=== PATIENT | female | born 1945 | race Caucasian/White ===

== ENCOUNTER 2016-12-01 09:35 | Inpatient (IN) | payer OTHER ==
[2016-11-14 11:31] VITALS: BMI 38.0
--- NOTE | 2016-11-14 12:04 | PAT Medication Instructions ---
Service Date Nov 14, 2016. Current Home Medication List Cholecalciferol (Vitamin D3), 2,000 UNITS PO NOON Cyanocobalamin (Vitamin B-12 Inj), 1,000 MCG IM MONTHLY Dapsone (Dapsone), 1 TAB PO BID Duloxetine HCl (Duloxetine HCl), 1 CAP PO QPM Levothyroxine Sodium (Levothyroxine Sodium), 1 TAB PO QAM Losartan Potassium (Cozaar), 100 MG PO QAM Medication Instructions For Your Scheduled Surgery Cyanocobalamin (Vitamin B-12 Inj), 1,000 MCG IM MONTHLY (continue as usual) - Hold the following medications the morning of surgery: Losartan Potassium (Cozaar), 100 MG PO QAM Cholecalciferol (Vitamin D3), 2,000 UNITS PO NOON Dapsone (Dapsone), 1 TAB PO BID (can take after surgery) - Take the following medications the morning of surgery with a sip of water: Levothyroxine Sodium (Levothyroxine Sodium), 1 TAB PO QAM - Take the following medications as scheduled the night before surgery: Duloxetine HCl (Duloxetine HCl), 1 CAP PO QPM Dapsone (Dapsone), 1 TAB PO BID If you have any questions please call us at [phone] or [phone] ( Radha) or [phone]
[2016-11-14 12:32] LABS: URINE APPEARANCE CLEAR (CLEAR); URINE BILIRUBIN NEG (NEG); URINE COLOR YELLOW; URINE EPITHELIAL CELL AUTO 20-30 /lpf (0-5); URINE NITRITE POS (NEG); URINE SPECIFIC GRAVITY 1.013 (1.000-1.030); UROBILINOGEN NEG (NEG)
[2016-11-14 12:34] LABS: MANUAL MICROSCOPIC REQUIRED? NO; REVIEW REQ? NO
[2016-11-14 12:40] LABS: PROTHROMBIN TIME (PATIENT) 10.6 SECONDS (9.0-12.0)
[2016-11-14 12:52] LABS: ESTIMATED AVERAGE GLUCOSE 74 mg/dl; HA1C FLAG Normal (Normal)
--- NOTE | 2016-11-14 12:53 | DIAGNOSTIC IMAGING REPORT ---
CHEST 2 VIEWS ROUTINE CLINICAL HISTORY: PAT preoperative evaluation COMPARISON STUDY: 07/30/2015 FINDINGS: The bones soft tissues and hemidiaphragms are normal. The cardiomediastinal silhouette is normal. The lungs are clear. The pulmonary vasculature is normal. IMPRESSION: Negative chest. Electronically signed by: Francesco Noonan M.D. 11/14/2016 12:52 PM Dictated Date/Time: 11/14/2016 12:52 PM
[2016-11-14 12:54] LABS: BUN/CREATININE RATIO 22.9 (10-20); CALCIUM 9.2 mg/dl (8.5-10.1); CREATININE 0.86 mg/dl (0.60-1.20); POTASSIUM 4.9 mmol/L (3.5-5.1)
--- NOTE | 2016-11-30 13:15 | HISTORY & PHYSICAL EXAMINATION ---
DATE OF ADMISSION: 12/01/2016 CHIEF COMPLAINT: Right hip pain. HISTORY OF PRESENT ILLNESS: The patient is a 71-year-old female seen and evaluated in our office for complaints of right hip pain and disability. She has pain with prolonged weightbearing and standing activities. She has difficulty in kneeling, bending, and squatting activities. She now desires to proceed with right total hip arthroplasty. PAST MEDICAL HISTORY: Pernicious anemia, hypothyroidism, hypertension, depression, prolonged QT interval. PAST SURGICAL HISTORY: Tonsillectomy, ovarian cyst, cholecystectomy. MEDICATIONS: Levoxyl 125 mcg daily, Cymbalta 60 mg daily, dapsone 25 mg 2 tablets in the a.m. and 2 tablets in the evening, losartan potassium 100 mg half tablet daily, multivitamin daily. ALLERGIES: No known drug allergies. SOCIAL HISTORY AND REVIEW OF SYSTEMS: Noncontributory. PHYSICAL EXAMINATION: GENERAL: Well-nourished, well-developed female who appears her stated age. HEENT: Normocephalic, atraumatic, extraocular movements intact, oropharynx pink and moist. NECK: Supple without adenopathy. LUNGS: Clear to auscultation bilaterally. HEART: Regular rate and rhythm. ABDOMEN: Soft, nontender, nondistended, obese. EXTREMITIES: The upper extremities are within normal limits. The right hip demonstrates limited range of motion. There is limitation of active and passive internal/external rotation with pain at end range. X-RAYS: X-rays were reviewed. She has moderate degenerative change about the right hip with narrowing of the joint space. There is osteophyte formation about the femoral head and acetabulum. ASSESSMENT: Right hip degenerative joint disease. PLAN: Risks versus benefits were discussed. Consent was obtained. The patient's primary care physician is Dr. Nathaniel Muro. Will proceed with right total hip arthroplasty upon preoperative workup and medical clearance.
[2016-12-01] VITALS (7 sets, daily range): BP systolic 106–141; BP diastolic 69–82; PULSE 77–96; TEMP 36.4–36.8; O2SAT 92–99; Ht 162.6 cm; Wt 102.0 kg
[~2016-12-01] VITALS: Ht 162.6 cm; Wt 102.0 kg
[2016-12-01] MEDS: TRANEXAMIC ACID INJ 1,000 MG in SODIUM CHLORIDE 0.9% 100ML 100 ML IV SCH ×2 (06:30→10:22)
[~2016-12-01 09:35] MED LIST: ACETAMINOPHEN 500 MG TAB PO SCH; BUPIVACAINE 0.5 % 5 MG/1 ML PF 10ML VIAL ONE; CEFAZOLIN 2000 MG/60 ML D5W 60 ML IV SCH; CHOL1CAP57 PO; CYAN10002 IM; CYM60 PO; CeleBREX 200 MG CAP PO SCH; DEXAMETHASONE 4 MG TAB PO SCH; DPS25 PO; FAMOTIDINE 20 MG TAB PO SCH; GABAPENTIN 300 MG CAP PO SCH; LACTATED RINGER'S 1000ML 1,000 ML IV SCH; LACTATED RINGER'S 1000ML 500 ML IV ONE; LACTATED RINGER'S 1000ML IV SCH; LEVO125T4 PO; LOSA100T65 PO; METOCLOPRAMIDE HCL 10 MG TAB PO SCH; MIDAZOLAM HCL 1 MG/ML 2ML VIAL ONE; ROPIVACAINE 5MG/ML 30 ML 150 MG, BUPIVACAINE/EPINEPHR 0.5% MPF 30 ML, KETOROLAC TROMETH... INFIL SCH
--- NOTE | 2016-12-01 10:07 | History & Physical Bridge Note ---
H&P Re-Evaluation Bridge Note: I have examined the patient, reviewed the History & Physical and in the interval since the performance of the History & Physical I have noted the following changes of clinical significance: No changes noted
[2016-12-01] MEDS ORDERED: ATROPINE SULFATE 0.1 MG/ML 5ML SYR IV PRN (11:15)
[2016-12-01] MEDS ORDERED: FENTANYL CITRATE INJ 50 MCG/1 ML 2 ML VIAL IV PRN (11:15)
[2016-12-01] MEDS ORDERED: ONDANSETRON INJ 2 MG/ML 2 ML VIAL IV PRN ×2 (11:15→14:00)
[2016-12-01] MEDS ORDERED: EpHEDrine SULFATE INJ 50 MG/ML AMP IV PRN (11:15)
[2016-12-01] MEDS ORDERED: POVIDONE-IODINE OP SOLN 30 ML BTL ONE (11:33)
[2016-12-01] MEDS ORDERED: BACITRACIN 50000 UNIT VIAL ONE (11:33)
[2016-12-01] MEDS ORDERED: ORTHO JOINT ANESTHETIC ONE (11:33)
[2016-12-01] MEDS ORDERED: PROPOFOL IV EMULSION 10 MG/ML 20 ML VIAL IV ONE (12:32)
[2016-12-01] MEDS ORDERED: LIDOCAINE HCL 2% 2 ML VIAL (20MG/ML) ONE ×2 (12:32→12:42)
[2016-12-01] MEDS ORDERED: PHENYLEPHRINE 100MCG/ML 5ML SYR ONE (12:47)
[2016-12-01] MEDS ORDERED: EpHEDrine SULFATE 50MG/5ML SYR ONE (12:47)
--- NOTE | 2016-12-01 13:14 | [facility] Post Operative Brief Note ---
Immediate Operative Summary Operative Date Dec 01, 2016. Pre-Operative Diagnosis Right hip degenerative joint disease Post-Operative Diagnosis same as preoperative diagnosis Procedure(s) Performed Right Total Hip Arthroplasty uncemented Surgeon Dr. Munoz [employer] Surgeon(s) Phill Allred PA-C Estimated Blood Loss 150ml Findings OA with obesity Specimens A. Right femoral head Complication(s) None Disposition Surgical ICU
--- NOTE | 2016-12-01 13:41 | OPERATIVE REPORT ---
DATE OF OPERATION: 12/01/2016 PREOPERATIVE DIAGNOSIS: Osteoarthritis right hip. POSTOPERATIVE DIAGNOSIS: Osteoarthritis right hip. PROCEDURE: Right connective total hip arthroplasty. SURGEON: Dr. Munoz. RESTROOMS OR LOUNGES MAID: Nasrin. ANESTHESIA: spinal . COMPLICATIONS: None. OPERATION AND FINDINGS: PROCEDURE: Following induction of adequate anesthesia, the patient was placed in left lateral decubitus position and right Joni-Langenbeck incision was made. Subcutaneous tissue was sharply dissected. Electrocautery used for hemostasis. The fascia was incised throughout the length of the wound and a lockhart scissor placed beneath the short external rotators. The pyriformis was tagged with #1 Vicryl. The short external rotators were divided from the posterior aspect of the femur using electrocautery. These were swept posteriorly. A T-capsulotomy incision was made and the hip was dislocated using a combination of flexion, adduction, and internal rotation. Exposure of the femoral neck with old-style Hohmann and a blunt Hohmann was carried out and a femoral rasp was utilized as a guide for making the appropriate level femoral neck cut. This bone fragment was removed and reserved on the back table. Next, attention was turned to the acetabulum where bone hook was used to retract the femur while the offset retractors were placed anterior and posteriorly. A double-angled Hohmann was placed in superior and anterior position exposing the acetabulum nicely. Acetabular labrum as well as posterior capsule elements were removed using a long knife and a long pickup. Fovea centralis was cleared of all soft tissue. Sequential reamings were carried up to a size 50 and decision was made to proceed with impaction of a size 50 trabecular metal cup. This was impacted and held using a single 35 mm bone screw. The acetabular liner was placed with 15 of elevated posterior wall in the superior and posterior position. Next, attention was turned to the femoral portion of the case where a Bovie and pickup was used to further clear short external rotators from their insertion on the femur. Box osteotome was used to gain access to the femoral canal and the T-handled rasp and a rattail rasp were used to further open and lateral the canal. Sequentially raspings were carried up to a size 4 which gave good fit and fill of the proximal femur. A trial reduction was carried out and size 4 offset femoral neck component was chosen as the size to be used. A -5 x 36 mm ceramic femoral head was impacted into position, +0 head was utilized. The trial reduction was stable in all degrees of rotation with no [id number] impingement. The hip was dislocated. The trial components were removed and the final femoral stem, neck, and femoral head combination were assembled on the back table and impacted into position. Hip was relocated. Range of motion checked once again successful and the wound was irrigated. The pyriformis repaired to the greater trochanter using #1 Vicryl [id number] suture. A Prevena drain was placed and the fascia was closed using #1 Vicryl, subcutaneous tissue was closed using 0 Dexon, and skin was closed with sheyla. Sterile dressing of Adaptic, 4 x 4's, ABDs, and foam tape was applied. The patient tolerated the procedure well. Recovery room stable. Due to the complex nature of the procedure, the entire surgery was performed with the operational assistance of ____MANSOOR. The res habilitation assistant, under direct supervision, was involved in the actual performance of all aspects of the surgical procedure including hemostasis, tissue retraction and incision, instrument management, patient positioning, and wound closure. I attest to the content of the Intraoperative Record and any orders documented therein. Any exceptions are noted below. [place]
[2016-12-01] MEDS ORDERED: DiphenhydrAMINE HCL 50 MG/ML VIAL IV PRN (14:00)
[2016-12-01] MEDS ORDERED: ZOLPIDEM TARTRATE 5 MG TAB PO PRN (14:00)
[2016-12-01] MEDS ORDERED: ALUMINUM/MAGNESIUM/SIMETH (MAALOX MAX) 30 ML UDC PO PRN (14:00)
[2016-12-01] MEDS ORDERED: MAGNESIUM HYDROXIDE SUSP 30 ML UDC PO PRN (14:00)
[2016-12-01] MEDS ORDERED: MoRPHine SULFATE 2 MG/ML CARP IV PRN (14:00)
[2016-12-01] MEDS ORDERED: BISACODYL 10 MG SUPP PR PRN (14:00)
--- NOTE | 2016-12-01 14:22 | Anesthesiology Progress Note ---
Anesthesia Post Op Note Date & Time Dec 01, 2016 at 14:23 Vital Signs Pain Intensity: 0 Vital Signs Past 12 Hours Date Time Temp Pulse Resp B/P Pulse Ox O2 Delivery O2 Flow Rate FiO2 12/01/16 14:20 87 20 12/01/16 14:20 87 20 99 12/01/16 14:19 133/80 12/01/16 14:15 84 22 12/01/16 14:15 84 22 98 12/01/16 14:14 134/76 12/01/16 14:10 87 15 12/01/16 14:10 87 15 100 12/01/16 14:09 85 15 12/01/16 14:09 85 15 100 12/01/16 14:05 114/95 12/01/16 14:04 87 20 12/01/16 14:04 87 20 100 12/01/16 13:59 89 17 12/01/16 13:59 87 17 116/73 99 12/01/16 13:54 83 17 12/01/16 13:54 84 17 113/64 99 12/01/16 13:49 36.2 83 15 115/67 100 Mask 10 12/01/16 13:49 83 17 110/55 12/01/16 13:49 17 12/01/16 09:54 36.8 93 18 141/72 92 Room Air Notes Mental Status: alert / awake / arousable, participated in evaluation Pt Amnestic to Procedure: Yes Nausea / Vomiting: adequately controlled Pain: adequately controlled Airway Patency, RR, SpO2: stable & adequate BP & HR: stable & adequate Hydration State: stable & adequate Neuraxial Anesthesia: was administered, sensory block is resolving Anesthetic Complications: no major complications apparent
--- NOTE | 2016-12-01 14:23 | DIAGNOSTIC IMAGING REPORT ---
AP PELVIS, CROSSTABLE LATERAL RIGHT HIP History: Right total hip arthroplasty. Degenerative arthritis. Postop. FINDINGS: The patient is status post a right total hip arthroplasty. The hardware is intact. No fracture or dislocation. Skin sheyla and surgical drains are in place. IMPRESSION: Right total hip arthroplasty. No evidence for hardware complication Electronically signed by: Rex Small M.D. 12/01/2016 2:22 PM Dictated Date/Time: 12/01/2016 2:21 PM
[2016-12-01] MEDS ORDERED: MoRPHine SULFATE 10 MG/ML CARP/VIAL IV PRN (15:15)
[2016-12-01] MEDS ORDERED: MoRPHine SULFATE 4 MG/ML 1 ML CARP\\VIAL IV PRN (15:15)
[2016-12-01] MEDS: D5W AND 1/2NSS + 20MEQ KCL 1,000 ML IV SCH (16:54)
[2016-12-01] MEDS: OXYCODONE HCL IR 5 MG TAB (IMMEDIATE RELEASE) PO PRN ×2 (16:54→20:25)
[2016-12-01] MEDS: FERROUS GLUCONATE 324 MG TAB PO SCH (20:15)
[2016-12-01] MEDS: KETOROLAC TROMETHAMINE 15 MG/ML VIAL IV. SCH ×2 (20:16→23:48)
[2016-12-01] MEDS: CEFAZOLIN IV 2,000 MG in DEXTROSE 5% 50ML 50 ML IV SCH (20:24)
[2016-12-01] MEDS: DULOXETINE HCL 60 MG CAP PO SCH (20:31)
[2016-12-01] MEDS: DOCUSATE SODIUM 100 MG CAP PO SCH (20:32)
[2016-12-01] MEDS: SENNA 8.6 MG TAB PO SCH (20:34)
[2016-12-01] MEDS: DAPSONE 25 MG TAB PO SCH (20:34)
[2016-12-01] MEDS: ASPIRIN 81 MG ECTAB PO SCH (20:34)
[2016-12-01] MEDS: ACETAMINOPHEN 500 MG TAB PO SCH (22:32)
[2016-12-02] VITALS (8 sets, daily range): BP systolic 105–143; BP diastolic 60–79; PULSE 78–94; TEMP 36.6–36.9; O2SAT 94–97
[2016-12-02] MEDS: D5W AND 1/2NSS + 20MEQ KCL 1,000 ML IV SCH (03:45)
[2016-12-02] MEDS: CEFAZOLIN IV 2,000 MG in DEXTROSE 5% 50ML 50 ML IV SCH (03:48)
[2016-12-02] MEDS: OXYCODONE HCL IR 5 MG TAB (IMMEDIATE RELEASE) PO PRN ×3 (03:49→21:43)
[2016-12-02] MEDS: LEVOTHYROXINE 125 MCG TAB PO SCH (05:53)
[2016-12-02] MEDS: ACETAMINOPHEN 500 MG TAB PO SCH ×3 (05:53→21:41)
[2016-12-02] MEDS: KETOROLAC TROMETHAMINE 15 MG/ML VIAL IV. SCH ×2 (05:53→11:56)
[2016-12-02 05:56] LABS: BASO % 0.1 %; BASO ABS # 0.02 K/uL (0-0.2); COMPLETE YES; HEMATOCRIT 27.8 % (37-47); IG% 0.3 %; LYMPH % 6.9 %; LYMPH ABS # 1.26 K/uL (1.2-3.4); MEAN CELL VOLUME 91.1 fL (80-100); MEAN CORPUSCULAR HEMOGLOBIN 29.5 pg (25-34); MEAN CORPUSCULAR HGB CONC 32.4 g/dl (32-36); MEAN PLATELET VOLUME 10.3 fL (7.4-10.4); NEUT % 83.7 %; PLATELET COUNT 240 K/uL (130-400); RED BLOOD COUNT 3.05 M/uL (4.2-5.4)
[2016-12-02 06:28] LABS: BUN/CREATININE RATIO 22.8 (10-20); CALCIUM 8.4 mg/dl (8.5-10.1); CREATININE 1.1 mg/dl (0.60-1.20); POTASSIUM 4.8 mmol/L (3.5-5.1)
--- NOTE | 2016-12-02 07:44 | Orthopedic Progress Note ---
Orthopedic Progress Note Date of Service Dec 02, 2016. Subjective Post OP Day: 1 Reports: feeling well Objective N/V intact, dressing C/D/I (Hemovac in place), toes mobile Date Time Temp Pulse Resp B/P Pulse Ox O2 Delivery O2 Flow Rate FiO2 12/02/16 07:00 Room Air 12/02/16 03:39 36.8 91 18 143/79 95 Room Air 12/01/16 23:45 Room Air 12/01/16 23:23 36.5 77 18 112/71 94 Room Air 12/01/16 19:05 36.4 94 16 106/69 92 Nasal Cannula 2.0 12/01/16 17:31 36.6 96 114/73 94 Nasal Cannula 2.0 12/01/16 16:23 36.4 96 16 140/82 99 Nasal Cannula 2.0 12/01/16 16:00 36.6 94 16 136/81 97 Nasal Cannula 2.0 12/01/16 15:30 96 Nasal Cannula 2.0 12/01/16 15:30 96 Nasal Cannula 2.0 12/01/16 15:14 120/83 12/01/16 15:10 97 17 97 12/01/16 15:10 98 17 12/01/16 15:09 119/79 12/01/16 15:05 98 18 98 12/01/16 15:05 97 18 12/01/16 15:04 132/80 12/01/16 15:02 96 16 98 12/01/16 15:02 96 16 12/01/16 14:59 124/77 12/01/16 14:57 96 17 98 12/01/16 14:57 97 17 12/01/16 14:54 136/90 12/01/16 14:52 95 17 98 12/01/16 14:52 95 17 12/01/16 14:49 135/101 12/01/16 14:47 92 16 97 12/01/16 14:47 92 16 12/01/16 14:44 127/90 12/01/16 14:42 91 15 12/01/16 14:42 91 15 98 12/01/16 14:39 137/80 12/01/16 14:37 91 16 12/01/16 14:37 91 16 98 12/01/16 14:34 122/69 12/01/16 14:32 89 16 12/01/16 14:32 88 16 97 12/01/16 14:31 88 15 99 12/01/16 14:31 88 15 12/01/16 14:29 136/66 12/01/16 14:26 88 17 99 12/01/16 14:26 87 17 12/01/16 14:24 134/79 12/01/16 14:21 88 15 98 12/01/16 14:21 88 15 12/01/16 14:20 36.6 12/01/16 14:20 87 20 12/01/16 14:20 87 20 99 12/01/16 14:19 133/80 12/01/16 14:15 84 22 12/01/16 14:15 84 22 98 12/01/16 14:14 134/76 12/01/16 14:10 87 15 12/01/16 14:10 87 15 100 12/01/16 14:09 85 15 12/01/16 14:09 85 15 100 12/01/16 14:05 114/95 12/01/16 14:04 87 20 12/01/16 14:04 87 20 100 12/01/16 13:59 89 17 12/01/16 13:59 87 17 116/73 99 12/01/16 13:54 83 17 12/01/16 13:54 84 17 113/64 99 12/01/16 13:49 36.2 83 15 115/67 100 Mask 10 12/01/16 13:49 83 17 110/55 12/01/16 13:49 17 12/01/16 09:54 36.8 93 18 141/72 92 Room Air Laboratory Results 24 Hours: Test 12/02/16 05:40 White Blood Count 18.20 K/uL Red Blood Count 3.05 M/uL Hemoglobin 9.0 g/dL Hematocrit 27.8 % Mean Corpuscular Volume 91.1 fL Mean Corpuscular Hemoglobin 29.5 pg Mean Corpuscular Hemoglobin Concent 32.4 g/dl Platelet Count 240 K/uL Mean Platelet Volume 10.3 fL Neutrophils (%) (Auto) 83.7 % Lymphocytes (%) (Auto) 6.9 % Monocytes (%) (Auto) 9.0 % Eosinophils (%) (Auto) 0.0 % Basophils (%) (Auto) 0.1 % Neutrophils # (Auto) 15.23 K/uL Lymphocytes # (Auto) 1.26 K/uL Monocytes # (Auto) 1.64 K/uL Eosinophils # (Auto) 0.00 K/uL Basophils # (Auto) 0.02 K/uL Assessment & Plan Assessment: 71 yo female stable POD #1 s/p right CEDRIC, acute blood loss anemia(h/o pernicious anemia) Plan: 1. Med management 2. DVT prophylaxis- ASA, TEDs, SCDs 3. PT/OT 4. D/C planning- home w/ HH
--- NOTE | 2016-12-02 07:47 | Discharge Instructions ---
Discharge Instructions Admission Reason for Admission: Right Hip Osteoarthritis Discharge Discharge Diagnosis / Problem: right hip arthritis Discharge Goals Goal(s): Decrease discomfort, Improve function Activity Recommendations Activity Limitations: as noted below Weightbearing Status: Right weightbearing (as tolerated) . Instructions / Follow-Up Instructions / Follow-Up ACTIVITY RECOMMENDATIONS: SELF CARE INSTRUCTIONS AFTER TOTAL HIP REPLACEMENT Until the incision and soft tissues around your hip have healed, there is a possibility that the hip prosthesis could dislocate. A. Observe the following precautions to prevent dislocation: 1. Don't bend your hip greater than 90 degrees. 2. Avoid crossing your legs or ankles while standing or lying. 3. Sit with your feet placed 6 inches apart. 4. When sitting, keep your knees below your hips. Sit on a firm surface, avoid deep, soft chairs and couches. Use an elevated toilet seat in the bathroom. 5. Don't bend over at the waist. Use a long handled shoehorn and a sock aid to help you put on your shoes and socks. A fleet maintenance manager can help you potato picker objects that are too high or too low to reach. 6. Keep car riding to a minimum for at least one month after surgery. B. Your balance may be shaky for a while. Use crutches or a walker until directed by your doctor. C. Use hand rails when walking on stairs. D. Wear low heeled shoes with non-slip soles. E. Be sure that your floors are free of things that could trip you - throw rugs , electrical cords, small objects. Avoid wet and waxed floors, especially with crutches and canes. F. Try to walk several times a day with rest periods between. G. Continue with all the exercises taught to you in the hospital. Again, make walking a part of your daily routine. SPECIAL CARE INSTRUCTIONS: VERY IMPORTANT TO READ AND REVIEW A. You may still be at risk for phlebitis and blood clots. 1. Wear surgical stockings (FARZANA hose) for 2 weeks after surgery to improve circulation and reduce swelling. 2. Take Aspirin 81mg twice daily for 4 weeks or as directed by your doctor. This is your blood thinner. 3. High risk patients may be prescribed a stronger blood thinner if necessary. 4. If you are on Coumadin normally, your family doctor/field representatives director should monitor your blood work. Expect a phone call the day of or the day after bloodwork is drawn to adjust your dosage. B. You must take antibiotics before having dental work, bladder, bowel and other surgery. Your doctor will provide you with a permanent card to carry describing precautions. C. Call [facility] if you have a fever, redness or swelling around the incision, cloudy drainage from incision, or sudden increase in pain in your hip, not relieved by your regular pain medication. D. Please call the office at if you have any concerns or questions about your operation or recovery. * YOU MAY SHOWER, NO TUB BATHS UNTIL CLEARED BY YOUR DOCTOR. * WEAR FARZANA HOSE 20 HOURS PER DAY FOR 2 WEEKS. * YOU SHOULD USE A WALKER OR CRUTCHES FOR 2-4 WEEKS. THIS WILL HELP PREVENT STRAIN ON YOUR HIP MUSCLE AND ALLOW IT TO HEAL PROPERLY. YOU MAY WEAN TO A CANE TOLERATED. * MOST PATIENTS WILL HAVE HOME NURSING FOR THERAPY. IF YOU DECIDE TO DO OUTPATIENT PHYSICAL THERAPY, PLEASE SCHEDULE THIS 3 TIMES PER WEEK. Silverlon- This is a large adhesive bandage that contains silver ions. This helps your incision heal by fighting off bacteria and protecting it from the outside environment. You are permitted to shower with this dressing. This will remain on your incision for 7 days and then should be removed. Some visible blood or drainage through the dressing window is normal. If there is significant drainage or leaking noted before the 7 days notify your doctor's office immediately. Once removed, keep incision clean and dry. If there is any drainage or redness noted, please call your surgeon. FOLLOW UP VISIT: If appointment is not already scheduled: Please call [facility] to make a follow-up appointment for 2 weeks after your surgery at . Current Hospital Diet Patient's current hospital diet: Gluten Free Diet Discharge Diet Recommended Diet: Regular Diet Procedures Procedures Performed: Right Total Hip Arthroplasty uncemented Pending Studies Studies pending at discharge: no Laboratory Results Hemoglobin A1c Test 11/14/16 12:09 Range/Units Estimated Average Glucose 74 mg/dl Hemoglobin A1c 4.2 L 4.5-5.6 % Medical Emergencies . Who to Call and When: Medical Emergencies: If at any time you feel your situation is an emergency, please call 911 immediately. . Non-Emergent Contact Non-Emergency issues call your: Surgeon Call Non-Emergent contact if: temperature is above 101.5, your pain is not controlled, wound has increased drainage, wound has increased redness . "Provider Documentation" section prepared by Andrade Alexandra PA-C. VTE Core Measure Inpt VTE Proph given/why not?: Other Anticoagulation (ASA 81mg bid), T.E.D. Stockings, SCD's [place] Drug Monitoring Program Search Results: patient reviewed within database
--- NOTE | 2016-12-02 08:16 | Anesthesiology Progress Note ---
Anesthesia Post Op Note Date & Time Dec 02, 2016 at 08:14 Vital Signs Vital Signs Past 12 Hours Date Time Temp Pulse Resp B/P Pulse Ox O2 Delivery O2 Flow Rate FiO2 12/02/16 08:10 36.6 80 14 120/60 97 Room Air 12/02/16 07:00 Room Air 12/02/16 03:39 36.8 91 18 143/79 95 Room Air 12/01/16 23:45 Room Air 12/01/16 23:23 36.5 77 18 112/71 94 Room Air Notes Mental Status: alert / awake / arousable, participated in evaluation Pt Amnestic to Procedure: Yes Nausea / Vomiting: adequately controlled Pain: adequately controlled Airway Patency, RR, SpO2: stable & adequate BP & HR: stable & adequate Hydration State: stable & adequate Neuraxial Anesthesia: was administered, sensory block resolved Anesthetic Complications: no major complications apparent
[2016-12-02] MEDS: FERROUS GLUCONATE 324 MG TAB PO SCH ×3 (08:42→18:14)
[2016-12-02] MEDS: ASPIRIN 81 MG ECTAB PO SCH ×2 (08:43→21:39)
[2016-12-02] MEDS: DOCUSATE SODIUM 100 MG CAP PO SCH ×2 (08:43→21:39)
[2016-12-02] MEDS: DAPSONE 25 MG TAB PO SCH ×2 (08:43→21:39)
[2016-12-02] MEDS: PANTOprazole SOD 40 MG TAB PO SCH (08:44)
[2016-12-02] MEDS: MULTIVITAMIN TAB PO SCH (08:45)
[2016-12-02] MEDS: LOSARTAN POTASSIUM 50 MG TAB PO SCH (08:45)
[2016-12-02] MEDS ORDERED: CHOLECALCIFEROL 1000 INTER.UNIT TAB PO SCH (12:30)
[2016-12-02] MEDS ORDERED: ACET-1138 PO (16:33)
[2016-12-02] MEDS ORDERED: CLC100 PO (16:33)
[2016-12-02] MEDS ORDERED: ONDA8TAB6 PO (16:33)
[2016-12-02] MEDS ORDERED: ASPEC81 PO (16:33)
[2016-12-02] MEDS ORDERED: RXC5 PO (16:33)
[2016-12-02] MEDS: DULOXETINE HCL 60 MG CAP PO SCH (21:39)
[2016-12-02] MEDS: SENNA 8.6 MG TAB PO SCH (21:40)
[2016-12-03] MEDS: LEVOTHYROXINE 125 MCG TAB PO SCH (05:50)
[2016-12-03] MEDS: ACETAMINOPHEN 500 MG TAB PO SCH (05:51)
--- NOTE | 2016-12-03 06:59 | Orthopedic Progress Note ---
Orthopedic Progress Note Date of Service Dec 03, 2016. Subjective Post OP Day: 2 Reports: feeling well, pain controlled w PO medications, Denies: SOB, calf pain , chest pain, complaints, light headedness, nausea / vomiting Objective calves soft nontender, N/V intact, capillary refill less than 2 sec., dressing C /D/I, A&O x3, toes mobile Date Time Temp Pulse Resp B/P Pulse Ox O2 Delivery O2 Flow Rate FiO2 12/03/16 00:26 Room Air 12/02/16 23:54 36.9 90 17 105/69 94 Room Air 12/02/16 15:49 36.7 79 18 121/73 95 Room Air 12/02/16 15:45 95 Room Air 12/02/16 11:42 36.7 78 13 140/70 95 Room Air 12/02/16 10:32 94 94 12/02/16 08:50 97 Room Air 12/02/16 08:10 36.6 80 14 120/60 97 Room Air 12/02/16 07:00 Room Air Assessment & Plan Assessment: 71 yo female stable POD #2 s/p right CEDRIC, acute blood loss anemia(h/o pernicious anemia) Plan: 1. Med management 2. DVT prophylaxis- ASA, TEDs, SCDs 3. PT/OT 4. D/C planning- home w/ HH Discharge Planning Discharge Planning: home with home health DVT Prophylaxis: TEDs, SCDs, ASA Therapy: Physical Therapy
[2016-12-03 08:16] VITALS: BP 118/72; PULSE 94; TEMP 36.6; O2SAT 93
[2016-12-03] MEDS: LOSARTAN POTASSIUM 50 MG TAB PO SCH (08:35)
[2016-12-03] MEDS: FERROUS GLUCONATE 324 MG TAB PO SCH (08:35)
[2016-12-03] MEDS: MULTIVITAMIN TAB PO SCH (08:35)
[2016-12-03] MEDS: PANTOprazole SOD 40 MG TAB PO SCH (08:35)
[2016-12-03] MEDS: OXYCODONE HCL IR 5 MG TAB (IMMEDIATE RELEASE) PO PRN (08:41)
[2016-12-03] MEDS: DOCUSATE SODIUM 100 MG CAP PO SCH (08:56)
[2016-12-03] MEDS: DAPSONE 25 MG TAB PO SCH (08:56)
[2016-12-03] MEDS: ASPIRIN 81 MG ECTAB PO SCH (08:56)
[2016-12-03 09:47] VITALS: O2SAT 93
[2016-12-03 10:26] VITALS: BP 118/72; PULSE 94; TEMP 36.6; O2SAT 93
--- NOTE | 2016-12-05 11:27 | DISCHARGE SUMMARY ---
DISCHARGE DIAGNOSIS: Degenerative joint disease, right hip. SECONDARY DIAGNOSES: Pernicious anemia, hypothyroidism, hypertension, depression and prolong QT interval. CONSULTS: None. COMPLICATIONS: None. PROCEDURE: Right total hip arthroplasty performed by Dr. Munoz on 12/01/2016. BRIEF HISTORY: As dictated in the history and physical. HOSPITAL SUMMARY: The patient was admitted on the above date and had the above-noted surgery performed which she tolerated well. On the first postoperative day, she was feeling well, neurovascularly intact. Dressings clean, dry and intact. Toes were mobile. Vital signs were stable. She is afebrile and hemoglobin was 9.0. She was started on physical therapy protocol and continued on DVT prophylaxis and pain management. By her second postoperative day, she was feeling well and pain was controlled. Vital signs were stable. She was afebrile. Calves were soft and nontender. Neurovascularly intact. Dressings clean, dry and intact. Toes were mobile. She was progressing with her physical therapy and was remaining stable and it was felt she be discharged to home with home health services. For further review, please see chart. LAB AND X-RAY DATA: As per chart. DISCHARGE INSTRUCTIONS: The patient will be discharged to home in satisfactory condition on 12/03/2016. DIET: Gluten free. ACTIVITY: Weightbearing as tolerated right lower extremity. Follow CEDRIC instruction sheets and special care instructions as noted and follow up with Dr. Munoz in 2 weeks. The patient to call for appointment if one has not been made for you. DISCHARGE MEDICATIONS: Acetaminophen 1000 mg p.o. q. 8 hours, aspirin 81 mg p.o. b.i.d., Colace 100 mg p.o. b.i.d., Zofran 8 mg p.o. q. 8 hours p.r.n., oxycodone 5-10 mg p.o. q. 4 hours p.r.n., resume taking vitamin D3 2000 units p.o. at noon, vitamin B12 injection 1000 mcg monthly, dapsone 25 mg p.o. b.i.d., duloxetine 60 mg 1 cap p.o. q.p.m., levothyroxine 125 mcg p.o. q.a.m. and losartan potassium 100 mg p.o. q.a.m.
[2017-03-24] MEDS ORDERED: DULO60CA44 PO (15:18)
[2017-03-24] MEDS ORDERED: CHOL1000 PO (15:18)
[2017-03-24] MEDS ORDERED: LOSA1TAB38 PO (15:18)
[2017-03-24] MEDS ORDERED: LEVO125T4 PO (15:18)
== END 2016-12-03 11:44 | disposition home health service (06) | DRG 470 ==
LOC: ENRESERVDT → ENRESERVTM → C.ACU 09:35 → C.3E 10:15
PROC: 0SR90JA Replacement of Right Hip Joint with Synthetic Substitute, Uncemented, Open Approach (ICD-10-PCS; principal; 2016-12-01 12:15)
DX: M16.11 Unilateral primary osteoarthritis, right hip (principal); D62 Acute posthemorrhagic anemia; E03.9 Hypothyroidism, unspecified; I10 Essential (primary) hypertension; F32.9 Major depressive disorder, single episode, unspecified; Z90.49 Acquired absence of other specified parts of digestive tract; Z79.899 Other long term (current) drug therapy

== ENCOUNTER → 2017-02-13 | Outpatient (CLI) | payer OTHER ==
[~2017-02-13] MED LIST changes: +ACET-1138 PO; -ACETAMINOPHEN 500 MG TAB PO SCH; +ASPEC81 PO; -BUPIVACAINE 0.5 % 5 MG/1 ML PF 10ML VIAL ONE; -CEFAZOLIN 2000 MG/60 ML D5W 60 ML IV SCH; +CHOL1000 PO; +CLC100 PO; -CeleBREX 200 MG CAP PO SCH; -DEXAMETHASONE 4 MG TAB PO SCH; +DULO60CA44 PO; -FAMOTIDINE 20 MG TAB PO SCH; -GABAPENTIN 300 MG CAP PO SCH; -LACTATED RINGER'S 1000ML 1,000 ML IV SCH; -LACTATED RINGER'S 1000ML 500 ML IV ONE; -LACTATED RINGER'S 1000ML IV SCH; -LEVO125T4 PO; +LEVO125T5 PO; +LOSA1TAB38 PO; -METOCLOPRAMIDE HCL 10 MG TAB PO SCH; -MIDAZOLAM HCL 1 MG/ML 2ML VIAL ONE; +ONDA8TAB6 PO; -ROPIVACAINE 5MG/ML 30 ML 150 MG, BUPIVACAINE/EPINEPHR 0.5% MPF 30 ML, KETOROLAC TROMETH... INFIL SCH; +RXC5 PO
--- NOTE | 2017-02-13 14:25 | MAMMOGRAPHY REPORT ---
BILATERAL DIGITAL SCREENING MAMMOGRAM WITH CAD: 02/13/2017 CLINICAL HISTORY: Routine screening. Patient has no complaints. TECHNIQUE: Bilateral CC and MLO views were obtained. Current study was also evaluated with a Compute r Aided Detection (CAD) system. COMPARISON: Comparison is made to exams dated: 08/04/2014 mammogram, 03/27/2013 mammogram - [facility], 09/19/2008, and 08/03/2004 mammogram - [facility]. BREAST COMPOSITION: The tissue of both breasts is almost entirely fatty. FINDINGS: An asymmetry with associated coarse calcification in the 3:00 anterior left breast appears similar in size dating back to 09/19/2008 and the calcification has coarsened, suggesting benignity . There are other scattered bilateral benign coarse calcifications in the breasts. No new suspicio us mass, architectural distortion or cluster of suspicious microcalcifications is seen. IMPRESSION: ACR BI-RADS CATEGORY 1: NEGATIVE There is no mammographic evidence of malignancy. A 1 year screening mammogram is recommended. The p atient will receive written notification of the results. Approximately 10% of breast cancers are not detected with mammography. A negative mammographic repor t should not delay biopsy if a clinically suggestive mass is present. Anum Oliver M.D. ay/:02/13/2017 08:15:19 Technology Adoption Manager: Stefany Bassett, M, [facility] letter sent: Normal 1/2 BI-RADS Code: ACR BI-RADS Category 1: Negative
== END | disposition home or self-care (01) ==
LOC: C.MAMM 07:20
PROVIDERS: ATTEND Family Medicine
DX: Z12.31 Encounter for screening mammogram for malignant neoplasm of breast (principal)

== ENCOUNTER → 2017-04-03 | Day surgery (SDC) | payer OTHER ==
[2017-03-24 15:18] VITALS: Ht 161.9 cm; Wt 101.8 kg
[~2017-04-03] VITALS: Ht 161.9 cm; Wt 101.8 kg
[~2017-04-03] MED LIST changes: -ACET-1138 PO; -ASPEC81 PO; +ATROPINE SULFATE 0.1 MG/ML 5ML SYR IV PRN; -CHOL1CAP57 PO; -CLC100 PO; -CYAN10002 IM; -CYM60 PO; +EpHEDrine SULFATE INJ 50 MG/ML AMP IV PRN; +LIDOCAINE HCL 2% 2 ML VIAL (20MG/ML) ONE; -LOSA100T65 PO; -ONDA8TAB6 PO; +PROPOFOL IV EMULSION 10 MG/ML 20 ML VIAL IV ONE; -RXC5 PO; +SODIUM CHLORIDE 0.9% 500ML 500 ML IV ONE
--- NOTE | 2017-04-03 13:39 | Endo History and Physical ---
History & Physical Date of Service: Apr 03, 2017. Chief Complaint: abdominal pain, Referring Physician: Dr. Nathaniel Muro History of Present Illness 71 yo CF who presents for EGD secondary to abdominal pain. Past Medical History High Cholesterol, Hypertension, Thyroid Disease, Depression Past Surgical History Hx Cardiac Surgery: No Hx Internal Defibrillator: No Hx Pacemaker: No Hx Abdominal Surgery: Yes (LAP PRAMOD, GASTRIC BYPASS , RT OVARIAN CYST REMOVAL ) Hx of Implantable Prosthesis: No Hx Post-Op Nausea and Vomiting: No Hx Cancer Surgery: No Hx Thoracic Surgery: No Hx Orthopedic: Yes (RT CEDRIC) Hx Urinary Tract Surgery: No Family History None Social History Smoking Status: Former Smoker Hx Substance Use: No Hx Alcohol Use: No Allergies Coded Allergies: Gluten (Verified Allergy, Intermediate, skin rash, 03/24/17) NO KNOWN DRUG ALLERGIES (Verified Allergy, Unknown, ., 03/24/17) Current Medications Reported Home Medications Medications Dose Route/Sig Max Daily Dose Days Date Category Vitamin D3 (Cholecalciferol) 1,000 Unit Tab 1 Tab PO QAM 90 03/24/17 Reported Cozaar (Losartan Potassium) 100 Mg Tab 50 Mg PO QAM 03/24/17 Reported Levothyroxine Sodium 125 Mcg Tab 1 Tab PO QAM 90 03/24/17 Reported Cymbalta (Duloxetine Hcl) 60 Mg Cap 60 Mg PO HS 03/24/17 Reported Dapsone 25 Mg Tab 2 Tab PO BID 07/16/15 Reported Vital Signs Weight (Kilograms): 101.82 Height (Feet): 5 Height (Inches): 3.75 Date Time Temp Pulse Resp B/P (MAP) Pulse Ox O2 Delivery O2 Flow Rate FiO2 04/03/17 13:34 36.7 102 18 167/75 (105) 98 Room Air Physical Exam General Appearance: WD/WN, no apparent distress Respiratory/Chest: Auscultation: breath sounds normal Cardiovascular: Heart Auscultation: RRR Abdomen: Bowel Sounds: normal Inspection & Palpation: soft, non-distended, no tenderness, guarding & rebound Assessment and Plan Assessment: 71 yo CF who presents for EGD secondary to abdominal pain. Plan: Proceed with EGD.
--- NOTE | 2017-04-03 14:10 | Discharge Instructions ---
Endoscopy Patient Instructions Date / Procedure(s) Performed Apr 03, 2017. EGD Allergy Information Coded Allergies: Gluten (Verified Allergy, Intermediate, skin rash, 03/24/17) NO KNOWN DRUG ALLERGIES (Verified Allergy, Unknown, ., 03/24/17) Discharge Date / Findings Apr 03, 2017. Ulcer at Gastric bypass anastomosis Medication Instructions 1) Start Carafate 1g by mouth four times daily before meals and at bedtime for 10 days. 2) OK to resume all medications today as prescribed Reported Home Medications Medications Dose Route/Sig Max Daily Dose Days Date Category Vitamin D3 (Cholecalciferol) 1,000 Unit Tab 1 Tab PO QAM 90 03/24/17 Reported Cozaar (Losartan Potassium) 100 Mg Tab 50 Mg PO QAM 03/24/17 Reported Levothyroxine Sodium 125 Mcg Tab 1 Tab PO QAM 90 03/24/17 Reported Cymbalta (Duloxetine Hcl) 60 Mg Cap 60 Mg PO HS 03/24/17 Reported Dapsone 25 Mg Tab 2 Tab PO BID 07/16/15 Reported Provider Instructions Activity Restrictions - No exercising or heavy lifting for 24 hours. - Do not drink alcohol the day of the procedure. - Do not drive a car or operate machinery until the day after the procedure. - Do not make any important decisions or sign important papers in 24 hours after the procedure. Following Day: - Return to full activity which may include returning to work/school. Diet Start your diet with liquids and light foods (jello, soup, juice, toast). Then eat your usual diet if not nauseated. Treatment For Common After Affects For mild abdominal pain, bloating, or excessive gas: - Rest - Eat lightly - Lie on right side Follow-Up Information Follow-up with Dr. Nathaniel Muro as scheduled Anesthesia Information What You Should Know You have had a procedure that required some medicine to reduce anxiety and discomfort. This treatment is called moderate sedation. After receiving the treatment, you may be sleepy, but you will be able to breathe on your own. The effects of the treatment may last for several hours. Follow these instructions along with Activity/Diet recommendations noted above: * Do NOT do anything where dizziness or clumsiness would be dangerous. * Rest quietly at home today, then you can be up and about tomorrow. * Have a responsible person stay with you the rest of today. * You may have had an I.V. today. If so, you may take the dressing off later today. Recommendations Call your doctor if: * Trouble breathing * Continuous vomiting for more than 24 hours * Temperature above 101 degrees * Severe abdominal pain or bloating * Pain not relieved by pain medicine ordered * There is increased drainage or redness from any incision * A large amount of rectal bleeding greater than 2-3 tablespoons. (If you had a polyp/s removed or have hemorrhoids, a small amount of blood - from the rectum is to be expected.) * You have any unanswered questions or concerns. IN THE EVENT OF A SERIOUS EMERGENCY, GO TO THE NEAREST EMERGENCY ROOM Your discharge instructions were prepared by provider Magno Barr. Patient Instructions Signature Page Juliana Zuniga Patient (or Guardian) Signature/Date: I have read and understand the instructions given to me by my caregivers. Caregiver/RN/Doctor Signature/Date: The above-named patient and/or guardian has received patient instructions on this date. + Original Patient Signature Page (only) stays with chart. Please make copy for patient.
--- NOTE | 2017-04-03 14:19 | GI REPORT ---
Procedure Date: 04/03/2017 1:50 PM Procedure: Upper GI endoscopy Indications: History of anastomotic ulcer Medicines: Monitored Anesthesia Care Complications: No immediate complications. Estimated Blood Loss: Estimated blood loss: none. Procedure: Pre-Anesthesia Assessment: - Prior to the procedure, a History and Physical was performed, and patient medications and allergies were reviewed. The patient's tolerance of previous anesthesia was also reviewed. The risks and benefits of the procedure and the sedation options and risks were discussed with the patient. All questions were answered, and informed consent was obtained. Prior Anticoagulants: The patient has taken no previous anticoagulant or antiplatelet agents. ASA Grade Assessment: III - A patient with severe systemic disease. After reviewing the risks and benefits, the patient was deemed in satisfactory condition to undergo the procedure. After obtaining informed consent, the endoscope was passed under direct vision. Throughout the procedure, the patient's blood pressure, pulse, and oxygen saturations were monitored continuously. The scope was introduced through the mouth, and advanced to the second part of duodenum. The upper GI endoscopy was accomplished without difficulty. The patient tolerated the procedure well. Findings: The esophagus was normal. Evidence of a Bigg-en-Y gastrojejunostomy was found. The gastrojejunal anastomosis was characterized by ulceration. This was traversed. Biopsies were taken with a cold forceps for histology. The examined jejunum was normal. Impression: - Normal esophagus. - Bigg-en-Y gastrojejunostomy with gastrojejunal anastomosis characterized by ulceration. Biopsied. - Normal examined jejunum. Recommendation: - Resume previous diet. - Use sucralfate tablets 1 gram PO QID for 10 days. - Await pathology results. - Return to primary care physician as previously scheduled. Magno Barr DO 04/03/2017 2:19:05 PM This report has been signed electronically. Note Initiated On: 04/03/2017 1:50 PM I attest to the content of the Intraoperative Record and orders documented therein, exceptions below
--- NOTE | 2017-04-03 14:27 | Anesthesiology Progress Note ---
Anesthesia Post Op Note Date & Time Apr 03, 2017 at 14:27 Vital Signs Pain Intensity: 0 Vital Signs Past 12 Hours Date Time Temp Pulse Resp B/P (MAP) Pulse Ox O2 Delivery O2 Flow Rate FiO2 04/03/17 13:34 36.7 102 18 167/75 (105) 98 Room Air Notes Mental Status: alert / awake / arousable, participated in evaluation Pt Amnestic to Procedure: Yes Nausea / Vomiting: adequately controlled Pain: adequately controlled Airway Patency, RR, SpO2: stable & adequate BP & HR: stable & adequate Hydration State: stable & adequate Anesthetic Complications: no major complications apparent
[2017-04-03 14:44] VITALS: BP 141/94; PULSE 93; O2SAT 93
== END | disposition home or self-care (01) ==
LOC: C.GI 12:23
PROVIDERS: ATTEND Internal Medicine
DX: K91.89 Other postprocedural complications and disorders of digestive system (principal); R10.9 Unspecified abdominal pain; Z87.11 Personal history of peptic ulcer disease; I10 Essential (primary) hypertension; F32.9 Major depressive disorder, single episode, unspecified; E03.9 Hypothyroidism, unspecified; Z98.84 Bariatric surgery status; Z90.49 Acquired absence of other specified parts of digestive tract; Z96.641 Presence of right artificial hip joint; Z87.891 Personal history of nicotine dependence; E66.9 Obesity, unspecified; Z68.38 Body mass index [BMI] 38.0-38.9, adult

== ENCOUNTER → 2018-02-19 | Outpatient (CLI) | payer OTHER ==
[~2018-02-19] MED LIST changes: -ATROPINE SULFATE 0.1 MG/ML 5ML SYR IV PRN; -EpHEDrine SULFATE INJ 50 MG/ML AMP IV PRN; -LIDOCAINE HCL 2% 2 ML VIAL (20MG/ML) ONE; -PROPOFOL IV EMULSION 10 MG/ML 20 ML VIAL IV ONE; -SODIUM CHLORIDE 0.9% 500ML 500 ML IV ONE
--- NOTE | 2018-02-19 15:25 | MAMMOGRAPHY REPORT ---
BILATERAL DIGITAL SCREENING MAMMOGRAM TOMOSYNTHESIS WITH CAD: 02/19/2018 CLINICAL HISTORY: Routine screening. Patient has no complaints. TECHNIQUE: Breast tomosynthesis in addition to standard 2D mammography was performed. Current study was also evaluated with a Computer Aided Detection (CAD) system. COMPARISON: Comparison is made to exams dated: 02/13/2017 mammogram, 08/04/2014 mammogram, 03/27/2013 m ammogram - [facility], 09/19/2008, and 08/03/2004 mammogram - [facility]. BREAST COMPOSITION: The tissue of both breasts is almost entirely fatty. FINDINGS: There are stable scattered and grouped benign-appearing calcifications in both breasts. Gr ouped coarse calcifications and associated nodular asymmetry in the 3:00 left breast appears smaller in size comparing back to 09/19/2008, suggesting benignity. No new suspicious mass, architectural di stortion or cluster of microcalcifications is seen. IMPRESSION: ACR BI-RADS CATEGORY 1: NEGATIVE There is no mammographic evidence of malignancy. A 1 year screening mammogram is recommended. The pa tient will receive written notification of the results. Approximately 10% of breast cancers are not detected with mammography. A negative mammographic report should not delay biopsy if a clinically suggestive mass is present. Anum Oliver M.D. ay/:02/19/2018 12:24:28 Maintenance Mechanic 2Nd Shift: Gayle MILLAN)(Milagros), [facility] letter sent: Normal 1/2 BI-RADS Code: ACR BI-RADS Category 1: Negative
== END | disposition home or self-care (01) ==
LOC: C.MAMM 07:54
PROVIDERS: ATTEND Family Medicine
DX: Z12.31 Encounter for screening mammogram for malignant neoplasm of breast (principal)

== ENCOUNTER 2019-03-11 08:37 | Inpatient (IN) ==
[2019-03-11] MEDS ORDERED: SODIUM CHLORIDE 0.9% 1000ML 1,000 ML IV ONE (09:04)
[2019-03-11] MEDS ORDERED: ONDANSETRON INJ 2 MG/ML 2 ML VIAL IV STA (09:04)
[2019-03-11] MEDS ORDERED: MoRPHine SULFATE 4 MG/ML 1 ML CARP\\VIAL IV STA (09:04)
[2019-03-11 09:14] LABS: Basophils # (auto) 0.05 K/uL (0-0.2); Basophils % (auto) 0.4 %; Eosinophils % (auto) 2.3 %; Hematocrit (blood only) 34.8 % (37-47); Hemoglobin 10.9 g/dL (12.0-16.0); Immature Granulocytes # (auto) 0.03 K/uL (0.00-0.02); Immature Granulocytes % (auto) 0.2 %; Lymphocytes # (auto) 1.83 K/uL (1.2-3.4); Mean Corpuscular Hgb Conc 31.3 g/dL (32-36); Mean Corpuscular Volume 91.3 fL (80-100); Mean Platelet Volume 10.2 fL (7.4-10.4); Monocytes # (auto) 1.07 K/uL (0.11-0.59); Monocytes % (auto) 8.2 %; Neutrophils # (auto) 9.81 K/uL (1.4-6.5); Neutrophils % (auto) 74.9 %; Platelet Count 297 K/uL (130-400); RDW Coefficient of Variation 16.4 % (11.5-14.5); RDW Standard Deviation 54.5 fL (36.4-46.3); Red Blood Count 3.81 M/uL (4.2-5.4); White Blood Count 13.09 K/uL (4.8-10.8)
[2019-03-11 09:33] LABS: Alanine Aminotransferase 35 U/L (12-78); Albumin Level 3.4 gm/dl (3.4-5.0); Aspartate Aminotransferase 24 U/L (15-37); BUN Creatinine Ratio 20.6 (10-20); Blood Urea Nitrogen 22 mg/dl (7-18); Calcium 8.8 mg/dl (8.5-10.1); Carbon Dioxide 29 mmol/L (21-32); Chloride 108 mmol/L (98-107); Est GFR (African American) 60.5; Est GFR (Non-African American) 52.2; Glucose 113 mg/dl (70-99); Potassium 3.5 mmol/L (3.5-5.1); Sodium 143 mmol/L (136-145)
[2019-03-11 09:35] LABS: Albumin Globulin Ratio 0.9 (0.9-2); Alkaline Phosphatase 72 U/L (45-117); Bilirubin,Total 1.2 mg/dl (0.2-1); Globulin 3.6 gm/dl (2.5-4.0)
[2019-03-11] MEDS ORDERED: HYDROmorphone INJ 0.5 MG/0.5 ML SYR IV STA (09:50)
[2019-03-11 10:12] LABS: Appearance Urine Turbid (Clear); Bacteria Urine Automated 4+ (Negative); Blood Urine 1+ (Negative); Color Urine Dark Yellow; Epithelial Cell Urine Auto >30 /lpf (0-5); Glucose Urine UA Negative (Negative); Ketones Urine Negative (Negative); Leukocyte Esterase Urine 3+ (Negative); Nitrite Urine Positive (Negative); Protein Urine Trace (Negative); Specific Gravity Urine 1.022 (1.000-1.030); Urobilinogen Urine Negative (Negative); WBC Urine Automated >30 /hpf (0-5); pH Urine 5.5 (4.5-7.5)
[2019-03-11 10:15] LABS: Bilirubin Urine Negative (Negative); Ictotest Urine Negative (Negative)
--- NOTE | 2019-03-11 11:31 | Urology Consultation ---
Date of Consultation March 11, 2019 Assessment & Plan (1) Nephrolithiasis: CT scan confirms obstructing 12mm obstructing mid left ureteral calculus with resulting hydronephrosis, likely calyceal rupture. UA highly suspicious for infection. Remains on empiric Ceftriaxone. Will add to OR schedule today for cystoscopy, left ureteral stent placement. Procedure details, surgical risk, anticipated recovery reviewed. Patient voices understanding and is agreeable to proceed. Thanks for the consult, will continue to follow. History of Present Illness History of Present Illness 73 YO female with flank pain and large distal left ureteral stone. Patient reports that pain woke her up early this morning. She had existing US appointment with [facility] PCP this morning, when her known 12mm renal stone was found to have migrated into her ureter. She was advised to report to ER for evaluation. Her UA is suggestive for infection. She is evaluated in the ER. She reports that her symptoms are decently controlled with supportive medication. Continued pain in left flank. Voiding spontaneously without bother. No gross hematuria. Some chills and nausea. Allergies Allergy/AdvReac Type Severity Reaction Status Date / Time gluten Allergy Intermediate skin rash Verified 03/11/19 09:48 No Known Drug Allergies Allergy Unknown . Verified 03/11/19 09:48 Home Medications Home Medications Medication Instructions Recorded Confirmed Type cholecalciferol (vitamin D3) 1,000 unit PO QAM 08/07/18 03/11/19 History dapsone 50 mg PO BID 08/07/18 03/11/19 History duloxetine [Cymbalta] 40 mg PO QAM 08/07/18 03/11/19 History levothyroxine [Synthroid] 125 mcg PO QAM 08/07/18 03/11/19 History losartan [Cozaar] 50 mg PO QAM 08/07/18 03/11/19 History cyanocobalamin (vitamin B-12) 1,000 mcg IM UD 03/11/19 03/11/19 History ferrous sulfate 325 mg PO BID 03/11/19 03/11/19 History fluocinonide 1 applic TOPICAL BID PRN 03/11/19 03/11/19 History omeprazole 20 mg PO QAM 03/11/19 03/11/19 History Patient History Medical History Prolonged QT interval (Chronic) Obesity (Chronic) Dermatitis herpetiformis (Chronic) Depression (Chronic) Asthma (Chronic) CKD (chronic kidney disease), stage III (Chronic) HTN (hypertension) (Chronic) Anemia (Chronic) Cellulitis, neck (Resolved) Degenerative joint disease of right hip (Chronic) Epigastric abdominal pain (Resolved) Hypothyroidism (Chronic) Ovarian cyst (Acute) Surgical History Hx of tonsillectomy (Chronic) History of cholecystectomy (Chronic) History of hip replacement (Chronic) H/O gastric bypass (Chronic) Family History Brother Pancreatic cancer Mother Pancreatic cancer Father Coronary heart disease Social History Preferred Language: Jordanian Communication Ability: Effective Vice President For Instruction Required: No Beliefs That Will Affect Care: None Current Living Situation: Family Other Information That Helps Us Care for You: No Feels Safe at Home: Yes Safety Concerns: Feels Safe At This Time Smoking Status: Never smoker Smoking End Date: 1996 Hx Alcohol Use: No Hx Substance Use: No Review of Systems Constitutional: + chills and + fatigue; no fever Eyes: + corrective lenses Ear, Nose, Mouth, Throat: no hearing loss Respiratory: no dyspnea Cardiovascular: no chest pain Gastrointestinal: + nausea; no vomiting Genitourinary: + dysuria and + flank pain; no difficulty urinating and no hematuria Musculoskeletal: + back pain Neurologic: no confusion Psychiatric: no problem reported Endocrine: + fatigue Physical Exam Constitutional: + obese; no acute distress Neck: normal visual inspection Respiratory: normal respiratory effort; no labored breathing Cardiovascular: Vessels: no JVD Neurologic: not confused Psychiatric: A+Ox3, euthymic affect Genitourinary: Speculum/Bimanual Exam: bladder normal to palpation Results & Data Vital Signs (Past 12 Hours) Vital Signs Temp Pulse Pulse Resp BP BP Pulse Ox 03/11/19 10:22 81 L 03/11/19 09:39 97 H 16 160/80 H 92 03/11/19 08:43 36.4 C L 84 20 154/78 H 98
[2019-03-11] MEDS ORDERED: cefTRIAXone SODIUM 1,000 MG in DEXTROSE 5% 50 ML IV SCH (11:45)
--- NOTE | 2019-03-11 11:51 | History & Physical Report ---
Date of Service March 11, 2019 Assessment & Plan (1) Ureter, calculus: (2) Hydronephrosis: Pt presented to ER with c/o L flank pain started this morning. Had out patient U/S abd today showing 1.7cm L distal ureter calculus with moderate hydroureteronephrosis. In ER patient afebrile,P: 84-97, RR: 20, BP 160/80, initially 98% on room air dropped to 81% on room air after administration of pain medications, up to 96% on 2L NC. WBC: 13, H/H: 10.9/34.8, BUN: 22, Cr: 1.07 (baseline 0.9-1.4), UA suggestive of UTI -In ER patient given morphine 4 mg, Dilaudid 0.5 mg IV, Zofran IV, 1L NSS Obstructing L ureteral calculi with hydronephrosis and UTI -Lactate WNL at 1.6 -Pending urine culture, blood cultures -IVF -Rocephin -Urology consult-evaluated patient in ER and recommends CT abdomen/pelvis and if confirmatory plan on possible procedure today -Pending CT abdomen/pelvis -N.p.o. in case of procedure -Monitor CBC, BMP (3) HTN (hypertension): Elevated in ER. Probable secondary to underlying pain -Monitor BP -Continue losartan (4) Hypothyroidism: TSH pending -Continue levothyroxine (5) CKD (chronic kidney disease), stage III: Cr: 1.07 (baseline 0.9-1.4) -Monitor renal functions -Avoid nephrotoxic agents when possible (6) Anemia: History of pernicious anemia s/p gastric bypass H/H: 10.9/34.8. Baseline Hgb: 10-11 -Monitor H&H (7) Depression: -Continue duloxetine (8) Prolonged QT interval: -avoid QT prolonging agents (9) Dermatitis herpetiformis: Follows with dermatology -On dapsone -Patient will need gluten-free diet DVT Prophylaxis -SCDs Full Code as per discussion with pt Follows with Dr Muro for routine care Pt was seen with Dr Valenzuela. See addendum History of Present Illness Chief Complaint: L flank pain Primary Care Provider: Nathaniel Muro MD Pt is 73 y/o F with PMH HTN, hypothyroidism, asthma, obesity S/P gastric bypass, pernicious anemia, depression presented to ER with complaint of left flank pain. Patient states this morning around 5 AM woke up with left flank pain which radiates to left groin. Denies any nausea, vomiting, fever, chills, hematuria, dysuria, urinary retention, urinary frequency. She had routine scheduled outpatient ultrasound liver today and 1.7 cm distal left ureter calculus with moderate hydroureteronephrosis was noted and patient was referred to ER. Denies hx kidney stones. Last ate last night. Denies diaphoresis, diarrhea, constipation, JONES, dizziness, syncope, vision changes, neck pain, CP, SOB, orthopnea, palpitations, cough, sore throat, choking, otalgia, rhinorrhea, other abdominal pain, paresthesias, weakness, extremity weakness, extremity edema, new rashes. Allergies Allergy/AdvReac Type Severity Reaction Status Date / Time gluten Allergy Intermediate skin rash Verified 03/11/19 09:48 No Known Drug Allergies Allergy Unknown . Verified 03/11/19 09:48 Home Medications Home Medications Medication Instructions Recorded Confirmed Type cholecalciferol (vitamin D3) 1,000 unit PO QAM 08/07/18 03/11/19 History dapsone 50 mg PO BID 08/07/18 03/11/19 History duloxetine [Cymbalta] 40 mg PO QAM 08/07/18 03/11/19 History levothyroxine [Synthroid] 125 mcg PO QAM 08/07/18 03/11/19 History losartan [Cozaar] 50 mg PO QAM 08/07/18 03/11/19 History cyanocobalamin (vitamin B-12) 1,000 mcg IM UD 03/11/19 03/11/19 History ferrous sulfate 325 mg PO BID 03/11/19 03/11/19 History fluocinonide 1 applic TOPICAL BID PRN 03/11/19 03/11/19 History omeprazole 20 mg PO QAM 03/11/19 03/11/19 History Past Med/Surg History Medical History Prolonged QT interval (Chronic) Obesity (Chronic) Dermatitis herpetiformis (Chronic) Depression (Chronic) Asthma (Chronic) CKD (chronic kidney disease), stage III (Chronic) HTN (hypertension) (Chronic) Anemia (Chronic) Cellulitis, neck (Resolved) Degenerative joint disease of right hip (Chronic) Epigastric abdominal pain (Resolved) Hypothyroidism (Chronic) Ovarian cyst (Acute) Surgical History Hx of tonsillectomy (Chronic) History of cholecystectomy (Chronic) History of hip replacement (Chronic) H/O gastric bypass (Chronic) Family History Brother Pancreatic cancer Mother Pancreatic cancer Father Coronary heart disease Social History Preferred Language: Sinhala Communication Ability: Effective Mixer Diamond Powder Required: No Beliefs That Will Affect Care: None Current Living Situation: Family Other Information That Helps Us Care for You: No Feels Safe at Home: Yes Safety Concerns: Feels Safe At This Time Smoking Status: Never smoker Smoking End Date: 1996 Hx Alcohol Use: No Hx Substance Use: No Review of Systems Review of Systems: All systems reviewed & are unremarkable except as noted in HPI & below Physical Exam Physical Exam: General: no acute distress, obese Head: normocephalic, atraumatic Eyes: PERRL, EOM's intact, conjunctiva non-injected, anicteric ENT: normal inspection external ears, nose, mucous membranes mildly dry Neck: supple, trachea midline Lungs: clear, no respiratory distress, no wheezing/rhonchi/rales CV: RRR, +systolic murmur, no JVD, no pretibial edema Abd: normal BS, soft,+tenderness to L flank, no other abdominal tenderness to palpation Ext: no cyanosis, no calf tenderness Neuro: A&O x 3, no focal deficits noted, normal affect Skin: warm, dry Results & Data Vital Signs (Past 12 Hours) Vital Signs Temp Pulse Pulse Resp BP BP Pulse Ox 03/11/19 10:22 81 L 03/11/19 09:39 97 H 16 160/80 H 92 03/11/19 08:43 36.4 C L 84 20 154/78 H 98 Laboratory Results Short CBC 03/11/19 Range/Units 09:03 WBC 13.09 H (4.8-10.8) K/uL Hgb 10.9 L (12.0-16.0) g/dL Hct 34.8 L (37-47) % Plt Count 297 (130-400) K/uL BMP 03/11/19 09:03 Sodium 143 Potassium 3.5 Chloride 108 H Carbon Dioxide 29 BUN 22 H Creatinine 1.07 Glucose 113 H Calcium 8.8 Liver Function 03/11/19 Range/Units 09:03 Total Bilirubin 1.2 H (0.2-1) mg/dl AST 24 (15-37) U/L ALT 35 (12-78) U/L Alkaline Phosphatase 72 (45-117) U/L Albumin 3.4 (3.4-5.0) gm/dl Urine 03/11/19 Range/Units 10:02 Urine Color Dark Yellow Urine Appearance Turbid A (Clear) Urine pH 5.5 (4.5-7.5) Ur Specific [place] 1.022 (1.000-1.030) Urine Protein Trace H (Negative) Urine Glucose (UA) Negative (Negative) Diagnostic Findings Outpatient abdominal ultrasound 03/11/2019 Impression: 1. A 1.7 cm distal left ureteral calculus causing moderate hydroureteronephrosis. 2. Diffusely increased echogenicity of the liver and nodular contour. Nonspecific findings. Consider fatty infiltration and/or cirrhosis. 3. Cholecystectomy. Mildly dilated common bile duct is probably normal given patient's age and cholecystectomy status. 4. Limited evaluation of pancreas. ECG Rate (beats per minute): 114 Rhythm: sinus tachycardia Findings: + Q waves (Septal) Additional Comments: out patient ekg 02/27/19: Q waves septal leads Supervising Physician Co-Signing Physician Notes I have seen and examined the patient with physician certified surgical assistant and evaluated patient when on medical vazquez Patient about to go down for urology procedure because of left renal stone which is causing hydronephrosis. Patient reports discomfort of the left lower back. She has on EKQ q waves on septal leads but she denies of having any chets pain. she is on nasal cannula oxygen at bedside. she denies acute shortness of breath but she reports she may not have been taking deep enough breaths because of left flank pain which is presumably from renal colic appreciate urology interventions in her care. Agree with management of other health issues as described by physician certified surgical assistant Other CT abdomen findings 1. Obstructing 12 mm distal left ureteral calculus a few centimeters proximal to the left ureterovesical junction with resultant moderate left hydroureteronephrosis. Suspected calyceal rupture given the degree of left perinephric fluid. No additional renal or ureteral calculus. 2. Hepatic steatosis with suspected underlying hepatic fibrosis/cirrhosis. 3. Postsurgical changes of Bigg-en-Y gastric bypass without evidence of complication
[2019-03-11] MEDS ORDERED: MoRPHine SULFATE 4 MG/ML 1 ML CARP\\VIAL IV PRN (12:54)
[2019-03-11] MEDS ORDERED: PROMETHAZINE HCL 12.5 MG in SODIUM CHLORIDE 0.9% 50 ML IV PRN (12:54)
[2019-03-11] MEDS ORDERED: ACETAMINOPHEN 1,000 MG/100 ML VIAL IV PRN (12:54)
--- NOTE | 2019-03-11 12:55 | CT Scan Report ---
CT abd pelvis wo con CLINICAL HISTORY: 73 years-old Female presenting with L flank pain, history of kidney stones. TECHNIQUE: Multidetector CT of the abdomen and pelvis was performed without the use of intravenous co ntrast. IV contrast: None. One or more dose lowering techniques were used consistent with the princip les of ALARA (as low as reasonably achievable), including automatic exposure control, mA or kV adjust ment to individual patient size, and/or use of iterative reconstruction. COMPARISON: 08/07/2018. CT DOSE (mGy.cm): The estimated cumulative dose is 1371.96 mGy.cm. FINDINGS: [facility] topogram: Orthopedic hardware. Lung bases: Normal heart size. Aortic valve calcification. No pericardial or pleural effusion. Minima l dependent changes likely atelectasis. Liver: Mildly nodular contour suggesting underlying fibrosis/cirrhosis. Density consistent with hepat ic steatosis. Biliary: Mild biliary ductal prominence likely a reservoir effect in the post cholecystectomy state. Gallbladder surgically absent. Pancreas: Moderate parenchymal atrophy. Spleen: Normal noncontrast appearance. Adrenal glands: Normal noncontrast appearance. Kidneys and ureters: Interval development of moderate left perinephric fat infiltration and fluid. Mo derate left pelvocaliectasis with dilatation of the left ureter to the level of the obstructing 12 mm distal left ureteral calculus a few centimeters proximal to the left ureterovesical junction. No add itional ureteral calculus. Mild left. Ureteral fat infiltration. No additional left renal calculus. N o right renal calculi. Normal noncontrast appearance of the right kidney. Bladder: Incompletely evaluated secondary to underdistention. No bladder calculi. Pelvic organs: Normal noncontrast appearance. Bowel: Mild wall thickening of the mid sigmoid colon likely due to underdistention. The appendix is n ot visualized. Postsurgical changes of antecolic Bigg-en-Y gastric bypass. No pathologic distention o f the pancreaticobiliary limb or excluded stomach. The distal enteroenteric anastomosis is widely pat ent without evidence of intussusception. No inflammatory changes at either anastomosis. No bowel obst ruction. Peritoneal cavity: No free fluid or intraperitoneal gas. Retroperitoneal fluid in the left perirenal space. Lymph nodes: No gross lymphadenopathy allowing for noncontrast technique. Vasculature: Atherosclerosis of the normal caliber abdominal aorta. Abdominal wall: Normal. Musculoskeletal: Total right hip arthroplasty. Degenerative changes of the spine. IMPRESSION: 1. Obstructing 12 mm distal left ureteral calculus a few centimeters proximal to the left ureteroves ical junction with resultant moderate left hydroureteronephrosis. Suspected calyceal rupture given th e degree of left perinephric fluid. No additional renal or ureteral calculus. 2. Hepatic steatosis with suspected underlying hepatic fibrosis/cirrhosis. 3. Postsurgical changes of Bigg-en-Y gastric bypass without evidence of complication. Electronically signed by: Al Molina M.D. 03/11/2019 12:54 PM
[2019-03-11] MEDS: SODIUM CHLORIDE 0.9% 1000ML 1,000 ML IV SCH (13:08)
--- NOTE | 2019-03-11 13:41 | XRay Report ---
XR chest 2V routine CLINICAL HISTORY: Preoperative evaluation. COMPARISON STUDY: Chest CT November 23, 2015. FINDINGS: Lung volumes are normal. There is no pneumothorax or pleural effusion. There is no consolid ation or evidence for pulmonary edema. Cardiomediastinal silhouette is stable. Surgical clips project over the left upper quadrant. IMPRESSION: No acute cardiopulmonary findings. Electronically signed by: Mike Shaffer M.D. 03/11/2019 1:39 PM
--- NOTE | 2019-03-11 14:31 | Anesthesiology Consultation ---
Date of Service March 11, 2019 Assessment & Plan Chart Review Chart Review: Acceptable Risk for Surgery and Patient NOT seen in Pre Admission Testing Consults Requested none ASA [id number] Proposed Anesthesia Anesthesia Type: MAC Risk / Benefits Reviewed With: PT / POA / Parent / Guardian, Accepts Plan and Informed Consent Obtained History Surgery Operation Date: 03/11/19 10:35 Proposed Procedures p Cystoscopy, Left Ureteral Stent Placement - [place] Obregon II, DO Height/Weight Weight: 100 kg Allergies Allergy/AdvReac Type Severity Reaction Status Date / Time gluten Allergy Intermediate skin rash Verified 03/11/19 09:48 No Known Drug Allergies Allergy Unknown . Verified 03/11/19 09:48 Medications Home Medications Medication Instructions Recorded Confirmed Last Taken cholecalciferol (vitamin D3) 1,000 unit PO QAM 08/07/18 03/11/19 03/10/19 dapsone 50 mg PO BID 08/07/18 03/11/19 03/10/19 21:00 duloxetine [Cymbalta] 40 mg PO QAM 08/07/18 03/11/19 03/10/19 levothyroxine [Synthroid] 125 mcg PO QAM 08/07/18 03/11/19 03/10/19 losartan [Cozaar] 50 mg PO QAM 08/07/18 03/11/19 03/10/19 cyanocobalamin (vitamin B-12) 1,000 mcg IM UD 03/11/19 03/11/19 Unknown ferrous sulfate 325 mg PO BID 03/11/19 03/11/19 03/10/19 21:00 fluocinonide 1 applic TOPICAL BID PRN 03/11/19 03/11/19 Unknown omeprazole 20 mg PO QAM 03/11/19 03/11/19 03/10/19 Active Medications Generic Name Dose Route Start Last Admin Trade Name Freq PRN Reason Stop Dose Admin Sodium Chloride 1,000 mls @ 80 mls/hr 03/11/19 12:54 03/11/19 13:08 Nss 1000ml IV 03/12/19 13:53 80 mls/hr .[id number] LEONIDAS Administration NPO Date Last Intake of Fluids: 03/10/19 Time Last Intake of Fluids: 22:30 Date Last Intake of Solids: 03/10/19 Time Last Intake of Solids: 17:00 Past Medical History Medical History Prolonged QT interval (Chronic) Obesity (Chronic) Dermatitis herpetiformis (Chronic) Depression (Chronic) Asthma (Chronic) CKD (chronic kidney disease), stage III (Chronic) HTN (hypertension) (Chronic) Anemia (Chronic) Cellulitis, neck (Resolved) Degenerative joint disease of right hip (Chronic) Epigastric abdominal pain (Resolved) Hypothyroidism (Chronic) Ovarian cyst (Acute) Exercise / Class Metabolic Activity III < 4 Walking/Shop/Light housework Negative for chest pain or shortness of breath. Past Family History Family History Brother Pancreatic cancer Mother Pancreatic cancer Father Coronary heart disease Past Surgical History Surgical History Hx of tonsillectomy (Chronic) History of cholecystectomy (Chronic) History of hip replacement (Chronic) H/O gastric bypass (Chronic) Past Anesthesia History No Hx of Anesthesia Complications History of PONV No Hx of PONV and Hx of Motion Sickness Social History Smoking Status: Never smoker Smoking End Date: 1996 Hx Alcohol Use: No Hx Substance Use: No Review of Systems Patient denies active symptoms of GERD. no active vomiting today. Physical Exam Vital Signs Last Vital Signs Temp 37 C 03/11/19 14:34 Pulse 104 H 03/11/19 14:34 Resp 18 03/11/19 14:34 BP 101/69 03/11/19 14:34 Pulse Ox 93 03/11/19 14:34 Constitutional + obese ENMT Mouth: + edentulous (Upper); no TMJ abnormality and oral opening not small Thyromental Distance: < 3.5 Finger Breadths Mallampati Class: II Neck normal visual inspection, + short neck and + thick neck; neck extension not limited Respiratory normal respiratory effort Auscultation: lungs clear to auscultation bilaterally Cardiovascular Rate/Rhythm: regular rate and regular rhythm Heart Sounds: + murmur (Systolic murmur) Neurologic moves all extremities Motor/Sensory: no sensory deficit Psychiatric Orientation: alert and oriented x 3 Testing Laboratory Results 03/11/19 09:03 03/11/19 09:03 03/11/19 10:02 Urine Color Dark Yellow Urine Appearance Turbid A Urine pH 5.5 Ur Specific [place] 1.022 Urine Protein Trace H Urine Glucose (UA) Negative Urine Ketones Negative Urine Nitrite Positive A Ur Leukocyte Esterase 3+ H Urine WBC (Auto) >30 H Urine RBC (Auto) 10-30 H U Hyaline Cast (Auto) 1-5 U Epithel Cells (Auto) >30 H Urine Bacteria (Auto) 4+ H Electrocardiogram Date: 03/11/19 Findings: + ST @ (114) Septal infarct (q waves in V1 and V2), age undetermined. Per Hospitalist note, similar EKG on 02/27/19. Septal infarct in new compared to EKG 08/07/18. Chest X-Ray Date: 03/11/19 FINDINGS: Lung volumes are normal. There is no pneumothorax or pleural effusion. There is no consolidation or evidence for pulmonary edema. Cardiomediastinal silhouette is stable. Surgical clips project over the left upper quadrant. IMPRESSION: No acute cardiopulmonary findings.
[2019-03-11] MEDS ORDERED: IOTHALAMATE MEGLUMINE II 17.2% 250 ML VIAL ONE (14:35)
[2019-03-11] MEDS ORDERED: LIDOCAINE HCL 2% 2 ML VIAL/AMP(20MG/ML) INFIL ONE (14:42)
[2019-03-11] MEDS ORDERED: PROPOFOL IV EMULSION 10 MG/ML 20 ML VIAL IV ONE (14:42)
[2019-03-11] MEDS ORDERED: MIDAZOLAM HCL 1 MG/ML 2ML VIAL ONE (14:42)
[2019-03-11] MEDS ORDERED: fentaNYL citrate 100 MCG/2 ML VIAL ONE (14:42)
[2019-03-11] MEDS ORDERED: CIPROFLOXACIN 400MG / 200ML D5W IV ONE (14:53)
[2019-03-11] MEDS ORDERED: ePHEDrine sulfate 50 MG/ML AMP IV PRN (15:14)
[2019-03-11] MEDS ORDERED: ATROPINE SULFATE 0.1 MG/ML 10ML SYR IV PRN (15:14)
[2019-03-11] MEDS ORDERED: fentaNYL citrate 100 MCG/2 ML VIAL IV PRN (15:14)
--- NOTE | 2019-03-11 15:24 | Operative Report ---
Post Operative Report Pre & Post Diagnosis Obstructing Impacted Left Distal Ureteral Stone Operation Date: 03/11/19 10:35 <No data on this case meets the specified criteria> Procedure Operation Date: 03/11/19 10:35 Actual Procedures p Cystoscopy, Left retrograde pyleogram, left Ureteral Stent Placement(Left) - London Obregon II, DO Surgeon [place] Obregon, II, DO Mechanical Fitter None Estimated Blood Loss 2 Findings Consistent with Post-Op Diagnosis Specimens Urine left ureter Drains 6 Fr Multilength Anesthesia Type MAC Complications none Disposition Disposition: Recovery Room Indications Obstructing stone with UTI in distal left ureter. Risks and benefits discussed. Description of Procedure Patient was consented and brought back to the operating room. Patient was placed under anesthesia in the supine position and moved to the dorsal lithotomy position. Patient was prepped and draped in the regular sterile fashion. A time out was completed. A 30degree Cystoscope was placed into the bladder and the entire bladder was examined. The UO's were identified. The left was cannulized with a catheter and urine was aspirated. The catheter was advanced and with a wire, the stone was able to be bypassed. At this point, cloudy urine was aspirated. This was sent for microscopic analysis. The catheter was advanced and a retrograde pyelogram was completed. A wire was then placed. With the wire in place, a 6 Fr Double J stent was placed. It was confirmed with fluoroscopy. With the stent in place, the bladder was emptied. The scope was removed. The patient was cleaned, aroused from anesthesia, and transferred to the pacu in stable condition having tolerated the procedure well with no complications. I was present and participated in all aspects of the procedure. The patient will be monitored in the PACU until transferred. I attest to the content of the Intraoperative Record and any orders documented therein. Any exceptions are noted below.
--- NOTE | 2019-03-11 16:10 | Anesthesiology Progress Note ---
Date of Service March 11, 2019 Anesthesia Post Procedure Vital Signs Vital Signs: Temp Pulse Pulse Pulse Resp BP BP 03/11/19 16:00 106 H 18 118/58 L 03/11/19 15:50 36.7 C 104 H 17 124/60 03/11/19 15:40 105 H 25 H 112/58 L 03/11/19 15:31 36.6 C 103 H 16 114/63 03/11/19 14:34 37 C 104 H 18 101/69 03/11/19 12:45 36.9 C 104 H 16 94/64 L 03/11/19 11:53 113 H 20 109/64 03/11/19 10:22 03/11/19 09:39 97 H 16 160/80 H 03/11/19 08:43 36.4 C L 84 20 154/78 H Pulse Ox 03/11/19 16:00 99 03/11/19 15:50 97 03/11/19 15:40 99 03/11/19 15:31 100 03/11/19 14:34 93 03/11/19 12:45 94 03/11/19 11:53 96 03/11/19 10:22 81 L 03/11/19 09:39 92 03/11/19 08:43 98 Pain Intensity Left Flank: Pain Intensity: 6 Transfer of Care Handoff Completed per policy Notes Mental Status: alert / awake / arousable and participated in evaluation Nausea / Vomiting: adequately controlled Pain: adequately controlled Airway Patency, RR, SpO2: stable & adequate BP & HR: stable & adequate Hydration State: stable & adequate Anesthetic Complications: no major complications apparent and Pt Satisfied with anesthetic care
--- NOTE | 2019-03-11 16:28 | Fluoroscopy Report ---
FL retrograde includes kub CLINICAL HISTORY: Cystoscopy. Stent placement. COMPARISON STUDY: CT of the abdomen and pelvis March 11, 2019. FLUOROSCOPY TIME: 67.9 seconds. FLUOROSCOPIC IMAGES: 3. FINDINGS: These images demonstrate left retrograde exam with cannulation of the left ureter. A left u reteral stent is in place. Stent appears appropriately positioned. Filling defects within the distal left ureter may reflect calculi. IMPRESSION: Fluoroscopic images demonstrating placement of a left ureteral stent. Electronically signed by: Mike Shaffer M.D. 03/11/2019 4:27 PM
--- NOTE | 2019-03-11 18:23 | Emergency Department Note ---
History of Present Illness General Chief complaint: Kidney Stone Stated complaint: PAIN - KIDNEY STONE Time Seen by Provider: 03/11/19 08:49 History of Present Illness Maximum Pain Intensity: 10 73-year-old female who presents to emergency department with complaint of severe left flank pain. The patient reports that the pain awakened her this morning around 5 AM. The patient reports that she had poor urine output this morning. She denies any recent urinary symptoms. She has been dealing with generalized epigastric left upper quadrant pain that has been worked up by her PCP. The patient was scheduled for a right upper quadrant ultrasound, and had that performed this morning. They then elected to do a retroperitoneal ultrasound as well that revealed a 1.7 cm ureteral stone. The patient was then sent to the emergency department for further evaluation. The patient has not had any recent fever or chills. She rates her discomfort a 10 out of 10. The patient denies any prior history of kidney stones. She is status post cholecystectomy. She has a known history of stage III chronic kidney disease, and reports that she did have prior imaging that showed a stone in the left kidney, but has not passed it until now. Home Medications Home Medications Medication Instructions Recorded Confirmed Type cholecalciferol (vitamin D3) 1,000 unit PO QAM 08/07/18 03/11/19 History dapsone 50 mg PO BID 08/07/18 03/11/19 History duloxetine [Cymbalta] 40 mg PO QAM 08/07/18 03/11/19 History levothyroxine [Synthroid] 125 mcg PO QAM 08/07/18 03/11/19 History losartan [Cozaar] 50 mg PO QAM 08/07/18 03/11/19 History cyanocobalamin (vitamin B-12) 1,000 mcg IM UD 03/11/19 03/11/19 History ferrous sulfate 325 mg PO BID 03/11/19 03/11/19 History fluocinonide 1 applic TOPICAL BID PRN 03/11/19 03/11/19 History omeprazole 20 mg PO QAM 03/11/19 03/11/19 History Allergies Allergy/AdvReac Type Severity Reaction Status Date / Time gluten Allergy Intermediate skin rash Verified 03/11/19 09:48 No Known Drug Allergies Allergy Unknown . Verified 03/11/19 09:48 Past Med/Surg History Medical History Prolonged QT interval (Chronic) Obesity (Chronic) Dermatitis herpetiformis (Chronic) Depression (Chronic) Asthma (Chronic) CKD (chronic kidney disease), stage III (Chronic) HTN (hypertension) (Chronic) Anemia (Chronic) Cellulitis, neck (Resolved) Degenerative joint disease of right hip (Chronic) Epigastric abdominal pain (Resolved) Hypothyroidism (Chronic) Ovarian cyst (Acute) Surgical History Hx of tonsillectomy (Chronic) History of cholecystectomy (Chronic) History of hip replacement (Chronic) H/O gastric bypass (Chronic) Family History Brother Pancreatic cancer Mother Pancreatic cancer Father Coronary heart disease Social History Preferred Language: Danish Communication Ability: Effective Alining Inspector Required: No Beliefs That Will Affect Care: None Current Living Situation: Family Other Information That Helps Us Care for You: No Feels Safe at Home: Yes Safety Concerns: Feels Safe At This Time Smoking Status: Never smoker Smoking End Date: 1996 Hx Alcohol Use: No Hx Substance Use: No Review of Systems 10 system review was performed and was negative except for pertinent positives and negatives as indicated in history of present illness Physical Exam Vital Signs Vital Signs - 24 hr 03/11/19 08:43 03/11/19 09:39 03/11/19 10:22 Temperature 36.4 C L Temperature Source Oral Sepsis Recent Fever Within 48 Hours No Sepsis Action Taken by Nursing No Action Required Pulse Rate 84 Pulse Rate [Finger] 97 H Respiratory Rate 20 16 Respiratory Effort / Characteristics Non-Labored Respiratory Depth Normal Blood Pressure 154/78 H Blood Pressure [Right Arm] 160/80 H Blood Pressure Mean 103 Blood Pressure Mean [Right Arm] 106 Pulse Oximetry 98 92 81 L Oxygen Delivery Method Room Air Room Air Room Air Oxygen Flow Rate 0 CONSTITUTIONAL: Healthy and well nourished. Alert and oriented X 3. Patient appears in severe discomfort. HEENT: Normocephalic, atraumatic. Pupils equal, round and reactive. No scleral icterus or conjunctival injection/pallor. NECK: Full active range of motion without discomfort. LYMPHATICS: No cervical chain adenopathy. RESPIRATORY: Clear to auscultation bilaterally with no wheezing, crackles, rhonchi or stridor. CARDIOVASCULAR: Regular rate and rhythm with no murmurs, rubs or gallops. GASTROINTESTINAL: Bowel sounds present in all quadrants. Any significant abdominal tenderness to palpation. Negative CVA tenderness. No focal left lower quadrant tenderness to palpation. No abdominal rigidity, guarding or rebound. MUSCULOSKELETAL: Full range of motion of all joints without discomfort. No tenderness to palpation through the lower lumbar spine or ribs. INTEGUMENTARY: No rash or other significant dermatologic conditions noted. HEMATOLOGIC: No ecchymosis or petechiae. PSYCHIATRIC: Positive affect. NEUROLOGIC: No focal neurologic deficits noted. Course Patient history and physical exam were performed. Nurse's notes were reviewed. Vital signs were reviewed. The patient is initially hypertensive at 154/78. She is currently afebrile. IV access was established, and labs were drawn. Review of labs shows a mild leukocytosis with left shift and bandemia. CMP shows a normal creatinine with mildly elevated BUN. Total bilirubin is mildly elevated. LFTs and alkaline phosphatase are normal. Urinalysis shows evidence for infection with 1+ hematuria, positive nitrites and 3+ leukocyte esterase with bacteria noted. This was a contaminated sample. The patient was initially hydrated with a liter normal saline, and administered IV morphine and Zofran for pain. This provided poor pain relief, therefore the patient was administered IV Dilaudid. The case was then discussed with Dr. Erickson, ED attending physician, who recommended urology consultation. The case was then discussed with [facility], who indicated that they would add the patient to their surgical schedule this afternoon. They have requested that the hospitalist service. The case was discussed with the [facility] hospitalist service. An order was placed for IV Rocephin. Please see their dictations for further treatment and final disposition. It is noted that the patient did have poor pain control while in the emergency department. Administered Medications Sodium Chloride (Nss 1000ml) 1,000 mls @ 80 mls/hr IV .[id number] LEONIDAS Stop: 03/12/19 13:53 Last Infusion: 03/11/19 16:21 Dose: 80 mls/hr Documented by: [id number] Infusion: 03/11/19 14:20 Dose: 0 mls/hr Documented by: [id number] Admin: 03/11/19 13:08 Dose: 80 mls/hr Documented by: [id number] Discontinued Medications Ciprofloxacin (Cipro) Confirm Administered Dose 400 mg IV .STK-MED ONE Stop: 03/11/19 14:54 Last Admin: 03/11/19 14:58 Dose: 400 mg Documented by: [id number] Hydromorphone HCl (Dilaudid) 0.5 mg IV NOW STA Stop: 03/11/19 09:51 Last Admin: 03/11/19 09:53 Dose: 0.5 mg Documented by: [id number] Sodium Chloride (Nss 1000ml) 1,000 mls @ 999 mls/hr IV .Q1H1M ONE Stop: 03/11/19 10:04 Last Infusion: 03/11/19 10:14 Dose: 0 mls/hr Documented by: [id number] Admin: 03/11/19 09:13 Dose: 999 mls/hr Documented by: [id number] Ceftriaxone Sodium 1,000 mg/ (Dextrose) 50 mls @ 100 mls/hr IV Q24H [facility]; Protocol Stop: 03/21/19 11:44 Last Infusion: 03/11/19 12:55 Dose: 0 mls/hr Documented by: [id number] Admin: 03/11/19 12:08 Dose: 100 mls/hr Documented by: [id number] Iothalamate Meglumine (Cysto-Conray Ii) Confirm Administered Dose 250 ml .ROUTE .STK-MED ONE Stop: 03/11/19 14:36 Last Admin: 03/11/19 15:15 Dose: 27 ml Documented by: [id number] Morphine Sulfate (Morphine Sulfate) 4 mg IV NOW STA Stop: 03/11/19 09:05 Last Admin: 03/11/19 09:13 Dose: 4 mg Documented by: [id number] Ondansetron HCl (Zofran) 4 mg IV NOW STA Stop: 03/11/19 09:05 Last Admin: 03/11/19 09:13 Dose: 4 mg Documented by: [id number] Medical Decision Making Medical Records Attestation: I reviewed the patient's medical records. Home Medications Current Medication List: was personally reviewed by me Laboratory Data Attestation: I reviewed the patient's lab results. Result diagrams: 03/11/19 09:03 03/11/19 09:03 Lab Results 03/11/19 03/11/19 03/11/19 Range/Units 09:03 09:03 09:03 WBC 13.09 H (4.8-10.8) K/uL RBC 3.81 L (4.2-5.4) M/uL Hgb 10.9 L (12.0-16.0) g/dL Hct 34.8 L (37-47) % MCV 91.3 (80-100) fL MCH 28.6 (25-34) pg MCHC 31.3 L (32-36) g/dL RDW Std Deviation 54.5 H (36.4-46.3) fL RDW Coeff of Patrick 16.4 H (11.5-14.5) % Plt Count 297 (130-400) K/uL MPV 10.2 (7.4-10.4) fL Immature Gran % (Auto) 0.2 % Neut % (Auto) 74.9 % Lymph % (Auto) 14.0 % [place] % (Auto) 8.2 % Eos % (Auto) 2.3 % Baso % (Auto) 0.4 % Immature Gran # (Auto) 0.03 H (0.00-0.02) K/uL Neut # (Auto) 9.81 H (1.4-6.5) K/uL Lymph # (Auto) 1.83 (1.2-3.4) K/uL [place] # (Auto) 1.07 H (0.11-0.59) K/uL Eos # (Auto) 0.30 (0-0.5) K/uL Baso # (Auto) 0.05 (0-0.2) K/uL Sodium 143 (136-145) mmol/L Potassium 3.5 (3.5-5.1) mmol/L Chloride 108 H (98-107) mmol/L Carbon Dioxide 29 (21-32) mmol/L Anion Gap 6.0 (3-11) BUN 22 H (7-18) mg/dl Creatinine 1.07 (0.6-1.2) mg/dl Est Cr Clr Drug Dosing Not Reportable Est GFR ( Amer) 60.5 Est GFR (Non-Af Amer) 52.2 BUN/Creatinine Ratio 20.6 H (10-20) Glucose 113 H (70-99) mg/dl Calcium 8.8 (8.5-10.1) mg/dl Total Bilirubin 1.2 H (0.2-1) mg/dl AST 24 (15-37) U/L ALT 35 (12-78) U/L Alkaline Phosphatase 72 (45-117) U/L Total Protein 7.0 (6.4-8.2) gm/dl Albumin 3.4 (3.4-5.0) gm/dl Globulin 3.6 (2.5-4.0) gm/dl Albumin/Globulin Ratio 0.9 (0.9-2) Lipase 111 (73-393) U/L TSH 0.251 L (0.300-4.500) uIu/ml Urine Color Urine Appearance (Clear) Urine pH (4.5-7.5) Ur Specific [place] (1.000-1.030) Urine Protein (Negative) Urine Glucose (UA) (Negative) Urine Ketones (Negative) Urine Blood (Negative) Urine Nitrite (Negative) Urine Bilirubin (Negative) Urine Urobilinogen (Negative) Ur Leukocyte Esterase (Negative) Urine WBC (Auto) (0-5) /hpf Urine RBC (Auto) (0-4) /hpf U Hyaline Cast (Auto) (0-5) /lpf U Epithel Cells (Auto) (0-5) /lpf Urine Bacteria (Auto) (Negative) Urine Yeast 03/11/19 Range/Units 10:02 WBC (4.8-10.8) K/uL RBC (4.2-5.4) M/uL Hgb (12.0-16.0) g/dL Hct (37-47) % MCV (80-100) fL MCH (25-34) pg MCHC (32-36) g/dL RDW Std Deviation (36.4-46.3) fL RDW Coeff of Patrick (11.5-14.5) % Plt Count (130-400) K/uL MPV (7.4-10.4) fL Immature Gran % (Auto) % Neut % (Auto) % Lymph % (Auto) % [place] % (Auto) % Eos % (Auto) % Baso % (Auto) % Immature Gran # (Auto) (0.00-0.02) K/uL Neut # (Auto) (1.4-6.5) K/uL Lymph # (Auto) (1.2-3.4) K/uL [place] # (Auto) (0.11-0.59) K/uL Eos # (Auto) (0-0.5) K/uL Baso # (Auto) (0-0.2) K/uL Sodium (136-145) mmol/L Potassium (3.5-5.1) mmol/L Chloride (98-107) mmol/L Carbon Dioxide (21-32) mmol/L Anion Gap (3-11) BUN (7-18) mg/dl Creatinine (0.6-1.2) mg/dl Est Cr Clr Drug Dosing Est GFR ( Amer) Est GFR (Non-Af Amer) BUN/Creatinine Ratio (10-20) Glucose (70-99) mg/dl Calcium (8.5-10.1) mg/dl Total Bilirubin (0.2-1) mg/dl AST (15-37) U/L ALT (12-78) U/L Alkaline Phosphatase (45-117) U/L Total Protein (6.4-8.2) gm/dl Albumin (3.4-5.0) gm/dl Globulin (2.5-4.0) gm/dl Albumin/Globulin Ratio (0.9-2) Lipase (73-393) U/L TSH (0.300-4.500) uIu/ml Urine Color Dark Yellow Urine Appearance Turbid A (Clear) Urine pH 5.5 (4.5-7.5) Ur Specific [place] 1.022 (1.000-1.030) Urine Protein Trace H (Negative) Urine Glucose (UA) Negative (Negative) Urine Ketones Negative (Negative) Urine Blood 1+ H (Negative) Urine Nitrite Positive A (Negative) Urine Bilirubin Negative (Negative) Urine Urobilinogen Negative (Negative) Ur Leukocyte Esterase 3+ H (Negative) Urine WBC (Auto) >30 H (0-5) /hpf Urine RBC (Auto) 10-30 H (0-4) /hpf U Hyaline Cast (Auto) 1-5 (0-5) /lpf U Epithel Cells (Auto) >30 H (0-5) /lpf Urine Bacteria (Auto) 4+ H (Negative) Urine Yeast Not Reportable Imaging Data My Impression: Images could not be viewed on the [employer]Pack system. Radiologist report showed a 1.7 cm distal left ureteral calculus causing moderate hydroureteronephrosis. Blood Pressure Blood Pressure Findings: Normal blood pressure MDM Narrative Patient presents the emergency department with an ultrasound finding of 1.7 cm obstructing distal left ureteral calculus. Urinalysis is also consistent with infection. This will warrant further urology surgical intervention. The patient currently does not have laboratory studies to suggest acute renal injury. The patient does have a history of stage III chronic kidney disease. Work-up at this point is not suggestive of other etiologies such as diverticulitis, bowel obstruction or appendicitis. The patient is status post cholecystectomy. Impression & Plan Calculus of distal left ureter, Urinary tract infection Discharge Plan Visit Data *Final* Discharge Date/Time: 03/11/19 12:11 Chief Complaint: Kidney Stone Stated Complaint: PAIN - KIDNEY STONE ED Provider: Gómez Erickson ED Midlevel Provider: Kirby Guzman Discharge Problem: Calculus of distal left ureter, Urinary tract infection Patient Disposition: Admitted As Inpatient Discharge Instructions Interventions: ED Discharge Assessment Last Done: 03/11/19 12:11
[2019-03-12] MEDS: SODIUM CHLORIDE 0.9% 1000ML 1,000 ML IV SCH (02:19)
[2019-03-12] MEDS: LEVOTHYROXINE SODIUM 125 MCG TABLET PO SCH (04:10)
[2019-03-12 07:03] LABS: Basophils # (auto) 0.03 K/uL (0-0.2); Basophils % (auto) 0.4 %; Eosinophils # (auto) 0.27 K/uL (0-0.5); Eosinophils % (auto) 3.2 %; Hematocrit (blood only) 32.3 % (37-47); Immature Granulocytes # (auto) 0.03 K/uL (0.00-0.02); Immature Granulocytes % (auto) 0.4 %; Lymphocytes # (auto) 1.32 K/uL (1.2-3.4); Lymphocytes % (auto) 15.5 %; Mean Corpuscular Volume 92.3 fL (80-100); Mean Platelet Volume 10.3 fL (7.4-10.4); Monocytes # (auto) 0.91 K/uL (0.11-0.59); Monocytes % (auto) 10.7 %; Neutrophils # (auto) 5.96 K/uL (1.4-6.5); Neutrophils % (auto) 69.8 %; Platelet Count 234 K/uL (130-400); RDW Coefficient of Variation 16.3 % (11.5-14.5); RDW Standard Deviation 55.2 fL (36.4-46.3); White Blood Count 8.52 K/uL (4.8-10.8)
[2019-03-12 07:36] LABS: BUN Creatinine Ratio 19.1 (10-20); Blood Urea Nitrogen 19 mg/dl (7-18); Calcium 8.7 mg/dl (8.5-10.1); Carbon Dioxide 29 mmol/L (21-32); Chloride 108 mmol/L (98-107); Est GFR (African American) 66.4; Est GFR (Non-African American) 57.3; Glucose 87 mg/dl (70-99); Potassium 4.1 mmol/L (3.5-5.1); Sodium 143 mmol/L (136-145)
[2019-03-12 07:40] LABS: T4 Free Thyroxine 1.27 ng/dl (0.8-1.6)
[2019-03-12] MEDS: DAPSONE 25 MG TAB PO SCH ×2 (08:51→20:44)
[2019-03-12] MEDS: LOSARTAN POTASSIUM 50 MG TAB PO SCH (08:51)
[2019-03-12] MEDS: FERROUS SULFATE 325 MG TAB PO SCH ×2 (08:51→20:44)
[2019-03-12] MEDS: PANTOprazole 40 MG TAB PO SCH (08:51)
[2019-03-12] MEDS: TRIAMCINOLONE ACET 0.1% CR 80 GM TUBE EXT SCH ×2 (08:51→20:44)
[2019-03-12] MEDS: DULOXETINE HCL 20 MG CAP PO SCH (08:51)
--- NOTE | 2019-03-12 09:37 | Urology Progress Note ---
Date of Service March 12, 2019 Assessment & Plan (1) Calculus of distal left ureter: POD #1 s/p cysto, left ureteral stent placement. Patient feeling well today, stent not too bothersome. Urine sensitivities pending, recommend transition to PO antibiotic for 10-14 days total therapy. Outpatient urology follow up has been arranged. Thanks for allowing us to participate in the inpatient care of Ms. Zuniga. Please contact our service with additional questions/concerns. (2) Urinary tract infection: (3) Hydronephrosis: Subjective 73 YO female, 12mm distal left ureteral stone with resulting hydronephrosis, POD #1 s/p left ureteral stent placement. Patient reports feeling much better today. Stent is not bothersome. Some minor dysuria, voiding spontaneously. UC&S prelim positive, sensitivities pending. Review of Systems Review of Systems: All systems reviewed & are unremarkable except as noted in HPI & below Physical Exam Physical Exam: WN/WD NAD. Resp effort normal. No JVD. Abd soft, nontender. Bladder normal to palpation. A&Ox3, appropriate affect. Results & Data Vital Signs (Past 12 Hours) Vital Signs Temp Pulse Resp BP Pulse Ox 03/12/19 07:24 37.2 C 98 H 18 145/81 H 93 03/12/19 03:59 36.9 C 98 H 16 127/76 94 03/11/19 23:09 36.8 C 99 H 16 114/69 95
--- NOTE | 2019-03-12 10:33 | Anesthesiology Progress Note ---
Date of Service March 12, 2019 Anesthesia Post Procedure Vital Signs Vital Signs: Temp Pulse Pulse Resp BP Pulse Ox 03/12/19 07:24 37.2 C 98 H 18 145/81 H 93 03/12/19 03:59 36.9 C 98 H 16 127/76 94 03/11/19 23:09 36.8 C 99 H 16 114/69 95 03/11/19 19:13 37.1 C 102 H 18 107/65 94 03/11/19 18:07 36.7 C 104 H 18 127/61 95 03/11/19 17:10 36.6 C 106 H 20 94/60 L 94 03/11/19 16:40 36.5 C 97 H 18 116/73 99 03/11/19 16:10 37.0 C 101 H 16 119/70 95 03/11/19 16:00 106 H 18 118/58 L 99 03/11/19 15:50 36.7 C 104 H 17 124/60 97 03/11/19 15:40 105 H 25 H 112/58 L 99 03/11/19 15:31 36.6 C 103 H 16 114/63 100 03/11/19 14:34 37 C 104 H 18 101/69 93 03/11/19 12:45 36.9 C 104 H 16 94/64 L 94 03/11/19 11:53 113 H 20 109/64 96 Notes Mental Status: alert / awake / arousable and participated in evaluation Nausea / Vomiting: adequately controlled Pain: adequately controlled Airway Patency, RR, SpO2: stable & adequate BP & HR: stable & adequate Hydration State: stable & adequate
[2019-03-12] MEDS: cefTRIAXone SODIUM 2,000 MG in DEXTROSE 5% 50 ML IV SCH (11:40)
--- NOTE | 2019-03-12 13:39 | Hospitalist Progress Note ---
Date of Service March 12, 2019 Assessment & Plan (1) Ureter, calculus: (2) Hydronephrosis: Pt presented to ER with c/o L flank pain started this morning on 03/11/19 and found to have Obstructing Left ureteral calculi with hydronephrosis and urinary tract infection Obstructing Left ureteral calculi with hydronephrosis, Urinary Tract infection -admission CT abdomen findings 1. Obstructing 12 mm distal left ureteral calculus a few centimeters proximal to the left ureterovesical junction with resultant moderate left hydroureteronephrosis. Suspected calyceal rupture given the degree of left perinephric fluid. No additional renal or ureteral calculus. 2. Hepatic steatosis with suspected underlying hepatic fibrosis/cirrhosis. 3. Postsurgical changes of Bigg-en-Y gastric bypass without evidence of complication -03/12/19/Patient seen and examined at bedside. She is comfortable and no flank pain. She had 12mm distal left ureteral stone with resulting hydronephrosis s/p left ureteral stent placement on 03/11/19. Discussed with patient that she is currently on IV ceftriaxone and urine culture with gram negative bacilli and awaiting speciation and sensitivities and that the prudent course of action would be to continue IV ceftriaxone for now until cultures return before considering transitioning to oral antibiotics. Patient agrees to the plan (3) HTN (hypertension): -Continue losartan (4) Hypothyroidism: TSH low as 0.257 but free T4 is normal -Continue levothyroxine (5) CKD (chronic kidney disease), stage III: renal function is stable (6) Anemia: History of pernicious anemia and history of gastric bypass -hemoglobin is stable (7) Depression: -Continue duloxetine (8) Prolonged QT interval: -avoid agents that can prolong QTc -EKG with Q waves on septal leads but she denies of having any chest pain; patient went to urology stenting procedure on 03/11/19 without cardiac events -known heart murmur as per patient (9) Dermatitis herpetiformis: Follows with dermatology -On dapsone -Patient will need gluten-free diet DVT Prophylaxis -SCDs Full Code as per discussion with pt Subjective Patient seen and examined at bedside. She is comfortable and no flank pain. She had 12mm distal left ureteral stone with resulting hydronephrosis s/p left ureteral stent placement on 03/11/19. Discussed with patient that she is currently on IV ceftriaxone and urine culture with gram negative bacilli and awaiting speciation and sensitivities and that the prudent course of action would be to continue IV ceftriaxone for now until cultures return before considering transitioning to oral antibiotics. Patient agrees to the plan no chest pain. no shortness of breath. no back pain. no abdomen pain. no vomiting. no headache. no dizzinesss Physical Exam Constitutional: WD/WN, vitals as above Eyes: PERRL, conjunctivae normal, anicteric sclerae EOM intact bilaterally ENMT: external ear and nose normal, oropharynx normal Neck: trachea midline, no thyromegaly normal visual inspection Respiratory: normal respiratory effort, lungs clear to auscultation Cardiovascular: Rate/Rhythm: regular rate and regular rhythm Heart Sounds: + murmur Gastrointestinal (Abdomen): normal bowel sounds, soft, nontender, no hepatosplenomegaly Musculoskeletal: Head/Neck/Chest: normocephalic and head atraumatic Neurologic: PERRL, EOMI, accommodation nl, no face palsy, no dysarthria CN's II-XI intact bilaterally Psychiatric: A+Ox3, euthymic affect Results & Data Vital Signs (Past 12 Hours) Vital Signs Temp Pulse Resp BP Pulse Ox 03/12/19 11:42 37 C 98 H 16 158/81 H 95 03/12/19 07:24 37.2 C 98 H 18 145/81 H 93 03/12/19 03:59 36.9 C 98 H 16 127/76 94
[2019-03-13] MEDS: LEVOTHYROXINE SODIUM 125 MCG TABLET PO SCH (04:54)
[2019-03-13 07:03] LABS: Basophils # (auto) 0.03 K/uL (0-0.2); Basophils % (auto) 0.3 %; Eosinophils # (auto) 0.28 K/uL (0-0.5); Eosinophils % (auto) 2.9 %; Hematocrit (blood only) 34.7 % (37-47); Hemoglobin 10.9 g/dL (12.0-16.0); Immature Granulocytes # (auto) 0.07 K/uL (0.00-0.02); Immature Granulocytes % (auto) 0.7 %; Lymphocytes # (auto) 1.32 K/uL (1.2-3.4); Lymphocytes % (auto) 13.9 %; Mean Corpuscular Hgb Conc 31.4 g/dL (32-36); Mean Corpuscular Volume 90.6 fL (80-100); Mean Platelet Volume 10.7 fL (7.4-10.4); Monocytes # (auto) 1.02 K/uL (0.11-0.59); Monocytes % (auto) 10.7 %; Neutrophils # (auto) 6.81 K/uL (1.4-6.5); Neutrophils % (auto) 71.5 %; Platelet Count 235 K/uL (130-400); Red Blood Count 3.83 M/uL (4.2-5.4); White Blood Count 9.53 K/uL (4.8-10.8)
[2019-03-13 07:39] LABS: Alanine Aminotransferase 276 U/L (12-78); Albumin Level 2.9 gm/dl (3.4-5.0); Aspartate Aminotransferase 176 U/L (15-37); BUN Creatinine Ratio 16.2 (10-20); Blood Urea Nitrogen 13 mg/dl (7-18); Carbon Dioxide 28 mmol/L (21-32); Chloride 105 mmol/L (98-107); Est GFR (African American) 84.7; Est GFR (Non-African American) 73.1; Glucose 91 mg/dl (70-99); Sodium 138 mmol/L (136-145)
[2019-03-13 07:42] LABS: Albumin Globulin Ratio 0.7 (0.9-2); Alkaline Phosphatase 139 U/L (45-117); Bilirubin,Total 1.4 mg/dl (0.2-1); Total Protein 6.9 gm/dl (6.4-8.2)
[2019-03-13] MEDS: TRIAMCINOLONE ACET 0.1% CR 80 GM TUBE EXT SCH (08:27)
[2019-03-13] MEDS: DAPSONE 25 MG TAB PO SCH (08:28)
[2019-03-13] MEDS: DULOXETINE HCL 20 MG CAP PO SCH (08:28)
[2019-03-13] MEDS: PANTOprazole 40 MG TAB PO SCH (08:28)
[2019-03-13] MEDS: LOSARTAN POTASSIUM 50 MG TAB PO SCH (08:28)
[2019-03-13] MEDS: FERROUS SULFATE 325 MG TAB PO SCH (08:29)
[2019-03-13] MEDS: cefTRIAXone SODIUM 2,000 MG in DEXTROSE 5% 50 ML IV SCH (11:55)
--- NOTE | 2019-03-13 13:39 | Hospitalist Progress Note ---
Date of Service March 13, 2019 Assessment & Plan (1) Ureter, calculus: (2) Hydronephrosis: Pt presented to ER with c/o L flank pain started this morning on 03/11/19 and found to have Obstructing Left ureteral calculi with hydronephrosis and urinary tract infection Obstructing Left ureteral calculi with hydronephrosis, Urinary Tract infection -admission CT abdomen findings 1. Obstructing 12 mm distal left ureteral calculus a few centimeters proximal to the left ureterovesical junction with resultant moderate left hydroureteronephrosis. Suspected calyceal rupture given the degree of left perinephric fluid. No additional renal or ureteral calculus. 2. Hepatic steatosis with suspected underlying hepatic fibrosis/cirrhosis. 3. Postsurgical changes of Bigg-en-Y gastric bypass without evidence of complication -- urine culture: (+) E coli -- given Ceftri IV will give Cefdinir 300mg po BID x 10 days -- discussed with QI Brantley patient cleared from discharge, [place] [facility] [place]10 [place] for stent removal patient counseled on signs/symptoms to watch out for (3) Elevated LFTs: history of Cirrhosis noted to have elevated AST/ALT/Alk phos compared to 2 days ago follows up with [facility] discussed with QI Espinoza recommend Liver US repeat LFTs on Mon03/15/19 - QI Adams will call the patient Right Leg Edema Doppler US ordered (4) HTN (hypertension): -Continue losartan (5) Hypothyroidism: TSH low as 0.257 but free T4 is normal -Continue levothyroxine (6) CKD (chronic kidney disease), stage III: renal function is stable (7) Anemia: History of pernicious anemia and history of gastric bypass -hemoglobin is stable (8) Depression: -Continue duloxetine (9) Prolonged QT interval: -avoid agents that can prolong QTc -EKG with Q waves on septal leads but she denies of having any chest pain; patient went to urology stenting procedure on 03/11/19 without cardiac events -known heart murmur as per patient (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 -On dapsone -Patient will need gluten-free diet DVT Prophylaxis -SCDs Full Code as per discussion with pt Subjective ff up for UVJ stone seen resting in bed, comfortable in good spirits states she feels fine overall denies flank or abdominal pain, no dysuria or hematuria no other symptoms states she is ready and would like to be discharged today Review of Systems Review of Systems: All systems reviewed & are unremarkable except as noted in HPI & below Physical Exam Physical Exam: General- oriented x 3, not in distress, speaks in sentences with no effort or accessory muscle use Eyes- anicteric Neck- no JVD Lungs- clear breath sounds bilaterally, no rales/wheezes Heart- normal rate, regular rhythm; no murmurs Abdomen- normal bowel sounds, nondistended, soft, nontender Extremities- no pretibial edema, no calf tenderness mild right lower leg edema: no warmth/tenderness/erythema Neuro- alert, oriented x 3; no gross focal neurologic deficits Skin- warm & dry Results & Data Vital Signs (Past 12 Hours) Vital Signs Temp Pulse Resp BP Pulse Ox 03/13/19 07:55 36.8 C 96 H 18 150/78 H 94
--- NOTE | 2019-03-13 18:29 | Ultrasound Report ---
ULTRASOUND RIGHT LOWER EXTREMITY VENOUS CLINICAL HISTORY: Right leg swelling. COMPARISON STUDY: No priors. TECHNIQUE: Real-time, grayscale, and color Doppler sonography of the deep veins of the right lower ex tremity was performed from the inguinal crease to the calf. Compression and augmentation were utilize d. FINDINGS: There is no sonographic evidence of deep venous thrombosis identified in the right lower ex tremity. The common femoral, superficial femoral, and popliteal veins are patent and normally boyd sible. The greater saphenous vein and the profunda femoris vein at the junction with the common femor al vein are clear. The visualized calf veins are patent. IMPRESSION: There is no sonographic evidence of deep venous thrombosis identified in the right lower extremity. Electronically signed by: Jaden Torres M.D. 03/13/2019 6:27 PM
--- NOTE | 2019-03-13 18:53 | Ultrasound Report ---
ULTRASOUND RIGHT UPPER QUADRANT ABDOMEN CLINICAL HISTORY: Elevated hepatic transaminases. COMPARISON STUDY: Abdominal CT dated 03/11/2019. TECHNIQUE: Real-time, grayscale, and color flow sonography of the right upper quadrant of the abdomen was performed. Images are reviewed in the transverse and longitudinal planes. FINDINGS: Liver: The liver is cirrhotic in morphology and heterogeneous in echotexture. There is nodularity of the hepatic surface contour. There is no intrahepatic biliary ductal dilatation. The main portal vein is patent. Gallbladder: The gallbladder is surgically absent. The common bile duct measures up to 0.5 cm in diam eter. Pancreas: Not well-visualized due to overlying bowel gas. Right kidney: Survey images of the right kidney demonstrate mild cortical atrophy. There is no hydron ephrosis. Ascites: None. IMPRESSION: 1. The liver is cirrhotic in morphology and heterogeneous in echotexture. 2. There is no significant intra or extrahepatic biliary ductal dilatation. 3. Status post cholecystectomy. Electronically signed by: Jaden Torres M.D. 03/13/2019 6:51 PM
--- NOTE | 2019-03-13 19:00 | Discharge Summary ---
Date of Service March 13, 2019 Admission HPI Per Admitting Provider Pt is 73 y/o F with PMH HTN, hypothyroidism, asthma, obesity S/P gastric bypass, pernicious anemia, depression presented to ER with complaint of left flank pain. Patient states this morning around 5 AM woke up with left flank pain which radiates to left groin. Denies any nausea, vomiting, fever, chills, hematuria, dysuria, urinary retention, urinary frequency. She had routine scheduled outpatient ultrasound liver today and 1.7 cm distal left ureter calculus with moderate hydroureteronephrosis was noted and patient was referred to ER. Denies hx kidney stones. Last ate last night. Denies diaphoresis, diarrhea, co nstipation, JONES, dizziness, syncope, vision changes, neck pain, CP, SOB, orthopnea, palpitations, cough, sore throat, choking, otalgia, rhinorrhea, other abdominal pain, paresthesias, weakness, extremity weakness, extremity edema, new rashes. Admission Exam Per Admitting Provider General: no acute distress, obese Head: normocephalic, atraumatic Eyes: PERRL, EOM's intact, conjunctiva non-injected, anicteric ENT: normal inspection external ears, nose, mucous membranes mildly dry Neck: supple, trachea midline Lungs: clear, no respiratory distress, no wheezing/rhonchi/rales CV: RRR, +systolic murmur, no JVD, no pretibial edema Abd: normal BS, soft,+tenderness to L flank, no other abdominal tenderness to palpation Ext: no cyanosis, no calf tenderness Neuro: A&O x 3, no focal deficits noted, normal affect Skin: warm, dry Principal Diagnosis LEFT URETERAL STONE, S/P STENT PLACEMENT, URINARY TRACT INFECTION-E. COLI Discharge Exam General- oriented x 3, not in distress, speaks in sentences with no effort or accessory muscle use Eyes- anicteric Neck- no JVD Lungs- clear breath sounds bilaterally, no rales/wheezes Heart- normal rate, regular rhythm; no murmurs Abdomen- normal bowel sounds, nondistended, soft, nontender Extremities- no pretibial edema, no calf tenderness mild right lower leg edema: no warmth/tenderness/erythema Neuro- alert, oriented x 3; no gross focal neurologic deficits Skin- warm & dry Discharge Data Allergies Allergy/AdvReac Type Severity Reaction Status Date / Time gluten Allergy Intermediate skin rash Verified 03/11/19 09:48 No Known Drug Allergies Allergy Unknown . Verified 03/11/19 09:48 Consultations 03/11/19 10:40 ED Decision to Admit Stat 03/11/19 12:54 Consult Urology Routine Procedures Performed Operation Date: 03/11/19 10:35 Actual Procedures p Cystoscopy, Left retrograde pyleogram, left Ureteral Stent Placement(Left) - London Obregon II, DO Ordered Studies 03/11/19 11:19 CT abd pelvis wo con Urgent CT abd pelvis wo con CLINICAL HISTORY: 73 years-old Female presenting with L flank pain, history of kidney stones. TECHNIQUE: Multidetector CT of the abdomen and pelvis was performed without the use of intravenous contrast. IV contrast: None. One or more dose lowering techniques were used consistent with the principles of ALARA (as low as reasonably achievable), including automatic exposure control, mA or kV adjustment to individual patient size, and/or use of iterative reconstruction. COMPARISON: 08/07/2018. CT DOSE (mGy.cm): The estimated cumulative dose is 1371.96 mGy.cm. FINDINGS: Registered Safety Engineer topogram: Orthopedic hardware. Lung bases: Normal heart size. Aortic valve calcification. No pericardial or pleural effusion. Minimal dependent changes likely atelectasis. Liver: Mildly nodular contour suggesting underlying fibrosis/cirrhosis. Density consistent with hepatic steatosis. Biliary: Mild biliary ductal prominence likely a reservoir effect in the post cholecystectomy state. Gallbladder surgically absent. Pancreas: Moderate parenchymal atrophy. Spleen: Normal noncontrast appearance. Adrenal glands: Normal noncontrast appearance. Kidneys and ureters: Interval development of moderate left perinephric fat infiltration and fluid. Moderate left pelvocaliectasis with dilatation of the left ureter to the level of the obstructing 12 mm distal left ureteral calculus a few centimeters proximal to the left ureterovesical junction. No additional ureteral calculus. Mild left. Ureteral fat infiltration. No additional left renal calculus. No right renal calculi. Normal noncontrast appearance of the right kidney. Bladder: Incompletely evaluated secondary to underdistention. No bladder calculi. Pelvic organs: Normal noncontrast appearance. Bowel: Mild wall thickening of the mid sigmoid colon likely due to underdistention. The appendix is not visualized. Postsurgical changes of antecolic Bigg-en-Y gastric bypass. No pathologic distention of the pancreaticobiliary limb or excluded stomach. The distal enteroenteric anastomosis is widely patent without evidence of intussusception. No inflammatory changes at either anastomosis. No bowel obstruction. Peritoneal cavity: No free fluid or intraperitoneal gas. Retroperitoneal fluid in the left perirenal space. Lymph nodes: No gross lymphadenopathy allowing for noncontrast technique. Vasculature: Atherosclerosis of the normal caliber abdominal aorta. Abdominal wall: Normal. Musculoskeletal: Total right hip arthroplasty. Degenerative changes of the spine. IMPRESSION: 1. Obstructing 12 mm distal left ureteral calculus a few centimeters proximal to the left ureterovesical junction with resultant moderate left hydroureteronephrosis. Suspected calyceal rupture given the degree of left perinephric fluid. No additional renal or ureteral calculus. 2. Hepatic steatosis with suspected underlying hepatic fibrosis/cirrhosis. 3. Postsurgical changes of Bigg-en-Y gastric bypass without evidence of complication. 03/11/19 14:00 FL retrograde includes kub Routine 03/13/19 13:19 US liver Stat ULTRASOUND RIGHT UPPER QUADRANT ABDOMEN CLINICAL HISTORY: Elevated hepatic transaminases. COMPARISON STUDY: Abdominal CT dated 03/11/2019. TECHNIQUE: Real-time, grayscale, and color flow sonography of the right upper quadrant of the abdomen was performed. Images are reviewed in the transverse and longitudinal planes. FINDINGS: Liver: The liver is cirrhotic in morphology and heterogeneous in echotexture. There is nodularity of the hepatic surface contour. There is no intrahepatic biliary ductal dilatation. The main portal vein is patent. Gallbladder: The gallbladder is surgically absent. The common bile duct measures up to 0.5 cm in diameter. Pancreas: Not well-visualized due to overlying bowel gas. Right kidney: Survey images of the right kidney demonstrate mild cortical atrophy. There is no hydronephrosis. Ascites: None. IMPRESSION: 1. The liver is cirrhotic in morphology and heterogeneous in echotexture. 2. There is no significant intra or extrahepatic biliary ductal dilatation. 3. Status post cholecystectomy. 03/13/19 13:33 US venous doppler LE RT Stat FINDINGS: There is no sonographic evidence of deep venous thrombosis identified in the right lower extremity. The common femoral, superficial femoral, and popliteal veins are patent and normally compressible. The greater saphenous vein and the profunda femoris vein at the junction with the common femoral vein are clear. The visualized calf veins are patent. IMPRESSION: There is no sonographic evidence of deep venous thrombosis identified in the right lower extremity. Hospital Course (1) Ureter, calculus: (2) Hydronephrosis: Pt presented to ER with c/o L flank pain started this morning on 03/11/19 and found to have Obstructing Left ureteral calculi with hydronephrosis and urinary tract infection Obstructing Left ureteral calculi with hydronephrosis, Urinary Tract infection -admission CT abdomen findings 1. Obstructing 12 mm distal left ureteral calculus a few centimeters proximal to the left ureterovesical junction with resultant moderate left hydroureteronephrosis. Suspected calyceal rupture given the degree of left perinephric fluid. No additional renal or ureteral calculus. 2. Hepatic steatosis with suspected underlying hepatic fibrosis/cirrhosis. 3. Postsurgical changes of Bigg-en-Y gastric bypass without evidence of complication -- 03/11/19: S/P Cystoscopy, Left retrograde pyleogram, left Ureteral Stent Placement(Left) - London Obregon II, DO -- urine culture: (+) E coli -- given Ceftri IV will give Cefdinir 300mg po BID x 10 days -- discussed with Urology SVC: QI Brantley patient cleared from discharge, ff up with [facility] clinic in 7-10 days for stent removal patient counseled on signs/symptoms to watch out for (3) Elevated LFTs: history of Cirrhosis noted to have elevated AST/ALT/Alk phos compared to 2 days ago T ricardo 1.4 AST 176 ALT 276 Alk Phos 139 follows up with [facility] GI discussed with QI Espinoza recommend Liver US: IMPRESSION: 1. The liver is cirrhotic in morphology and heterogeneous in echotexture. 2. There is no significant intra or extrahepatic biliary ductal dilatation. 3. Status post cholecystectomy. repeat LFTs on Mon03/15/19 - QI Adams will call the patient monitor LFTs closely ff up with GI Right Leg Edema Doppler US ordered: no DVT monitor as outpatient (4) HTN (hypertension): -Continue losartan (5) Hypothyroidism: TSH low as 0.257 but free T4 is normal -Continue levothyroxine (6) CKD (chronic kidney disease), stage III: renal function is stable (7) Anemia: History of pernicious anemia and history of gastric bypass -hemoglobin is stable (8) Depression: -Continue duloxetine (9) Prolonged QT interval: -avoid agents that can prolong QTc -EKG with Q waves on septal leads but she denies of having any chest pain; patient went to urology stenting procedure on 03/11/19 without cardiac events -known heart murmur as per patient (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 -On dapsone -Patient will need gluten-free diet DVT Prophylaxis -SCDs Full Code as per discussion with pt Disposition Discharge to home Follow-up with PCP as outlined in discharge instructions Follow-up with [facility] in 7 to 10 days Total Time Total Time Spent Total Time Spent (In Minutes): 50 minutes Discharge Plan Discharge Items Patient Disposition: Home - Self-Care Reason For Visit: URETERAL STONE Discharge Diagnosis: Ureteral Stone, Ureteral Stent Placement, Urinary Tract Infection Discharge Goals: Diagnostic testing and Therapeutic intervention Activity: As commented below Activity Comment: Resume activity gradually as tolerated Lifting: Wait until after follow-up appointment Exercise/Sports: Wait until after follow-up appointment Driving/Machine Use Comment: No Driving until cleared by Primary Care Physician Non-emergency contact: Primary Care Provider and Urologist Call non-emergency contact if: you have any medication questions, your symptoms worsen, your pain is not controlled, your pain is worsening, your pain is concerning for you and you have a fever Follow-up/Referrals: London Obregon II, DO [Physician] - (Follow up in 7 days; The clinic will be calling you for the appointment. Please call their office for an appointment if you have not been scheduled in 1-2 days. ) Nathaniel Muro MD [Primary Care Provider] - 03/18/19 12:55 pm Diet: Heart Healthy Addtl Provider Instructions: TAKE PROBIOTICS AND INCLUDE YOGURT IN YOUR DAILY DIET, AT LEAST UNTIL 1 WEEK AFTER YOU FINISH YOUR ANTIBIOTIC COURSE. STAY WELL HYDRATED. CALL YOUR PRIMARY CARE PHYSICIAN IMMEDIATELY IF YOU HAVE DIARRHEA. CALL THE UROLOGY CLINIC IMMEDIATELY IF YOU HAVE INCREASING PAIN, BLOOD IN THE URINE, FEVER/CHILLS, NAUSEA/VOMITING. Prescriptions: New cefdinir 300 mg capsule 300 mg PO BID 10 Days Qty: 20 RF: 0 Continued levothyroxine [Synthroid] 125 mcg tablet 125 mcg PO QAM RF: 0 dapsone 25 mg tablet 50 mg PO BID RF: 0 losartan [Cozaar] 100 mg tablet 50 mg PO QAM RF: 0 duloxetine [Cymbalta] 20 mg capsule,delayed release(DR/EC) 40 mg PO QAM RF: 0 cholecalciferol (vitamin D3) 1,000 unit Tablet 1,000 unit PO QAM RF: 0 ferrous sulfate 325 mg (65 mg iron) tablet 325 mg PO BID RF: 0 omeprazole 20 mg capsule,delayed release(DR/EC) 20 mg PO QAM RF: 0 cyanocobalamin (vitamin B-12) 1,000 mcg/mL Solution 1,000 mcg IM UD RF: 0 fluocinonide 0.05 % Solution 1 applic TOPICAL BID PRN (Reason: Itching) RF: 0 Stand-Alone Forms: [facility] Discharge Orders: Discharge Order (Routine); Ordered 03/13/19 Ordered By: Manas Jackson Admission Data Admit Date/Time: 03/11/19 11:41 Attending Provider: Manas Jackson Admit Provider: Liu Valenzuela Primary Care Provider: Nathaniel Muro Other Providers: Liu Valenzuela ; London Obregon II Service: Medical
== END 2019-03-13 20:02 | disposition home or self-care (01) | DRG 661 ==
LOC: ED 08:37 → 3N 11:41 → SUATTDRO 11:41 → 3N 12:11

== ENCOUNTER 2021-01-11 22:58 | Inpatient (IN) ==
[2021-01-11 23:40] LABS: Basophils # (auto) 0.05 K/uL (0-0.2); Basophils % (auto) 0.5 %; Eosinophils # (auto) 0.51 K/uL (0-0.5); Eosinophils % (auto) 5.3 %; Hematocrit (blood only) 33.9 % (37-47); Hemoglobin 10.9 g/dL (12.0-16.0); Immature Granulocytes # (auto) 0.03 K/uL (0.00-0.02); Immature Granulocytes % (auto) 0.3 %; Lymphocytes # (auto) 2.98 K/uL (1.2-3.4); Lymphocytes % (auto) 30.7 %; Mean Corpuscular Hemoglobin 32.2 pg (25-34); Mean Corpuscular Hgb Conc 32.2 g/dL (32-36); Mean Corpuscular Volume 100.3 fL (80-100); Mean Platelet Volume 10.9 fL (7.4-10.4); Monocytes # (auto) 0.95 K/uL (0.11-0.59); Monocytes % (auto) 9.8 %; Neutrophils # (auto) 5.18 K/uL (1.4-6.5); Neutrophils % (auto) 53.4 %; Platelet Count 290 K/uL (130-400); RDW Coefficient of Variation 13.1 % (11.5-14.5); RDW Standard Deviation 47.9 fL (36.4-46.3); Red Blood Count 3.38 M/uL (4.2-5.4)
[2021-01-11] MEDS ORDERED: LACTATED RINGER'S 1,000 ML IV SCH (23:45)
[2021-01-11 23:52] LABS: Alanine Aminotransferase 31 U/L (12-78); Albumin Level 3.4 gm/dl (3.4-5.0); Aspartate Aminotransferase 20 U/L (15-37); BUN Creatinine Ratio 34.6 (10-20); Blood Urea Nitrogen 39 mg/dl (7-18); Calcium 8.6 mg/dl (8.5-10.1); Carbon Dioxide 26 mmol/L (21-32); Chloride 108 mmol/L (98-107); Creatinine Clr Calc Pharmacy 52.1 ml/min; Est GFR (African American) 56.4; Est GFR (Non-African American) 48.7; Glucose 117 mg/dl (70-99); Lipase 166 U/L (73-393); Magnesium 1.8 mg/dl (1.8-2.4); Potassium 4.3 mmol/L (3.5-5.1); Sodium 140 mmol/L (136-145)
[2021-01-11 23:53] LABS: Prothrombin Time 10.5 Seconds (9.0-12.0)
[2021-01-11] MEDS ORDERED: PANTOPRAZOLE BOLUS/DRIP 1 EA IV STA (23:55)
[2021-01-11] MEDS ORDERED: PANTOprazole 80 MG in DEXTROSE 5% 100 ML IV ONE (23:55)
--- NOTE | 2021-01-11 23:55 | Emergency Department Note ---
History of Present Illness General Chief complaint: Abdominal Pain Stated complaint: ABDOMINAL PAIN, BLOOD IN STOOL, WEAKNESS Time Seen by Provider: 01/11/21 23:17 Source: patient Mode of arrival: ambulatory Limitations: no limitations History of Present Illness Provider complaint: abd pain, black stools Onset (ago): day(s) 3 Location: abdomen Radiation: non-radiation Severity: moderate Pain Consistency: + colicky Maximum Pain Intensity: 9 Quality: + constant Exacerbated By: + none Associated symptoms: + loss of appetite, + shortness of breath and + weakness; no fever/chills and no nausea/vomiting Treatments prior to arrival: none This is 75-year-old female presents emergency department complaining of 2 to 3 days of abdominal pain and dark stools. Patient concerned she has a history of peptic ulcer disease and has had a bleeding ulcer in the past requiring hospitalization and blood transfusion. Patient states she had been on pantoprazole after the initial diagnosis of PUD, however has been off it for about a year. Patient denies any use of aspirin or NSAIDs, no anticoagulation. Patient denies any other dietary changes. No other recent medication changes. Patient states pain has been colicky but persistent, nonradiating. Patient states pain is worse with standing. She states she initially began to notice his stools appeared darker several days ago, and by today she states they were "black". States stools are still formed, not loose, no diarrhea. Denies any accompanying nausea or vomiting, fevers or chills. Patient states with standing the pain is worse, she feels weak, lightheaded, and slightly short of breath. Patient denies any other overt chest pain. Pt seen during a time of high acuity and national emergency pandemic while wearing PPE. Home Medications Medication Instructions Recorded Confirmed Type cholecalciferol (vitamin D3) 1,000 unit PO QAM 08/07/18 01/11/21 History dapsone 50 mg PO BID 08/07/18 01/11/21 History duloxetine [Cymbalta] 20 mg PO QAM 08/07/18 01/12/21 History levothyroxine [Synthroid] 125 mcg PO QAM 08/07/18 01/11/21 History losartan [Cozaar] 50 mg PO QAM 08/07/18 01/11/21 History cyanocobalamin (vitamin B-12) 1,000 mcg IM MONTHLY 03/11/19 01/11/21 History ferrous sulfate 325 mg PO BID 03/11/19 01/11/21 History fluocinonide 1 applic TOPICAL BID PRN 03/11/19 01/11/21 History Allergies Allergy/AdvReac Type Severity Reaction Status Date / Time gluten Allergy Intermediate SKIN Verified 01/12/21 09:01 RASH--DERMATITIS Past Med/Surg History Medical History (Updated 01/12/21 @ 19:24 by Urbano Schafer DO) Anemia STABLE HGB IN THE 10 RANGE Asthma NO INHALER USE X YEARS Depression Dermatitis herpetiformis Fatty liver History of GI bleed + GASTRIC ULCER; NO FURTHER DETAILS HTN (hypertension) Hypothyroidism Kidney stones Obesity Osteoarthritis Ovarian cyst Surgical History H/O gastric bypass History of cataract surgery LEFT History of cholecystectomy History of colonoscopy History of esophagogastroduodenoscopy (EGD) History of hip replacement right hip Hx of tonsillectomy S/P cystoscopy with ureteral stent placement 03/11/2019 [facility] Family History Brother Pancreatic cancer Mother Pancreatic cancer Father Coronary heart disease Social History Smoking Status: Former smoker Smoking End Date: 25 years ago; Second Hand Exposure: No; Hx Alcohol Use: No Hx Substance Use: No Preferred Language: Maori Communication Ability: Effective Retail Gift Card Merchandising Required: No Beliefs That Will Affect Care: None marital status: / Current Living Situation: Family Current Living Situation Comment: Lives with son Other Information That Helps Us Care for You: No Feels Safe at Home: Yes Safety Concerns: Feels Safe At This Time Assistive Devices: None Review of Systems See HPI for pertinent positives & negatives. and A total of 10 systems reviewed and were otherwise negative Physical Exam Vital Signs Vital Signs - 24 hr 01/11/21 23:02 01/11/21 23:15 01/11/21 23:24 Temperature 36.8 C Temperature Source Temporal Artery Scan Pulse Rate 104 H 96 H Pulse Rate [Apical] Pulse Rate from SpO2 Sensor 96 H Respiratory Rate 18 15 Respiratory Effort / Characteristics Non-Labored Spontaneous Respiratory Depth Normal Normal Respiratory Pattern Regular Blood Pressure 140/65 127/77 Blood Pressure Mean 90 93 Pulse Oximetry 98 95 Oxygen Delivery Method Room Air Room Air Sepsis Recent Fever Within 48 Hours No Sepsis New/Unexplained Change in Mental Status N/A Sepsis Action Taken by Nursing No Action Required 01/11/21 23:52 01/12/21 00:00 01/12/21 00:30 Temperature Temperature Source Pulse Rate 97 H 95 H 94 H Pulse Rate [Apical] Pulse Rate from SpO2 Sensor 97 H 95 H 95 H Respiratory Rate 23 15 15 Respiratory Effort / Characteristics Respiratory Depth Respiratory Pattern Blood Pressure 131/55 L 102/69 121/66 Blood Pressure Mean 80 80 84 Pulse Oximetry 93 94 94 Oxygen Delivery Method Room Air Room Air Room Air Sepsis Recent Fever Within 48 Hours Sepsis New/Unexplained Change in Mental Status Sepsis Action Taken by Nursing 01/12/21 01:17 01/12/21 01:18 01/12/21 01:30 Temperature Temperature Source Pulse Rate 95 H 92 H Pulse Rate [Apical] 95 H Pulse Rate from SpO2 Sensor 92 H 90 Respiratory Rate 33 H 16 19 Respiratory Effort / Characteristics Respiratory Depth Normal Respiratory Pattern Blood Pressure 114/59 L 127/81 Blood Pressure Mean 77 96 Pulse Oximetry 93 96 95 Oxygen Delivery Method Room Air Room Air Sepsis Recent Fever Within 48 Hours Sepsis New/Unexplained Change in Mental Status Sepsis Action Taken by Nursing 01/12/21 02:01 01/12/21 02:30 Temperature Temperature Source Pulse Rate 93 H 91 H Pulse Rate [Apical] Pulse Rate from SpO2 Sensor Respiratory Rate 20 16 Respiratory Effort / Characteristics Respiratory Depth Respiratory Pattern Blood Pressure 161/91 H 136/81 Blood Pressure Mean 114 99 Pulse Oximetry 93 94 Oxygen Delivery Method Sepsis Recent Fever Within 48 Hours Sepsis New/Unexplained Change in Mental Status Sepsis Action Taken by Nursing GENERAL: alert, well appearing, well nourished, no distress, non-toxic EYE EXAM: normal conjunctiva, PERRL and EOM's grossly intact OROPHARYNX: no exudate, no erythema, lips, buccal mucosa, and tongue normal and mucous membranes are moist NECK: supple, no nuchal rigidity, no adenopathy, non-tender LUNGS: Clear to auscultation. Normal chest wall mechanics, no w/r/r HEART: no murmurs, S1 normal and S2 normal ABDOMEN: abdomen soft, generalized discomfort with palpation, normo-active bowel sounds, no masses, no rebound or guarding. RECTAL: No obvious external hemorrhoids, anal fissure, or source of bleeding, JASON with minimal stool in the vault, noted to be black and maroon on my gloved finger, was heme positive on guaiac testing at bedside. BACK: Back is symmetrical on inspection and there is no deformity, no midline tenderness, no CVA tenderness. SKIN: no rashes and no bruising UPPER EXTREMITIES: upper extremities are grossly normal. FROM, nml pulses b/l. LOWER EXTREMITIES: No pitting edema. FROM, nml pulses b/l. NEURO EXAM: Normal sensorium, cranial nerves II-XII grossly intact, normal speech, no gross weakness of arms, no gross weakness of legs. Gross sensation intact. Course Course 021: Pt updated on results. States she is feeling better. 226: Discussed with Dr. Hua. Administered Medications Dapsone (Dapsone 25 Mg Tab) 50 mg PO BID LEONIDAS Stop: 02/11/21 08:59 Last Admin: 01/12/21 21:21 Dose: 50 mg Documented by: [id number] Admin: 01/12/21 08:08 Dose: 50 mg Documented by: [id number] Duloxetine HCl (Duloxetine Hcl 20 Mg Cap) 20 mg PO QAM LEONIDAS Stop: 02/11/21 08:59 Last Admin: 01/12/21 08:08 Dose: 20 mg Documented by: [id number] Ferrous Sulfate (Ferrous Sulfate 325 Mg Tab) 325 mg PO BID17 LEONIDAS Stop: 02/11/21 08:59 Last Admin: 01/12/21 18:09 Dose: 325 mg Documented by: [id number] Admin: 01/12/21 08:08 Dose: 325 mg Documented by: [id number] Sodium Chloride (Nss 1000ml) 1,000 mls @ 125 mls/hr IV .Q8H LEONIDAS Stop: 02/11/21 05:11 Last Admin: 01/13/21 01:44 Dose: 125 mls/hr Documented by: [id number] Infusion: 01/13/21 01:44 Dose: 125 mls/hr Documented by: [id number] Admin: 01/12/21 18:10 Dose: 125 mls/hr Documented by: [id number] Infusion: 01/12/21 16:09 Dose: 0 mls/hr Documented by: [id number] Infusion: 01/12/21 11:30 Dose: 125 mls/hr Documented by: [id number] Infusion: 01/12/21 08:38 Dose: 0 mls/hr Documented by: [id number] Admin: 01/12/21 05:16 Dose: 125 mls/hr Documented by: [id number] Pantoprazole Sodium 40 mg/ (Syringe) 10 mls @ 5 mls/min IV BID LEONIDAS Stop: 02/11/21 20:59 Last Admin: 01/12/21 21:20 Dose: 5 mls/min Documented by: [id number] Levothyroxine Sodium (Levothyroxine Sodium 125 Mcg Tablet) 125 mcg PO DAILYBB [facility] Stop: 02/11/21 06:29 Last Admin: 01/13/21 05:31 Dose: 125 mcg Documented by: [id number] Admin: 01/12/21 06:00 Dose: 125 mcg Documented by: [id number] Losartan Potassium (Losartan Potassium 50 Mg Tab) 50 mg PO QAM [facility] Stop: 02/11/21 08:59 Last Admin: 01/12/21 08:07 Dose: 50 mg Documented by: [id number] Miscellaneous (Fluocinonide~Order Awaiting Action) 1 ea N/A QS [facility] Stop: 02/11/21 07:59 Last Admin: 01/13/21 00:33 Dose: Not Given Documented by: [id number] Admin: 01/12/21 16:44 Dose: Not Given Documented by: [id number] Admin: 01/12/21 09:55 Dose: Not Given Documented by: [id number] Sucralfate (Sucralfate 1 Gm/10 Ml Udc) 1 gm PO ACHS [facility] Stop: 02/11/21 11:29 Last Admin: 01/12/21 21:21 Dose: 1 gm Documented by: [id number] Admin: 01/12/21 18:09 Dose: 1 gm Documented by: [id number] Admin: 01/12/21 14:44 Dose: 1 gm Documented by: [id number] Discontinued Medications Pantoprazole Sodium (Protonix Bolus/Drip) 0 mls @ 1 mls/hr IV ONE STA Stop: 01/11/21 23:56 Last Admin: 01/12/21 05:14 Dose: Not Given Documented by: [id number] Pantoprazole Sodium 40 mg/ (Dextrose) 100 mls @ 20 mls/hr IV Q5H LEONIDAS Stop: 02/11/21 00:09 Last Infusion: 01/12/21 08:40 Dose: 0 mg/hr, 0 mls/hr Documented by: [id number] Infusion: 04/06/21 08:38 Dose: 0 mg/hr, 0 mls/hr Documented by: [id number] Admin: 01/12/21 05:40 Dose: 8 mg/hr, 20 mls/hr Documented by: [id number] Infusion: 01/12/21 05:29 Dose: 8 mg/hr, 20 mls/hr Documented by: [id number] Admin: 01/12/21 00:29 Dose: 8 mg/hr, 20 mls/hr Documented by: [id number] Pantoprazole Sodium 80 mg/ (Dextrose) 120 mls @ 400 mls/hr IV NOW ONE Stop: 01/12/21 00:12 Last Infusion: 01/12/21 00:30 Dose: 0 mls/hr Documented by: [id number] Admin: 01/12/21 00:05 Dose: 400 mls/hr Documented by: [id number] Lactated Ringer's (Lr) 1,000 mls @ 125 mls/hr IV .Q8H LEONIDAS Stop: 02/10/21 23:44 Last Infusion: 01/12/21 05:13 Dose: 0 mls/hr Documented by: [id number] Admin: 01/11/21 23:45 Dose: 125 mls/hr Documented by: [id number] Acetaminophen (Ofirmev) 1,000 mg in 100 mls @ 400 mls/hr IV NOW STA Stop: 01/12/21 00:50 Last Infusion: 01/12/21 01:50 Dose: 0 mls/hr Documented by: [id number] Admin: 01/12/21 01:26 Dose: 400 mls/hr Documented by: [id number] Ioversol (Ioversol 100ml) 100 ml IV ONCE ONE Stop: 01/12/21 01:48 Last Admin: 01/12/21 01:47 Dose: 93 ml Documented by: [id number] Lidocaine HCl (Lidocaine Hcl 2% 2 Ml Vial/Amp(20mg/Ml)) Confirm Administered Dose 4 ml INFIL .STK-MED ONE Stop: 01/12/21 09:10 Last Admin: 01/12/21 14:31 Dose: Not Given Documented by: [id number] Midazolam HCl (Midazolam Hcl 1 Mg/Ml 2ml Vial) Confirm Administered Dose 2 mg .ROUTE .STK-MED ONE Stop: 01/12/21 09:06 Last Admin: 01/12/21 14:30 Dose: Not Given Documented by: [id number] Ondansetron HCl (Ondansetron Inj 2 Mg/Ml 2 Ml Vial) Confirm Administered Dose 4 mg .ROUTE .STK-MED ONE Stop: 01/12/21 09:10 Last Admin: 01/12/21 14:31 Dose: Not Given Documented by: [id number] Propofol (Propofol Iv Emulsion 10 Mg/Ml 20 Ml Vial) Confirm Administered Dose 200 mg IV .STK-MED ONE Stop: 01/12/21 09:10 Last Admin: 01/12/21 14:30 Dose: Not Given Documented by: [id number] Critical Care Time Critical Care Time: Yes Total Critical Care Time: 42 Critical care of 42 min performed to assess and manage high likelihood of life- threatening GI bleed and abnormal EKG, involving labs and imaging performed with assessment to evaluate GI bleed and abnormal EKG diagnosis with frequent reassessment. This time includes bedside time, treatment discussions with patient/family/consultants, documentation time and excludes procedure time. Medical Decision Making Differential Diagnosis Differential diagnoses includes but is not limited to gastritis, peptic ulcer disease, GERD, gallbladder disease, pancreatitis, small bowel obstruction, acute coronary syndrome, pericarditis, ischemic bowel, irritable bowel disease, i rritable bowel syndrome, appendicitis, diverticulitis, malignancy, hernia, urinary tract infection, torsion, [/ectopic (if female)], perforation, trauma, infectious. Medical Records Attestation: I reviewed the patient's medical records. Home Medications Current Medication List: was personally reviewed by me Laboratory Data Attestation: I reviewed the patient's lab results. Result diagrams: 01/12/21 16:58 01/12/21 05:54 Lab Results 01/11/21 01/11/21 01/11/21 Range/Units 23:14 23:14 23:14 WBC 9.70 (4.8-10.8) K/uL RBC 3.38 L (4.2-5.4) M/uL Hgb 10.9 L (12.0-16.0) g/dL Hct 33.9 L (37-47) % MCV 100.3 H (80-100) fL MCH 32.2 (25-34) pg MCHC 32.2 (32-36) g/dL RDW Std Deviation 47.9 H (36.4-46.3) fL RDW Coeff of Patrick 13.1 (11.5-14.5) % Plt Count 290 (130-400) K/uL MPV 10.9 H (7.4-10.4) fL Immature Gran % (Auto) 0.3 % Neut % (Auto) 53.4 % Lymph % (Auto) 30.7 % Dundy % (Auto) 9.8 % Eos % (Auto) 5.3 % Baso % (Auto) 0.5 % Neut # (Auto) 5.18 (1.4-6.5) K/uL Lymph # (Auto) 2.98 (1.2-3.4) K/uL Dundy # (Auto) 0.95 H (0.11-0.59) K/uL Eos # (Auto) 0.51 H (0-0.5) K/uL Baso # (Auto) 0.05 (0-0.2) K/uL Immature Gran # (Auto) 0.03 H (0.00-0.02) K/uL PT 10.5 (9.0-12.0) Seconds INR 1.0 (0.9-1.1) Sodium 140 (136-145) mmol/L Potassium 4.3 (3.5-5.1) mmol/L Chloride 108 H (98-107) mmol/L Carbon Dioxide 26 (21-32) mmol/L Anion Gap 6.0 (3-11) BUN 39 H (7-18) mg/dl Creatinine 1.12 (0.6-1.2) mg/dl Est Cr Clr Drug Dosing 52.1 ml/min Est GFR ( Amer) 56.4 Est GFR (Non-Af Amer) 48.7 BUN/Creatinine Ratio 34.6 H (10-20) Glucose 117 H (70-99) mg/dl Lactate (0.4-2.0) mmol/L Calcium 8.6 (8.5-10.1) mg/dl Magnesium 1.8 (1.8-2.4) mg/dl Total Bilirubin 2.0 H (0.2-1) mg/dl AST 20 (15-37) U/L ALT 31 (12-78) U/L Alkaline Phosphatase 63 (45-117) U/L Troponin I < 0.015 (0-0.045) ng/ml Total Protein 6.6 (6.4-8.2) gm/dl Albumin 3.4 (3.4-5.0) gm/dl Globulin 3.2 (2.5-4.0) gm/dl Albumin/Globulin Ratio 1.1 (0.9-2) Lipase 166 (73-393) U/L COVID-19 Eval Order SARS-CoV-2 (PCR) (Negative) Influenza Type A (PCR) (Neg) Influenza Type B (PCR) (Neg) RSV (RT-PCR) (Neg) 01/11/21 01/12/21 01/12/21 Range/Units 23:40 02:48 02:48 WBC (4.8-10.8) K/uL RBC (4.2-5.4) M/uL Hgb (12.0-16.0) g/dL Hct (37-47) % MCV (80-100) fL MCH (25-34) pg MCHC (32-36) g/dL RDW Std Deviation (36.4-46.3) fL RDW Coeff of Patrick (11.5-14.5) % Plt Count (130-400) K/uL MPV (7.4-10.4) fL Immature Gran % (Auto) % Neut % (Auto) % Lymph % (Auto) % Dundy % (Auto) % Eos % (Auto) % Baso % (Auto) % Neut # (Auto) (1.4-6.5) K/uL Lymph # (Auto) (1.2-3.4) K/uL Dundy # (Auto) (0.11-0.59) K/uL Eos # (Auto) (0-0.5) K/uL Baso # (Auto) (0-0.2) K/uL Immature Gran # (Auto) (0.00-0.02) K/uL PT (9.0-12.0) Seconds INR (0.9-1.1) Sodium (136-145) mmol/L Potassium (3.5-5.1) mmol/L Chloride (98-107) mmol/L Carbon Dioxide (21-32) mmol/L Anion Gap (3-11) BUN (7-18) mg/dl Creatinine (0.6-1.2) mg/dl Est Cr Clr Drug Dosing ml/min Est GFR ( Amer) Est GFR (Non-Af Amer) BUN/Creatinine Ratio (10-20) Glucose (70-99) mg/dl Lactate 1.1 (0.4-2.0) mmol/L Calcium (8.5-10.1) mg/dl Magnesium (1.8-2.4) mg/dl Total Bilirubin (0.2-1) mg/dl AST (15-37) U/L ALT (12-78) U/L Alkaline Phosphatase (45-117) U/L Troponin I (0-0.045) ng/ml Total Protein (6.4-8.2) gm/dl Albumin (3.4-5.0) gm/dl Globulin (2.5-4.0) gm/dl Albumin/Globulin Ratio (0.9-2) Lipase (73-393) U/L COVID-19 Eval Order CovFluRsv at [facility] SARS-CoV-2 (PCR) NEGATIVE (Negative) Influenza Type A (PCR) Negative (Neg) Influenza Type B (PCR) Negative (Neg) RSV (RT-PCR) Negative (Neg) Imaging Data Radiologist's Impression: Abdomen/Pelvis CT 01/12/21 00:33 CT SCAN OF THE ABDOMEN AND PELVIS WITH IV CONTRAST CLINICAL HISTORY: Generalized abdominal pain. GI bleeding. COMPARISON STUDY: Abdominal CT dated 03/11/2019. TECHNIQUE: Following the IV administration of 93 cc of Optiray 320, CT scan of the abdomen and pelvis is performed from the lung bases to the proximal femora. Images are reviewed in the axial, sagittal, and coronal planes. IV contrast was administered without complication. A dose lowering technique was utilized adhering to the principles of ALARA. CT DOSE: 1353.95 mGy.cm FINDINGS: Lung bases: The heart is. Normal in size and without pericardial effusion. The lung bases are clear. Liver: The contrast-enhanced liver is cirrhotic in morphology and heterogeneous in attenuation. There is hypertrophy of the left lobe and caudate as well as no dularity of the hepatic surface contour. There is no intrahepatic biliary ductal dilatation. The hepatic veins and portal veins are patent. Gallbladder: Surgically absent noting clips in the gallbladder fossa. Spleen: Normal in size and attenuation. There are perisplenic varices. Pancreas: Moderately atrophic and grossly unremarkable. Adrenal glands: Unremarkable. Kidneys: The contrast enhanced kidneys demonstrate mild cortical atrophy and are without hydronephrosis. The kidneys enhance symmetrically. Abdominal vasculature: The abdominal aorta is normal in course and caliber noting moderate to advanced atherosclerotic calcification. Stomach and bowel: Postoperative changes consistent with a history of Bigg-en-Y gastric bypass surgery. There is no bowel obstruction. A 2.2 cm gastric lipoma is seen on image #117. [id number] fecal retention is seen throughout the colon. The appendix is not identified. Peritoneum: There is no intraperitoneal free air or abdominal ascites. Lymphadenopathy: None. Pelvic viscera: Evaluation of the pelvis is degraded by streak artifact from a right hip arthroplasty. The bladder, uterus, and adnexa are normal as visualized. Skeletal structures: The skeletal structures are osteopenic. There is moderate lumbosacral spondylosis. No lytic or blastic lesions are seen. A right hip arthroplasty is in place. IMPRESSION: 1. There are no acute infectious or inflammatory findings in the abdomen or pelvis. 2. Cirrhotic liver morphology. 3. There is postoperative change consistent with Bigg-en-Y gastric bypass surgery. No bowel obstruction is seen. 4. Additional findings as above. ACT 112: Negative or not required by law. Electronically signed by: Jaden Torres M.D. 01/12/2021 7:[address] abdomen and pelvis with contrast: No bowel obstruction or inflammatory changes along the GI tract. Postsurgical changes from a Bigg-en-Y gastric bypass. Mildly increased stool burden. Lobular contour of the liver. Gallbladder surgically absent. Pancreas and spleen are unremarkable. No renal or ureteral stones. Unremarkable reproductive organs. No free fluid, fluid collection, or free air. Radiologist: Chi Painter MD ECG Data Attestation: I personally reviewed and interpreted this ECG as follows: Indication: + abdominal pain Rate (beats per minute): 95 Rhythm: + normal sinus ECG Intervals/blocks: + Normal QRS and + Normal QT ECG [place]: + Normal ECG ST segments: + T-wave inversions (V3-V6) Comparison ECG Date: from (03/11/2019) Change: the following changes noted (T wave inversions new) MDM Narrative This is a 75-year-old female who presents with concerns for abdominal pain and melena. Patient with a prior history of peptic ulcer disease and has been off her PPI. Patient with dyspnea on exertion. Labs are drawn and sent, patient sent for CT imaging, monitored on telemetry. Patient hemodynamically stable and well-appearing at rest. Patient was given medication for abdominal pain and felt improved. Patient did have a positive rectal exam concerning for ongoing GI bleed which would fit with her description of recent symptoms and prior history. Patient started on Protonix bolus and drip. No need for emergent transfusion at this time. Patient also noted to have an abnormal EKG compared to prior and given her likely symptomatic anemia and risk factors for CAD, I feel this should be closely monitored also. Given likely ongoing bleed, abnormal EKG, and concerning symptoms, case discussed with hospitalist for additional evaluation and management. No evidence of ACS at this time, no evidence of occult infectious etiology. I do not suspect mesenteric ischemia or ischemic colitis contributing to symptoms. No use of antiplatelet or anticoagulation therapy to warrant additional reversal or blood products. An order was placed for continuous cardiac monitoring. The monitor shows a rate of _97_ with _normal sinus rhythm. Impression & Plan Abdominal pain, Anemia, Acute GI bleeding Discharge Plan Visit Data Chief Complaint: Abdominal Pain Stated Complaint: ABDOMINAL PAIN, BLOOD IN STOOL, WEAKNESS ED Provider: Cayla Marie Discharge Problem: Abdominal pain, Anemia, Acute GI bleeding Patient Disposition: Admitted As Inpatient Discharge Instructions Interventions: ED Discharge Assessment Last Done: 01/12/21 04:33 Discharge Problem: Abdominal pain Qualifiers: Abdominal location: generalized Qualified Code(s): R10.84 - Generalized abdominal pain Anemia Qualifiers: Anemia type: unspecified type Qualified Code(s): D64.9 - Anemia, unspecified
[2021-01-11 23:57] LABS: Albumin Globulin Ratio 1.1 (0.9-2); Alkaline Phosphatase 63 U/L (45-117); Globulin 3.2 gm/dl (2.5-4.0); Total Protein 6.6 gm/dl (6.4-8.2); Troponin I < 0.015 ng/ml (0-0.045)
[2021-01-12] MEDS: PANTOprazole 40 MG in DEXTROSE 5% 100 ML IV SCH ×2 (00:29→05:40)
[2021-01-12] MEDS ORDERED: ACETAMINOPHEN 1,000 MG/100 ML VIAL IV STA (00:36)
[2021-01-12] MEDS ORDERED: OPTIRAY 320 100ml IV ONE (01:47)
[2021-01-12 03:36] LABS: Influenza A virus by PCR Negative (Neg); Influenza B virus by PCR Negative (Neg); RSV by PCR Negative (Neg); SARS CoV2 RNA(COVID-19) InHosp NEGATIVE (Negative)
[2021-01-12] MEDS ORDERED: NITROGLYCERIN SL 0.4 MG/TAB TAB SL PRN (05:12)
[2021-01-12] MEDS ORDERED: MoRPHine SULFATE 2 MG/ML CARP IV PRN (05:12)
[2021-01-12] MEDS ORDERED: ONDANSETRON INJ 2 MG/ML 2 ML VIAL IV PRN (05:12)
[2021-01-12] MEDS ORDERED: ACETAMINOPHEN 325 MG TAB PO PRN (05:12)
[2021-01-12] MEDS: SODIUM CHLORIDE 0.9% 1000ML 1,000 ML IV SCH ×2 (05:16→18:10)
--- NOTE | 2021-01-12 05:23 | History and Physical Report ---
DATE OF ADMISSION: 01/12/2021 CHIEF COMPLAINT: Abdominal pain and black stools. HISTORY OF PRESENT ILLNESS: A 75-year-old female with past medical history significant for hypothyroidism, hypertension, prolonged QT interval, unspecified cirrhosis of liver, severe obesity, chronic kidney disease stage III, history of pernicious anemia and dermatitis herpetiformis, major depression, who lives with her son, who presents with couple of days of black stools and abdominal pain. The patient was started on Protonix drip and received Tylenol in the ER and currently abdominal pain is resolved. Denies taking aspirin or [id number] Advil. Denies any chest pain, no shortness of breath, no cough, no fever, no chills, no headache, no blurred visions, no earache, no runny nose, no sore throat. Appetite is okay. No difficulty swallowing. Currently resting comfortably and hemodynamically stable and stool was Hemoccult positive in the ER. ALLERGIES: GLUTEN, OMEPRAZOLE, PROTONIX. PAST MEDICAL HISTORY: As mentioned above. PAST SURGICAL HISTORY: Colonoscopy, EGDs, gastric bypass for obesity, laparoscopic cholecystectomy, removal of ovarian cyst, tonsillectomy, right total hip replacement. MEDICATIONS: The patient is on vitamin D 1000 units p.o. a.m., vitamin B12 1000 mcg IM monthly, dapsone 50 mg p.o. b.i.d., Cymbalta 20 mg p.o. a.m., ferrous sulfate 325 mg p.o. b.i.d., fluocinonide one topical b.i.d. p.r.n., levothyroxine 125 mcg p.o. daily, losartan 50 mg p.o. a.m. FAMILY HISTORY: Significant for brother had pancreatic cancer, leukemia; mother had pancreatic cancer; father has heart disorder; mother has thyroid disorder; son has anxiety. SOCIAL HISTORY: , currently lives with her son. Former smoker, quit in 1996. No alcohol use, no drug use. REVIEW OF SYSTEMS: As per HPI. Rest of the review of systems negative. PHYSICAL EXAMINATION: GENERAL: The patient is obese, not in acute distress. VITAL SIGNS: Temperature 36.8, pulse 91, respiratory rate 16, blood pressure 136/81, oxygen 94% on room air. HEENT: Pupils equal, round, and reactive to light. Oral mucosa dry. NECK: No JVD, no neck masses. CARDIOVASCULAR: S1, S2 heard. Regular rate and rhythm. No murmur, no gallop. RESPIRATORY SYSTEM: Normal AP diameter. No accessory muscle use. No wheezing, no crackles. ABDOMEN: Soft, bowel sounds present, nontender. No distention. CENTRAL NERVOUS SYSTEM: Cranial nerves II-XII grossly intact, nonfocal. EXTREMITIES: No edema, no erythema. LABORATORY DATA: WBC 9.7, hemoglobin 10.9, hematocrit 33.9, platelets 290. PT 10.5, INR 1. Sodium 140, potassium 4.3, chloride 108, bicarbonate 26, BUN 39, creatinine 1.1, serum glucose 117, lactate 1.1, calcium 8.6, magnesium 1.8, total bilirubin 2, AST 20, ALT 31, alkaline phosphatase 63, troponin I less than 0.015. Lipase 166. SARS-CoV-2 PCR negative. Influenza A and B PCR negative. RSV PCR negative. EKG: Normal sinus rhythm at a rate of 95. T-wave inversions seen in anterolateral leads. IMAGING DATA: CT of abdomen and pelvis, no acute findings. Mild increased stool burden on preliminary report. ASSESSMENT AND PLAN: This is a 75-year-old female who presents with abdominal pain and black stool. 1. Gastrointestinal bleed, melena, abdominal discomfort, abdominal pain improved currently. Hemoccult positive. Hemoglobin stable at 10.9. History of GI bleed in the past from gastric bypass anastomotic site that got resolved, that was healed on the repeat EGD as per GI notes in [facility]. Having black stools for the last 2 days. Hemodynamically stable. ER started on Protonix drip, which will be continued. Blood consent obtained. We will follow H and H q. 6 hours. We will keep her n.p.o., IV fluids, and consult GI in the a.m. for further recommendation. 2. EKG changes? no chest troponin negative. Consult cardiology in for further evaluation. 3. History of depression: Continue Cymbalta. 4. History of iron deficiency anemia: Continue iron tablets. 5. History of hypothyroidism: Continue Synthroid. 6. History of hypertension: Continue Cozaar. 7. History of obesity, status post gastric bypass: Continue her vitamin B12 shots. 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 9. Deep venous thrombosis prophylaxis: Sequential compression devices. DISPOSITION: Closely monitor in the med tele. Expect to discharge home and follow with family doctor. Level 1 full code. MTDD
[2021-01-12] MEDS: LEVOTHYROXINE SODIUM 125 MCG TABLET PO SCH (06:00)
[2021-01-12 06:09] LABS: Basophils # (auto) 0.04 K/uL (0-0.2); Basophils % (auto) 0.6 %; Eosinophils # (auto) 0.44 K/uL (0-0.5); Eosinophils % (auto) 6.4 %; Hematocrit (blood only) 29.8 % (37-47); Hemoglobin 9.8 g/dL (12.0-16.0); Immature Granulocytes # (auto) 0.01 K/uL (0.00-0.02); Immature Granulocytes % (auto) 0.1 %; Lymphocytes # (auto) 2.06 K/uL (1.2-3.4); Lymphocytes % (auto) 30.1 %; Mean Corpuscular Hemoglobin 32.8 pg (25-34); Mean Corpuscular Hgb Conc 32.9 g/dL (32-36); Mean Corpuscular Volume 99.7 fL (80-100); Mean Platelet Volume 10.5 fL (7.4-10.4); Monocytes # (auto) 0.71 K/uL (0.11-0.59); Monocytes % (auto) 10.4 %; Neutrophils # (auto) 3.59 K/uL (1.4-6.5); Neutrophils % (auto) 52.4 %; Platelet Count 252 K/uL (130-400); RDW Coefficient of Variation 13.2 % (11.5-14.5); RDW Standard Deviation 48.2 fL (36.4-46.3); Red Blood Count 2.99 M/uL (4.2-5.4); White Blood Count 6.85 K/uL (4.8-10.8)
[2021-01-12 06:39] LABS: BUN Creatinine Ratio 33.7 (10-20); Blood Urea Nitrogen 34 mg/dl (7-18); Calcium 8.2 mg/dl (8.5-10.1); Carbon Dioxide 27 mmol/L (21-32); Chloride 110 mmol/L (98-107); Creatinine Clr Calc Pharmacy 57.9 ml/min; Est GFR (Non-African American) 55.2; Glucose 107 mg/dl (70-99); Sodium 141 mmol/L (136-145)
[2021-01-12 06:44] LABS: Troponin I < 0.015 ng/ml (0-0.045)
--- NOTE | 2021-01-12 07:37 | CT Scan Report ---
CT SCAN OF THE ABDOMEN AND PELVIS WITH IV CONTRAST CLINICAL HISTORY: Generalized abdominal pain. GI bleeding. COMPARISON STUDY: Abdominal CT dated 03/11/2019. TECHNIQUE: Following the IV administration of 93 cc of Optiray 320, CT scan of the abdomen and pelvi s is performed from the lung bases to the proximal femora. Images are reviewed in the axial, sagittal , and coronal planes. IV contrast was administered without complication. A dose lowering technique wa s utilized adhering to the principles of ALARA. CT DOSE: 1353.95 mGy.cm FINDINGS: Lung bases: The heart is. Normal in size and without pericardial effusion. The lung bases are clear. Liver: The contrast-enhanced liver is cirrhotic in morphology and heterogeneous in attenuation. There is hypertrophy of the left lobe and caudate as well as nodularity of the hepatic surface contour. Th ere is no intrahepatic biliary ductal dilatation. The hepatic veins and portal veins are patent. Gallbladder: Surgically absent noting clips in the gallbladder fossa. Spleen: Normal in size and attenuation. There are perisplenic varices. Pancreas: Moderately atrophic and grossly unremarkable. Adrenal glands: Unremarkable. Kidneys: The contrast enhanced kidneys demonstrate mild cortical atrophy and are without hydronephros is. The kidneys enhance symmetrically. Abdominal vasculature: The abdominal aorta is normal in course and caliber noting moderate to advance d atherosclerotic calcification. Stomach and bowel: Postoperative changes consistent with a history of Bigg-en-Y gastric bypass surger y. There is no bowel obstruction. A 2.2 cm gastric lipoma is seen on image #117. Tkbx-[id number] fec al retention is seen throughout the colon. The appendix is not identified. Peritoneum: There is no intraperitoneal free air or abdominal ascites. Lymphadenopathy: None. Pelvic viscera: Evaluation of the pelvis is degraded by streak artifact from a right hip arthroplasty . The bladder, uterus, and adnexa are normal as visualized. Skeletal structures: The skeletal structures are osteopenic. There is moderate lumbosacral spondylosi s. No lytic or blastic lesions are seen. A right hip arthroplasty is in place. IMPRESSION: 1. There are no acute infectious or inflammatory findings in the abdomen or pelvis. 2. Cirrhotic liver morphology. 3. There is postoperative change consistent with Bigg-en-Y gastric bypass surgery. No bowel obstructi on is seen. 4. Additional findings as above. ACT 112: Negative or not required by law. Electronically signed by: Jaden Torres M.D. 01/12/2021 7:35 AM
[2021-01-12] MEDS: LOSARTAN POTASSIUM 50 MG TAB PO SCH (08:07)
[2021-01-12] MEDS: DAPSONE 25 MG TAB PO SCH ×2 (08:08→21:21)
[2021-01-12] MEDS: FERROUS SULFATE 325 MG TAB PO SCH ×2 (08:08→18:09)
[2021-01-12] MEDS: DULoxetine HCL 20 MG CAP PO SCH (08:08)
--- NOTE | 2021-01-12 08:45 | Gastrointestinal Consultation ---
Date of Consultation January 12, 2021 Assessment & Plan (1) Abdominal pain: (2) Acute GI bleeding: (3) H/O gastric bypass: (4) Cirrhosis: Pt is a 75 y/o female w siginificant hx of anemia, cirrhosis (? celiac dz related, MELD 9), gastric bypass w hx of anastomotic ulcer (healed in 2019) who presented w black stools & abd pain symptoms. H/H stable from baseline but BUN up from baseline. CT abd/pelvis w/o acute findings. - Keep PPI gtt - NPO for EGD eval this AM by Dr. Márquez - Monitor blood ct and transfuse prn - Avoid NSAIDs Supervising Physician Co-Signing Physician Notes I have discussed the management with CHRISTOPHER Malloy. Admitted with reports of dark stools. One gram drop in hgb, slight bun rise, history of rygb with prior jejunal ulcer in 12/26 that was healed on fup endoscopy in summer, was to be on a ppi daily. EGD for evaluation of reported melena. History of Present Illness Reason for Consultation: Melena Requesting Physician: Dr. Liu Gonzales Attending Physician: Dr. Nicol Márquez History of Present Illness Pt is a 75 y/o femlae w hx of HTN, hypothyroidism, CKD, anemia, depression, compensated cirrhosis (unclear etiology ? celiac disease related), Bigg en Y gastrojejunostomy w hx of anastomotic ulcer in 12/2019, who presented to ED yesterday w c/o black stools since Monday associated mid abd pain. Denies fever, chills, n/v. She had been on iron supplements for years, denies taking Peptobismol recently. She is not on any blood thinners. On eval, noted blood ct showed stable anemia w H/H , INR 1. BUN up from baseline to 30s. CT abd/pelvis w/o acute findings. She tested hemoccult positive. Pt denies sick contact, travels, new meds including any antibx. She denies NSAIDs, tobacco, ETOH products. COVID 19 negative. Last EGD 02/2020 - healed anastomotic ulcer Last colonoscopy 2016 - colon polyp, redundant colon Allergies Allergy/AdvReac Type Severity Reaction Status Date / Time gluten Allergy Intermediate SKIN Verified 01/11/21 23:32 RASH--DERMATITIS Home Medications Medication Instructions Recorded Confirmed Type cholecalciferol (vitamin D3) 1,000 unit PO QAM 08/07/18 01/11/21 History dapsone 50 mg PO BID 08/07/18 01/11/21 History duloxetine [Cymbalta] 20 mg PO QAM 08/07/18 01/12/21 History levothyroxine [Synthroid] 125 mcg PO QAM 08/07/18 01/11/21 History losartan [Cozaar] 50 mg PO QAM 08/07/18 01/11/21 History cyanocobalamin (vitamin B-12) 1,000 mcg IM MONTHLY 03/11/19 01/11/21 History ferrous sulfate 325 mg PO BID 03/11/19 01/11/21 History fluocinonide 1 applic TOPICAL BID PRN 03/11/19 01/11/21 History Patient History Medical History (Updated 01/12/21 @ 08:43 by CHRISTOPHER Gallardo) Anemia STABLE HGB IN THE 10 RANGE Asthma NO INHALER USE X YEARS Depression Dermatitis herpetiformis Fatty liver History of GI bleed + GASTRIC ULCER; NO FURTHER DETAILS HTN (hypertension) Hypothyroidism Kidney stones Obesity Osteoarthritis Ovarian cyst Surgical History H/O gastric bypass History of cataract surgery LEFT History of cholecystectomy History of colonoscopy History of esophagogastroduodenoscopy (EGD) History of hip replacement right hip Hx of tonsillectomy S/P cystoscopy with ureteral stent placement 03/11/2019 [facility] Family History Brother Pancreatic cancer Mother Pancreatic cancer Father Coronary heart disease Social History Smoking Status: Former smoker Smoking End Date: 25 years ago; Second Hand Exposure: No; Hx Alcohol Use: No Hx Substance Use: No Preferred Language: Salvadorean Communication Ability: Effective [employer] Software 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 Required: No Beliefs That Will Affect Care: None Current Living Situation: Family Current Living Situation Comment: Lives with son Other Information That Helps Us Care for You: No Feels Safe at Home: Yes Safety Concerns: Feels Safe At This Time Assistive Devices: Denture - Upper Review of Systems Review of Systems: All systems reviewed & are unremarkable except as noted in HPI & below Physical Exam Constitutional: WD/WN, vitals as above well groomed, cooperative and comfortable Eyes: PERRL, conjunctivae normal, anicteric sclerae ENMT: external ear and nose normal, oropharynx normal Respiratory: normal respiratory effort, lungs clear to auscultation Cardiovascular: RRR, no murmur, no edema Gastrointestinal (Abdomen): normal bowel sounds, soft, nontender, no hepatosplenomegaly Skin: no rashes, warm and dry no jaundice Neurologic: Motor/Sensory: no asterixis Psychiatric: A+Ox3, euthymic affect Lymphatic: no lymphedema Results & Data ([facility]) Vital Signs (Past 12 Hours) Vital Signs Temp Pulse Pulse Resp BP BP Pulse Ox 01/12/21 07:23 90 01/12/21 06:33 36.6 C 90 18 122/74 94 01/12/21 06:32 90 01/12/21 06:28 36.5 C 91 H 18 144/79 H 93 01/12/21 05:49 36.5 C 91 H 18 144/79 H 93 01/12/21 04:00 94 H 22 148/70 H 95 01/12/21 03:30 90 16 124/72 94 01/12/21 03:00 91 H 22 94/58 L 93 01/12/21 02:30 91 H 16 136/81 94 01/12/21 02:01 93 H 20 161/91 H 93 01/12/21 01:30 92 H 19 127/81 95 01/12/21 01:18 95 H 16 96 01/12/21 01:17 95 H 33 H 114/59 L 93 01/12/21 00:30 94 H 15 121/66 94 01/12/21 00:00 95 H 15 102/69 94 01/11/21 23:52 97 H 23 131/55 L 93 01/11/21 23:24 96 H 15 127/77 95 01/11/21 23:02 36.8 C 104 H 18 140/65 98 (1) Abdominal pain Abdominal location: generalized Qualified Code(s): R10.84 - Generalized abdominal pain
[2021-01-12] MEDS ORDERED: MIDAZOLAM HCL 1 MG/ML 2ML VIAL ONE (09:05)
[2021-01-12] MEDS ORDERED: LIDOCAINE HCL 2% 2 ML VIAL/AMP(20MG/ML) INFIL ONE (09:09)
[2021-01-12] MEDS ORDERED: PROPOFOL IV EMULSION 10 MG/ML 20 ML VIAL IV ONE (09:09)
[2021-01-12] MEDS ORDERED: ONDANSETRON INJ 2 MG/ML 2 ML VIAL ONE (09:09)
[2021-01-12] MEDS ORDERED: ePHEDrine sulfate 50 MG/ML AMP IV PRN (09:10)
[2021-01-12] MEDS ORDERED: ATROPINE SULFATE 0.1 MG/ML 10ML SYR IV PRN (09:10)
--- NOTE | 2021-01-12 09:10 | Anesthesiology Consultation ---
Date of Service January 12, 2021 Assessment & Plan ASA ASA3 Proposed Anesthesia Anesthesia Type: MAC Risk / Benefits Reviewed With: PT / POA / Parent / Guardian, Accepts Plan and Informed Consent Obtained History Surgery Operation Date: 01/12/21 16:30 Proposed Procedures p Esophagogastroduodenoscopy Dr. Yulisa Márquez MD Height/Weight Height: 5 ft 4 in Weight: 102.7 kg Allergies Allergy/AdvReac Type Severity Reaction Status Date / Time gluten Allergy Intermediate SKIN Verified 01/12/21 09:01 RASH--DERMATITIS Medications Home Medications Medication Instructions Recorded Confirmed Last Taken cholecalciferol (vitamin D3) 1,000 unit PO QAM 08/07/18 01/11/21 01/11/21 dapsone 50 mg PO BID 08/07/18 01/11/21 01/11/21 duloxetine [Cymbalta] 20 mg PO QAM 08/07/18 01/12/21 04/21/19 levothyroxine [Synthroid] 125 mcg PO QAM 08/07/18 01/11/21 01/11/21 losartan [Cozaar] 50 mg PO QAM 08/07/18 01/11/21 01/11/21 cyanocobalamin (vitamin B-12) 1,000 mcg IM MONTHLY 03/11/19 01/11/21 04/21/19 ferrous sulfate 325 mg PO BID 03/11/19 01/11/21 01/11/21 fluocinonide 1 applic TOPICAL BID PRN 03/11/19 01/11/21 04/15/19 Active Medications Generic Name Dose Route Start Last Admin Trade Name Stacia PRN Reason Stop Dose Admin Dapsone 50 mg 01/12/21 09:00 01/12/21 08:08 Dapsone 25 Mg Tab PO 02/11/21 08:59 50 mg BID LEONIDAS Administration Duloxetine HCl 20 mg 01/12/21 09:00 01/12/21 08:08 Duloxetine Hcl 20 Mg Cap PO 02/11/21 08:59 20 mg QAM LEONIDAS Administration Ferrous Sulfate 325 mg 01/12/21 09:00 01/12/21 08:08 Ferrous Sulfate 325 Mg Tab PO 02/11/21 08:59 325 mg [id number] LEONIDAS Administration Pantoprazole Sodium 40 mg/ 100 mls @ 20 mls/hr 01/12/21 00:10 04/06/21 08:38 Dextrose IV 02/11/21 00:09 0 mg/hr Q5H LEONIDAS 0 mls/hr Infusion 8 MG/HR Sodium Chloride 1,000 mls @ 125 mls/hr 01/12/21 05:12 01/12/21 08:38 Nss 1000ml IV 02/11/21 05:11 0 mls/hr .Q8H LEONIDAS Infusion Levothyroxine Sodium 125 mcg 01/12/21 06:30 01/12/21 06:00 Levothyroxine Sodium 125 Mcg Tablet PO 02/11/21 06:29 125 mcg DAILYBB LEONIDAS Administration Losartan Potassium 50 mg 01/12/21 09:00 01/12/21 08:07 Losartan Potassium 50 Mg Tab PO 02/11/21 08:59 50 mg QAM LEONIDAS Administration NPO Date Last Intake of Fluids: 01/11/21 Time Last Intake of Fluids: 18:00 Last Intake of Fluids Comment: sip with meds this morning Date Last Intake of Solids: 01/11/21 Time Last Intake of Solids: 16:00 Past Medical History Medical History Anemia STABLE HGB IN THE 10 RANGE Asthma NO INHALER USE X YEARS Depression Dermatitis herpetiformis Fatty liver History of GI bleed + GASTRIC ULCER; NO FURTHER DETAILS HTN (hypertension) Hypothyroidism Kidney stones Obesity Osteoarthritis Ovarian cyst Exercise / Class Metabolic Activity II 4-5 Yardwork/Stairs/Walk up hill Past Family History Family History Brother Pancreatic cancer Mother Pancreatic cancer Father Coronary heart disease Past Surgical History Surgical History H/O gastric bypass History of cataract surgery LEFT History of cholecystectomy History of colonoscopy History of esophagogastroduodenoscopy (EGD) History of hip replacement right hip Hx of tonsillectomy S/P cystoscopy with ureteral stent placement 03/11/2019 [facility] Past Anesthesia History No Hx of Anesthesia Complications and No Family Hx of Anesthesia Complications History of PONV No Hx of PONV and No Hx of Motion Sickness Social History Smoking Status: Former smoker tobacco type: cigarettes Smoking End Date: 25 years ago Hx Alcohol Use: No Hx Substance Use: No substance use type: does not use Review of Systems denies fever/cough/ colds/ chest pain/ SOB/ LUDY denies LUDY Physical Exam Vital Signs Last Vital Signs Temp 36.8 C 01/12/21 09:01 Pulse 95 H 01/12/21 09:01 Resp 18 01/12/21 09:01 BP 144/74 H 01/12/21 09:01 Pulse Ox 94 01/12/21 09:01 ENMT Mouth: + dentures and + edentulous; no TMJ abnormality and no dentition abnormality Thyromental Distance: > or= 3.5 Finger Breadths Mallampati Class: II Neck neck extension not limited Respiratory normal respiratory effort; no respiratory distress Auscultation: lungs clear to auscultation bilaterally Cardiovascular Rate/Rhythm: regular rate and regular rhythm Neurologic moves all extremities Psychiatric Orientation: alert and oriented x 3 Testing Laboratory Results 01/12/21 05:54 01/12/21 05:54 PT 10.5 Seconds (9.0-12.0) 01/11/21 23:14 INR 1.0 (0.9-1.1) 01/11/21 23:14
--- NOTE | 2021-01-12 09:33 | GI REPORT ---
Patient Name: Juliana Zuniga Procedure Date: 01/12/2021 9:01 AM Date of : 1945 Admit Type: Inpatient Age: 75 Gender: Female Attending MD: Nicol Márquez M.d. Procedure: Upper GI endoscopy Providers: Nicol Márquez M.d. Referring MD: Liu Gonzales Do Indications: Melena Medicines: Midazolam 2 mg IV, Ondansetron 4 mg IV Complications: No immediate complications. Estimated Blood Loss: Estimated blood loss: none. Procedure: Pre-Anesthesia Assessment: - Patient identification and proposed procedure were verified prior to the procedure by the physician, the nurse and the anesthesiologist. The procedure was verified in the pre-procedure area. - Prior to the procedure, a History and Physical was performed, and patient medications, allergies and sensitivities were reviewed. The patient's tolerance of previous anesthesia was reviewed. - The risks and benefits of the procedure and the sedation options and risks were discussed with the patient. All questions were answered and informed consent was obtained. After obtaining informed consent, the endoscope was passed under direct vision. Throughout the procedure, the patient's blood pressure, pulse, and oxygen saturations were monitored continuously. The Endoscope was introduced through the mouth, and advanced to the mid-jejunum. The upper GI endoscopy was accomplished without difficulty. The patient tolerated the procedure well. Findings: The examined esophagus appeared normal. No evidence of varices were noted. Evidence of a gastric bypass was found. A gastric pouch with mild residual debris was noted that lavaged off - two clean based ulcers were noted at the g-j junction without pigmented spots. The examined small intestine appeared normal without evidence of avm's or ulceration. The examined jejunum appeared normal. Impression: - Normal esophagus. - Gastric bypass. Gastrojejunal anastomosis characterized by two clean based ulcers. - Normal examined small intestine. Recommendation: - Carafate 1 gram qid for 28 days. - PPI bid. - Clear liquid diet. - Return to the floor. - Recall EGD in 8-12 weeks. Arias Verde M.d. 01/12/2021 9:32:55 AM This report has been signed electronically. Note Initiated On: 01/12/2021 9:01 AM Number of Addenda: 0 I attest to the content of the Intraoperative Record and orders documented therein, exceptions below {[id number]}
--- NOTE | 2021-01-12 09:34 | Communication Note ---
Date of Service: January 12, 2021 EGD completed Findings of two clean based g-j ulcers. Recent prednisone use - ? contribution Clear liquid diet Carafate 1 gram qid PPI bid - she tolerates protonix Follow-up egd in 8-12 weeks.
--- NOTE | 2021-01-12 09:49 | Anesthesiology Progress Note ---
Date of Service January 12, 2021 Anesthesia Post Procedure Vital Signs Vital Signs: Temp Pulse Pulse Resp BP BP Pulse Ox 01/12/21 09:32 36.8 C 100 H 18 113/62 94 01/12/21 09:01 36.8 C 95 H 18 144/74 H 94 01/12/21 07:23 90 01/12/21 06:33 36.6 C 90 18 122/74 94 01/12/21 06:32 90 01/12/21 06:28 36.5 C 91 H 18 144/79 H 93 01/12/21 05:49 36.5 C 91 H 18 144/79 H 93 01/12/21 04:00 94 H 22 148/70 H 95 01/12/21 03:30 90 16 124/72 94 01/12/21 03:00 91 H 22 94/58 L 93 01/12/21 02:30 91 H 16 136/81 94 01/12/21 02:01 93 H 20 161/91 H 93 01/12/21 01:30 92 H 19 127/81 95 01/12/21 01:18 95 H 16 96 01/12/21 01:17 95 H 33 H 114/59 L 93 01/12/21 00:30 94 H 15 121/66 94 01/12/21 00:00 95 H 15 102/69 94 01/11/21 23:52 97 H 23 131/55 L 93 01/11/21 23:24 96 H 15 127/77 95 01/11/21 23:02 36.8 C 104 H 18 140/65 98 Pain Intensity Abdomen: Pain Intensity: 6 Transfer of Care Handoff Completed per policy Notes Mental Status: alert / awake / arousable and participated in evaluation Patient Amnestic to Procedure: Yes Nausea / Vomiting: adequately controlled Pain: adequately controlled Airway Patency, RR, SpO2: stable & adequate BP & HR: stable & adequate Hydration State: stable & adequate Anesthetic Complications: no major complications apparent and Pt Satisfied with anesthetic care
[2021-01-12] MEDS: [UNRECOGNIZED DRUG - OTHER] SCH ×2 (09:55→16:44)
--- NOTE | 2021-01-12 11:14 | Hospitalist Progress Note ---
Date of Service January 12, 2021 Assessment & Plan (1) Abdominal pain: (2) Acute GI bleeding: ASSESSMENT AND PLAN: This is a 75-year-old female who presents with abdominal pain and black stool. 1. Gastrointestinal bleed, melena, abdominal discomfort, abdominal pain improved currently. Hemoccult positive. Hemoglobin stable at 10.9. History of GI bleed in the past from gastric bypass anastomotic site that got resolved, that was healed on the repeat EGD as per GI notes in Epic. Having black stools for the last 2 days. Hemodynamically stable. ER started on Protonix drip, which will be continued. Blood consent obtained. We will follow H and H q. 6 hours. We will keep her n.p.o., IV fluids, and GI on case. 2. EKG changes? no chest troponin negative. Consult cardiology in for further evaluation. 3. History of depression: Continue Cymbalta. 4. History of iron deficiency anemia: Continue iron tablets. 5. History of hypothyroidism: Continue Synthroid. 6. History of hypertension: Continue Cozaar. 7. History of obesity, status post gastric bypass: Continue her vitamin B12 shots. 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 9. Deep venous thrombosis prophylaxis: Sequential compression devices. DISPOSITION: Closely monitor in the med tele. Expect to discharge home and follow with family doctor. Level 1 full code. Admitted by my partner Today. We will follow. ROS-No Headache, No Visual Changes, No Nausea, No Vomiting, No Fever, No Chills, No Neck Pain or Stiffness, No Chest Pain, No Palpitations, No SOB, No BROWNING, No Cough, No Sputum, No Wheezing, + Abdominal Pain, No Diarrhea, No Hematemesis, No Hemoptysis, No Unexpected Weight Loss, No Flank pain, No Melena, No Hematochezia, No Frequency, No Urgency, No Burning, No Hematuria, No Rashes, No Diaphoresis. Appetite is Normal Physical Exam Gen-AAO x 3, NAD, Afebrile Head-NCAT, EOMI, PERRLA, Anicteric Sclera, No Posterior Pharyngeal Erythema Neck-Supple, No JVD, No Thyromegaly, No Masses, No LAD, No Bruits Lungs-Clear to Auscultation Bilaterally, No Rales, No Rhonchi, No Wheezing, No Crepitus Chest-No S4, +S1, +S2, No S3, No Murmurs, No Rubs, No Gallops, No Ectopy Abdomen-Soft, Bowel Sounds Present, Tender, Obese, Non Distended, No Hepatomegaly, No Splenomegaly, No Palpable Masses, No Rebound, No Rigidity, No Guarding Musculoskeletal-Full Range of Motion Bilaterally, No CVAT Extremities-No Cyanosis, No Clubbing, No Edema Nuero-Cranial Nerves II-XII grossly intact, Motor WNL, DTRs WNL, Strength WNL, Non Focal Psych-Normal Mood Admission and Anticipated Discharge Date Admission Date: January 12, 2021 Results & Data Results & Data ([facility]) Vital Signs (Past 12 Hours) Vital Signs Temp Pulse Pulse Resp BP BP Pulse Ox 01/12/21 10:02 89 20 104/62 97 01/12/21 09:47 91 H 20 110/77 97 01/12/21 09:32 36.8 C 100 H 18 113/62 94 01/12/21 09:01 36.8 C 95 H 18 144/74 H 94 01/12/21 07:23 90 01/12/21 06:33 36.6 C 90 18 122/74 94 01/12/21 06:32 90 01/12/21 06:28 36.5 C 91 H 18 144/79 H 93 01/12/21 05:49 36.5 C 91 H 18 144/79 H 93 01/12/21 04:00 94 H 22 148/70 H 95 01/12/21 03:30 90 16 124/72 94 01/12/21 03:00 91 H 22 94/58 L 93 01/12/21 02:30 91 H 16 136/81 94 01/12/21 02:01 93 H 20 161/91 H 93 01/12/21 01:30 92 H 19 127/81 95 01/12/21 01:18 95 H 16 96 01/12/21 01:17 95 H 33 H 114/59 L 93 01/12/21 00:30 94 H 15 121/66 94 01/12/21 00:00 95 H 15 102/69 94 01/11/21 23:52 97 H 23 131/55 L 93 01/11/21 23:24 96 H 15 127/77 95 (1) Abdominal pain Abdominal location: generalized Qualified Code(s): R10.84 - Generalized abdominal pain
[2021-01-12 11:42] LABS: Hematocrit (blood only) 31.1 % (37-47); Hemoglobin 9.9 g/dL (12.0-16.0)
--- NOTE | 2021-01-12 14:14 | Electrocardiogram Report ---
Test Reason : Blood Pressure : / mmHG Vent. Rate : 095 BPM Atrial Rate : 095 BPM P-R Int : 116 ms QRS Dur : 084 ms QT Int : 344 ms P-R-T Axes : 054 002 124 degrees QTc Int : 432 ms Normal sinus rhythm Septal infarct (cited on or before 11-MAR-2019) Abnormal ECG When compared with ECG of 11-MAR-2019 11:42, Questionable change in initial forces of Septal leads Nonspecific T wave abnormality now evident in Inferior leads Nonspecific T wave abnormality now evident in Anterior leads Confirmed by Matthew Simpson ([id number]) on 01/12/2021 2:13:48 PM Referred By: REFERRED SELF Confirmed By:Matthew Simpson
[2021-01-12] MEDS: SUCRALFATE 1 GM/10 ML UDC PO SCH ×3 (14:44→21:21)
--- NOTE | 2021-01-12 15:16 | Discharge Summary ---
Date of Service January 12, 2021 Discharge Data Allergies Allergy/AdvReac Type Severity Reaction Status Date / Time gluten Allergy Intermediate SKIN Verified 01/12/21 09:01 RASH--DERMATITIS Consultations 01/12/21 02:27 ED Decision to Admit Stat 01/12/21 08:00 Consult Cardiology Routine Consult Gastroenterology Routine Procedures Performed Operation Date: 01/12/21 16:30 Actual Procedures p Esophagogastroduodenoscopy - Nicol Márquez MD Ordered Studies 01/12/21 00:33 CT abd pelvis IV con only Urgent Hospital Course (1) Abdominal pain: (2) Acute GI bleeding: ASSESSMENT AND PLAN: This is a 75-year-old female who presents with abdominal pain and black stool. 1. Gastrointestinal bleed, melena, abdominal discomfort, abdominal pain improved currently. Hemoccult positive. Hemoglobin stable at 10.9. History of GI bleed in the past from gastric bypass anastomotic site that got resolved, that was healed on the repeat EGD as per GI notes in Epic. Having black stools for the last 2 days. Hemodynamically stable. ER started on Protonix drip, which will be continued. Blood consent obtained. We will follow H and H q. 6 hours. We will keep her n.p.o., IV fluids, and GI on case. 2. EKG changes? no chest troponin negative. Consult cardiology in for further evaluation. 3. History of depression: Continue Cymbalta. 4. History of iron deficiency anemia: Continue iron tablets. 5. History of hypothyroidism: Continue Synthroid. 6. History of hypertension: Continue Cozaar. 7. History of obesity, status post gastric bypass: Continue her vitamin B12 shots. 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 9. Deep venous thrombosis prophylaxis: Sequential compression devices. DISPOSITION: Closely monitor in the med tele. Expect to discharge home and follow with family doctor. Level 1 full code. Admitted by my partner Today. We will follow. ROS-No Headache, No Visual Changes, No Nausea, No Vomiting, No Fever, No Chills, No Neck Pain or Stiffness, No Chest Pain, No Palpitations, No SOB, No BROWNING, No Cough, No Sputum, No Wheezing, + Abdominal Pain, No Diarrhea, No Hematemesis, No Hemoptysis, No Unexpected Weight Loss, No Flank pain, No Melena, No Hematochezia, No Frequency, No Urgency, No Burning, No Hematuria, No Rashes, No Diaphoresis. Appetite is Normal Physical Exam Gen-AAO x 3, NAD, Afebrile Head-NCAT, EOMI, PERRLA, Anicteric Sclera, No Posterior Pharyngeal Erythema Neck-Supple, No JVD, No Thyromegaly, No Masses, No LAD, No Bruits Lungs-Clear to Auscultation Bilaterally, No Rales, No Rhonchi, No Wheezing, No Crepitus Chest-No S4, +S1, +S2, No S3, No Murmurs, No Rubs, No Gallops, No Ectopy Abdomen-Soft, Bowel Sounds Present, Tender, Obese, Non Distended, No Hepatomegaly, No Splenomegaly, No Palpable Masses, No Rebound, No Rigidity, No Guarding Musculoskeletal-Full Range of Motion Bilaterally, No CVAT Extremities-No Cyanosis, No Clubbing, No Edema Nuero-Cranial Nerves II-XII grossly intact, Motor WNL, DTRs WNL, Strength WNL, Non Focal Psych-Normal Mood Discharge Plan Discharge Items Reason For Visit: ABDOMINAL PAIN, BLACK STOOLS Medications and DC Order Prescriptions: No Action levothyroxine [Synthroid] 125 mcg tablet 125 mcg PO QAM RF: 0 dapsone 25 mg tablet 50 mg PO BID RF: 0 losartan [Cozaar] 100 mg tablet 50 mg PO QAM RF: 0 duloxetine [Cymbalta] 20 mg capsule,delayed release(DR/EC) 20 mg PO QAM RF: 0 cholecalciferol (vitamin D3) 1,000 unit Tablet 1,000 unit PO QAM RF: 0 ferrous sulfate 325 mg (65 mg iron) tablet 325 mg PO BID RF: 0 cyanocobalamin (vitamin B-12) 1,000 mcg/mL Solution 1,000 mcg IM MONTHLY RF: 0 fluocinonide 0.05 % Solution 1 applic TOPICAL BID PRN (Reason: Itching) RF: 0 Admission Data Admit Date/Time: 01/12/21 03:09 Attending Provider: Liu Gonzales Admit Provider: Navin Hua Primary Care Provider: Aaron Rausch Other Providers: Navin Hua ; Martin Pope ; Urbano Schafer ; Massimo Gomez ; Weston Zavala ; Dhruv Olea ; Francesco Quinn ; Radha Delgado ; Jaky Mccallum ; Chucho Horan ; Alma Ontiveros ; Elvia Frost ; Elmira Chen ; So Menezes ; Neri Munoz ; Daren Lechuga ; Alphonso Ferrell ; Srinivas Campos ; Miguel Scruggs ; Angie Espinoza ; Rosa Isela Doran ; Sandhya Varela ; Nicol Márquez ; Keely Dorsey Other Interventions: Discharge Summary Assessment (RN) Last Done: 01/12/21 10:00
[2021-01-12 17:23] LABS: Hematocrit (blood only) 29.6 % (37-47); Hemoglobin 9.6 g/dL (12.0-16.0)
--- NOTE | 2021-01-12 19:27 | Cardiology Consultation ---
Date of Consultation January 12, 2021 Assessment & Plan (1) Abnormal EKG: Transient EKG abnormality noted with patient having presented with epigastric discomfort and black tarry stool. EGD results noted to clean-based ulcers at the gastrojejunal anastomosis. Hemoglobin has remained stable. Overnight, and through most the day today, sinus tachycardia had been noted with rates in the range of 100 to 120 bpm. Patient has received IV fluids, notes interval improvement in her abdominal pain. Her heart rate is much improved. Repeat EKG reveals resolution of the previously noted septal infarct pattern, placement to begin with. Decrease noted repolarization changes have improved, and now mild nonspecific diffuse T wave flattening noted. She does have a strong family history of ischemic heart disease in her brother and father. She notes no recent symptoms suggestive of angina. At this time, I think we can proceed with further observation the medication plan as proposed by gastroenterology. Patient counseled to follow-up with her PCP, if she experiences symptoms such as exertional chest pain in the future, would recommend further evaluation but I do not think further cardiac testing Is indicated at present. History of Present Illness Attending Physician: Liu Gonzales DO History of Present Illness Juliana Zuniga is a 75 year old female seen in cardiology consultation due to concerns of an abnormal EKG. patient presented via the emergency room with 2 days of epigastric discomfort and black stools. She has a history of gastric bypass and prior jejunal ulcer noted in December,. EKG performed on 01/11/2021 at 2350 revealed sinus rhythm at 95 bpm with concerns of undetermined septal infarction, nonspecific T wave abnormality in the inferior and lateral leads. The patient underwent EGD this morning with findings of clean-based ulcers at the gastrojejunal anastomosis. Carafate and proton pump inhibitor therapy recommended as well is repeat EGD in 8 to 12 weeks. Repeat EKG performed this afternoon revealed sinus rhythm at 90 bpm, the previously noted septal infarction pattern had resolved. Mild nonspecific repolarization changes noted diffuse T wave flattening, all improved compared to the previous tracing. Allergies Allergy/AdvReac Type Severity Reaction Status Date / Time gluten Allergy Intermediate SKIN Verified 01/12/21 09:01 RASH--DERMATITIS Home Medications Medication Instructions Recorded Confirmed Type cholecalciferol (vitamin D3) 1,000 unit PO QAM 08/07/18 01/11/21 History dapsone 50 mg PO BID 08/07/18 01/11/21 History duloxetine [Cymbalta] 20 mg PO QAM 08/07/18 01/12/21 History levothyroxine [Synthroid] 125 mcg PO QAM 08/07/18 01/11/21 History losartan [Cozaar] 50 mg PO QAM 08/07/18 01/11/21 History cyanocobalamin (vitamin B-12) 1,000 mcg IM MONTHLY 03/11/19 01/11/21 History ferrous sulfate 325 mg PO BID 03/11/19 01/11/21 History fluocinonide 1 applic TOPICAL BID PRN 03/11/19 01/11/21 History Patient History Medical History (Updated 01/12/21 @ 19:24 by Urbano Schafer DO) Anemia STABLE HGB IN THE 10 RANGE Asthma NO INHALER USE X YEARS Depression Dermatitis herpetiformis Fatty liver History of GI bleed + GASTRIC ULCER; NO FURTHER DETAILS HTN (hypertension) Hypothyroidism Kidney stones Obesity Osteoarthritis Ovarian cyst Surgical History H/O gastric bypass History of cataract surgery LEFT History of cholecystectomy History of colonoscopy History of esophagogastroduodenoscopy (EGD) History of hip replacement right hip Hx of tonsillectomy S/P cystoscopy with ureteral stent placement 03/11/2019 [facility] Family History Brother Pancreatic cancer Mother Pancreatic cancer Father Coronary heart disease Social History Smoking Status: Former smoker Smoking End Date: 25 years ago; Second Hand Exposure: No; Hx Alcohol Use: No Hx Substance Use: No Preferred Language: Kazakh Communication Ability: Effective Environmental Health Manager Required: No Beliefs That Will Affect Care: None marital status: / Current Living Situation: Family Current Living Situation Comment: Lives with son Other Information That Helps Us Care for You: No Feels Safe at Home: Yes Safety Concerns: Feels Safe At This Time Assistive Devices: Denture - Upper Review of Systems Review of Systems: All systems reviewed & are unremarkable except as noted in HPI & below Physical Exam Physical Exam: Temp Pulse Resp BP Pulse Ox 36.7 C 91 H 18 97/56 L 93 01/12/21 15:34 01/12/21 15:34 01/12/21 15:34 01/12/21 15:34 01/12/21 15:34 Constitutional: WD/WN, vitals as above Respiratory: normal respiratory effort, lungs clear to auscultation Cardiovascular: RRR, no murmur, no edema Gastrointestinal (Abdomen): normal bowel sounds, soft, nontender, no hepatosplenomegaly Neurologic: PERRL, EOMI, accommodation nl, no face palsy, no dysarthria Results & Data ([facility]) Vital Signs (Past 12 Hours) Vital Signs Temp Pulse Pulse Resp BP Pulse Ox 01/12/21 15:34 36.7 C 91 H 18 97/56 L 93 01/12/21 15:12 92 H 01/12/21 11:54 36.6 C 87 20 115/74 93 01/12/21 10:02 89 20 104/62 97 01/12/21 09:47 91 H 20 110/77 97 01/12/21 09:32 36.8 C 100 H 18 113/62 94 01/12/21 09:01 36.8 C 95 H 18 144/74 H 94 01/12/21 07:23 90 Laboratory Results Cardiac Enzymes 01/11/21 01/12/21 01/12/21 Range/Units 23:14 05:54 10:58 AST 20 (15-37) U/L Troponin I < 0.015 < 0.015 < 0.015 (0-0.045) ng/ml Coagulation 01/11/21 Range/Units 23:14 PT 10.5 (9.0-12.0) Seconds CBC 01/11/21 01/12/21 01/12/21 Range/Units 23:14 05:54 10:58 WBC 9.70 6.85 (4.8-10.8) K/uL RBC 3.38 L 2.99 L (4.2-5.4) M/uL Hgb 10.9 L 9.8 L 9.9 L (12.0-16.0) g/dL Hct 33.9 L 29.8 L 31.1 L (37-47) % Plt Count 290 252 (130-400) K/uL Neut # (Auto) 5.18 3.59 (1.4-6.5) K/uL Lymph # (Auto) 2.98 2.06 (1.2-3.4) K/uL [place] # (Auto) 0.95 H 0.71 H (0.11-0.59) K/uL Eos # (Auto) 0.51 H 0.44 (0-0.5) K/uL Baso # (Auto) 0.05 0.04 (0-0.2) K/uL 01/12/21 Range/Units 16:58 WBC (4.8-10.8) K/uL RBC (4.2-5.4) M/uL Hgb 9.6 L (12.0-16.0) g/dL Hct 29.6 L (37-47) % Plt Count (130-400) K/uL Neut # (Auto) (1.4-6.5) K/uL Lymph # (Auto) (1.2-3.4) K/uL [place] # (Auto) (0.11-0.59) K/uL Eos # (Auto) (0-0.5) K/uL Baso # (Auto) (0-0.2) K/uL Comprehensive Metabolic Panel 01/11/21 01/12/21 Range/Units 23:14 05:54 Sodium 140 141 (136-145) mmol/L Potassium 4.3 4.0 (3.5-5.1) mmol/L Chloride 108 H 110 H (98-107) mmol/L Carbon Dioxide 26 27 (21-32) mmol/L BUN 39 H 34 H (7-18) mg/dl Creatinine 1.12 1.01 (0.6-1.2) mg/dl Glucose 117 H 107 H (70-99) mg/dl Calcium 8.6 8.2 L (8.5-10.1) mg/dl AST 20 (15-37) U/L ALT 31 (12-78) U/L Alkaline Phosphatase 63 (45-117) U/L Total Protein 6.6 (6.4-8.2) gm/dl Albumin 3.4 (3.4-5.0) gm/dl Intake and Output 01/12/21 01/12/21 01/12/21 06:59 14:59 22:59 Intake Total 1153.333 / 1153.333 480.166 / 1059.333 579.167 / 1059.333 Balance 1153.333 / 1153.333 480.166 / 1059.333 579.167 / 1059.333 Intake: IV 1003.333 / 1003.333 480.166 / 1059.333 579.167 / 1059.333 OFIRMEV 1,000 mg In 100 ml @ 100 / 100 400 mls/hr IV NOW STA Rx#: [id number] Lr 1,000 ml @ 125 mls/hr IV . 683.333 / 683.333 Q8H LEONIDAS Rx#:[id number] Protonix 40 mg In D5 100 ml @ 8 100 / 100 59.333 / 59.333 MG/HR 20 mls/hr IV Q5H LEONIDAS Rx# :[id number] Protonix 80 mg In D5 100 ml @ 120 / 120 400 mls/hr IV NOW ONE Rx#: [id number] Nss 1000ML 1,000 ml @ 125 mls/ 420.833 / 1000.000 579.167 / 1000.000 hr IV .Q8H LEONIDAS Rx#:[id number] Oral 150 / 150 Other: Other Intake Source [employer] Weight 102.7 kg 102.7 kg Weight Measurement Method Standing Scale Patient Weight 01/13/21 06:59 Weight 102.7 kg
[2021-01-12] MEDS: PANTOprazole 40 MG in SYRINGE 0 ML IV SCH (21:20)
[2021-01-13] MEDS: [UNRECOGNIZED DRUG - OTHER] SCH ×2 (00:33→08:25)
[2021-01-13] MEDS: SODIUM CHLORIDE 0.9% 1000ML 1,000 ML IV SCH (01:44)
[2021-01-13] MEDS ORDERED: Nursing to Pharmacy Communication SCH (03:00)
[2021-01-13] MEDS: LEVOTHYROXINE SODIUM 125 MCG TABLET PO SCH (05:31)
[2021-01-13] MEDS: DULoxetine HCL 20 MG CAP PO SCH (08:22)
[2021-01-13] MEDS: SUCRALFATE 1 GM/10 ML UDC PO SCH (08:22)
[2021-01-13] MEDS: DAPSONE 25 MG TAB PO SCH (08:22)
[2021-01-13] MEDS: PANTOprazole 40 MG in SYRINGE 0 ML IV SCH (08:23)
[2021-01-13] MEDS: FERROUS SULFATE 325 MG TAB PO SCH (08:23)
[2021-01-13] MEDS: LOSARTAN POTASSIUM 50 MG TAB PO SCH (08:23)
[2021-01-13] MEDS ORDERED: diphenhydrAMINE Capsule 25 MG CAP PO ONE (09:01)
--- NOTE | 2021-01-13 09:08 | Gastroenterology Progress Note ---
Date of Service January 13, 2021 Assessment & Plan (1) Abdominal pain: (2) Acute GI bleeding: (3) H/O gastric bypass: (4) Cirrhosis: Pt is a 75 y/o female w siginificant hx of anemia, cirrhosis (? celiac dz related, MELD 9), gastric bypass w hx of anastomotic ulcer (healed in 2019) who presented w black stools & abd pain symptoms. H/H stable from baseline but BUN up from baseline. CT abd/pelvis w/o acute findings. EGD 01/12 showed 2 clean based anastomotic ulcers. No further s/s of GI bleeding overnight. AM labs unavailable yet - She developed itchy rash on arms started yesterday, noted allergic to Pantoprazole and Omeprazole. DC Pantoprazole and will give Benadryl 25mg PO x 1 dose now. Start Famotidine 20mg BID, and Continue Carafate 1g QID x 4 weeks. Continue Famotidine indefinitely while she is on steroids for dermatitis herpetiform - Advance diet as tolerated to soft texture - Repeat EGD to check for ulcer healing in 8-12 weeks - Monitor blood ct and transfuse prn - Avoid NSAIDs - GI to sign off; pls recall prn Admission and Anticipated Discharge Date Admission Date: January 12, 2021 Supervising Physician Co-Signing Physician Notes I have seen and discussed the management with CHRISTOPHER Malloy. Rash from ppi presumably- much better after benadryl. Tolerated lunch. No further complaints of melena. Slight fluctuation in hemoglobin. ? recent ulceration from recent use of prednisone- will likely heal with [id number] BID - recall egd in 8-12 weeks as an outpatient. Agree with further plan of care as delineated in Sandhya's plan. Subjective Pt reports BM this AM w dark stools but not black like before and no rectal bleeding. Denies abd pain, n/v. Tolerated CL diet. Labs this AM unavailable yet She did report itchy rash started after endoscopy yesterday at back of arms near elbows Review of Systems Review of Systems: All systems reviewed & are unremarkable except as noted in HPI & below Physical Exam Constitutional: WD/WN, vitals as above well groomed, cooperative and comfortable Eyes: PERRL, conjunctivae normal, anicteric sclerae ENMT: external ear and nose normal, oropharynx normal Respiratory: normal respiratory effort, lungs clear to auscultation Cardiovascular: RRR, no murmur, no edema Gastrointestinal (Abdomen): normal bowel sounds, soft, nontender, no hepatosplenomegaly Skin: no rashes, warm and dry no jaundice rash towards elbow on bilateral upper arms Psychiatric: A+Ox3, euthymic affect Lymphatic: no lymphedema Results & Data ([facility]) Vital Signs (Past 12 Hours) Vital Signs Temp Pulse Pulse Resp BP BP Pulse Ox 01/13/21 07:32 36.7 C 109 H 18 124/78 109 H 01/13/21 07:15 107 H 01/13/21 03:07 37.2 C 107 H 19 125/81 90 01/12/21 23:10 36.6 C 91 H 18 107/72 98 01/12/21 23:00 101 H (1) Abdominal pain Abdominal location: generalized Qualified Code(s): R10.84 - Generalized abdominal pain
[2021-01-13 09:23] LABS: Basophils # (auto) 0.07 K/uL (0-0.2); Basophils % (auto) 1.3 %; Eosinophils # (auto) 0.51 K/uL (0-0.5); Eosinophils % (auto) 9.1 %; Hematocrit (blood only) 27.3 % (37-47); Hemoglobin 8.8 g/dL (12.0-16.0); Immature Granulocytes # (auto) 0.02 K/uL (0.00-0.02); Immature Granulocytes % (auto) 0.4 %; Lymphocytes # (auto) 1.43 K/uL (1.2-3.4); Lymphocytes % (auto) 25.6 %; Mean Corpuscular Hemoglobin 33.1 pg (25-34); Mean Corpuscular Hgb Conc 32.2 g/dL (32-36); Mean Corpuscular Volume 102.6 fL (80-100); Mean Platelet Volume 10.3 fL (7.4-10.4); Monocytes # (auto) 0.59 K/uL (0.11-0.59); Monocytes % (auto) 10.6 %; Neutrophils # (auto) 2.96 K/uL (1.4-6.5); Platelet Count 227 K/uL (130-400); RDW Coefficient of Variation 13.3 % (11.5-14.5); RDW Standard Deviation 50.2 fL (36.4-46.3); Red Blood Count 2.66 M/uL (4.2-5.4); White Blood Count 5.58 K/uL (4.8-10.8)
[2021-01-13 09:54] LABS: Albumin Level 2.8 gm/dl (3.4-5.0); BUN Creatinine Ratio 17.9 (10-20); Creatinine Clr Calc Pharmacy 51.7 ml/min; Est GFR (African American) 55.8; Est GFR (Non-African American) 48.2; Potassium 3.6 mmol/L (3.5-5.1)
[2021-01-13 09:56] LABS: Albumin Globulin Ratio 1.1 (0.9-2); Bilirubin,Total 1.8 mg/dl (0.2-1); Globulin 2.5 gm/dl (2.5-4.0); Total Protein 5.3 gm/dl (6.4-8.2)
--- NOTE | 2021-01-13 12:48 | Electrocardiogram Report ---
Test Reason : Blood Pressure : / mmHG Vent. Rate : 098 BPM Atrial Rate : 098 BPM P-R Int : 144 ms QRS Dur : 086 ms QT Int : 412 ms P-R-T Axes : 066 007 050 degrees QTc Int : 525 ms Normal sinus rhythm Nonspecific T wave abnormality Abnormal ECG When compared with ECG of 11-JAN-2021 23:50, Criteria for Septal infarct are no longer Present QT has lengthened Confirmed by Matthew Simpson ([id number]) on 01/13/2021 12:48:25 PM Referred By: REFERRED SELF Confirmed By:Matthew Simpson
--- NOTE | 2021-01-13 14:14 | Discharge Summary ---
Date of Service January 13, 2021 Admission HPI Per Admitting Provider A 75-year-old female with past medical history significant for hypothyroidism, hypertension, prolonged QT interval, unspecified cirrhosis of liver, severe obesity, chronic kidney disease stage III, history of pernicious anemia and dermatitis herpetiformis, major depression, who lives with her son, who presents with couple of days of black stools and abdominal pain. The patient was started on Protonix drip and received Tylenol in the ER and currently abdominal pain is resolved. Denies taking aspirin or [id number] Advil. Denies any chest pain, no shortness of breath, no cough, no fever, no chills, no headache, no blurred visions, no earache, no runny nose, no sore throat. Appetite is okay. No difficulty swallowing. Currently resting comfortably and hemodynamically stable and stool was Hemoccult positive in the ER. Admission Exam Per Admitting Provider GENERAL: The patient is obese, not in acute distress. VITAL SIGNS: Temperature 36.8, pulse 91, respiratory rate 16, blood pressure 136/81, oxygen 94% on room air. HEENT: Pupils equal, round, and reactive to light. Oral mucosa dry. NECK: No JVD, no neck masses. CARDIOVASCULAR: S1, S2 heard. Regular rate and rhythm. No murmur, no gallop. RESPIRATORY SYSTEM: Normal AP diameter. No accessory muscle use. No wheezing, no crackles. ABDOMEN: Soft, bowel sounds present, nontender. No distention. CENTRAL NERVOUS SYSTEM: Cranial nerves II-XII grossly intact, nonfocal. EXTREMITIES: No edema, no erythema. Principal Diagnosis Acute GI bleeding Discharge Exam General: A&Ox3 HENT: NCAT, MMM, EOMI Eyes: PERRLA Neck: Supple, normal range of motion CVS: normal rate and rhythm Resp: b/l good breath sounds Abdomen: Soft, ND/NT, +BS Extremities: No c/c/e Neuro: face symmetric, strength grossly equal, no focal deficit Skin: warm and dry MSK: normal ROM, no joint swelling/erythema Discharge Data Allergies Allergy/AdvReac Type Severity Reaction Status Date / Time gluten Allergy Intermediate SKIN Verified 01/12/21 09:01 RASH--DERMATITIS pantoprazole [From Protonix] Allergy rash Verified 01/13/21 09:06 Consultations 01/12/21 02:27 ED Decision to Admit Stat 01/12/21 08:00 Consult Cardiology Routine Consult Gastroenterology Routine Procedures Performed Operation Date: 01/12/21 16:30 Actual Procedures p Esophagogastroduodenoscopy - Nicol Márquez MD Ordered Studies 01/12/21 00:33 CT abd pelvis IV con only Urgent Hospital Course (1) Abdominal pain: (2) Acute GI bleeding: ASSESSMENT AND PLAN: This is a 75-year-old female who presents with abdominal pain and black stool. 1. Gastrointestinal bleed, melena, abdominal discomfort, abdominal pain improved currently. Hemoccult positive. Hemoglobin stable at 10.9. History of GI bleed in the past from gastric bypass anastomotic site that got resolved, that was healed on the repeat EGD as per GI notes in [facility]. Gastroenterology was consulted. Patient underwent EGD and was found to clean-based anastomotic ulcers. Patient had a reaction to pantoprazole when Benadryl. Patient was discharged on famotidine and Carafate. Day of discharge patient was doing okay. Hemodynamically she was doing fine. Patient tolerated diet. She was discharged in stable condition. She will follow up with PCP and gastroenterchidi ugalde as an outpatient. Need CBC to assess hemoglobin. 2. EKG changes? no chest troponin negative. Audiology was consulted. No new recommendations. 3. History of depression: Continue Cymbalta. 4. History of iron deficiency anemia: Continue iron tablets. 5. History of hypothyroidism: Continue Synthroid. 6. History of hypertension: Continue Cozaar. 7. History of obesity, status post gastric bypass: Continue her vitamin B12 shots. 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 9. Deep venous thrombosis prophylaxis: Sequential compression devices. Total Time Total Time Spent Total Time Spent (In Minutes): 35 Discharge Plan Discharge Items Patient Disposition: Home - Self-Care Reason For Visit: ABDOMINAL PAIN, BLACK STOOLS Discharge Diagnosis: Acute GI bleeding Activity: Resume your previous activity Non-emergency contact: Primary Care Provider Call non-emergency contact if: your symptoms worsen Follow-up/Referrals: Sandhya Varela CRNP [Nurse Practitioner] - ([facility] Gastroenterology Dept will call you to schedule a follow up appointment. ) Aaron Rausch MD [Primary Care Provider] - (Date & Time 01/19/2021 3:20 PM Provider Aaron Rausch MD Department Family [facility] ) Diet: Regular Addtl Attending Provider Instructions: You will need repeat CBC prior to your appointment with your primary care physician. Pending Studies at Discharge: No Stand-Alone Forms: My [facility] [employer], Smoking Cessation Medications and DC Order Prescriptions: New famotidine 20 mg Tablet 20 mg PO BID Qty: 60 RF: 0 sucralfate 100 mg/mL Suspension 1 g PO ACHS Qty: 200 RF: 0 Continued levothyroxine [Synthroid] 125 mcg tablet 125 mcg PO QAM RF: 0 dapsone 25 mg tablet 50 mg PO BID RF: 0 losartan [Cozaar] 100 mg tablet 50 mg PO QAM RF: 0 duloxetine [Cymbalta] 20 mg capsule,delayed release(DR/EC) 20 mg PO QAM RF: 0 cholecalciferol (vitamin D3) 1,000 unit Tablet 1,000 unit PO QAM RF: 0 ferrous sulfate 325 mg (65 mg iron) tablet 325 mg PO BID RF: 0 cyanocobalamin (vitamin B-12) 1,000 mcg/mL Solution 1,000 mcg IM MONTHLY RF: 0 fluocinonide 0.05 % Solution 1 applic TOPICAL BID PRN (Reason: Itching) RF: 0 Discharge Orders: Discharge Order (Routine); Ordered 01/13/21 Ordered By: Ladi Gaines Admission Data Admit Date/Time: 01/12/21 03:09 Attending Provider: Ladi Gaines Admit Provider: Navin Hua Primary Care Provider: Aaron Rausch Other Providers: Navin Hua ; Martin Pope ; Urbano Schafer ; Massimo Gomez ; Weston Zavala ; Dhruv Olea ; Francesco Quinn ; Radha Delgado ; Jaky Mccallum ; Chucho Horan ; Alma Ontiveros ; Elvia Frost ; Elmira Chen ; So Menezes ; Neri Munoz ; Daren Lechuga ; Alphonso Ferrell ; Srinivas Campos ; Miguel Scruggs ; Angie Espinoza ; Rosa Isela Doran ; Sandhya Varela ; Nicol Márquez ; Keely Dorsey Other Interventions: Discharge Summary Assessment (RN) Last Done: 01/13/21 13:53
[2021-01-13] MEDS ORDERED: FAMOTIDINE 20 MG TAB PO SCH (21:00)
== END 2021-01-13 14:31 | disposition home or self-care (01) | DRG 379 ==
LOC: ED 22:58 → SUATTDRO 01-12 03:09 → 2W 01-12 03:09

== ENCOUNTER 2021-06-03 08:00 | Inpatient (IN) ==
--- NOTE | 2021-04-22 16:27 | PAT Medication Instructions ---
Medication Instructions Date of Service April 22, 2021 Home Medications Medication Instructions Recorded sucralfate 100 mg/mL oral 1 g PO ACHS #200 ml 01/13/21 suspension cholecalciferol (vitamin D3) 25 mcg (1,000 unit) tablet 1,000 unit PO QAM dapsone 25 mg tablet 50 mg PO BID duloxetine 20 mg capsule,delayed release (Cymbalta) 20 mg PO QAM levothyroxine 125 mcg tablet (Synthroid) 125 mcg PO QAM losartan 100 mg tablet (Cozaar) 50 mg PO QAM cyanocobalamin (vitamin B-12) 1,000 mcg/mL injection solution 1,000 mcg IM MONTHLY ferrous sulfate 325 mg (65 mg iron) tablet 325 mg PO BID fluocinonide 0.05 % topical solution 1 applic TOPICAL BID PRN sucralfate 100 mg/mL oral suspension 1 g PO ACHS famotidine 20 mg tablet 20 mg PO BID PRN ASK your prescriber and surgeon dapsone 25 mg tablet 50 mg PO BID DO NOT take the morning of surgery cholecalciferol (vitamin D3) 25 mcg (1,000 unit) tablet 1,000 unit PO QAM losartan 100 mg tablet (Cozaar) 50 mg PO QAM cyanocobalamin (vitamin B-12) 1,000 mcg/mL injection solution 1,000 mcg IM MONTHLY ferrous sulfate 325 mg (65 mg iron) tablet 325 mg PO BID sucralfate 100 mg/mL oral suspension 1 g PO ACHS famotidine 20 mg tablet 20 mg PO BID PRN Take morning of surgery With a small sip of water, OTHERWISE NOTHING TO EAT OR DRINK AFTER MIDNIGHT: duloxetine 20 mg capsule,delayed release (Cymbalta) 20 mg PO QAM levothyroxine 125 mcg tablet (Synthroid) 125 mcg PO QAM Take evening before surgery ferrous sulfate 325 mg (65 mg iron) tablet 325 mg PO BID sucralfate 100 mg/mL oral suspension 1 g PO ACHS famotidine 20 mg tablet 20 mg PO BID PRN (if needed) Other Notes If you have any questions please call us at [phone] or [phone] or [phone] or [phone]
--- NOTE | 2021-04-26 13:10 | Anesthesiology Consultation ---
Date of Service April 26, 2021 Assessment & Plan (1) Encounter for pre-operative examination: Chart Review Chart Review: Acceptable Risk for Surgery (pending preop Covid testing results and surgeon ordered PCP clearance ) and Patient seen in Pre Admission Testing Pending surgeon ordered PCP clearance 04/30/21 Per PAT appointment 04/26/2021, patient denies any recent travel. Patient vaccinated for Covid. No known Covid positive contacts or Covid related symptoms. Denies known Covid infection in the past 90 days. Preop Covid testing scheduled 05/06/21 = will await results. Educated on importance of self quarantining, social distancing and wearing mask in public both for the patient after Covid testing done Cystoscopy, left ureteroscopy, laser lithotripsy, insertion of left ureteral stent/exchange left retrograde pyelogram 03/26/2019 = done under [facility] with LMA #4. Teaching & Discussion Pre-Anesthesia Teaching/Discussion Notes: Instructed NPO after midnight before surgery,except medications with 15 cc of water. Medication instructions provided according to the [facility] guidelines. History Surgery Operation Date: 05/10/21 12:45 Proposed Procedures p L2-L4 Decompression Fusion, Spinal Cord Monitoring - Cayetano Ortiz, Height/Weight Height: 5 ft 4 in Weight: 102.7 kg Allergies Allergy/AdvReac Type Severity Reaction Status Date / Time gluten Allergy Intermediate SKIN Verified 04/22/21 09:59 RASH--DERMATITIS pantoprazole [From Protonix] Allergy rash Verified 04/22/21 09:59 Medications Home Medications Medication Instructions Recorded Confirmed Last Taken cholecalciferol (vitamin D3) 25 1,000 unit PO QAM 08/07/18 04/22/21 01/11/21 mcg (1,000 unit) tablet dapsone 25 mg tablet 50 mg PO BID 08/07/18 04/22/21 01/11/21 duloxetine 20 mg capsule,delayed 20 mg PO QAM 08/07/18 04/22/21 04/21/19 release (Cymbalta) levothyroxine 125 mcg tablet 125 mcg PO QAM 08/07/18 04/22/21 01/11/21 (Synthroid) losartan 100 mg tablet (Cozaar) 50 mg PO QAM 08/07/18 04/22/21 01/11/21 cyanocobalamin (vitamin B-12) 1,000 mcg IM MONTHLY 03/11/19 04/22/21 04/21/19 1,000 mcg/mL injection solution ferrous sulfate 325 mg (65 mg 325 mg PO BID 03/11/19 04/22/21 01/11/21 iron) tablet fluocinonide 0.05 % topical 1 applic TOPICAL BID PRN 03/11/19 04/22/21 04/15/19 solution sucralfate 100 mg/mL oral 1 g PO ACHS #200 ml 01/13/21 04/22/21 Unknown suspension famotidine 20 mg tablet 20 mg PO BID PRN 04/22/21 04/22/21 Unknown Past Medical History Medical History (Updated 04/26/21 @ 14:05 by Radha Patel PA-C) Anemia STABLE PER PATIENT - TAKES IRON SUPPLEMENT PO DAILY HX OF BLOOD TRANSFUSION YEARS AGO SECONDARY FROM ANEMIA FROM GI ULCER Asthma NO INHALER USE X YEARS Depression Dermatitis herpetiformis OCCURS WITH GLUTEN Fatty liver History of GI bleed + GASTRIC ULCER x 1; MOST RECENT OCCURRED SEVERAL MONTHS AGO - REPEAT EGD 06/2021 (No blood transfusion needed for GI ulcer in January 2021) HTN (hypertension) Hypothyroidism Kidney stones hx Obesity Osteoarthritis Exercise / Class Metabolic Activity II 4-5 Yardwork/Stairs/Walk up hill (ONE FLIGHT OF STAIRS - NO CHEST PAIN OR SOB ) Past Family History Family History Brother Pancreatic cancer Mother Pancreatic cancer Father Coronary heart disease Past Surgical History Surgical History H/O gastric bypass 1998 History of cataract surgery LEFT and RIGHT History of cholecystectomy History of colonoscopy History of esophagogastroduodenoscopy (EGD) History of hip replacement right hip Hx of tonsillectomy S/P cystoscopy with ureteral stent placement 03/11/2019 [facility] Past Anesthesia History No Hx of Anesthesia Complications and No Family Hx of Anesthesia Complications History of PONV No Hx of PONV and Hx of Motion Sickness Social History Smoking Status: Former smoker tobacco type: cigarettes Do You Dip or Chew Tobacco: No Smoking End Date: QUIT 30 YEARS AGO Hx Alcohol Use: No Hx Substance Use: No substance use type: does not use Review of Systems Hx of blood transfusion- years ago secondary to GI bleed Patient denies chest pain, shortness of breath, dyspnea on exertion, reflux, cough, wheezing, palpitations. No hx of seizures, stroke, [place], apnea/snoring. No hx of blood clots. Physical Exam Vital Signs VITALS BP 131/79 P 93 TEMP 98.4 SP02 93% RESP 16 Constitutional no acute distress ENMT Mouth: no TMJ clicking Thyromental Distance: > or= 3.5 Finger Breadths (3.5) Mallampati Class: I (smaller airway ) Full upper denture Missing bottom molars Neck neck extension not limited Respiratory normal respiratory effort; no respiratory distress Auscultation: lungs clear to auscultation bilaterally; no wheezes Cardiovascular Rate/Rhythm: regular rate and regular rhythm Heart Sounds: + murmur (II-III/ murmur ) Vessels: no carotid bruit Musculoskeletal Spine: no pain with cervical ROM Extremities: extremities normal to inspection Psychiatric Orientation: alert Lab Results Anesthesia Preop Results Results Anesthesia Widget: PT 10.1 Seconds (9.0-12.0) 04/26/21 PTT 25.9 Seconds (21.0-31.0) 04/26/21 INR 1.0 (0.9-1.1) 04/26/21 Urine Color Dark Yellow 04/26/21 Urine Appearance Clear (Clear) 04/26/21 Urine pH 7.0 (4.5-7.5) 04/26/21 Urine Specific [place] 1.023 (1.000-1.030) 04/26/21 Urine Protein Negative (Negative) 04/26/21 Urine Glucose (UA) Negative (Negative) 04/26/21 Urine Ketones Negative (Negative) 04/26/21 Urine Blood Negative (Negative) 04/26/21 Urine Nitrite Negative (Negative) 04/26/21 Urine Bilirubin 1+ (Negative) H 04/26/21 Urine Urobilinogen Positive (Negative) H 04/26/21 Urine Leukocyte Esterase Trace (Negative) H 04/26/21 Urine WBC (Auto) 1-5 /hpf (0-5) 04/26/21 Urine RBC (Auto) 0-4 /hpf (0-4) 04/26/21 Urine Hyaline Casts (Auto) 1-5 /lpf (0-5) 04/26/21 Urine Epithelial Cells (Auto) >30 /lpf (0-5) H 04/26/21 Urine Bacteria (Auto) Negative (Negative) 04/26/21 Blood Type B Positive 04/26/21 Antibody Screen NEGATIVE 04/26/21 Testing Laboratory Results 04/21/21= WBC: 8.23 H/H: 12.7/40.0 PLATELETS: 212 SODIUM: 140 POTASSIUM: 4.9 CHLORIDE: 106 CO2: 23 BUN: 27 CREATININE: 1.0 GLUCOSE: 117 Electrocardiogram Date: 01/12/21 Findings: + NSR @ (98bpm) Nonspecific T wave abnormality. When compared to EKG from January 11, 2021- criteria for septal infarct no longer present, QT has lengthened Chest X-Ray Date: 04/26/21 Findings: + NAD Indistinctness of the left lower cardiac border is felt to be secondary to a fat pad. This remains unchanged the prior study Echocardiogram Date: 04/24/19 EF: 55-60% LV Function: normal RWMA: + none Other Findings: + LVH (mild/concentric ) and + diastolic dysfunction (Grade I ) Valvular Disease: + no significant valvular disease Left atrium mildly enlarged. Stress Test Date: 04/03/19 Type: nuclear Normal combined low intensity exercise/pharmacologic nuclear stress test without evidence of inducible ischemia or infarction. Gated SPECT imaging reveals normal myocardial thickening and wall motion. Stress EKG negative for ischemia. LVEF 66%.
--- NOTE | 2021-06-02 12:20 | History & Physical Report ---
Date of Service June 02, 2021 Assessment & Plan (1) Neurogenic claudication due to lumbar spinal stenosis: Plan: At this time the patient has progressive strength deficits affecting the right quadricep. This markedly limiting her quality of life and recommending urgent surgery. It would require an L2-L4 decompression fusion. Surgery would hopefully improve her radicular pain and prevent permanent neurologic deficit. History of Present Illness Chief Complaint: Back and right leg pain Primary Care Provider: Aaron Rausch MD This is a 75-year-old female who presents with worsening back and right leg pain with progressive weakness. She is undergone extensive course of nonoperative care including physical therapy injections without any significant improvement. She is now struggling with all actives of daily living and is unable to walk any distance secondary to right leg weakness. Allergies Allergy/AdvReac Type Severity Reaction Status Date / Time gluten Allergy Intermediate SKIN Verified 04/22/21 09:59 RASH--DERMATITIS pantoprazole [From Protonix] Allergy rash Verified 04/22/21 09:59 Home Medications Medication Instructions Recorded Confirmed Type cholecalciferol (vitamin D3) 25 1,000 unit PO QAM 08/07/18 04/22/21 History mcg (1,000 unit) tablet dapsone 25 mg tablet 50 mg PO BID 08/07/18 04/22/21 History duloxetine 20 mg capsule,delayed 20 mg PO QAM 08/07/18 04/22/21 History release (Cymbalta) levothyroxine 125 mcg tablet 125 mcg PO QAM 08/07/18 04/22/21 History (Synthroid) losartan 100 mg tablet (Cozaar) 50 mg PO QAM 08/07/18 04/22/21 History cyanocobalamin (vitamin B-12) 1,000 mcg IM MONTHLY 03/11/19 04/22/21 History 1,000 mcg/mL injection solution ferrous sulfate 325 mg (65 mg 325 mg PO BID 03/11/19 04/22/21 History iron) tablet fluocinonide 0.05 % topical 1 applic TOPICAL BID PRN 03/11/19 04/22/21 History solution sucralfate 100 mg/mL oral 1 g PO ACHS #200 ml 01/13/21 04/22/21 Rx suspension famotidine 20 mg tablet 20 mg PO BID PRN 04/22/21 04/22/21 History Past Med/Surg History Medical History (Updated 06/02/21 @ 12:19 by Cayetano Ortiz DO) Anemia STABLE PER PATIENT - TAKES IRON SUPPLEMENT PO DAILY HX OF BLOOD TRANSFUSION YEARS AGO SECONDARY FROM ANEMIA FROM GI ULCER Asthma NO INHALER USE X YEARS Cirrhosis Cryptogenic per PCP records Depression Dermatitis herpetiformis OCCURS WITH GLUTEN Fatty liver History of GI bleed + GASTRIC ULCER x 1; MOST RECENT OCCURRED SEVERAL MONTHS AGO - REPEAT EGD (No blood transfusion needed for GI ulcer in January 2021) HTN (hypertension) Hypothyroidism Kidney stones hx Obesity Osteoarthritis Prolonged QT interval Per PCP records Surgical History H/O gastric bypass 1998 History of cataract surgery LEFT and RIGHT History of cholecystectomy History of colonoscopy History of esophagogastroduodenoscopy (EGD) History of hip replacement right hip Hx of tonsillectomy S/P cystoscopy with ureteral stent placement 03/11/2019 [facility] Family History Brother Pancreatic cancer Mother Pancreatic cancer Father Coronary heart disease Social History Smoking Status: Former smoker Second Hand Exposure: No; Hx Alcohol Use: No Hx Substance Use: No Preferred Language: Upper Sorbian Communication Ability: Effective Formal Waiter/Waitress Required: No Beliefs That Will Affect Care: None marital status: / Current Living Situation: Family Current Living Situation Comment: Lives with son Feels Safe at Home: Yes Assistive Devices: Glasses Physical Exam Physical Exam: Patient is alert and oriented Heart regular rhythm Lungs clear to auscultation On physical exam she demonstrates a 4-/5 right quadriceps to testing. Plantar flexion dorsiflexion appear to be intact. Left lower extremity has good strength. There is marked sensory deficits to the right leg compared to the left. She is unable to stand with out having to sit down almost immediately secondary to severe radicular right leg pain.
[~2021-06-03 08:00] MED LIST changes: +ACETAMINOPHEN 500 MG TAB PO SCH; -CHOL1000 PO; +CeleBREX 200 MG CAP PO SCH; -DPS25 PO; -DULO60CA44 PO; +GABAPENTIN 300 MG CAP PO SCH; -LEVO125T5 PO; -LOSA1TAB38 PO; +LR 15ML/HR IV SCH; +ceFAZolin 1000MG 1,000 MG/7.5 ML SYR IV SCH; +ceFAZolin 2000MG 2,000 MG/15 ML SYR IV SCH
[2021-06-03] MEDS ORDERED: fentaNYL citrate 100 MCG/2 ML VIAL ONE (08:39)
[2021-06-03] MEDS ORDERED: MIDAZOLAM HCL 1 MG/ML 2ML VIAL ONE (08:39)
--- NOTE | 2021-06-03 09:29 | History & Physical Bridge Note ---
Date of Service June 03, 2021 History & Physical Bridge Note I have examined the patient, reviewed the History & Physical and in the interval since the performance of the History & Physical I have noted the following changes of clinical significance: no changes noted
[2021-06-03] MEDS ORDERED: BUPIVACAINE 0.5 % 5 MG/1 ML MPF 30ML VIAL ONE ×2 (09:37→10:12)
[2021-06-03] MEDS ORDERED: EPINEPHrine INJ 1 MG/ML AMP ONE (09:37)
[2021-06-03] MEDS ORDERED: PROPOFOL IV EMULSION 10 MG/ML 20 ML VIAL IV ONE (10:35)
[2021-06-03] MEDS ORDERED: ONDANSETRON INJ 2 MG/ML 2 ML VIAL ONE (10:35)
[2021-06-03] MEDS ORDERED: DEXAMETHASONE SOD INJ 4 MG/ML VIAL ONE (10:35)
[2021-06-03] MEDS ORDERED: LIDOCAINE 2% 2 ML VIAL/AMP(20MG/ML) INFIL ONE (10:35)
[2021-06-03] MEDS ORDERED: ROCURONIUM BROMIDE 10 MG/ML 5 ML VIAL IV ONE (10:35)
[2021-06-03] MEDS ORDERED: ALBUTEROL HFA INHALER 8.5 GM ONE (10:41)
[2021-06-03] MEDS ORDERED: PHENYLEPHRINE 100MCG/ML 5ML SYR ONE ×2 (10:44→10:48)
[2021-06-03] MEDS ORDERED: ePHEDrine sulfate 50 MG/ML SYR ONE (10:44)
[2021-06-03] MEDS ORDERED: PHENYLEPHRINE HCL 10 MG/ML VIAL ONE (10:48)
[2021-06-03] MEDS ORDERED: GLYCOPYRROLATE 0.2 MG/ML VIAL ONE (12:04)
[2021-06-03] MEDS ORDERED: NEOSTIGMINE METHYLSULFATE 1 MG/ML 10ML VIAL ONE (12:04)
--- NOTE | 2021-06-03 12:14 | Operative Report ---
Post Operative Report Pre & Post Diagnosis Operation Date: 06/03/21 10:05 Pre-Op Diagnosis: Spinal Stenosis, Lumbar Region with Neurogenic Claudication Post-Op Diagnosis: Spinal Stenosis, Lumbar Region with Neurogenic Claudication I identified the patient and participated in the time-out.: Yes Procedure Operation Date: 06/03/21 10:05 Actual Procedures #1 Lumbar decompression with bilateral medial facetectomies and foraminotomies L1-2, L2-3 and L3-L4. #2 posterior spinal fusion L2-3 L3-4. #3 placement posterior instrumentation L2-3 L3-4. #4 placement locally harvested morselized autograft in the posterior gutters. #5 placement infuse collagen sponge, master graft in the posterior gutters L2 and L4. Surgeon Cayetano Ortiz, DO Scheduler Conveyor Cris Block Estimated Blood Loss 150 Findings See Below The patient is 5 feet 4 inches tall weighing over 102 kg with a BMI in excess of 38. The patient's body mass did contribute to significant technical difficulty requiring her deepest retractors longus instruments in order to perform her procedure. This added at least 50% increase to the operative time. Specimens None Indications This is a 75-year-old female who presents with above-mentioned diagnosis after failing course of nonoperative care is here for the above-mentioned procedure. Description of Procedure Patient was met identified informed consent obtained. Patient was then taken to the operative suite underwent ablation placed in a prone position the [place] table top Devin frame. All bony prominences well-padded eyes inspected to ensure no external pressure placed upon them. This point lumbar spine was prepped and draped in a sterile fashion. Sharp dissection with the assistance of Bovie cautery was performed down to and exposing the lamina and transverse processes of L2-L3-L4 bilaterally from caudal to cephalad fashion complete laminectomy of L3 L2 partial laminectomy L1 was performed including bilateral medial facetectomies and foraminotomies addressing severe spinal stenosis. An incidental durotomy was identified. I did repair this with 4-0 Nurolon sutures in an interrupted fashion as well as a DuraGen patch to supplement the repair. Pedicle screws were then placed in L2-L3-L4 bilaterally with assistance of fl uoroscopy the proper sized raffy locked in position. The transverse processes of L2-L3-L4 then burred to subcortical bleeding bone. Infuse collagen sponge master graft local autograft was placed in the posterior gutters. 10 round CYNTHIA drain inserted. The incision was then closed with 1 Vicryl in the fascia 2-0 Vicryl subcutaneously and 4 Monocryl for final skin closure. Steri-Strip sterile dressings placed. Patient was then taken back in stable condition. Please note spinal cord monitoring was utilized at the procedure no changes noted. Lastly Cris Block was present at the entire procedure and all the patient positioning complex portions of the surgery and final skin closure. I attest to the content of the Intraoperative Record and any orders documented therein. Any exceptions are noted below.
[2021-06-03] MEDS ORDERED: FLOSEAL HEMOSTATIC MATRIX 10ML TOP ONE (12:22)
[2021-06-03] MEDS ORDERED: ALBUTEROL 0.083% NEBU SOLN 3 ML VIAL ONE (12:44)
[2021-06-03] MEDS ORDERED: ALBUTEROL 0.083% NEBU SOLN 3 ML VIAL INH PRN (12:44)
[2021-06-03] MEDS ORDERED: ONDANSETRON INJ 2 MG/ML 2 ML VIAL IV PRN (12:57)
[2021-06-03] MEDS ORDERED: ATROPINE SULFATE 0.1 MG/ML 10ML SYR IV PRN (12:57)
[2021-06-03] MEDS ORDERED: HYDROmorphone INJ 1 MG/ML SYRINGE IV PRN ×2 (12:57→15:01)
[2021-06-03] MEDS ORDERED: HYDROmorphone INJ 0.5 MG/0.5 ML SYR ONE (12:59)
--- NOTE | 2021-06-03 13:06 | Fluoroscopy Report ---
INTRAOPERATIVE RADIOGRAPHS CLINICAL HISTORY: L2-L4 spinal fusion. Fluoroscopy time: 27 seconds. FINDINGS: 2 spot fluoroscopic views of the lumbar spine are presented. There is postoperative change from laminectomy and posterior fusion, reportedly at L2-L4. Interpedicular screws are present at all levels. The orthopedic hardware appears intact. IMPRESSION: Intraoperative lumbar spine radiographs as above. Electronically signed by: Jaden Torres M.D. 06/03/2021 1:04 PM
--- NOTE | 2021-06-03 13:22 | Anesthesiology Progress Note ---
Date of Service June 03, 2021 Anesthesia Post Procedure Vital Signs Vital Signs: Temp Pulse Pulse Resp BP Pulse Ox 06/03/21 13:15 92 H 16 126/59 L 91 06/03/21 13:05 92 H 18 127/59 L 91 06/03/21 12:55 90 15 122/69 94 06/03/21 12:47 88 22 93 06/03/21 12:45 93 H 15 115/57 L 95 06/03/21 12:38 36.8 C 91 H 16 112/56 L 94 06/03/21 08:42 36.9 C 106 H 20 140/78 93 Pain Intensity Back: Pain Intensity: 8 Transfer of Care Handoff Completed per policy Notes Mental Status: alert / awake / arousable Patient Amnestic to Procedure: Yes Nausea / Vomiting: adequately controlled Pain: adequately controlled Airway Patency, RR, SpO2: stable & adequate BP & HR: stable & adequate Hydration State: stable & adequate Anesthetic Complications: no major complications apparent
[2021-06-03] MEDS ORDERED: ONDANSETRON 4 MG OD TAB PO PRN (15:01)
[2021-06-03] MEDS ORDERED: MAGNESIUM HYDROXIDE SUSP 30 ML UDC PO PRN (15:01)
[2021-06-03] MEDS ORDERED: ALUMINUM/MAGNESIUM SUSP 30 ML UDC PO PRN (15:01)
[2021-06-03] MEDS ORDERED: NALOXONE HCL 0.4 MG/1 ML VIAL/CARP IV PRN (15:01)
[2021-06-03] MEDS ORDERED: PROMETHAZINE HCL 12.5 MG in SODIUM CHLORIDE 0.9% 50 ML IV PRN (15:01)
[2021-06-03] MEDS ORDERED: DO NOT ADMINISTER FLU VACCINE PRN (15:01)
[2021-06-03] MEDS ORDERED: DO NOT ADMINISTER PNEUMOCOCCAL VACCINE PRN (15:01)
[2021-06-03] MEDS ORDERED: LORazepam 0.5 MG TAB PO PRN (15:01)
[2021-06-03] MEDS ORDERED: LORazepam 0.5 MG/1 ML VIAL IV PRN (15:01)
[2021-06-03] MEDS ORDERED: FAMOTIDINE 20 MG TAB PO PRN (15:01)
[2021-06-03] MEDS ORDERED: bisacodyL 10 MG SUPP PR PRN (15:01)
[2021-06-03] MEDS ORDERED: METOCLOPRAMIDE HCL INJ 5 MG/ML 2 ML VIAL IV PRN (15:01)
[2021-06-03] MEDS ORDERED: diphenhydrAMINE Capsule 25 MG CAP PO PRN (15:01)
[2021-06-03] MEDS ORDERED: SOD PHOSPHATE/SOD BIPHOSPHATE ENEMA 132 ML BTL PR PRN (15:01)
[2021-06-03] MEDS ORDERED: hydrOXYzine HCl 25 MG TAB PO PRN (15:01)
[2021-06-03] MEDS: LACTATED RINGER'S 1,000 ML IV SCH ×2 (15:14→20:40)
--- NOTE | 2021-06-03 15:43 | Consultation ---
Date of Consultation June 03, 2021 Assessment & Plan (1) Neurogenic claudication due to lumbar spinal stenosis: (2) HTN (hypertension): (3) H/O gastric bypass: (4) Cirrhosis: (5) CKD (chronic kidney disease) stage 3, GFR 30-59 ml/min: Status post L2-L4 lumbar decompression fusion by Dr. Ortiz, POD #0 EBL 150 m; [place] drain 70 mL Tolerated procedure well Pain/wound management per orthopedic Activity and therapy per orthopedics Continue oxygen, wean as able, encourage incentive spirometry Monitor hemoglobin with blood loss, preop hemoglobin 12.7 HTN Blood pressure on lower side will hold losartan until reevaluated in a.m. CKD stage III Baseline creatinine 1.0 Monitor BUN/creatinine Gluten intolerance/dermatitis herpetiformis Gluten-free diet Continue dapsone Diagnosis of cirrhosis Elevated LFTs Likely in setting of fatty liver, no alcohol use Well compensated Hypothyroidism Continue Synthroid Hx of prolonged qtc pre op ecg QTC 455ms Hx of Gastric bypass DVT ppx: SCD/TEDS Dispo: per primary PCP: Shalom FULL CODE Pt was seen and examined in collaboration with Dr. Turner, please see addendum Thank you for this consultation. We will follow the patient with you during their hospital stay. You can reach a member of the [facility] Hospitalist Team 01/05 via hospitalist role on tiger text. Supervising Physician Co-Signing Physician Notes Patient is a 75-year-old female with history of hypertension, CKD, cirrhosis and other medical problems was consulted for postop medical management after having lumbar surgery for spinal stenosis with neurogenic claudication by Dr. Ortiz. Patient was found to be hypotensive, tachycardic and very drowsy postoperatively. She denies any significant pain at surgical site. Also denies any chest pain, shortness of breath, dizziness, nausea, abdominal pain. Blood pressure slightly improved with IV fluids. Please review HPI for complete details. On exam patient is obese, no apparent distress, normocephalic atraumatic, normal breath sounds, clear to auscultation, EOMI, abdomen soft, nontender, normal bowel sounds, S1-S2,+ murmur, no pedal edema, alert, awake, oriented, grossly no focal deficits, back--surgical site in dressing. Patient is consulted for postop medical management. Wound care, activity, DVT prophylaxis per primary team. Agree with bolus of IV fluids and continue IV fluids for postoperative hypotension. Agree with holding losartan for now. Monitor for postop anemia. Aspiration precautions. Incentive spirometry. Bowel regimen to prevent constipation. I personally reviewed the record. Patient is interviewed and examined at bedside. Patient's care is coordinated with Ana Maria Cloud PA-C. Please refer to the documentation above for details of patient's presentation and for discussion of other issues. History of Present Illness Requesting Physician: Dr. Ortiz Reason for Consultation: Post op med management Attending Physician: Cayetano Ortiz, DO History of Present Illness This is a 75 year old F who has a significant PMH of HTN, cirrhosis, CKD 3, obesity, hypothyroidism, gluten insensitivity, Depression, prolonged qtc, hx of gastric bypass who presents for elective lumbar surgery by Dr. Ortiz. She tolerated the procedure well and does complain of incisional tenderness. She denies any lumbar radiculopathy including pain, numbness or tingling. She overall complains of being drowsy, but states this is normal for her postoperatively. She does have prior history of sleep apnea prior to her gastric bypass, but since losing 100 pounds she no longer requires sleep device. Currently she offers no other complaints. She denies fever, chills, sweats, lightheadedness, dizziness, chest pain, shortness of breath, nausea, vomiting, abdominal pain. She reiterates her gluten intolerance requesting a gluten-free diet. 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 Allergies Allergy/AdvReac Type Severity Reaction Status Date / Time gluten Allergy Intermediate SKIN Verified 06/03/21 08:33 RASH--DERMATITIS pantoprazole [From Protonix] Allergy rash Verified 06/03/21 08:33 Home Medications Medication Instructions Recorded Confirmed Type cholecalciferol (vitamin D3) 25 1,000 unit PO QAM 08/07/18 06/03/21 History mcg (1,000 unit) tablet dapsone 25 mg tablet 50 mg PO BID 08/07/18 06/03/21 History duloxetine 20 mg capsule,delayed 20 mg PO QAM 08/07/18 06/03/21 History release (Cymbalta) levothyroxine 125 mcg tablet 125 mcg PO QAM 08/07/18 06/03/21 History (Synthroid) losartan 100 mg tablet (Cozaar) 50 mg PO QAM 08/07/18 06/03/21 History cyanocobalamin (vitamin B-12) 1,000 mcg IM MONTHLY 03/11/19 06/03/21 History 1,000 mcg/mL injection solution ferrous sulfate 325 mg (65 mg 325 mg PO BID 03/11/19 06/03/21 History iron) tablet fluocinonide 0.05 % topical 1 applic TOPICAL BID PRN 03/11/19 06/03/21 History solution sucralfate 100 mg/mL oral 1 g PO ACHS #200 ml 01/13/21 06/03/21 Rx suspension Patient History Medical History (Updated 06/03/21 @ 16:08 by Ana Maria Cloud PA-C) Anemia STABLE PER PATIENT - TAKES IRON SUPPLEMENT PO DAILY HX OF BLOOD TRANSFUSION YEARS AGO SECONDARY FROM ANEMIA FROM GI ULCER Asthma NO INHALER USE X YEARS Cirrhosis Cryptogenic per PCP records CKD (chronic kidney disease) stage 3, GFR 30-59 ml/min Depression Dermatitis herpetiformis OCCURS WITH GLUTEN Fatty liver History of GI bleed + GASTRIC ULCER x 1; MOST RECENT OCCURRED SEVERAL MONTHS AGO - REPEAT EGD 06/2021 (No blood transfusion needed for GI ulcer in January 2021) HTN (hypertension) Hypothyroidism Kidney stones hx Obesity Osteoarthritis Prolonged QT interval Per PCP records Surgical History H/O gastric bypass 1998 History of cataract surgery LEFT and RIGHT History of cholecystectomy History of colonoscopy History of esophagogastroduodenoscopy (EGD) History of hip replacement right hip Hx of tonsillectomy S/P cystoscopy with ureteral stent placement 03/11/2019 [facility] Family History Brother Pancreatic cancer Mother Pancreatic cancer Father Coronary heart disease Social History Smoking Status: Former smoker Smoking End Date: QUIT 30 YEARS AGO; Second Hand Exposure: No; Do You Dip or Chew Tobacco: No; Tobacco Cessation Education Requested by Patient: No Hx Alcohol Use: No Hx Substance Use: No Preferred Language: Qatari Communication Ability: Effective 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: No Beliefs That Will Affect Care: None marital status: / Current Living Situation: Family Current Living Situation Comment: Lives with son Other Information That Helps Us Care for You: No Feels Safe at Home: Yes Safety Concerns: Feels Safe At This Time Assistive Devices: None Review of Systems Review of Systems: All systems reviewed & are unremarkable except as noted in HPI & below Physical Exam Physical Exam: Constitutional: WD/WN, vitals as above, NAD, drowsy, sitting up in bed, pleasant, conversing easily Head: Normocephalic, Atraumatic Eyes: PERRL, conjunctivae normal, anicteric sclerae ENMT: external ear and nose normal, oropharynx normal Neck: trachea midline, no thyromegaly normal visual inspection Respiratory: normal respiratory effort, lungs clear to auscultation, no wheeze, rales, rhonchi. Normal insp/exp effort, no accessory muscle use Cardiovascular: tachycardic rate, regular rhythm, 1/6 sheron noted rusb, no edema Vessels: no JVD or carotid bruit chest: normal inspection of chest Abdomen: normal bowel sounds, soft, nontender, no hepatosplenomegaly Musculoskeletal: no cyanosis or clubbing, extremities motor strength 5/5 , scd/teds in place,lumbar dressing cdi, [place] drain with serosanguineous drainage Skin: no rashes, warm and dry normal turgor Neurologic: PERRL, EOMI, accommodation nl, no face palsy, no dysarthria CN's II-XI intact bilaterally and moves all extremities Psychiatric: A+Ox3, euthymic affect Lymphatic: no cervical or axillary lymphadenopathy : norwood cath Results & Data ([facility]) Vital Signs (Past 12 Hours) Vital Signs Temp Pulse Pulse Resp BP Pulse Ox 06/03/21 15:02 36.5 C 102 H 16 105/68 92 06/03/21 14:45 36.6 C 100 H 16 103/67 93 06/03/21 14:30 105 H 16 92/68 L 92 06/03/21 14:15 106 H 16 96/64 L 92 06/03/21 14:00 103 H 16 103/62 92 06/03/21 13:45 36.3 C L 100 H 16 100/52 L 92 06/03/21 13:30 99 H 16 104/58 L 92 06/03/21 13:15 92 H 16 126/59 L 91 06/03/21 13:05 92 H 18 127/59 L 91 06/03/21 12:55 90 15 122/69 94 06/03/21 12:47 88 22 93 06/03/21 12:45 93 H 15 115/57 L 95 06/03/21 12:38 36.8 C 91 H 16 112/56 L 94 06/03/21 08:42 36.9 C 106 H 20 140/78 93 Laboratory Results pre op labs 04/21/2021 Sodium 140, K4.9, BUN 27, creatinine 1.0, hemoglobin 12.7, hematocrit 40.0, AST 38 total bilirubin 2.3 Diagnostic Findings Lumbar Spine X-Ray 06/03/21 12:25 INTRAOPERATIVE RADIOGRAPHS CLINICAL HISTORY: L2-L4 spinal fusion. Fluoroscopy time: 27 seconds. FINDINGS: 2 spot fluoroscopic views of the lumbar spine are presented. There is postoperative change from laminectomy and posterior fusion, reportedly at L2-L4. Interpedicular screws are present at all levels. The orthopedic hardware appears intact. IMPRESSION: Intraoperative lumbar spine radiographs as above. Electronically signed by: Jaden Torres M.D. 06/03/2021 1:04 PM Preoperatively had nuclear stress test on 05/17/2021 which was negative for inducible ischemia, EF 70% Medications Administered Medication List Acetaminophen (Acetaminophen 500 Mg Tab) 1,000 mg PO PREOP LEONIDAS Stop: 06/03/21 18:00 Last Admin: 06/03/21 09:04 Dose: 1,000 mg Documented by: [id number] Albuterol (Albuterol 0.083% Nebu Soln 3 Ml Vial) 2.5 mg INH ONCE PRN PRN Reason: PACU Use Only-SOB/Wheezing Stop: 06/03/21 20:44 Last Admin: 06/03/21 12:56 Dose: 2.5 mg Documented by: [id number] Celecoxib (Celebrex 200 Mg Cap) 200 mg PO PREOP LEONIDAS Stop: 06/03/21 18:00 Last Admin: 06/03/21 09:05 Dose: 200 mg Documented by: [id number] Gabapentin (Gabapentin 300 Mg Cap) 300 mg PO PREOP LEONIDAS Stop: 06/03/21 18:00 Last Admin: 06/03/21 09:04 Dose: 300 mg Documented by: [id number] Hydromorphone HCl (Hydromorphone Inj 1 Mg/Ml Syringe) 0.25 mg IV Q5M PRN PRN Reason: PACU Use Only-Pain Stop: 06/03/21 20:58 Last Admin: 06/03/21 13:00 Dose: 0.25 mg Documented by: [id number] Lactated Ringer's (Lr) 1,000 mls @ 15 mls/hr IV .Q24H LEONIDAS Stop: 06/04/21 05:59 Last Infusion: 06/03/21 10:04 Dose: 0 mls/hr Documented by: [id number] Admin: 06/03/21 09:04 Dose: 15 mls/hr Documented by: [id number] Cefazolin Sodium (Ancef 2000mg) 2,000 mg in 15 mls @ 3.75 mls/min IV PREOP LEONIDAS; Protocol Stop: 06/03/21 18:00 Last Admin: 06/03/21 10:04 Dose: 3.75 mls/min Documented by: [id number] Lactated Ringer's (Lr) 1,000 mls @ 150 mls/hr IV .Q6H40M [facility] Stop: 07/03/21 15:00 Last Admin: 06/03/21 15:14 Dose: 150 mls/hr Documented by: [id number] Discontinued Medications Albuterol (Albuterol 0.083% Nebu Soln 3 Ml Vial) Confirm Administered Dose 2.5 mg .ROUTE .STK-MED ONE Stop: 06/03/21 12:45 Last Admin: 06/03/21 15:14 Dose: Not Given Documented by: [id number] Bupivacaine HCl (Bupivacaine 0.5 % 5 Mg/1 Ml Mpf 30ml Vial) Confirm Administered Dose 30 ml .ROUTE .STK-MED ONE Stop: 06/03/21 09:38 Last Admin: 06/03/21 12:08 Dose: 20 ml Documented by: [id number] Bupivacaine HCl (Bupivacaine 0.5 % 5 Mg/1 Ml Mpf 30ml Vial) Confirm Administered Dose 30 ml .ROUTE .STK-MED ONE Stop: 06/03/21 10:13 Last Admin: 06/03/21 12:22 Dose: Not Given Documented by: [id number] Cefazolin Sodium (Cefazolin 250 Mg/Ml 1 Gm Vial) Confirm Administered Dose 1,000 mg .ROUTE .STK-MED ONE Stop: 06/03/21 09:38 Last Admin: 06/03/21 12:10 Dose: 1,000 mg Documented by: [id number] Epinephrine HCl (Epinephrine Inj 1 Mg/Ml Amp) Confirm Administered Dose 1 mg .ROUTE .STK-MED ONE Stop: 06/03/21 09:38 Last Admin: 06/03/21 12:10 Dose: 0.15 mg Documented by: [id number] Hydromorphone HCl (Hydromorphone Inj 0.5 Mg/0.5 Ml Syr) Confirm Administered Dose 0.5 mg .ROUTE .STK-MED ONE Stop: 06/03/21 13:00 Last Admin: 06/03/21 15:14 Dose: Not Given Documented by: [id number] Miscellaneous ( Floseal Hemostatic Matrix 10ml) 10 ml TOP ONCE ONE Stop: 06/03/21 12:23 Last Admin: 06/03/21 12:00 Dose: 14 ml Documented by: [id number] ECG Rate (beats per minute): 92 Rhythm: normal sinus Findings: + T-wave inversion (inferior, lateral)
[2021-06-03] MEDS ORDERED: FLUOCINONIDE 0.05% CR 15 GM TUBE EXT PRN (15:57)
[2021-06-03] MEDS ORDERED: SODIUM CHLORIDE 0.9% 1000ML 500 ML IV ONE (16:18)
[2021-06-03] MEDS ORDERED: SUCRALFATE 1 GM/10 ML UDC PO SCH (16:30)
[2021-06-03] MEDS: ACETAMINOPHEN 500 MG TAB PO PRN (18:24)
[2021-06-03] MEDS: DAPSONE 25 MG TAB PO SCH (20:48)
[2021-06-03] MEDS: FERROUS SULFATE 325 MG TAB PO SCH (20:48)
[2021-06-03] MEDS: DOCUSATE SODIUM/SENNA 50/8.6MG TAB PO SCH (20:48)
[2021-06-03] MEDS: ceFAZolin 2000MG 2,000 MG/15 ML SYR IV SCH (21:06)
[2021-06-03] MEDS: oxyCODONE HCL IR 5 MG TAB (IMMEDIATE RELEASE) PO PRN (23:35)
[2021-06-04] MEDS: LACTATED RINGER'S 1,000 ML IV SCH (03:27)
[2021-06-04] MEDS: oxyCODONE HCL IR 5 MG TAB (IMMEDIATE RELEASE) PO PRN ×3 (05:44→20:38)
[2021-06-04] MEDS: ceFAZolin 2000MG 2,000 MG/15 ML SYR IV SCH (05:45)
[2021-06-04] MEDS: LEVOTHYROXINE SODIUM 125 MCG TABLET PO SCH (05:45)
[2021-06-04] MEDS: POLYETHYLENE (MIRALAX) 17 GM PACK PO SCH ×3 (05:46→17:57)
[2021-06-04 07:02] LABS: Basophils # (auto) 0.01 K/uL (0-0.2); Basophils % (auto) 0.1 %; Hematocrit (blood only) 29.4 % (37-47); Hemoglobin 9.5 g/dL (12.0-16.0); Immature Granulocytes # (auto) 0.02 K/uL (0.00-0.02); Immature Granulocytes % (auto) 0.2 %; Lymphocytes # (auto) 0.94 K/uL (1.2-3.4); Lymphocytes % (auto) 9.8 %; Mean Corpuscular Hemoglobin 32.8 pg (25-34); Mean Corpuscular Hgb Conc 32.3 g/dL (32-36); Mean Corpuscular Volume 101.4 fL (80-100); Monocytes # (auto) 0.96 K/uL (0.11-0.59); Neutrophils % (auto) 79.9 %; Platelet Count 177 K/uL (130-400); RDW Coefficient of Variation 11.8 % (11.5-14.5); RDW Standard Deviation 43.4 fL (36.4-46.3); White Blood Count 9.63 K/uL (4.8-10.8)
[2021-06-04 07:38] LABS: BUN Creatinine Ratio 24.1 (10-20); Calcium 8.3 mg/dl (8.5-10.1); Creatinine Clr Calc Pharmacy 55.7 ml/min; Est GFR (Non-African American) 52.6 ml/min; Magnesium 1.9 mg/dl (1.8-2.4); Potassium 5.1 mmol/L (3.5-5.1)
--- NOTE | 2021-06-04 09:06 | Orthopedic Progress Note ---
Date of Service June 04, 2021 Assessment & Plan (1) Neurogenic claudication due to lumbar spinal stenosis: Plan: I did discuss with the patient the fact that would like to remain at bedrest today. Head of bed flat. Depending on her CYNTHIA output may consider transfers to chair beginning Monday. Admission and Anticipated Discharge Date Admission Date: June 03, 2021 Subjective Patient's back pain is controlled. She has no leg pain. She denies any nausea vomiting or headache. Physical Exam Physical Exam: On exam she is good strength testing appears comfortable. She is supine. Results & Data ([facility]) Vital Signs (Past 12 Hours) Vital Signs Temp Pulse Resp BP Pulse Ox 06/04/21 07:46 36.4 C L 96 H 18 94/53 L 95 06/04/21 03:18 36.4 C L 98 H 18 106/72 93 06/03/21 23:19 36.5 C 106 H 16 109/73 92
--- NOTE | 2021-06-04 09:25 | Hospitalist Progress Note ---
Date of Service June 04, 2021 Assessment & Plan (1) Neurogenic claudication due to lumbar spinal stenosis: (2) HTN (hypertension): (3) H/O gastric bypass: (4) Cirrhosis: (5) CKD (chronic kidney disease) stage 3, GFR 30-59 ml/min: Plan: Status post L2-L4 lumbar decompression fusion by Dr. Ortiz, POD #1 EBL 150 m; [place] drain 70 mL Tolerated procedure well Pain/wound management per orthopedic Activity and therapy per orthopedics Continue oxygen, wean as able, encourage incentive spirometry Monitor hemoglobin with blood loss - hgb 10.5 today (preop hgb 12.7) HTN Blood pressure has been on lower side - repeat during exam 126/65 Transitioned fluids from LR to NSS Continue to monitor closely Hold losartan CKD stage III Baseline creatinine 1.0 Monitor BUN/creatinine Gluten intolerance/dermatitis herpetiformis Gluten-free diet Continue dapsone Diagnosis of cirrhosis Elevated LFTs Likely in setting of fatty liver, no alcohol use Well compensated Hypothyroidism Continue Synthroid Hx of prolonged qtc pre op ecg QTC 455ms Hx of Gastric bypass DVT ppx: SCD/TEDS Dispo: per primary PCP: Shalom FULL CODE Pt was seen and examined in collaboration with Dr. Turner, please see addendum Thank you for this consultation. We will follow the patient with you during their hospital stay. You can reach a member of the [facility] Hospitalist Team 01/05 via hospitalist role on tiger text. Admission and Anticipated Discharge Date Admission Date: June 03, 2021 Supervising Physician Co-Signing Physician Notes Patient is seen and examined at bedside. Back pain is controlled. Offers no other complaints. BP improved today. Denies any chest pain, shortness of breath, dizziness, nausea, abdominal pain. On exam patient is obese, no apparent distress, normocephalic atraumatic, normal breath sounds, clear to auscultation, EOMI, abdomen soft, nontender, normal bowel sounds, S1-S2,+ murmur, no pedal edema, alert, awake, oriented, grossly no focal deficits, back--surgical site in dressing. Patient is consulted for postop medical management. S/P lumbar decompression/fusion surgery POD #1. Pain is controlled. Postoperative blood loss anemia. No indication for blood transfusion currently. Hemoglobin dropped partly dilutional secondary to IV fluids. PT/OT as able. Advance diet if okay with primary team. Wound care, activity, DVT prophylaxis per primary team. Agree with changing IV to NSS. Hold losartan for now. Bowel regimen to prevent constipation. I personally reviewed the record. Patient is interviewed and examined at bedside. Patient's care is coordinated with Nelia Christensen PA-C. Please refer to the documentation above for details of patient's presentation and for discussion of other issues. Subjective Patient seen and examined in 383-1. Lying flat in bed sleeping with oxymask in place. Feeling well. Denies surgical site pain or pain in bilateral lower extremities. No fever, chills, lightheadedness, headache, chest pain, SOB, nausea, vomiting, abdominal pain. Norwood catheter in place. Tolerating clears. Passing flatus, no post op bowel movement. Review of Systems Review of Systems: At least ten systems reviewed and negative except as noted in the HPI. Physical Exam Physical Exam: Constitutional: WD/WN, vitals as above, NAD, lying in bed, pleasant, conversing easily Head: Normocephalic, Atraumatic Eyes: PERRL, conjunctivae normal, anicteric sclerae ENMT: external ear and nose normal, oropharynx normal Neck: trachea midline, no thyromegaly normal visual inspection Respiratory: normal respiratory effort, lungs clear to auscultation, no wheeze, rales, rhonchi. Normal insp/exp effort, no accessory muscle use Cardiovascular: tachycardic rate, regular rhythm, 1/6 sheron noted rusb, no edema Vessels: no JVD or carotid bruit chest: normal inspection of chest Abdomen: normal bowel sounds, soft, nontender, no hepatosplenomegaly Musculoskeletal: no cyanosis or clubbing, extremities motor strength 5/5 , scd/teds in place,lumbar dressing cdi, [place] drain with serosanguineous drainage Skin: no rashes, warm and dry normal turgor Neurologic: PERRL, EOMI, accommodation nl, no face palsy, no dysarthria CN's II-XI intact bilaterally and moves all extremities Psychiatric: A+Ox3, euthymic affect Lymphatic: no cervical or axillary lymphadenopathy : norwood cath Results & Data Results & Data ([facility]) Vital Signs (Past 12 Hours) Vital Signs Temp Pulse Resp BP Pulse Ox 06/04/21 07:46 36.4 C L 96 H 18 94/53 L 95 06/04/21 03:18 36.4 C L 98 H 18 106/72 93 06/03/21 23:19 36.5 C 106 H 16 109/73 92 Laboratory Results Short CBC 06/04/21 Range/Units 06:16 WBC 9.63 (4.8-10.8) K/uL Hgb 9.5 L (12.0-16.0) g/dL Hct 29.4 L (37-47) % Plt Count 177 (130-400) K/uL BMP 06/04/21 06:16 Sodium 139 Potassium 5.1 Chloride 108 H Carbon Dioxide 27 BUN 25 H Creatinine 1.05 Glucose 100 H Calcium 8.3 L Diagnostic Findings Lumbar Spine X-Ray 06/03/21 12:25 INTRAOPERATIVE RADIOGRAPHS CLINICAL HISTORY: L2-L4 spinal fusion. Fluoroscopy time: 27 seconds. FINDINGS: 2 spot fluoroscopic views of the lumbar spine are presented. There is postoperative change from laminectomy and posterior fusion, reportedly at L2-L4. Interpedicular screws are present at all levels. The orthopedic hardware appears intact. IMPRESSION: Intraoperative lumbar spine radiographs as above. Electronically signed by: Jaden Torres M.D. 06/03/2021 1:04 PM
[2021-06-04] MEDS: FERROUS SULFATE 325 MG TAB PO SCH ×2 (09:39→20:38)
[2021-06-04] MEDS: DAPSONE 25 MG TAB PO SCH ×2 (09:39→20:38)
[2021-06-04] MEDS: DULoxetine HCL 20 MG CAP PO SCH (09:40)
[2021-06-04] MEDS: CHOLECALCIFEROL 1,000 UNITS 25 MCG TAB PO SCH (09:40)
[2021-06-04] MEDS: SODIUM CHLORIDE 0.9% 1000ML 1,000 ML IV SCH ×2 (09:56→17:58)
[2021-06-04] MEDS: DOCUSATE SODIUM/SENNA 50/8.6MG TAB PO SCH (20:38)
[2021-06-04] MEDS: HYDROmorphone INJ 0.5 MG/0.5 ML SYR IV PRN (22:22)
[2021-06-05] MEDS: POLYETHYLENE (MIRALAX) 17 GM PACK PO SCH ×4 (00:43→17:34)
[2021-06-05] MEDS ORDERED: XOPENEX/ATROVENT 1.25mg/0.5MG NEB COMBO NEB STA (01:26)
[2021-06-05] MEDS ORDERED: cloNIDine HCL 0.1 MG TAB PO ONE (01:26)
[2021-06-05] MEDS ORDERED: MAGNESIUM SULFATE / D5W 1 GM/100 ML BAG IV ONE (01:30)
[2021-06-05] MEDS ORDERED: LEVALBUTEROL 1.25MG/0.5ML NEB INH STA (01:31)
[2021-06-05] MEDS ORDERED: IPRATROPIUM BROMIDE NEB SOLN 0.02% 2.5 ML VIAL INH STA (01:31)
[2021-06-05] MEDS: HYDROmorphone INJ 0.5 MG/0.5 ML SYR IV PRN ×3 (01:59→20:00)
[2021-06-05 02:12] LABS: Basophils # (auto) 0.05 K/uL (0-0.2); Basophils % (auto) 0.5 %; Eosinophils # (auto) 0.33 K/uL (0-0.5); Eosinophils % (auto) 3.2 %; Immature Granulocytes # (auto) 0.03 K/uL (0.00-0.02); Immature Granulocytes % (auto) 0.3 %; Lymphocytes # (auto) 0.88 K/uL (1.2-3.4); Lymphocytes % (auto) 8.6 %; Mean Corpuscular Hemoglobin 32.6 pg (25-34); Mean Corpuscular Hgb Conc 31.3 g/dL (32-36); Mean Corpuscular Volume 104.2 fL (80-100); Mean Platelet Volume 11.2 fL (7.4-10.4); Monocytes # (auto) 1.56 K/uL (0.11-0.59); Monocytes % (auto) 15.2 %; Neutrophils # (auto) 7.44 K/uL (1.4-6.5); Neutrophils % (auto) 72.2 %; Platelet Count 180 K/uL (130-400); RDW Coefficient of Variation 12.1 % (11.5-14.5); RDW Standard Deviation 45.9 fL (36.4-46.3); Red Blood Count 3.07 M/uL (4.2-5.4); White Blood Count 10.29 K/uL (4.8-10.8)
[2021-06-05 02:25] LABS: BUN Creatinine Ratio 19.6 (10-20); Calcium 8.5 mg/dl (8.5-10.1); Creatinine Clr Calc Pharmacy 64.9 ml/min; Est GFR (African American) 73.5 ml/min; Est GFR (Non-African American) 63.4 ml/min; Magnesium 1.9 mg/dl (1.8-2.4); Potassium 5.2 mmol/L (3.5-5.1)
[2021-06-05] MEDS ORDERED: DEXTROSE 50% 50 ML SYRINGE IV STA (02:32)
[2021-06-05] MEDS ORDERED: INSULIN HUMAN REGULAR PER UNIT 5 UNITS in SYRINGE 4.95 ML IV ONE (02:35)
[2021-06-05 02:36] LABS: Thyroid Stimulating Hormone 0.15 uIu/ml (0.300-4.500)
[2021-06-05 02:49] LABS: T4 Free Thyroxine 1.56 ng/dl (0.8-1.6)
[2021-06-05] MEDS: LEVOTHYROXINE SODIUM 125 MCG TABLET PO SCH (06:01)
[2021-06-05] MEDS: ACETAMINOPHEN 1,000 MG/100 ML VIAL IV PRN ×2 (09:07→17:27)
[2021-06-05] MEDS: ONDANSETRON INJ 2 MG/ML 2 ML VIAL IV PRN ×2 (09:08→20:01)
--- NOTE | 2021-06-05 09:09 | XRay Report ---
XR chest 1V portable HISTORY: wheeze COMPARISON: Chest 04/25/2021. FINDINGS: No pneumothorax. No pleural effusions. The cardiac silhouette remains mildly enlarged. Ther e is mild central pulmonary vascular congestion without overt edema. No focal lung consolidations jorge ntified. There are surgical clips within the left upper quadrant. IMPRESSION: Cardiomegaly with mild central pulmonary vascular congestion. ACT 112: Negative or not required by law. Electronically signed by: Rex Small M.D. 06/05/2021 9:07 AM
[2021-06-05] MEDS: DULoxetine HCL 20 MG CAP PO SCH (09:52)
[2021-06-05] MEDS: DAPSONE 25 MG TAB PO SCH ×2 (09:52→20:57)
[2021-06-05] MEDS: CHOLECALCIFEROL 1,000 UNITS 25 MCG TAB PO SCH (09:53)
[2021-06-05] MEDS: FERROUS SULFATE 325 MG TAB PO SCH ×2 (09:53→20:57)
--- NOTE | 2021-06-05 11:03 | Orthopedic Progress Note ---
Date of Service June 05, 2021 Assessment & Plan (1) Neurogenic claudication due to lumbar spinal stenosis: Plan: I will maintain bedrest today. We may elevate the bed up to 25 degrees to eat as we will advance her diet. Encouraged to drink fluids and remain hydrated. We may consider transfers from bed to chair tomorrow. Admission and Anticipated Discharge Date Admission Date: June 03, 2021 Subjective Patient did have an episode of headache this morning it is resolved with Tylenol. She is comfortable during my discussion with her now. She has some back soreness no leg pain. Physical Exam Physical Exam: Patient is good strength testing is comfortable. I did change her dressing and remove the drain. Incision is clean dry intact with no swelling. Results & Data ([facility]) Vital Signs (Past 12 Hours) Vital Signs Temp Pulse Pulse Resp BP Pulse Ox 06/05/21 07:51 36.7 C 109 H 20 124/71 93 06/05/21 02:08 114 H 18 92 06/05/21 00:52 112 H 143/78 H
[2021-06-05] MEDS ORDERED: LEVALBUTEROL HCL 0.63 MG/3 ML NEB NEB PRN (11:19)
[2021-06-05] MEDS ORDERED: FUROSEMIDE 10 MG in SYRINGE 0 ML IV ONE (11:45)
--- NOTE | 2021-06-05 13:32 | Hospitalist Progress Note ---
Date of Service June 05, 2021 Assessment & Plan (1) Neurogenic claudication due to lumbar spinal stenosis: (2) HTN (hypertension): (3) H/O gastric bypass: (4) Cirrhosis: (5) CKD (chronic kidney disease) stage 3, GFR 30-59 ml/min: Plan: Neurogenic claudication due to lumbar spinal stenosis S/P L2-L4 lumbar decompression fusion by Dr. Ortiz, POD #2 EBL 150 m; CYNTHIA drain 70 mL Pain/wound management per orthopedic Start PT/OT when appropriate Encourage incentive spirometry Bowel regimen to prevent constipation Appreciate orthopedics input Monitor CBC Hypoxia Mild pulmonary congestion on chest x-ray Wean off of supplemental oxygen as able Nebs, Lasix PRN Hypertension Hypotensive post op BP improved with iv fluids Resume losartan as able CKD stage III Baseline creatinine 1.0 Monitor BUN/creatinine Monitor Mild Hyperkalemia Received insulin, Lasix Monitor potassium levels Gluten intolerance/dermatitis herpetiformis Gluten-free diet Continue dapsone H/O Cirrhosis Compensated Monitor Hypothyroidism Continue Levothyroxine H/O Prolonged QTC Pre OP QTC 455ms Avoid QTC prolonging meds as able H/O Gastric bypass DVT Px: SCD/TEDS Code Status Full Code Disposition As per Primary Team Admission and Anticipated Discharge Date Admission Date: June 03, 2021 Subjective Patient is seen and examined bedside States having significant headache this morning which improved with IV Tylenol Also states having back soreness at surgical site Reports nausea but no vomiting Denies any chest pain, dyspnea, abdominal pain Offers no other complaints Review of Systems Review of Systems: All systems reviewed & are unremarkable except as noted in Subjective Physical Exam Physical Exam: Physical Exam: Vitals signs as noted above General Appearance:Obese, no apparent distress Head: normocephalic, Atraumatic Eyes: normal inspection, EOMI Neck: supple, Trachea midline Respiratory/Chest: Normal breath sounds, CTA, No accessory muscle use Cardiovascular: S1, S2, + murmur Abdomen/GI:Soft, Non tender, Bowel sounds present Back: Surgical site in dressing Extremities/Musculoskeletal:normal inspection, no edema Neurologic/Psych:AAOX3, grossly no focal neurological deficits Skin: normal color, warm Results & Data Results & Data ([facility]) Vital Signs (Past 12 Hours) Vital Signs Temp Pulse Pulse Resp BP Pulse Ox 06/05/21 07:51 36.7 C 109 H 20 124/71 93 06/05/21 02:08 114 H 18 92 Laboratory Results Short CBC 06/05/21 Range/Units 01:47 WBC 10.29 (4.8-10.8) K/uL Hgb 10.0 L (12.0-16.0) g/dL Hct 32.0 L (37-47) % Plt Count 180 (130-400) K/uL BMP 06/05/21 06/05/21 01:47 05:22 Sodium 140 Potassium 5.2 H 4.6 Chloride 111 H Carbon Dioxide 29 BUN 18 Creatinine 0.90 Glucose 133 H Calcium 8.5
[2021-06-05] MEDS: DOCUSATE SODIUM/SENNA 50/8.6MG TAB PO SCH (20:56)
[2021-06-06] MEDS: POLYETHYLENE (MIRALAX) 17 GM PACK PO SCH ×4 (00:04→17:46)
[2021-06-06] MEDS: HYDROmorphone INJ 0.5 MG/0.5 ML SYR IV PRN ×3 (00:07→09:08)
[2021-06-06] MEDS: ONDANSETRON INJ 2 MG/ML 2 ML VIAL IV PRN ×3 (03:20→19:56)
[2021-06-06] MEDS: LEVOTHYROXINE SODIUM 125 MCG TABLET PO SCH (05:24)
[2021-06-06] MEDS: ACETAMINOPHEN 1,000 MG/100 ML VIAL IV PRN ×2 (05:25→14:11)
[2021-06-06 06:51] LABS: Hematocrit (blood only) 30.4 % (37-47); Hemoglobin 9.5 g/dL (12.0-16.0)
[2021-06-06 07:15] LABS: BUN Creatinine Ratio 21.7 (10-20); Calcium 8.9 mg/dl (8.5-10.1); Creatinine Clr Calc Pharmacy 89.9 ml/min; Est GFR (African American) 102.1 ml/min; Est GFR (Non-African American) 88.1 ml/min; Potassium 4.7 mmol/L (3.5-5.1)
--- NOTE | 2021-06-06 07:44 | Electrocardiogram Report ---
Test Reason : Blood Pressure : / mmHG Vent. Rate : 110 BPM Atrial Rate : 110 BPM P-R Int : 148 ms QRS Dur : 092 ms QT Int : 322 ms P-R-T Axes : 069 007 093 degrees QTc Int : 435 ms Sinus tachycardia Possible Left atrial enlargement Septal infarct , age undetermined Nonspecific T wave abnormality Abnormal ECG When compared with ECG of 12-JAN-2021 16:23, Septal infarct is now Present Confirmed by Edmund Wilder ([id number]) on 06/06/2021 7:44:18 AM Referred By: Cayetano Ortiz Confirmed By:Edmund Wilder
--- NOTE | 2021-06-06 09:41 | XRay Report ---
XR chest 1V portable HISTORY: hypoxia COMPARISON: Chest 06/05/2021. FINDINGS: No pneumothorax. No pleural effusions. Calcified left hilar lymph nodes are noted. Mild chr onic interstitial thickening. No new focal lung consolidations to suggest pneumonia. The heart remain s mildly enlarged. No evidence for pulmonary edema. IMPRESSION: Stable mild cardiomegaly. Otherwise, no acute process within the chest. ACT 112: Negative or not required by law. Electronically signed by: Rex Small M.D. 06/06/2021 9:40 AM
[2021-06-06] MEDS ORDERED: BUTALBITAL/ACETAMIN/CAFFEINE TAB PO ONE (09:57)
[2021-06-06] MEDS: FERROUS SULFATE 325 MG TAB PO SCH ×2 (10:54→21:10)
[2021-06-06] MEDS: DAPSONE 25 MG TAB PO SCH ×2 (10:54→21:10)
[2021-06-06] MEDS: DULoxetine HCL 20 MG CAP PO SCH (10:54)
[2021-06-06] MEDS: CHOLECALCIFEROL 1,000 UNITS 25 MCG TAB PO SCH (10:54)
--- NOTE | 2021-06-06 10:56 | Orthopedic Progress Note ---
Date of Service June 06, 2021 Assessment & Plan (1) Neurogenic claudication due to lumbar spinal stenosis: Plan: This time concerned she may have a persistent CSF leak. She may also be struggling with dehydration. We are working with the hospitalist to start IV f luids. I will make her n.p.o. after midnight in the event that we need to explore lumbar incision and assess for persistent CSF leak. Patient understands and agrees. Admission and Anticipated Discharge Date Admission Date: June 03, 2021 Subjective Patient is struggling with nausea. She is having intermittent headaches. She has been able to tolerate sitting up in bed 5 degrees. She has no leg pain. Back pain is controlled. Physical Exam Physical Exam: On exam she is in obvious distress. I did have her sit up approximately 25 degrees she tolerated this well with out increase in headache her symptoms. She has good strength testing lower extremities. Results & Data ([facility]) Vital Signs (Past 12 Hours) Vital Signs Temp Pulse Pulse Resp BP Pulse Ox 06/06/21 09:10 114 H 150/84 H 93 06/06/21 07:10 36.7 C 117 H 18 156/83 H 95 06/05/21 23:05 36.7 C 109 H 18 140/83 94
[2021-06-06] MEDS ORDERED: SODIUM CHLORIDE 0.9% 1000ML 1,000 ML IV SCH (11:30)
--- NOTE | 2021-06-06 16:21 | Hospitalist Progress Note ---
Date of Service June 06, 2021 Assessment & Plan (1) Neurogenic claudication due to lumbar spinal stenosis: (2) HTN (hypertension): (3) H/O gastric bypass: (4) Cirrhosis: (5) CKD (chronic kidney disease) stage 3, GFR 30-59 ml/min: Plan: Neurogenic claudication due to lumbar spinal stenosis S/P L2-L4 lumbar decompression fusion by Dr. Ortiz, POD #2 EBL 150 m; CYNTHIA drain 70 mL Suspected CSF Leak Pain/wound management per orthopedic Start PT/OT when appropriate Encourage incentive spirometry Bowel regimen to prevent constipation Appreciate orthopedics input Monitor CBC Planned for lumbar incision and assessment for persistent CSF leak NPO after midnight Hypoxia Mild pulmonary congestion on chest x-ray Repeat CXR:no acute process within the chest Wean off of supplemental oxygen as able Nebs, Lasix PRN Hypertension Hypotensive post op BP improved with iv fluids Continue losartan Monitor CKD stage III Baseline creatinine 1.0 Monitor BUN/creatinine Monitor Mild Hyperkalemia Received insulin, Lasix Monitor potassium levels Monitor Gluten intolerance/dermatitis herpetiformis Gluten-free diet Continue dapsone H/O Cirrhosis Compensated Monitor Hypothyroidism Continue Levothyroxine H/O Prolonged QTC Pre OP QTC 455ms Avoid QTC prolonging meds as able H/O Gastric bypass DVT Px: SCD/TEDS Code Status Full Code Disposition As per Primary Team Admission and Anticipated Discharge Date Admission Date: June 03, 2021 Subjective Patient is seen and examined bedside Complains of persistent nausea, intermittent headache Also states having back pain Suspected CSF leak as per orthopedics Denies any chest pain, dyspnea, abdominal pain CXR today showed no congestion Review of Systems Review of Systems: All systems reviewed & are unremarkable except as noted in Subjective Physical Exam Physical Exam: Physical Exam: Vitals signs as noted above General Appearance:Obese, no apparent distress Head: normocephalic, Atraumatic Eyes: normal inspection, EOMI Neck: supple, Trachea midline Respiratory/Chest: Normal breath sounds, CTA, No accessory muscle use Cardiovascular: S1, S2, + murmur, +Tachycardia Abdomen/GI:Soft, Non tender, Bowel sounds present Back: Surgical site in dressing Extremities/Musculoskeletal:normal inspection, no edema Neurologic/Psych:AAOX3, grossly no focal neurological deficits Skin: normal color, warm Results & Data Results & Data ([facility]) Vital Signs (Past 12 Hours) Vital Signs Temp Pulse Resp BP Pulse Ox 06/06/21 14:49 36.8 C 113 H 20 145/57 H 92 06/06/21 09:10 114 H 150/84 H 93 06/06/21 07:10 36.7 C 117 H 18 156/83 H 95 Laboratory Results Short CBC 06/06/21 Range/Units 06:10 Hgb 9.5 L (12.0-16.0) g/dL Hct 30.4 L (37-47) % BMP 06/06/21 06:10 Sodium 138 Potassium 4.7 Chloride 106 Carbon Dioxide 31 BUN 14 Creatinine 0.65 Glucose 125 H Calcium 8.9
[2021-06-06] MEDS: traMADol HCL 50 MG TABLET PO PRN (17:48)
[2021-06-06] MEDS: DOCUSATE SODIUM/SENNA 50/8.6MG TAB PO SCH (21:10)
[2021-06-07] MEDS: POLYETHYLENE (MIRALAX) 17 GM PACK PO SCH ×5 (00:35→18:09)
[2021-06-07] MEDS: LEVOTHYROXINE SODIUM 125 MCG TABLET PO SCH (05:57)
[2021-06-07] MEDS: ACETAMINOPHEN 500 MG TAB PO PRN (05:57)
--- NOTE | 2021-06-07 06:14 | Electrocardiogram Report ---
Test Reason : Blood Pressure : / mmHG Vent. Rate : 112 BPM Atrial Rate : 112 BPM P-R Int : 146 ms QRS Dur : 088 ms QT Int : 320 ms P-R-T Axes : 069 000 082 degrees QTc Int : 436 ms Sinus tachycardia Nonspecific T wave abnormality Abnormal ECG When compared with ECG of 05-JUN-2021 01:45, Criteria for Septal infarct are no longer Present Confirmed by Edmund Wilder ([id number]) on 06/07/2021 6:14:27 AM Referred By: Cayetano Ortiz Confirmed By:Edmund Wilder
[2021-06-07 06:45] LABS: Hematocrit (blood only) 29.5 % (37-47); Hemoglobin 9.4 g/dL (12.0-16.0); Mean Corpuscular Hemoglobin 32.6 pg (25-34); Mean Corpuscular Hgb Conc 31.9 g/dL (32-36); Mean Corpuscular Volume 102.4 fL (80-100); Mean Platelet Volume 11.1 fL (7.4-10.4); Platelet Count 194 K/uL (130-400); RDW Coefficient of Variation 11.9 % (11.5-14.5); RDW Standard Deviation 44.6 fL (36.4-46.3); Red Blood Count 2.88 M/uL (4.2-5.4); White Blood Count 9.13 K/uL (4.8-10.8)
[2021-06-07 07:15] LABS: BUN Creatinine Ratio 23.9 (10-20); Calcium 8.9 mg/dl (8.5-10.1); Creatinine Clr Calc Pharmacy 92.8 ml/min; Est GFR (African American) 103.1 ml/min; Potassium 4.1 mmol/L (3.5-5.1)
[2021-06-07] MEDS: ONDANSETRON INJ 2 MG/ML 2 ML VIAL IV PRN (08:05)
[2021-06-07] MEDS ORDERED: CYANOCOBALAMIN 1000 MCG/ML VIAL IM SCH (09:00)
[2021-06-07] MEDS: FERROUS SULFATE 325 MG TAB PO SCH ×2 (09:04→21:25)
[2021-06-07] MEDS: DAPSONE 25 MG TAB PO SCH ×2 (09:04→21:25)
[2021-06-07] MEDS: LOSARTAN POTASSIUM 50 MG TAB PO SCH (09:04)
[2021-06-07] MEDS: CHOLECALCIFEROL 1,000 UNITS 25 MCG TAB PO SCH (09:04)
[2021-06-07] MEDS: DULoxetine HCL 20 MG CAP PO SCH (09:04)
--- NOTE | 2021-06-07 10:05 | History & Physical Bridge Note ---
Date of Service June 07, 2021 History & Physical Bridge Note I have examined the patient, reviewed the History & Physical and in the interval since the performance of the History & Physical I have noted the following changes of clinical significance: no changes noted Patient continues to struggle with nausea and headaches consistent with persistent CSF leak. Subsequently elected to return to the OR for repair persistent CSF leak.
[2021-06-07] MEDS ORDERED: BUPIVACAINE 0.5 % 5 MG/1 ML MPF 30ML VIAL ONE (11:03)
[2021-06-07] MEDS ORDERED: EPINEPHrine INJ 1 MG/ML AMP ONE (11:03)
[2021-06-07] MEDS ORDERED: fentaNYL citrate 100 MCG/2 ML VIAL ONE ×2 (11:04→12:47)
[2021-06-07] MEDS ORDERED: MIDAZOLAM HCL 1 MG/ML 2ML VIAL ONE (11:04)
[2021-06-07] MEDS ORDERED: DEXAMETHASONE SOD INJ 4 MG/ML VIAL ONE (11:06)
[2021-06-07] MEDS ORDERED: ROCURONIUM BROMIDE 10 MG/ML 5 ML VIAL IV ONE (11:06)
[2021-06-07] MEDS ORDERED: PROPOFOL IV EMULSION 10 MG/ML 20 ML VIAL IV ONE (11:06)
[2021-06-07] MEDS ORDERED: LIDOCAINE 2% 2 ML VIAL/AMP(20MG/ML) INFIL ONE (11:06)
[2021-06-07] MEDS ORDERED: ONDANSETRON INJ 2 MG/ML 2 ML VIAL ONE (11:06)
--- NOTE | 2021-06-07 11:36 | Anesthesiology Consultation ---
Date of Service June 07, 2021 Assessment & Plan (1) Encounter for pre-operative examination: Chart Review Chart Review: Acceptable Risk for Surgery History Surgery Operation Date: 06/03/21 10:05 Proposed Procedures p L2-L4 Decompression Fusion, Spinal Cord Monitoring - Cayetano Ortiz DO Operation Date: 06/07/21 10:10 Proposed Procedures p Exploration Lumbar Spine Incision and Drainage - Cayetano Ortiz DO s Repair Cerebral Spinal Fluid Leak - Cayetano Ortiz DO Height/Weight Height: 5 ft 4 in Weight: 102.7 kg Allergies Allergy/AdvReac Type Severity Reaction Status Date / Time gluten Allergy Intermediate SKIN Verified 06/03/21 08:33 RASH--DERMATITIS pantoprazole [From Protonix] Allergy rash Verified 06/03/21 08:33 Medications Home Medications Medication Instructions Recorded Confirmed Last Taken cholecalciferol (vitamin D3) 25 1,000 unit PO QAM 08/07/18 06/03/21 06/01/21 08:00 mcg (1,000 unit) tablet dapsone 25 mg tablet 50 mg PO BID 08/07/18 06/03/21 06/02/21 21:30 duloxetine 20 mg capsule,delayed 20 mg PO QAM 08/07/18 06/03/21 06/03/21 07:00 release (Cymbalta) levothyroxine 125 mcg tablet 125 mcg PO QAM 08/07/18 06/03/21 06/03/21 07:00 (Synthroid) losartan 100 mg tablet (Cozaar) 50 mg PO QAM 08/07/18 06/03/21 06/02/21 08:00 cyanocobalamin (vitamin B-12) 1,000 mcg IM MONTHLY 03/11/19 06/03/21 05/07/21 1,000 mcg/mL injection solution ferrous sulfate 325 mg (65 mg 325 mg PO BID 03/11/19 06/03/21 06/02/21 08:00 iron) tablet fluocinonide 0.05 % topical 1 applic TOPICAL BID PRN 03/11/19 06/03/21 05/31/21 solution sucralfate 100 mg/mL oral 1 g PO ACHS #200 ml 01/13/21 06/03/21 05/03/21 suspension Active Medications Generic Name Dose Route Start Last Admin Trade Name Freq PRN Reason Stop Dose Admin Acetaminophen 1,000 mg 06/03/21 15:01 06/07/21 05:57 Acetaminophen 500 Mg Tab PO 07/03/21 15:00 1,000 mg Q8H PRN Administration MILD Pain Scale 1,2,3 & Pre PT Dapsone 50 mg 06/03/21 21:00 06/07/21 09:04 Dapsone 25 Mg Tab PO 07/03/21 20:59 50 mg BID LEONIDAS Administration Duloxetine HCl 20 mg 06/04/21 09:00 06/07/21 09:04 Duloxetine Hcl 20 Mg Cap PO 07/04/21 08:59 20 mg QAM LEONIDAS Administration Ferrous Sulfate 325 mg 06/03/21 21:00 06/07/21 09:04 Ferrous Sulfate 325 Mg Tab PO 07/03/21 20:59 Not Given BID LEONIDAS Hydromorphone HCl 0.5 mg 06/03/21 15:01 06/06/21 09:08 Hydromorphone Inj 0.5 Mg/0.5 Ml Syr IV 06/17/21 15:00 0.5 mg Q3H PRN Administration MOD pain (scale 4-6) & Pre PT Hydromorphone HCl 1 mg 06/03/21 15:01 06/04/21 07:39 Hydromorphone Inj 1 Mg/Ml Syringe IV 06/17/21 15:00 1 mg Q3H PRN Administration severe pain (scale 7-10) Promethazine HCl 12.5 mg/ 50.5 mls @ 202 mls/hr 06/03/21 15:01 06/06/21 05:20 Sodium Chloride IV 07/03/21 15:00 Infused Q6H PRN Infusion Nausea &/or Vomiting Levothyroxine Sodium 125 mcg 06/04/21 06:30 06/07/21 05:57 Levothyroxine Sodium 125 Mcg Tablet PO 07/04/21 06:29 125 mcg DAILYBB LEONIDAS Administration Losartan Potassium 50 mg 06/04/21 09:00 06/07/21 09:04 Losartan Potassium 50 Mg Tab PO 07/04/21 08:59 Not Given QAM LEONIDAS Metoclopramide HCl 10 mg 06/03/21 15:01 06/05/21 13:51 Metoclopramide Hcl Inj 5 Mg/Ml 2 Ml Vial IV 07/03/21 15:00 10 mg Q6H PRN Administration Nausea &/or Vomiting Ondansetron HCl 4 mg 06/03/21 15:01 06/07/21 08:05 Ondansetron Inj 2 Mg/Ml 2 Ml Vial IV 07/03/21 15:00 4 mg Q6H PRN Administration Nausea &/or Vomiting Oxycodone HCl 5 - 10 mg 06/03/21 15:01 06/04/21 20:38 Oxycodone Hcl Ir 5 Mg Tab (Immediate Release) PO 06/17/21 15:00 10 mg Q4H PRN Administration Pain & Pre PT Polyethylene Glycol 17 gm 06/04/21 06:00 06/07/21 06:02 Polyethylene (Miralax) 17 Gm Pack PO 07/04/21 05:59 Not Given Q6 LEONIDAS Senna/Docusate Sodium 2 tab 06/03/21 21:00 06/06/21 21:10 Docusate Sodium/Senna 50/8.6mg Tab PO 07/03/21 20:59 Not Given HS LEONIDAS Tramadol HCl 50 - 100 mg 06/03/21 15:01 06/06/21 17:48 Tramadol Hcl 50 Mg Tablet PO 07/03/21 15:00 100 mg Q4H PRN Administration Moderate-Severe pain & Pre PT Vitamin D 1,000 units 06/04/21 09:00 06/07/21 09:04 Cholecalciferol 1,000 Units 25 Mcg Tab PO 07/04/21 08:59 Not Given QAM LEONIDAS NPO Date Last Intake of Fluids: 06/06/21 Time Last Intake of Fluids: 23:00 Last Intake of Fluids Comment: "sip of water with pills" Date Last Intake of Solids: 06/06/21 Time Last Intake of Solids: 23:00 Past Medical History Medical History Anemia STABLE PER PATIENT - TAKES IRON SUPPLEMENT PO DAILY HX OF BLOOD TRANSFUSION YEARS AGO SECONDARY FROM ANEMIA FROM GI ULCER Asthma NO INHALER USE X YEARS Cirrhosis Cryptogenic per PCP records CKD (chronic kidney disease) stage 3, GFR 30-59 ml/min Depression Dermatitis herpetiformis OCCURS WITH GLUTEN Fatty liver History of GI bleed + GASTRIC ULCER x 1; MOST RECENT OCCURRED SEVERAL MONTHS AGO - REPEAT EGD 06/2021 (No blood transfusion needed for GI ulcer in January 2021) HTN (hypertension) Hypothyroidism Kidney stones hx Obesity Osteoarthritis Prolonged QT interval Per PCP records Past Family History Family History Brother Pancreatic cancer Mother Pancreatic cancer Father Coronary heart disease Past Surgical History Surgical History H/O gastric bypass 1998 History of cataract surgery LEFT and RIGHT History of cholecystectomy History of colonoscopy History of esophagogastroduodenoscopy (EGD) History of hip replacement right hip Hx of tonsillectomy S/P cystoscopy with ureteral stent placement 03/11/2019 [facility] Social History Smoking Status: Former smoker tobacco type: cigarettes Do You Dip or Chew Tobacco: No Smoking End Date: QUIT 30 YEARS AGO Hx Alcohol Use: No Hx Substance Use: No substance use type: does not use Physical Exam Vital Signs Last Vital Signs Temp 36.6 C 06/07/21 10:47 Pulse 109 H 06/07/21 10:47 Resp 18 06/07/21 10:47 BP 167/83 H 06/07/21 10:47 Pulse Ox 91 06/07/21 10:47 Testing Laboratory Results 06/07/21 06:19 06/07/21 06:19 Blood Type B Positive 06/03/21 08:31 Antibody Screen NEGATIVE 06/03/21 08:31 Electrocardiogram Date: 01/12/21 Findings: + NSR @ (98bpm) Nonspecific T wave abnormality. When compared to EKG from January 11, 2021- criteria for septal infarct no longer present, QT has lengthened Echocardiogram Date: 04/24/19 EF: 55-60% LV Function: normal RWMA: + none Other Findings: + LVH (mild/concentric ) and + diastolic dysfunction (Grade I ) Valvular Disease: + no significant valvular disease Left atrium mildly enlarged. Stress Test Date: 04/03/19 Type: nuclear Normal combined low intensity exercise/pharmacologic nuclear stress test without evidence of inducible ischemia or infarction. Gated SPECT imaging reveals normal myocardial thickening and wall motion. Stress EKG negative for ischemia. LVEF 66%.
[2021-06-07] MEDS ORDERED: ALBUTEROL 0.083% NEBU SOLN 3 ML VIAL INH PRN (11:43)
[2021-06-07] MEDS ORDERED: ONDANSETRON INJ 2 MG/ML 2 ML VIAL IV PRN (11:43)
[2021-06-07] MEDS ORDERED: HYDROmorphone INJ 1 MG/ML SYRINGE IV PRN (11:43)
[2021-06-07] MEDS ORDERED: ATROPINE SULFATE 0.1 MG/ML 10ML SYR IV PRN (11:43)
[2021-06-07] MEDS ORDERED: GLYCOPYRROLATE 0.2 MG/ML VIAL ONE ×2 (12:30→12:49)
[2021-06-07] MEDS ORDERED: NEOSTIGMINE METHYLSULFATE 1 MG/ML 10ML VIAL ONE (12:30)
[2021-06-07] MEDS ORDERED: ePHEDrine sulfate 50 MG/ML AMP ONE (12:31)
[2021-06-07] MEDS ORDERED: PHENYLEPHRINE HCL 10 MG/ML VIAL ONE (12:31)
--- NOTE | 2021-06-07 12:46 | Operative Report ---
Post Operative Report Pre & Post Diagnosis Operation Date: 06/03/21 10:05 Pre-Op Diagnosis: Spinal Stenosis, Lumbar Region with Neurogenic Claudication Post-Op Diagnosis: Spinal Stenosis, Lumbar Region with Neurogenic Claudication Operation Date: 06/07/21 10:10 Post-Op Diagnosis: No Cerebral Spinal Fluid Leak I identified the patient and participated in the time-out.: Yes Procedure Operation Date: 06/03/21 10:05 Actual Procedures p L2-L4 Decompression Fusion, Spinal Cord Monitoring, Incedental Durotomy with Repair - Cayetano Ortiz DO Operation Date: 06/07/21 10:10 Actual Procedures #1 irrigation debridement lumbar spine with expiration of durotomy repair. Surgeon Cayetano Ortiz DO Spinning Machine Operator Cris Block Estimated Blood Loss 25 Findings See Below Patient had a evidence of serosanguineous fluid collection. Evaluation of the durotomy repair demonstrated no active CSF leak. A cell maneuver demonstrated no evidence of CSF leak. Specimens None Indications This is a 75-year-old female that had an incidental durotomy at her index procedure. Postop day #2 later in the afternoon she began experiencing headaches. Subsequent the drain was removed and she was maintained at bedrest. Nevertheless she continued to complain of headaches and nausea vomiting. Subsequently I elected to undergo exploration of the durotomy repair in the event there was a persistent CSF leak. Description of Procedure Patient was met with identified informed consent obtained. Patient was then taken to the operative suite underwent a patient placed in a prone position on top of the Devin frame. All bony prominences well-padded eyes inspected to ensure no external pressure placed upon them. This point the lumbar spine was prepped and draped in the normal sterile fashion. Utilizing the previous incision site sharp dissection performed down to and exposing the epidural space. Large amounts of serosanguineous fluid was identified and evacuated. I then was able to explore the previous durotomy site. I appreciated no evidence of active CSF leak. A Valsalva maneuver was then performed. Again no CSF leak identified. Several liters of of saline were then used to irrigate throughout the incision. I did elect to reinforce the durotomy site with a small patch of DuraGen and covered with DuraSeal. The incision was then closed with 1 Vicryl fascia 2-0 Vicryl subcutaneously and 4 Monocryl for final skin closure. Steri- Strip sterile dressings placed. Patient waken taken to PACU stable condition. Please note Cris Block was present at the entire procedure involved the patient positioning complex portions of the surgery and final skin closure. I attest to the content of the Intraoperative Record and any orders documented therein. Any exceptions are noted below.
[2021-06-07] MEDS ORDERED: DURASEAL DURAL SEALANT 5ML TOP ONE (13:16)
--- NOTE | 2021-06-07 13:52 | Anesthesiology Progress Note ---
Date of Service June 07, 2021 Anesthesia Post Procedure Vital Signs Vital Signs: Temp Pulse Pulse Resp BP Pulse Ox 06/07/21 13:45 36.3 C L 101 H 18 120/66 93 06/07/21 13:35 99 H 17 116/60 95 06/07/21 13:25 100 H 19 126/83 97 06/07/21 13:15 101 H 18 162/79 H 95 06/07/21 13:06 36.4 C L 101 H 109 H 19 157/92 H 92 06/07/21 10:47 36.6 C 109 H 18 167/83 H 91 06/07/21 07:31 37.0 C 110 H 20 134/82 96 06/06/21 22:40 36.9 C 118 H 18 146/83 H 91 06/06/21 14:49 36.8 C 113 H 20 145/57 H 92 Pain Intensity Back: Pain Intensity: 6 Head: Pain Intensity: 7 Transfer of Care Handoff Completed per policy Notes Mental Status: alert / awake / arousable Patient Amnestic to Procedure: Yes Nausea / Vomiting: adequately controlled Pain: adequately controlled Airway Patency, RR, SpO2: stable & adequate BP & HR: stable & adequate Hydration State: stable & adequate Anesthetic Complications: no major complications apparent
[2021-06-07] MEDS: SODIUM CHLORIDE 0.9% 1000ML 1,000 ML IV SCH (15:41)
--- NOTE | 2021-06-07 16:41 | Hospitalist Progress Note ---
Date of Service June 07, 2021 Assessment & Plan (1) Neurogenic claudication due to lumbar spinal stenosis: (2) HTN (hypertension): (3) H/O gastric bypass: (4) Cirrhosis: (5) CKD (chronic kidney disease) stage 3, GFR 30-59 ml/min: Plan: Neurogenic claudication due to lumbar spinal stenosis S/P L2-L4 lumbar decompression fusion by Dr. Ortiz, POD #3 Suspected CSF Leak --Ruled out S/P Irrigation debridement lumbar spine with expiration of durotomy repair POD #0 Pain/wound management per orthopedic Start PT/OT when appropriate Encourage incentive spirometry Bowel regimen to prevent constipation Appreciate orthopedics input Monitor CBC Monitor volume status closely while on IV fluids Clear liquid diet Hypoxia Mild pulmonary congestion on chest x-ray Repeat CXR:no acute process within the chest Wean off of supplemental oxygen as able Nebs, Lasix PRN Hypertension Hypotensive post op BP improved with iv fluids Continue losartan Monitor CKD stage III Baseline creatinine 1.0 Monitor BUN/creatinine Monitor Mild Hyperkalemia Received insulin, Lasix Monitor potassium levels Monitor Gluten intolerance/dermatitis herpetiformis Gluten-free diet Continue dapsone H/O Cirrhosis Compensated Monitor Hypothyroidism Continue Levothyroxine H/O Prolonged QTC Pre OP QTC 455ms Avoid QTC prolonging meds as able H/O Gastric bypass DVT Px: SCD/TEDS Code Status Full Code Disposition As per Primary Team Admission and Anticipated Discharge Date Admission Date: June 03, 2021 Subjective Patient is seen and examined bedside Drowsy this morning prior to procedure States having poor sleep overnight Persistent headache, nausea, back pain Denies any chest pain, dyspnea, abdominal pain Review of Systems Review of Systems: All systems reviewed & are unremarkable except as noted in Subjective Physical Exam Physical Exam: Physical Exam: Vitals signs as noted above General Appearance:Obese, no apparent distress Head: normocephalic, Atraumatic Eyes: normal inspection, EOMI Neck: supple, Trachea midline Respiratory/Chest: Normal breath sounds, CTA, No accessory muscle use Cardiovascular: S1, S2, + murmur, +Tachycardia Abdomen/GI:Soft, Non tender, Bowel sounds present Back: Surgical site in dressing Extremities/Musculoskeletal:normal inspection, no edema Neurologic/Psych:AAOX3, grossly no focal neurological deficits Skin: normal color, warm Results & Data Results & Data ([facility]) Vital Signs (Past 12 Hours) Vital Signs Temp Pulse Pulse Resp BP BP Pulse Ox 08/30/21 16:05 36.7 C 105 H 18 145/77 H 94 06/07/21 15:08 36.6 C 108 H 16 129/70 92 06/07/21 14:33 36.5 C 113 H 18 149/83 H 94 06/07/21 14:00 36.5 C 99 H 16 134/82 94 06/07/21 13:45 36.3 C L 101 H 18 120/66 93 06/07/21 13:35 99 H 17 116/60 95 06/07/21 13:25 100 H 19 126/83 97 06/07/21 13:15 101 H 18 162/79 H 95 06/07/21 13:06 36.4 C L 101 H 109 H 19 157/92 H 92 06/07/21 10:47 36.6 C 109 H 18 167/83 H 91 06/07/21 07:31 37.0 C 110 H 20 134/82 96
[2021-06-07] MEDS: oxyCODONE HCL IR 5 MG TAB (IMMEDIATE RELEASE) PO PRN (17:33)
[2021-06-07] MEDS: traMADol HCL 50 MG TABLET PO PRN (17:35)
[2021-06-07] MEDS: DOCUSATE SODIUM/SENNA 50/8.6MG TAB PO SCH (21:25)
[2021-06-08] MEDS: POLYETHYLENE (MIRALAX) 17 GM PACK PO SCH ×5 (00:58→23:31)
[2021-06-08] MEDS: SODIUM CHLORIDE 0.9% 1000ML 1,000 ML IV SCH (03:04)
[2021-06-08] MEDS: LEVOTHYROXINE SODIUM 125 MCG TABLET PO SCH (05:41)
[2021-06-08] MEDS: ACETAMINOPHEN 500 MG TAB PO PRN (06:06)
[2021-06-08 07:52] LABS: Hematocrit (blood only) 27.7 % (37-47); Hemoglobin 8.9 g/dL (12.0-16.0); Mean Corpuscular Hemoglobin 32.6 pg (25-34); Mean Corpuscular Hgb Conc 32.1 g/dL (32-36); Mean Corpuscular Volume 101.5 fL (80-100); Mean Platelet Volume 10.8 fL (7.4-10.4); Platelet Count 236 K/uL (130-400); RDW Coefficient of Variation 12.2 % (11.5-14.5); RDW Standard Deviation 44.9 fL (36.4-46.3); Red Blood Count 2.73 M/uL (4.2-5.4); White Blood Count 9.33 K/uL (4.8-10.8)
[2021-06-08] MEDS ORDERED: ceFAZolin 2000MG 2,000 MG/15 ML SYR IV ONE (08:17)
--- NOTE | 2021-06-08 08:24 | Orthopedic Progress Note ---
Date of Service June 08, 2021 Assessment & Plan (1) Neurogenic claudication due to lumbar spinal stenosis: Plan: At this time would like to initiate physical therapy. Would have to initiate this carefully. She has been at bedrest for several days and will be weak. Hopefully will she will progress over the next few days and we can discharge home. Admission and Anticipated Discharge Date Admission Date: June 03, 2021 Subjective Back pain is controlled. She denies any headache denies any nuchal rigidity. Denies photophobia nausea vomiting. Has no leg pain. Physical Exam Physical Exam: On exam patient is comfortable. She has good strength testing. Results & Data ([facility]) Vital Signs (Past 12 Hours) Vital Signs Temp Pulse Pulse Resp BP BP Pulse Ox 06/08/21 07:30 36.6 C 90 20 126/76 94 06/08/21 02:06 36.7 C 89 17 134/81 92 06/07/21 22:37 36.8 C 101 H 18 128/76 93
[2021-06-08 08:28] LABS: BUN Creatinine Ratio 24.9 (10-20); Calcium 8.7 mg/dl (8.5-10.1); Creatinine Clr Calc Pharmacy 83.5 ml/min; Est GFR (African American) 99.6 ml/min; Potassium 4.1 mmol/L (3.5-5.1)
[2021-06-08] MEDS: oxyCODONE HCL IR 5 MG TAB (IMMEDIATE RELEASE) PO PRN ×4 (08:43→23:49)
[2021-06-08] MEDS: CHOLECALCIFEROL 1,000 UNITS 25 MCG TAB PO SCH (08:46)
[2021-06-08] MEDS: LOSARTAN POTASSIUM 50 MG TAB PO SCH (08:46)
[2021-06-08] MEDS: FERROUS SULFATE 325 MG TAB PO SCH ×2 (08:46→20:20)
[2021-06-08] MEDS: DULoxetine HCL 20 MG CAP PO SCH (08:46)
[2021-06-08] MEDS: DAPSONE 25 MG TAB PO SCH ×2 (08:46→20:20)
--- NOTE | 2021-06-08 13:32 | Hospitalist Progress Note ---
Date of Service June 08, 2021 Assessment & Plan (1) Neurogenic claudication due to lumbar spinal stenosis: (2) HTN (hypertension): (3) H/O gastric bypass: (4) Cirrhosis: (5) CKD (chronic kidney disease) stage 3, GFR 30-59 ml/min: Plan: Neurogenic claudication due to lumbar spinal stenosis S/P L2-L4 lumbar decompression fusion by Dr. Ortiz, POD #4 Suspected CSF Leak --Ruled out S/P Irrigation debridement lumbar spine with expiration of durotomy repair POD #1 Pain/wound management per orthopedic Encourage incentive spirometry Bowel regimen to prevent constipation Appreciate orthopedics input Monitor CBC Monitor volume status closely while on IV fluids Diet advanced PT/OT as per Ortho Hypoxia Mild pulmonary congestion on chest x-ray Repeat CXR:no acute process within the chest Wean off of supplemental oxygen as able Nebs, Lasix PRN Hypertension Hypotensive post op Continue losartan Monitor BP Stable CKD stage III Baseline creatinine 1.0 Monitor BUN/creatinine Monitor Mild Hyperkalemia Received insulin, Lasix Monitor potassium levels Monitor Gluten intolerance/dermatitis herpetiformis Gluten-free diet Continue dapsone H/O Cirrhosis Compensated Monitor Hypothyroidism Continue Levothyroxine H/O Prolonged QTC Pre OP QTC 455ms Avoid QTC prolonging meds as able H/O Gastric bypass DVT Px: SCD/TEDS Code Status Full Code Disposition As per Primary Team Admission and Anticipated Discharge Date Admission Date: June 03, 2021 Subjective Patient is seen and examined bedside States feeling much better today Headache resolved Still has significant back pain Denies any chest pain, dyspnea, abdominal pain Tolerated diet Review of Systems Review of Systems: All systems reviewed & are unremarkable except as noted in Subjective Physical Exam 2 Physical Exam: Physical Exam: Vitals signs as noted above General Appearance:Obese, no apparent distress Head: normocephalic, Atraumatic Eyes: normal inspection, EOMI Neck: supple, Trachea midline Respiratory/Chest: Normal breath sounds, CTA, No accessory muscle use Cardiovascular: S1, S2, + murmur, +Tachycardia Abdomen/GI:Soft, Non tender, Bowel sounds present Back: Surgical site in dressing Extremities/Musculoskeletal:normal inspection, no edema Neurologic/Psych:AAOX3, grossly no focal neurological deficits Skin: normal color, warm Results & Data Results & Data ([facility]) Vital Signs (Past 12 Hours) Vital Signs Temp Pulse Pulse Pulse Resp BP BP 06/08/21 12:00 36.6 C 77 18 107/71 06/08/21 10:48 06/08/21 07:30 36.6 C 90 20 126/76 06/08/21 02:06 36.7 C 89 17 134/81 Pulse Ox 06/08/21 12:00 92 06/08/21 10:48 90 06/08/21 07:30 94 06/08/21 02:06 92 Laboratory Results Short CBC 06/08/21 Range/Units 07:16 WBC 9.33 (4.8-10.8) K/uL Hgb 8.9 L (12.0-16.0) g/dL Hct 27.7 L (37-47) % Plt Count 236 (130-400) K/uL BMP 06/08/21 07:16 Sodium 136 Potassium 4.1 Chloride 104 Carbon Dioxide 28 BUN 18 Creatinine 0.70 Glucose 110 H Calcium 8.7
[2021-06-08] MEDS: DOCUSATE SODIUM/SENNA 50/8.6MG TAB PO SCH (20:20)
[2021-06-09] MEDS: LEVOTHYROXINE SODIUM 125 MCG TABLET PO SCH (05:42)
[2021-06-09] MEDS: POLYETHYLENE (MIRALAX) 17 GM PACK PO SCH ×4 (05:43→23:07)
[2021-06-09 06:06] LABS: Hematocrit (blood only) 29.4 % (37-47); Hemoglobin 9.2 g/dL (12.0-16.0); Mean Corpuscular Hemoglobin 31.8 pg (25-34); Mean Corpuscular Hgb Conc 31.3 g/dL (32-36); Mean Corpuscular Volume 101.7 fL (80-100); Mean Platelet Volume 10.6 fL (7.4-10.4); Platelet Count 241 K/uL (130-400); RDW Coefficient of Variation 12.6 % (11.5-14.5); RDW Standard Deviation 45.9 fL (36.4-46.3); Red Blood Count 2.89 M/uL (4.2-5.4); White Blood Count 7.55 K/uL (4.8-10.8)
[2021-06-09 06:34] LABS: BUN Creatinine Ratio 26.4 (10-20); Calcium 8.6 mg/dl (8.5-10.1); Creatinine Clr Calc Pharmacy 102.5 ml/min; Est GFR (African American) 106.6 ml/min; Potassium 4.1 mmol/L (3.5-5.1)
[2021-06-09] MEDS: oxyCODONE HCL IR 5 MG TAB (IMMEDIATE RELEASE) PO PRN ×3 (08:23→22:41)
[2021-06-09] MEDS: LOSARTAN POTASSIUM 50 MG TAB PO SCH (08:24)
[2021-06-09] MEDS: CHOLECALCIFEROL 1,000 UNITS 25 MCG TAB PO SCH (08:24)
[2021-06-09] MEDS: DAPSONE 25 MG TAB PO SCH ×2 (08:24→20:58)
[2021-06-09] MEDS: FERROUS SULFATE 325 MG TAB PO SCH ×2 (08:24→20:58)
[2021-06-09] MEDS: DULoxetine HCL 20 MG CAP PO SCH (08:24)
--- NOTE | 2021-06-09 10:47 | Orthopedic Progress Note ---
Date of Service June 09, 2021 Assessment & Plan (1) Neurogenic claudication due to lumbar spinal stenosis: Plan: At this time we will continue physical therapy assess her progress hopefully discharge home or Monday. Admission and Anticipated Discharge Date Admission Date: June 03, 2021 Subjective Patient's back pain is controlled leg pain markedly improved. No nausea vomiting headaches or photophobia. Tolerating physical therapy well. Physical Exam Physical Exam: Patient appears comfortable. Is excellent strength testing. Results & Data ([facility]) Vital Signs (Past 12 Hours) Vital Signs Temp Pulse Resp BP Pulse Ox 06/09/21 07:27 36.8 C 96 H 18 143/80 H 93 06/08/21 23:22 37.0 C 93 H 18 108/69 90
--- NOTE | 2021-06-09 14:49 | Hospitalist Progress Note ---
Date of Service June 09, 2021 Assessment & Plan (1) Neurogenic claudication due to lumbar spinal stenosis: (2) HTN (hypertension): (3) H/O gastric bypass: (4) Cirrhosis: (5) CKD (chronic kidney disease) stage 3, GFR 30-59 ml/min: Plan: per Dr. Turner's notes: Neurogenic claudication due to lumbar spinal stenosis S/P L2-L4 lumbar decompression fusion by Dr. Ortiz, POD #5 Suspected CSF Leak --Ruled out S/P Irrigation debridement lumbar spine with expiration of durotomy repair POD #2 Pain/wound management per orthopedic Incentive spirometry, Bowel regimen PT/OT as per Ortho appears stable overall Hypoxia Mild pulmonary congestion on chest x-ray Repeat CXR:no acute process within the chest weaned off oxygen Nebs, Lasix PRN Hypertension Hypotensive post op Continue losartan BP Stable CKD stage III Baseline creatinine 1.0 Monitor BUN/creatinine stable Mild Hyperkalemia Received insulin, Lasix k 4.1 Gluten intolerance/dermatitis herpetiformis Gluten-free diet Continue dapsone H/O Cirrhosis Compensated Monitor Hypothyroidism Continue Levothyroxine H/O Prolonged QTC Pre OP QTC 455ms Avoid QTC prolonging meds as able H/O Gastric bypass DVT Px: SCD/TEDS Code Status Full Code Disposition As per Primary Team Thank you for this consultation. We will follow the patient with you during their hospital stay. You can reach a member of the [facility] Hospitalist Team 01/05 via pager @ [phone]. Admission and Anticipated Discharge Date Admission Date: June 03, 2021 Subjective ff up for s/p Lumbar spine surgery seen resting in bed, comfortable states she feels better today back pain improving states breathing is good no cough, sputum, fever/chills no chest pain, dyspnea, palpitations, dizziness no other symptoms Review of Systems Review of Systems: all noted and negative except for above Physical Exam Physical Exam: General- oriented x 3, not in distress, speaks in sentences with no effort or accessory muscle use Eyes- anicteric Neck- no JVD Lungs- clear breath sounds bilaterally, no rales/wheezes Heart- normal rate, regular rhythm; no murmurs Abdomen- normal bowel sounds, nondistended, soft, nontender Extremities- no pretibial edema, no calf tenderness Neuro- alert, oriented x 3; no gross focal neurologic deficits Skin- warm & dry Results & Data Results & Data ([facility]) Vital Signs (Past 12 Hours) Vital Signs Temp Pulse Resp BP Pulse Ox 06/09/21 07:27 36.8 C 96 H 18 143/80 H 93 all noted and reviewed including below
[2021-06-09] MEDS: DOCUSATE SODIUM/SENNA 50/8.6MG TAB PO SCH (20:58)
[2021-06-10] MEDS: LEVOTHYROXINE SODIUM 125 MCG TABLET PO SCH (06:01)
[2021-06-10] MEDS: POLYETHYLENE (MIRALAX) 17 GM PACK PO SCH ×2 (06:01→12:56)
--- NOTE | 2021-06-10 08:26 | Discharge Summary ---
Date of Service June 10, 2021 Admission HPI Per Admitting Provider This is a 75-year-old female who presents with worsening back and right leg pain with progressive weakness. She is undergone extensive course of nonoperative care including physical therapy injections without any significant improvement. She is now struggling with all actives of daily living and is unable to walk any distance secondary to right leg weakness. Principal Diagnosis Lumbar spinal stenosis with neurogenic claudication Discharge Data Allergies Allergy/AdvReac Type Severity Reaction Status Date / Time gluten Allergy Intermediate SKIN Verified 06/03/21 08:33 RASH--DERMATITIS pantoprazole [From Protonix] Allergy rash Verified 06/03/21 08:33 Consultations 06/03/21 15:01 Consult Hospitalist Routine Procedures Performed Operation Date: 06/03/21 10:05 Actual Procedures p L2-L4 Decompression Fusion, Spinal Cord Monitoring, Incedental Durotomy with Repair - Cayetano Ortiz DO Operation Date: 06/07/21 10:10 Actual Procedures p Repair Cerebral Spinal Fluid Leak(Not Applicable) - Cayetano Ortiz DO Ordered Studies 06/03/21 12:25 FL lumbar spine 2-3V Routine Hospital Course (1) Neurogenic claudication due to lumbar spinal stenosis: Patient with lumbar decompression fusion trial as well as taken to orthopedic for possibly. I did place her at bedrest secondary to the incidental durotomy. She continued of the headache beginning postop day 2 subsequently underwent exploration of the repair. There was no evidence of CSF leak. Subsequently we did get her up and began physical therapy the following day. She tolerated this very well. Excellent strength testing. Pain well controlled. Subsequent discharge home. Discharge orders instructions from the chart for further review. Total Time Total Time Spent Total Time Spent (In Minutes): 20 minutes Discharge Plan Discharge Items Patient Disposition: Home - Self-Care Reason For Visit: Spinal Stenosis, Lumbar Region with Neurogenic Cla Discharge Diagnosis: Lumbar spinal stenosis with neurogenic claudication Activity: As commented below Non-emergency contact: Primary Care Provider Call non-emergency contact if: you have any medication questions Follow-up/Referrals: Aaron Rausch MD [Primary Care Provider] - Diet: Regular Addtl Attending Provider Instructions: ACTIVITY RECOMMENDATIONS: SELF CARE INSTRUCTIONS AFTER THORACIC/LUMBAR FUSIONS 1. You may walk to your tolerance. It is good exercise for your legs and back. Expect some back and intermittent leg aches and pains. 2. You may perform "counter-top" level activities (make a sandwich, justice with a project, etc.). 3. No bending or lifting of more than 10 pounds or back twisting of any nature (roll like a log when turning in bed). 4. You may ride in a car for 20-30 minutes at a time. No driving until after your first visit with your doctor. 5. Frequent changes of position and restricting sitting to 30 minutes at a time will help limit the amount of back spasms and stiffness you may experience. 6. You may discontinue the use of ambulatory aids (cane, crutches, etc.) once your strength and confidence allow. 7. You may lining machine tender the shower and let water strike your incision when you arrive home at least once daily. Do not take a tub bath, sit in a hot tub or g o into a swimming pool until after your first recheck in the office. SPECIAL CARE INSTRUCTIONS: VERY IMPORTANT TO READ AND REVIEW A. Your surgical incision has been closed with a cosmetic suture under the skin that will dissolve in about 6 weeks. In 14 days, you can use a pair of clean scissors and cut the suture that is left outside of the skin at the ends of your incision. 1. The small skin tapes can be removed 7 days after surgery if they have not fallen off by that point. 2. You may keep the wound open to air as much as possible to promote healing after post-op day number 5 unless told otherwise by your doctor. 3. If you think the wound looks like it is becoming infected (redness or worsening drainage) and/or you are experiencing fever, chill or worsening back pain and muscle spasms, contact the office so that we may evaluate you as soon as possible. B. Complications are uncommon, but please contact us if you have any signs or symptoms of: 1. wound infection (fever higher than 102.5 degrees F, redness, separation of wound, drainage, or increasing pain from the incision) 2. blood clots in legs (pain, swelling, redness and warmth in legs) 3. urinary tract infection (fever higher than 102.5 degrees F, burning upon urination or increased frequency of urination) 4. nerve problems (inability to walk on your toes or heels, numbness, loss of bowel or bladder control) 5. any other symptoms that concern you C. Please call the office at if you have any concerns or questions about your operation or recovery. D. No smoking! Smoking drastically decreases the chance of a solid fusion. E. Do not take any anti-inflammatory medications (Indocin, Advil, Motrin, Aspirin, Naprosyn, etc.) as these may inhibit the chance of a solid fusion. Tylenol is okay to take for pain. MANAGING PAIN AFTER SPINAL SURGERY 1. Narcotic medication is intended for short-term use and will be provided for surgical pain. Surgical pain usually lasts for a period of 4-6 weeks. Narcotic medication includes Percocet, Vicodin, Darvocet, Tylenol #3 or Lortab. 2. Longer-term pain is more appropriately treated with non-narcotic medication such as Tylenol ES. 3. Muscle spasm is not appropriately treated with narcotics. Muscle relaxers such as Soma, Flexeril or Skelaxin can be used along with Tylenol ES. 4. Remember that we all live with some "aches and pains". This is not unusual or uncommon after an injury or as we get older. a. Back pain is expected and may include muscle spasms for 4 to 6 weeks after surgery. The pain should gradually improve. If the pain worsens for no apparent reason, please contact the office. b. Intermittent leg pain may also be experienced and should not be concerned about unless it worsens for no apparent reason. If so, please contact the office. 5. We will provide appropriate medication within the normal guidelines of their prescribed use. We will also be very cautious and aware of potential abuse and extended duration of patients' medication needs. a. Pain medications are for your comfort and to assist with sleep and rest so that the tissue can heal. They are not provided in order to return to normal activity and should not be used through the day. To do so or worsening pain at night can result from ongoing tissue damage and development of tolerance to the prescribed medicine. 6. Please allow 2-3 days to process refills. Prescriptions will not be mailed but must be picked up at the office. FOLLOW UP VISIT: Keep your scheduled follow-up appointment. Any questions, please call the office at . Pending Studies at Discharge: No Stand-Alone Forms: [facility] Smoking Cessation Medications and DC Order Prescriptions: New oxycodone 5 mg tablet 5 mg PO Q6H PRN (Reason: pain, severe) Qty: 30 RF: 0 tramadol 50 mg tablet 50 mg PO Q6H PRN (Reason: pain, moderate) Qty: 30 RF: 0 Continued levothyroxine [Synthroid] 125 mcg tablet 125 mcg PO QAM RF: 0 dapsone 25 mg tablet 50 mg PO BID RF: 0 losartan [Cozaar] 100 mg tablet 50 mg PO QAM RF: 0 duloxetine [Cymbalta] 20 mg capsule,delayed release(DR/EC) 20 mg PO QAM RF: 0 cholecalciferol (vitamin D3) 1,000 unit Tablet 1,000 unit PO QAM RF: 0 ferrous sulfate 325 mg (65 mg iron) tablet 325 mg PO BID RF: 0 cyanocobalamin (vitamin B-12) 1,000 mcg/mL Solution 1,000 mcg IM MONTHLY RF: 0 fluocinonide 0.05 % Solution 1 applic TOPICAL BID PRN (Reason: Itching) RF: 0 sucralfate 100 mg/mL Suspension 1 g PO ACHS Qty: 200 RF: 0 Discharge Orders: Discharge Order (Routine); Ordered 06/10/21 Ordered By: Cayetano Ortiz Admission Data Admit Date/Time: 06/03/21 12:17 Attending Provider: Cayetano Ortiz Admit Provider: Cayetano Ortiz Primary Care Provider: Aaron Rausch Other Providers: Phong Turner ; Belén Singh ; Manas Jackson
[2021-06-10] MEDS: LOSARTAN POTASSIUM 50 MG TAB PO SCH (08:47)
[2021-06-10] MEDS: oxyCODONE HCL IR 5 MG TAB (IMMEDIATE RELEASE) PO PRN (08:47)
[2021-06-10] MEDS: FERROUS SULFATE 325 MG TAB PO SCH (08:47)
[2021-06-10] MEDS: DULoxetine HCL 20 MG CAP PO SCH (08:47)
[2021-06-10] MEDS: CHOLECALCIFEROL 1,000 UNITS 25 MCG TAB PO SCH (08:47)
[2021-06-10] MEDS: DAPSONE 25 MG TAB PO SCH (08:47)
--- NOTE | 2021-06-21 10:44 | Coding Query ---
CODING QUERY To promote full compliance with coding requirements relating to patient care, provider participation is requested in all cases of media marketing manager uncertainty. Please assist us with the question(s) below: Coding Question(s): Incidental Durotomy documentation begins on the Operative Report on 06/03/21. Please specify below, in your clinical opinion. ( x ) Incidental Durotomy is a Complication of the procedure that occurred after admission ( ) Incidental Durotomy is Not a Complication of the procedure and was present on admission ( ) Incidental Durotomy is Other: Please specify and indicate if present on admission or if occurred after admission: Physician's Response(s): Thank you Yun Bernal Principal Diagnosis: "that condition established after study, to be chiefly responsible for occasioning the admission of the patient to the hospital for care." Co-Existing Principal Diagnosis: "when two or more diagnoses equally meet the criteria for principal diagnosis as determined by the circumstances of admission, diagnostic work up, and/or therapy provided, and the Alphabetic Index, Tabular List, or another coding guideline does not provide sequencing direction, any one of the diagnoses may be sequenced first." "When the physician has documented what appears to be a current diagnosis in the body of the record, but has not included the diagnosis in the final diagnostic statement, the physician should be asked whether the diagnosis should be added." (Source [facility]oding [facility] 2 QTR90. p3-4) [place]
== END 2021-06-10 14:09 | disposition home or self-care (01) | DRG 460 ==
LOC: ASU 08:00 → PACUINP 12:17 → 3N 14:37

== ENCOUNTER 2022-03-03 12:13 | Inpatient (IN) ==
[2022-03-03] MEDS ORDERED: ONDANSETRON INJ 2 MG/ML 2 ML VIAL IV STA (12:52)
[2022-03-03] MEDS ORDERED: MoRPHine SULFATE 4 MG/ML 1 ML CARP\\VIAL IV STA (12:52)
--- NOTE | 2022-03-03 12:56 | Emergency Department Note ---
History of Present Illness General Chief complaint: Back Injury/Pain Stated complaint: back pain Time Seen by Provider: 03/03/22 12:31 Source: patient Mode of arrival: ambulatory Limitations: no limitations History of Present Illness Maximum Pain Intensity: 8 This patient is 76-year-old female comes in with back pain. She says been going on for at least 6 days. She had back surgery done about 9 months ago and has had some pain since then but this is much worse she says she cannot stand or sit it feels best when she lays still and does not move but it still does not go away it starts near her right SI joint radiates around to the front and down her leg. No numbness or weakness present but she says her rig ht leg feels numb intermittently. Normal bowel and bladder function. No incontinence. No dysuria or hematuria no chest pain or shortness of breath. No fever or chills. She vomited once while she was having pain. She was using OxyIR at home that helps only minimally no recent fall or trauma. She did see Luis Garcia yesterday that and he did order outpatient MRI and imaging of her hip but in too much pain and cannot wait to do that. She called the ambulance. Home Medications Medication Instructions Recorded Confirmed Type cholecalciferol (vitamin D3) 25 1,000 unit PO QAM 08/07/18 03/03/22 History mcg (1,000 unit) tablet dapsone 25 mg tablet 50 mg PO BID 08/07/18 03/03/22 History duloxetine 20 mg capsule,delayed 20 mg PO QAM 08/07/18 03/03/22 History release (Cymbalta) levothyroxine 125 mcg tablet 125 mcg PO QAM 08/07/18 03/03/22 History (Synthroid) losartan 100 mg tablet (Cozaar) 50 mg PO QAM 08/07/18 03/03/22 History cyanocobalamin (vitamin B-12) 1,000 mcg IM MONTHLY 03/11/19 03/03/22 History 1,000 mcg/mL injection solution ferrous sulfate 325 mg (65 mg 325 mg PO BID 03/11/19 03/03/22 History iron) tablet fluocinonide 0.05 % topical 1 applic TOPICAL BID PRN 03/11/19 03/03/22 History solution diazepam 2 mg tablet 2 mg PO BID PRN #6 tab 02/17/22 03/03/22 Rx oxycodone 5 mg tablet 5 mg PO Q4H PRN 02/28/22 03/03/22 History prednisone 20 mg tablet 60 mg PO DAILY 4 Days #12 tab 02/28/22 03/03/22 Rx acetaminophen 500 mg tablet 1,000 mg PO Q6H PRN 03/03/22 03/03/22 History (Tylenol Extra Strength) Allergies Allergy/AdvReac Type Severity Reaction Status Date / Time gluten Allergy Intermediate SKIN Verified 02/28/22 19:54 RASH--DERMATITIS pantoprazole [From Protonix] Allergy Intermediate rash Verified 02/28/22 19:54 Past Med/Surg History Medical History Anemia STABLE PER PATIENT - TAKES IRON SUPPLEMENT PO DAILY HX OF BLOOD TRANSFUSION YEARS AGO SECONDARY FROM ANEMIA FROM GI ULCER Asthma NO INHALER USE X YEARS Cirrhosis Cryptogenic per PCP records CKD (chronic kidney disease) stage 3, GFR 30-59 ml/min Depression Dermatitis herpetiformis OCCURS WITH GLUTEN Fatty liver History of GI bleed + GASTRIC ULCER x 1; MOST RECENT OCCURRED SEVERAL MONTHS AGO - REPEAT EGD 06/2021 (No blood transfusion needed for GI ulcer in January 2021) HTN (hypertension) Hypothyroidism Kidney stones hx Obesity Osteoarthritis Prolonged QT interval Per PCP records Surgical History H/O gastric bypass 1998 History of cataract surgery LEFT and RIGHT History of cholecystectomy History of colonoscopy History of esophagogastroduodenoscopy (EGD) History of hip replacement right hip Hx of tonsillectomy S/P cystoscopy with ureteral stent placement 03/11/2019 [facility] Family History Brother Pancreatic cancer Mother Pancreatic cancer Father Coronary heart disease Social History Smoking Status: Former smoker Second Hand Exposure: No; Hx Alcohol Use: No Hx Substance Use: No Preferred Language: Nepali Communication Ability: Effective Instrument Specialist Required: No Beliefs That Will Affect Care: None marital status: / Current Living Situation: Family Current Living Situation Comment: Lives with son Feels Safe at Home: Yes Assistive Devices: None Review of Systems A total of 10 systems reviewed and were otherwise negative Physical Exam Vital Signs Vital Signs - 24 hr 03/03/22 11:54 03/03/22 12:16 03/03/22 12:30 Temperature 36.6 C Temperature Source Oral Pulse Rate 93 H 97 H 88 Pulse Rate [Finger] Pulse Rate from SpO2 Sensor 97 H 89 Pulse Rhythm Regular Pulse Strength Normal Respiratory Rate 22 14 12 Respiratory Effort / Characteristics Non-Labored Respiratory Depth Normal Blood Pressure 164/101 H 168/91 H Blood Pressure [Left Arm] Blood Pressure Mean 122 116 Blood Pressure Mean [Left Arm] Pulse Oximetry 97 95 95 Oxygen Delivery Method Room Air Sepsis Recent Fever Within 48 Hours No Sepsis New/Unexplained Change in Mental Status N/A Sepsis Action Taken by Nursing No Action Required 03/03/22 13:00 03/03/22 14:32 03/03/22 14:33 Temperature Temperature Source Pulse Rate 87 97 H 95 H Pulse Rate [Finger] Pulse Rate from SpO2 Sensor 96 H Pulse Rhythm Pulse Strength Respiratory Rate 19 15 Respiratory Effort / Characteristics Respiratory Depth Blood Pressure 151/90 H 115/78 Blood Pressure [Left Arm] Blood Pressure Mean 110 90 Blood Pressure Mean [Left Arm] Pulse Oximetry 95 95 Oxygen Delivery Method Sepsis Recent Fever Within 48 Hours Sepsis New/Unexplained Change in Mental Status Sepsis Action Taken by Nursing 03/03/22 15:00 03/03/22 15:30 03/03/22 16:19 Temperature Temperature Source Pulse Rate 88 87 Pulse Rate [Finger] 82 Pulse Rate from SpO2 Sensor 88 87 Pulse Rhythm Pulse Strength Respiratory Rate 17 12 16 Respiratory Effort / Characteristics Respiratory Depth Blood Pressure 112/87 130/83 Blood Pressure [Left Arm] 143/76 H Blood Pressure Mean 95 98 Blood Pressure Mean [Left Arm] 98 Pulse Oximetry 92 95 Oxygen Delivery Method Room Air Sepsis Recent Fever Within 48 Hours Sepsis New/Unexplained Change in Mental Status Sepsis Action Taken by Nursing General: Well developed well nourished older female who appears uncomfortable secondary to pain but in no acute visual distress, breathing comfortably on room air. Normal speech HEENT: Normal cephalic atraumatic. Pupils are equal round and reactive to light. Extraocular movements are intact. Oropharynx is pink with moist mucous membranes. No swelling of the mouth lips or tongue. Neck: Supple with a midline trachea. No meningeal signs or stiffness, no JVD or bruits. No Stridor. Chest: Clear to auscultation bilaterally. No wheezes or rhonchi. No increased work of breathing. Heart: Regular rate and rhythm without murmurs or gallops. Abdomen: Soft nontender, nondistended without rebound guarding or rigidity. Extremities: No cyanosis clubbing or edema. No calf tenderness or assymetry Spine/Back. Mildly tender to palpation around the right SI joint. No lesions seen. no numbness. Straight leg raise this does cause pain in the back and hip Skin: Good turgor without rashes. Neurologic exam: Cranial nerves two through 12 are intact. Motor and sensation are intact and symmetrical throughout. Course Administered Medications Discontinued Medications Dexamethasone Sodium Phosphate (DexamethasonePf 10 Mg/Ml Vial) 10 mg IV NOW ONE Stop: 03/03/22 15:50 Last Admin: 03/03/22 16:18 Dose: 10 mg Documented by: [id number] Gadobutrol (Gadobutrol 65ml Vial) 10 ml IV ONCE ONE Stop: 03/03/22 14:31 Last Admin: 03/03/22 14:14 Dose: 10 ml Documented by: [id number] Morphine Sulfate (Morphine Sulfate 4 Mg/Ml 1 Ml Carp\Vial) 4 mg IV NOW STA Stop: 03/03/22 12:53 Last Admin: 03/03/22 13:21 Dose: 4 mg Documented by: [id number] Ondansetron HCl (Ondansetron Inj 2 Mg/Ml 2 Ml Vial) 4 mg IV NOW STA Stop: 03/03/22 12:53 Last Admin: 03/03/22 13:21 Dose: 4 mg Documented by: [id number] Medical Decision Making Differential Diagnosis Back pain, lumbar disc disease, sciatica, kidney stone, intra-abdominal process, infection, hip process, arthritis Medical Records Attestation: I reviewed the patient's medical records. Home Medications Current Medication List: was personally reviewed by me Laboratory Data Attestation: I reviewed the patient's lab results. Result diagrams: 03/03/22 13:14 03/03/22 15:10 Lab Results 03/03/22 03/03/22 03/03/22 Range/Units 12:54 13:14 13:14 WBC 11.70 H (4.8-10.8) K/uL RBC 4.14 L (4.2-5.4) M/uL Hgb 14.0 (12.0-16.0) g/dL Hct 42.2 (37-47) % MCV 101.9 H (80-100) fL MCH 33.8 (25-34) pg MCHC 33.2 (32-36) g/dL RDW Std Deviation 47.1 H (36.4-46.3) fL RDW Coeff of Patrick 12.7 (11.5-14.5) % Plt Count 322 (130-400) K/uL MPV 11.0 H (7.4-10.4) fL Immature Gran % (Auto) 0.3 % Neut % (Auto) 89.4 % Lymph % (Auto) 4.6 % [place] % (Auto) 5.7 % Eos % (Auto) 0.0 % Baso % (Auto) 0.0 % Neut # (Auto) 10.46 H (1.4-6.5) K/uL Lymph # (Auto) 0.54 L (1.2-3.4) K/uL [place] # (Auto) 0.67 H (0.11-0.59) K/uL Eos # (Auto) 0.00 (0-0.5) K/uL Baso # (Auto) 0.00 (0-0.2) K/uL Immature Gran # (Auto) 0.03 H (0.00-0.02) K/uL Sodium 134 L (136-145) mmol/L Potassium TNP Chloride 103 (98-107) mmol/L Carbon Dioxide 24 (21-32) mmol/L Anion Gap 7 (3-11) BUN 33 H (6-23) mg/dl Creatinine 0.98 (0.6-1.2) mg/dl Est Cr Clr Drug Dosing 31.2 ml/min Est GFR ( Amer) 65.9 ml/min Est GFR (Non-Af Amer) 56.8 ml/min BUN/Creatinine Ratio 33.7 H (10-20) Glucose 240 H (70-99(Fasting)) mg/dl Calcium 9.7 (8.5-10.1) mg/dl Total Bilirubin 2.1 H (0.2-1.0) mg/dl AST TNP ALT 135 H (7-52) U/L Alkaline Phosphatase 73 (34-104) U/L Total Protein 6.7 (6.0-8.3) gm/dl Albumin 3.9 (3.4-5.0) gm/dl Globulin 2.8 (2.5-4.0) gm/dl Albumin/Globulin Ratio 1.4 (0.9-2) Lipase 14 (11-82) U/L SARS-CoV-2, RNA, NAAT NEGATIVE (NEGATIVE) 03/03/22 03/03/22 Range/Units 14:36 15:10 WBC (4.8-10.8) K/uL RBC (4.2-5.4) M/uL Hgb (12.0-16.0) g/dL Hct (37-47) % MCV (80-100) fL MCH (25-34) pg MCHC (32-36) g/dL RDW Std Deviation (36.4-46.3) fL RDW Coeff of Patrick (11.5-14.5) % Plt Count (130-400) K/uL MPV (7.4-10.4) fL Immature Gran % (Auto) % Neut % (Auto) % Lymph % (Auto) % [place] % (Auto) % Eos % (Auto) % Baso % (Auto) % Neut # (Auto) (1.4-6.5) K/uL Lymph # (Auto) (1.2-3.4) K/uL [place] # (Auto) (0.11-0.59) K/uL Eos # (Auto) (0-0.5) K/uL Baso # (Auto) (0-0.2) K/uL Immature Gran # (Auto) (0.00-0.02) K/uL Sodium (136-145) mmol/L Potassium Cancelled 4.5 Chloride (98-107) mmol/L Carbon Dioxide (21-32) mmol/L Anion Gap (3-11) BUN (6-23) mg/dl Creatinine (0.6-1.2) mg/dl Est Cr Clr Drug Dosing ml/min Est GFR ( Amer) ml/min Est GFR (Non-Af Amer) ml/min BUN/Creatinine Ratio (10-20) Glucose (70-99(Fasting)) mg/dl Calcium (8.5-10.1) mg/dl Total Bilirubin (0.2-1.0) mg/dl AST Cancelled 38 ALT (7-52) U/L Alkaline Phosphatase (34-104) U/L Total Protein (6.0-8.3) gm/dl Albumin (3.4-5.0) gm/dl Globulin (2.5-4.0) gm/dl Albumin/Globulin Ratio (0.9-2) Lipase (11-82) U/L SARS-CoV-2, RNA, NAAT (NEGATIVE) Imaging Data Radiologist's Impression: Abdomen/Pelvis CT 03/03/22 12:49 CT OF THE ABDOMEN AND PELVIS WITHOUT CONTRAST CLINICAL HISTORY: Right back pain. COMPARISON STUDY: CT of the abdomen and pelvis February 28, 2022. TECHNIQUE: Axial images of the abdomen and pelvis were obtained without IV contrast. Images were reviewed in the axial, sagittal, and coronal planes. Automated exposure control was utilized for the study. A dose lowering technique was utilized adhering to the principles of ALARA. FINDINGS: Lung bases are unremarkable. No pneumatosis, free air or portal venous gas is present. No renal, ureteral or bladder calculi are present. No hydronephrosis or hydroureter. Evaluation of the remainder of the abdomen and pelvis is suboptimal on this unenhanced exam. The liver is cirrhotic. Mild dilatation of the common bile duct is likely related to cholecystectomy. Size of the spleen is normal. 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 There is no evidence for a bowel obstruction status post Bigg-en-Y gastric bypass. Appendix is not visuali zed. Images of the pelvis are degraded by streak artifact from right hip arthroplasty. There is no lymphadenopathy or ascites. No acute fracture is identified within visualized skeletal structures. L2-L4 posterior decompression and fusion is noted. The central canal and neural foramen are suboptimally assessed by CT. Note is possible disc bulge at L1-L2. Central canal stenosis cannot be excluded. Possible right paracentral abnormality at the L2-L3 level is also noted. IMPRESSION: 1. No urinary calculi or hydronephrosis. 2. No acute process within the abdomen or pelvis on unenhanced exam. 3. Cirrhosis. Perisplenic varices. 4. No acute lumbar spine fracture. Status post L2-L4 posterior decompression and fusion. Apparent disc bulge at the L1-L2 level and possible right paracentral abnormality at the L2-L3 level. Central canal and neural foramen suboptimally a ssessed by CT. ACT 112: Negative or not required by law. Electronically signed by: Mike Shaffer M.D. 03/03/2022 2:01 PM Lumbar Spine MRI 03/03/22 12:52 MR lumbar spine wo/w con CLINICAL HISTORY: back pain radiates down rt leg. Back surgery 9 months ago with continued pain since the surgery. Worsening symptoms. TECHNIQUE: Multiplanar multisequence images of the Lumbar Spine were performed with and without IV contrast. Contrast Volume: 10 ml of Gadavist COMPARISON: Standard radiographs from 02/17/2022 FINDINGS: There is no evidence for vertebral body fracture. The patient is status post what appears to be L2 and L3 laminectomies with interpedicular screw and raffy fixation from L2 through L4. The heights of the vertebral bodies are maintained. The vertebral bodies are in anatomic alignment. Homogeneous marrow signal is seen without evidence for marrow edema or marrow replacement. There is no abnormal enhancement following contrast administration. T12-L1: The disc space height is maintained. There are no focal disc protrusions or extrusions identified. The thecal sac and epidural fat are maintained. The neural foramen are patent bilaterally. There is no evidence for nerve root encroachment. The facet joints are within normal limits. L1-2: There is mild disc space narrowing with evidence for a disc protrusion/herniation present. This is at the disc space level above the spine fusion. An 8 mm disc protrusion/herniation is present with inferior migration of disc fragment by at least 2 cm behind the L2 vertebral body. This encroaches upon the thecal sac anteriorly and laterally to the right. There is no evidence for enhancement of this disc fragment and the findings do not represent granulation/scar tissue. The neural foramen are patent bilaterally. L2-3: There is moderate to marked disc space narrowing with no evidence for recurrent disc protrusion/herniation present. There is posterior decompression of thecal sac. Postsurgical changes are present. L3-4: There is moderate to marked disc space narrowing with no evidence for recurrent disc protrusion/herniation present. There is posterior decompression with postsurgical changes and postoperative seroma seen posteriorly. There is no encroachment upon the thecal sac . L4-5: There is moderate disc space narrowing with a 3 to 4 mm broad-based to left lateral disc protrusion/herniation present. This encroaches upon the thecal sac anterolaterally to the left and upon the left neural foramen. No right foraminal encroachment is identified. Mild to moderate hypertrophic facet joint disease and thickening of ligamentum flavum is also present bilaterally. The combination of these findings produce mild to moderate central canal stenosis and left foraminal stenosis. L5-S1: There is moderate to marked disc space narrowing with a 3 mm subligamentous disc protrusion/herniation present centrally and laterally to the left. Due to the increase amount of epidural fat anterior to the thecal sac at this level, no significant encroachment upon the thecal sac is seen. There is mild asymmetric left foraminal encroachment. There is no evidence for nerve root encroachment. Moderate hypertrophic facet joint disease present bilaterally. IMPRESSION: 1. Large disc protrusion/herniation at the L1-2, the disc space level above the spinal fusion. There is inferior migration of a disc fragment central laterally to the right producing marked encroachment upon the thecal sac. 2. Postsurgical changes at L2-3 and L3-4 no recurrent herniated disc at these levels. 3. Small disc protrusion/herniation at L4-5 with mild to moderate central canal and left foraminal stenosis. 4. Subligamentous disc protrusions as herniation L5-S1 with asymmetric left foraminal encroachment as well. ACT 112: Negative or not required by law. Electronically signed by: Dawson Palacios M.D. 03/03/2022 3:01 PM [facility] Narrative This patient comes in as described above. She was placed in room before. She was brought in by ambulance she did receive Zofran on route but no pain medication I did order an IV as well as morphine 4 mg IV and Zofran 4 mg IV to help her with her pain. She has nothing to she has cauda equina syndrome but is in a significant mount of pain I did order an MRI of her back as well as a noncontrast CAT scan of the abdomen and pelvis to evaluate her for her pelvic and hip pain as well and also to ensure that was not a kidney stone or an intra- abdominal process. Blood work was obtained and urinalysis was ordered as well. She was reassessed frequently. White count is mildly elevated but she has no fever. Her blood sugar is elevated at 240 however she has nothing to suggest DKA. CAT scan shows no acute intra-abdominal findings there is some abnormalities of the lumbar spine which are better seen on the MRI which showed a large disc protrusion at L1/2 which is a disc space above the spinal fusion there is inferior migration of the disc fragment central/laterally to the right producing marked encroachment upon the thecal sac. The patient is much more comfortable at rest but has significant pain with any movement of the right particularly. I do think she needs to be admitted for pain management and further treatment and evaluation. Continuous cardiac monitoring: Orders placed in EMR for continuous cardiac monitoring. Upon my interpretation the patient was noted to be in normal sinus rhythm with a of 93 Impression & Plan Back pain, Lumbar disc disease, Lab test negative for COVID-19 virus, Hy perglycemia Discharge Plan Visit Data Chief Complaint: Back Injury/Pain Stated Complaint: back pain ED Provider: Saud Perez Discharge Problem: Back pain, Lumbar disc disease, Lab test negative for COVID-19 virus, Hyp erglycemia Forms Stand Alone Forms: [facility] Prescriptions Prescriptions: No Action levothyroxine [Synthroid] 125 mcg tablet 125 mcg PO QAM RF: 0 dapsone 25 mg tablet 50 mg PO BID RF: 0 losartan [Cozaar] 100 mg tablet 50 mg PO QAM RF: 0 duloxetine [Cymbalta] 20 mg capsule,delayed release(DR/EC) 20 mg PO QAM RF: 0 cholecalciferol (vitamin D3) 1,000 unit Tablet 1,000 unit PO QAM RF: 0 ferrous sulfate 325 mg (65 mg iron) tablet 325 mg PO BID RF: 0 cyanocobalamin (vitamin B-12) 1,000 mcg/mL Solution 1,000 mcg IM MONTHLY RF: 0 fluocinonide 0.05 % Solution 1 applic TOPICAL BID PRN (Reason: Itching) RF: 0 oxycodone 5 mg tablet 5 mg PO Q4H PRN (Reason: Pain, Severe) RF: 0 prednisone 20 mg tablet 60 mg PO DAILY 4 Days Qty: 12 RF: 0 diazepam 2 mg tablet 2 mg PO BID PRN (Reason: anxiety) Qty: 6 RF: 0 acetaminophen [Tylenol Extra Strength] 500 mg Tablet 1,000 mg PO Q6H PRN (Reason: Pain) RF: 0 Referrals Referrals: Aaron Rausch MD [Primary Care Provider] - Discharge Problem: Back pain Qualifiers: Back pain location: low back pain Chronicity: acute Back pain laterality: bilateral Sciatica presence: with sciatica Sciatica laterality: sciatica of right side Qualified Code(s): M54.41 - Lumbago with sciatica, right side
[2022-03-03 13:42] LABS: Hematocrit (blood only) 42.2 % (37-47); Immature Granulocytes # (auto) 0.03 K/uL (0.00-0.02); Immature Granulocytes % (auto) 0.3 %; Lymphocytes # (auto) 0.54 K/uL (1.2-3.4); Lymphocytes % (auto) 4.6 %; Mean Corpuscular Hemoglobin 33.8 pg (25-34); Mean Corpuscular Hgb Conc 33.2 g/dL (32-36); Mean Corpuscular Volume 101.9 fL (80-100); Monocytes # (auto) 0.67 K/uL (0.11-0.59); Monocytes % (auto) 5.7 %; Neutrophils # (auto) 10.46 K/uL (1.4-6.5); Neutrophils % (auto) 89.4 %; Platelet Count 322 K/uL (130-400); RDW Coefficient of Variation 12.7 % (11.5-14.5); RDW Standard Deviation 47.1 fL (36.4-46.3); Red Blood Count 4.14 M/uL (4.2-5.4)
--- NOTE | 2022-03-03 14:04 | CT Scan Report ---
CT OF THE ABDOMEN AND PELVIS WITHOUT CONTRAST CLINICAL HISTORY: Right back pain. COMPARISON STUDY: CT of the abdomen and pelvis February 28, 2022. TECHNIQUE: Axial images of the abdomen and pelvis were obtained without IV contrast. Images were revi ewed in the axial, sagittal, and coronal planes. Automated exposure control was utilized for the joni dy. A dose lowering technique was utilized adhering to the principles of ALARA. FINDINGS: Lung bases are unremarkable. No pneumatosis, free air or portal venous gas is present. No r enal, ureteral or bladder calculi are present. No hydronephrosis or hydroureter. Evaluation of the re mainder of the abdomen and pelvis is suboptimal on this unenhanced exam. The liver is cirrhotic. Mild dilatation of the common bile duct is likely related to cholecystectomy. Size of the spleen is gwen l. 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 There is no evidence for a bowel obstruction status post Bigg-en-Y gastric bypass. Appendix is not visualized. Images of the pelvis are degraded by streak artifact from right hip arthroplasty. There is no lymphadenopathy or ascites. No acute fracture is identified with in visualized skeletal structures. L2-L4 posterior decompression and fusion is noted. The central can al and neural foramen are suboptimally assessed by CT. Note is possible disc bulge at L1-L2. Central canal stenosis cannot be excluded. Possible right paracentral abnormality at the L2-L3 level is also noted. IMPRESSION: 1. No urinary calculi or hydronephrosis. 2. No acute process within the abdomen or pelvis on unenhanced exam. 3. Cirrhosis. Perisplenic varices. 4. No acute lumbar spine fracture. Status post L2-L4 posterior decompression and fusion. Apparent dis c bulge at the L1-L2 level and possible right paracentral abnormality at the L2-L3 level. Central can al and neural foramen suboptimally assessed by CT. ACT 112: Negative or not required by law. Electronically signed by: Mike Shaffer M.D. 03/03/2022 2:01 PM
[2022-03-03 14:06] LABS: Alanine Aminotransferase 135 U/L (7-52); Albumin Globulin Ratio 1.4 (0.9-2); Albumin Level 3.9 gm/dl (3.4-5.0); Alkaline Phosphatase 73 U/L (34-104); Anion Gap 7 (3-11); BUN Creatinine Ratio 33.7 (10-20); Bilirubin,Total 2.1 mg/dl (0.2-1.0); Blood Urea Nitrogen 33 mg/dl (6-23); Calcium 9.7 mg/dl (8.5-10.1); Carbon Dioxide 24 mmol/L (21-32); Chloride 103 mmol/L (98-107); Creatinine Clr Calc Pharmacy 31.2 ml/min; Est GFR (African American) 65.9 ml/min; Est GFR (Non-African American) 56.8 ml/min; Globulin 2.8 gm/dl (2.5-4.0); Glucose 240 mg/dl (70-99(Fasting)); Lipase 14 U/L (11-82); Sodium 134 mmol/L (136-145); Total Protein 6.7 gm/dl (6.0-8.3)
[2022-03-03] MEDS ORDERED: GADOBUTROL 65ML VIAL IV ONE (14:30)
--- NOTE | 2022-03-03 15:05 | Magnetic Resonance Report ---
MR lumbar spine wo/w con CLINICAL HISTORY: back pain radiates down rt leg. Back surgery 9 months ago with continued pain sin ce the surgery. Worsening symptoms. TECHNIQUE: Multiplanar multisequence images of the Lumbar Spine were performed with and without IV c ontrast. Contrast Volume: 10 ml of Gadavist COMPARISON: Standard radiographs from 02/17/2022 FINDINGS: There is no evidence for vertebral body fracture. The patient is status post what appears to be L2 and L3 laminectomies with interpedicular screw and raffy fixation from L2 through L4. The heig hts of the vertebral bodies are maintained. The vertebral bodies are in anatomic alignment. Homogeneo us marrow signal is seen without evidence for marrow edema or marrow replacement. There is no abnorma l enhancement following contrast administration. T12-L1: The disc space height is maintained. There are no focal disc protrusions or extrusions ident ified. The thecal sac and epidural fat are maintained. The neural foramen are patent bilaterally. Th ere is no evidence for nerve root encroachment. The facet joints are within normal limits. L1-2: There is mild disc space narrowing with evidence for a disc protrusion/herniation present. Thi s is at the disc space level above the spine fusion. An 8 mm disc protrusion/herniation is present wi th inferior migration of disc fragment by at least 2 cm behind the L2 vertebral body. This encroache s upon the thecal sac anteriorly and laterally to the right. There is no evidence for enhancement of this disc fragment and the findings do not represent granulation/scar tissue. The neural foramen are patent bilaterally. L2-3: There is moderate to marked disc space narrowing with no evidence for recurrent disc protrusio n/herniation present. There is posterior decompression of thecal sac. Postsurgical changes are prese nt. L3-4: There is moderate to marked disc space narrowing with no evidence for recurrent disc protrusion /herniation present. There is posterior decompression with postsurgical changes and postoperative se karen seen posteriorly. There is no encroachment upon the thecal sac . L4-5: There is moderate disc space narrowing with a 3 to 4 mm broad-based to left lateral disc protru jordyn/herniation present. This encroaches upon the thecal sac anterolaterally to the left and upon th e left neural foramen. No right foraminal encroachment is identified. Mild to moderate hypertrophic facet joint disease and thickening of ligamentum flavum is also present bilaterally. The combination of these findings produce mild to moderate central canal stenosis and left foraminal stenosis. L5-S1: There is moderate to marked disc space narrowing with a 3 mm subligamentous disc protrusion/h erniation present centrally and laterally to the left. Due to the increase amount of epidural fat an terior to the thecal sac at this level, no significant encroachment upon the thecal sac is seen. Ther e is mild asymmetric left foraminal encroachment. There is no evidence for nerve root encroachment. M oderate hypertrophic facet joint disease present bilaterally. IMPRESSION: 1. Large disc protrusion/herniation at the L1-2, the disc space level above the spinal fusion. There is inferior migration of a disc fragment central laterally to the right producing marked encroachment upon the thecal sac. 2. Postsurgical changes at L2-3 and L3-4 no recurrent herniated disc at these levels. 3. Small disc protrusion/herniation at L4-5 with mild to moderate central canal and left foraminal st enosis. 4. Subligamentous disc protrusions as herniation L5-S1 with asymmetric left foraminal encroachment as well. ACT 112: Negative or not required by law. Electronically signed by: Dawson Palacios M.D. 03/03/2022 3:01 PM
[2022-03-03 15:42] LABS: Potassium 4.5 mmol/L (3.5-5.1)
[2022-03-03] MEDS ORDERED: dexAMETHasone**PF** 10 MG/ML VIAL IV ONE (15:49)
--- NOTE | 2022-03-03 16:22 | History & Physical Report ---
Date of Service March 03, 2022 Assessment & Plan (1) Right low back pain: (2) Lumbar disc herniation with radiculopathy: (3) History of lumbar surgery: (4) Hyperglycemia: (5) HTN (hypertension): (6) H/O gastric bypass: (7) Cirrhosis: Plan: This is a 75 year old F who has a significant PMH of HTN, cirrhosis, CKD 3, obesity, hypothyroidism, gluten insensitivity, Depression, hx of gastric bypass who presents ED today secondary to worsening back pain for the past 6 days. Lumbar Spine MRI: IMPRESSION: 1. Large disc protrusion/herniation at the L1-2, the disc space level above the spinal fusion. There is inferior migration of a disc fragment central laterally to the right producing marked encroachment upon the thecal sac. 2. Postsurgical changes at L2-3 and L3-4 no recurrent herniated disc at these levels. 3. Small disc protrusion/herniation at L4-5 with mild to moderate central canal and left foraminal stenosis. 4. Subligamentous disc protrusions as herniation L5-S1 with asymmetric left foraminal encroachment as well. Right low back pain Lumbar disc herniation with radiculopathy History of L2-L4 lumbar decompression fusion by Dr. Ortiz May 2021 Admit to med telemetry for pain control Consult Dr. Ortiz Pain control with IV dexamethasone, as needed Tylenol, oxycodone and IV morphine for severe pain Will make n.p.o. after midnight EKG and chest x-ray for preop testing -patient admits to being able to ambulate 1 flight of steps without exhibiting cardiovascular symptoms hx of Nuc stress test 05/2021 - EF 70% no evidence of inducible ischemia pt does have murmur; however this was also documented on my exam from consultation on 06/03/21 Hyperglycemia pt fbs 11/30 was 101 bsg today 240 no prior hx of T2DM, obtain a1c in a.m. possibly 2/2 to steroid use will obtain a1c, place on sliding scale novolog HTN continue losartan with parameters CKD stage III Baseline creatinine 1.0 Monitor BUN/creatinine Gluten intolerance/dermatitis herpetiformis Gluten-free diet Continue dapsone Diagnosis of cirrhosis Elevated LFTs Likely in setting of fatty liver, no alcohol use compensated monitor lfts Hypothyroidism Continue Synthroid Hx of prolonged qtc last ecg qtc wnl repeat ecg Hx of Gastric bypass DVT ppx: SCD/TEDS Dispo: per primary PCP: Shalom FULL CODE Pt was seen and examined in collaboration with Dr. Turner, please see addendum History of Present Illness Chief Complaint: Worsening low back pain x6 days. Primary Care Provider: Aaron Rausch MD This is a 75 year old F who has a significant PMH of HTN, cirrhosis, CKD 3, obesity, hypothyroidism, gluten insensitivity, Depression, hx of gastric bypass who presents ED today secondary to worsening back pain for the past 6 days. Of significance patient underwent L2 L4 lumbar decompression fusion by Dr. Ortiz on June 03, 2021. Her hospital course was fairly uncomplicated although she did have to return to the OR due to persistent CSF leak for durotomy repair. She has been having pain since surgery however over the last 6 days she has noti rosita a significant increase in her pain, inability to stand or sit and feels best whenever she lies flat and does not move. She also states pain radiates down the front of her right leg. Pain is a 10/10 with movement. If lying still she can tolerate it. Her right leg does feel numb intermittently but denies any current numbness or weakness. She denies any saddle anesthesia or bowel or bladder incontinence. She was seen in orthopedic clinic yesterday and outpatient MRI was ordered, but due to persistent and worsening pain she opted to present to ED. At home she had oxycodone so she tried that. She also has had 3 doses of prednisone. She has been using a walker at home. She denies any recent trauma or fall. She denies any f/c/s, chest pain, sob, uri sx, lightheaded, dizziness, n/v/d, abd pain, dysuria, increased urg/freq urination, dysuria and melena. Patient did undergo lumbar spine MRI which revealed a large disc protrusion herniation at L1-L2, the disc base level above the spinal f usion. Also there is inferior migration of the disc fragment central laterally to the right producing marked encroachment upon thecal sac. Also noted was a small disc protrusion/herniation at L4-5 with mild to moderate central canal and left foraminal stenosis and subligamentous disc protrusions and herniation at L5-S1 with asymmetric left foraminal encroachment as well. ER provider did notify Dr. Ortiz who recommended admission by medicine and likely to undergo surgical repair in the next 1 to 2 days. Allergies Allergy/AdvReac Type Severity Reaction Status Date / Time gluten Allergy Intermediate SKIN Verified 02/28/22 19:54 RASH--DERMATITIS pantoprazole [From Protonix] Allergy Intermediate rash Verified 02/28/22 19:54 Home Medications Medication Instructions Recorded Confirmed Type cholecalciferol (vitamin D3) 25 1,000 unit PO QAM 08/07/18 03/03/22 History mcg (1,000 unit) tablet dapsone 25 mg tablet 50 mg PO BID 08/07/18 03/03/22 History duloxetine 20 mg capsule,delayed 20 mg PO QAM 08/07/18 03/03/22 History release (Cymbalta) levothyroxine 125 mcg tablet 125 mcg PO QAM 08/07/18 03/03/22 History (Synthroid) losartan 100 mg tablet (Cozaar) 50 mg PO QAM 08/07/18 03/03/22 History cyanocobalamin (vitamin B-12) 1,000 mcg IM MONTHLY 03/11/19 03/03/22 History 1,000 mcg/mL injection solution ferrous sulfate 325 mg (65 mg 325 mg PO BID 03/11/19 03/03/22 History iron) tablet fluocinonide 0.05 % topical 1 applic TOPICAL BID PRN 03/11/19 03/03/22 History solution diazepam 2 mg tablet 2 mg PO BID PRN #6 tab 02/17/22 03/03/22 Rx oxycodone 5 mg tablet 5 mg PO Q4H PRN 02/28/22 03/03/22 History prednisone 20 mg tablet 60 mg PO DAILY 4 Days #12 tab 02/28/22 03/03/22 Rx acetaminophen 500 mg tablet 1,000 mg PO Q6H PRN 03/03/22 03/03/22 History (Tylenol Extra Strength) Past Med/Surg History Medical History Anemia STABLE PER PATIENT - TAKES IRON SUPPLEMENT PO DAILY HX OF BLOOD TRANSFUSION YEARS AGO SECONDARY FROM ANEMIA FROM GI ULCER Asthma NO INHALER USE X YEARS Cirrhosis Cryptogenic per PCP records CKD (chronic kidney disease) stage 3, GFR 30-59 ml/min Depression Dermatitis herpetiformis OCCURS WITH GLUTEN Fatty liver History of GI bleed + GASTRIC ULCER x 1; MOST RECENT OCCURRED SEVERAL MONTHS AGO - REPEAT EGD 06/2021 (No blood transfusion needed for GI ulcer in January 2021) HTN (hypertension) Hypothyroidism Kidney stones hx Obesity Osteoarthritis Prolonged QT interval Per PCP records Surgical History H/O gastric bypass 1998 History of cataract surgery LEFT and RIGHT History of cholecystectomy History of colonoscopy History of esophagogastroduodenoscopy (EGD) History of hip replacement right hip Hx of tonsillectomy S/P cystoscopy with ureteral stent placement 03/11/2019 [facility] Family History Brother Pancreatic cancer Mother Pancreatic cancer Father Coronary heart disease Social History Smoking Status: Never smoker Second Hand Exposure: No; Hx Alcohol Use: No Hx Substance Use: No Preferred Language: Serbian Communication Ability: Effective 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 Required: No Beliefs That Will Affect Care: None marital status: / Current Living Situation: Family Current Living Situation Comment: home with son "denise" Other Information That Helps Us Care for You: No Feels Safe at Home: Yes Safety Concerns: Feels Safe At This Time Assistive Devices: None Review of Systems Review of Systems: All systems reviewed & are unremarkable except as noted in HPI & below Physical Exam Physical Exam: Constitutional: WD/WN, vitals as above, NAD, lying flat,, pleasant, conversing easily Head: Normocephalic, Atraumatic Eyes: PERRL, conjunctivae normal, anicteric sclerae ENMT: external ear and nose normal, oropharynx normal Neck: trachea midline, no thyromegaly normal visual inspection Respiratory: normal respiratory effort, lungs clear to auscultation, no wheeze, rales, rhonchi. Normal insp/exp effort, no accessory muscle use Cardiovascular: RRR, 1/6 SRIDHAR noted RUSB, trace b/l lower ext edema Vessels: no JVD or carotid bruit Chest: normal inspection of chest Abdomen:obese, normal bowel sounds, soft, nontender, no hepatosplenomegaly Musculoskeletal: no cyanosis or clubbing, AROM x 4 Skin: no rashes, warm and dry normal turgor Neurologic: PERRL, EOMI, accommodation nl, no face palsy, no dysarthria CN's II-XI intact bilaterally and moves all extremities Psychiatric: A+Ox3, euthymic affect : deferred Results & Data Results & Data ([place]) Vital Signs (Past 12 Hours) Vital Signs Temp Pulse Resp BP Pulse Ox 03/03/22 15:30 87 12 130/83 92 03/03/22 15:00 88 17 112/87 03/03/22 14:33 95 H 15 115/78 95 03/03/22 14:32 97 H 95 03/03/22 13:00 87 19 151/90 H 03/03/22 12:30 88 12 168/91 H 95 03/03/22 12:16 97 H 14 95 03/03/22 11:54 36.6 C 93 H 22 164/101 H 97 Diagnostic Findings Abdomen/Pelvis CT 03/03/22 12:49 CT OF THE ABDOMEN AND PELVIS WITHOUT CONTRAST CLINICAL HISTORY: Right back pain. COMPARISON STUDY: CT of the abdomen and pelvis February 28, 2022. TECHNIQUE: Axial images of the abdomen and pelvis were obtained without IV contrast. Images were reviewed in the axial, sagittal, and coronal planes. Automated exposure control was utilized for the study. A dose lowering adolph hnique was utilized adhering to the principles of ALARA. FINDINGS: Lung bases are unremarkable. No pneumatosis, free air or portal venous gas is present. No renal, ureteral or bladder calculi are present. No hydronephrosis or hydroureter. Evaluation of the remainder of the abdomen and pelvis is suboptimal on this unenhanced exam. The liver is cirrhotic. Mild dilatation of the common bile duct is likely related to cholecystectomy. Size of the spleen is normal. 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 There is no evidence for a bowel obstruction status post Bigg-en-Y gastric bypass. Appendix is not visualized. Images of the pelvis are degraded by streak artifact from right hip arthroplasty. There is no lymphadenopathy or ascites. No acute fracture is identified within visualized skeletal structures. L2-L4 posterior decompression and fusion is noted. The central canal and neural foramen are suboptimally assessed by CT. Note is possible disc bulge at L1-L2. Central canal stenosis cannot be excluded. Possible right paracentral abnormality at the L2-L3 level is also noted. IMPRESSION: 1. No urinary calculi or hydronephrosis. 2. No acute process within the abdomen or pelvis on unenhanced exam. 3. Cirrhosis. Perisplenic varices. 4. No acute lumbar spine fracture. Status post L2-L4 posterior decompression and fusion. Apparent disc bulge at the L1-L2 level and possible right paracentral abnormality at the L2-L3 level. Central canal and neural foramen suboptimally assessed by CT. ACT 112: Negative or not required by law. Electronically signed by: Mike Shaffer M.D. 03/03/2022 2:01 PM Lumbar Spine MRI 03/03/22 12:52 MR lumbar spine wo/w con CLINICAL HISTORY: back pain radiates down rt leg. Back surgery 9 months ago with continued pain since the surgery. Worsening symptoms. TECHNIQUE: Multiplanar multisequence images of the Lumbar Spine were performed with and without IV contrast. Contrast Volume: 10 ml of Gadavist COMPARISON: Standard radiographs from 02/17/2022 FINDINGS: There is no evidence for vertebral body fracture. The patient is status post what appears to be L2 and L3 laminectomies with interpedicular screw and raffy fixation from L2 through L4. The heights of the vertebral bodies are maintained. The vertebral bodies are in anatomic alignment. Homogeneous marrow signal is seen without evidence for marrow edema or marrow replacement. There is no abnormal enhancement following contrast administration. T12-L1: The disc space height is maintained. There are no focal disc protrusions or extrusions identified. The thecal sac and epidural fat are maintained. The neural foramen are patent bilaterally. There is no evidence for nerve root encroachment. The facet joints are within normal limits. L1-2: There is mild disc space narrowing with evidence for a disc protrusion/herniation present. This is at the disc space level above the spine fusion. An 8 mm disc protrusion/herniation is present with inferior migration of disc fragment by at least 2 cm behind the L2 vertebral body. This encroaches upon the thecal sac anteriorly and laterally to the right. There is no evidence for enhancement of this disc fragment and the findings do not represent granulation/scar tissue. The neural foramen are patent bilaterally. L2-3: There is moderate to marked disc space narrowing with no evidence for recurrent disc protrusion/herniation present. There is posterior decompression of thecal sac. Postsurgical changes are present. L3-4: There is moderate to marked disc space narrowing with no evidence for recurrent disc protrusion/herniation present. There is posterior decompression with postsurgical changes and postoperative seroma seen posteriorly. There is no encroachment upon the thecal sac . L4-5: There is moderate disc space narrowing with a 3 to 4 mm broad-based to left lateral disc protrusion/herniation present. This encroaches upon the thecal sac anterolaterally to the left and upon the left neural foramen. No right foraminal encroachment is identified. Mild to moderate hypertrophic facet joint disease and thickening of ligamentum flavum is also present bilaterally. T he combination of these findings produce mild to moderate central canal stenosis and left foraminal stenosis. L5-S1: There is moderate to marked disc space narrowing with a 3 mm subligamentous disc protrusion/herniation present centrally and laterally to the left. Due to the increase amount of epidural fat anterior to the thecal sac at this level, no significant encroachment upon the thecal sac is seen. There is mild asymmetric left foraminal encroachment. There is no evidence for nerve root encroachment. Moderate hypertrophic facet joint disease present bilaterally. IMPRESSION: 1. Large disc protrusion/herniation at the L1-2, the disc space level above the spinal fusion. There is inferior migration of a disc fragment central laterally to the right producing marked encroachment upon the thecal sac. 2. Postsurgical changes at L2-3 and L3-4 no recurrent herniated disc at these levels. 3. Small disc protrusion/herniation at L4-5 with mild to moderate central canal and left foraminal stenosis. 4. Subligamentous disc protrusions as herniation L5-S1 with asymmetric left foraminal encroachment as well. ACT 112: Negative or not required by law. Electronically signed by: Dawson Palacios M.D. 03/03/2022 3:01 PM Medications Administered Medication List Discontinued Medications Dexamethasone Sodium Phosphate (DexamethasonePf 10 Mg/Ml Vial) 10 mg IV NOW ONE Stop: 03/03/22 15:50 Last Admin: 03/03/22 16:18 Dose: 10 mg Documented by: [id number] Gadobutrol (Gadobutrol 65ml Vial) 10 ml IV ONCE ONE Stop: 03/03/22 14:31 Last Admin: 03/03/22 14:14 Dose: 10 ml Documented by: [id number] Morphine Sulfate (Morphine Sulfate 4 Mg/Ml 1 Ml Carp\\Vial) 4 mg IV NOW STA Stop: 03/03/22 12:53 Last Admin: 03/03/22 13:21 Dose: 4 mg Documented by: [id number] Ondansetron HCl (Ondansetron Inj 2 Mg/Ml 2 Ml Vial) 4 mg IV NOW STA Stop: 03/03/22 12:53 Last Admin: 03/03/22 13:21 Dose: 4 mg Documented by: [id number] COVID-19 Results Results COVID-19 Adm Lab Results: RBC 4.14 M/uL (4.2-5.4) L 03/03/22 WBC 11.70 K/uL (4.8-10.8) H 03/03/22 Hgb 14.0 g/dL (12.0-16.0) 03/03/22 Hct 42.2 % (37-47) 03/03/22 Plt Count 322 K/uL (130-400) 03/03/22 Neutrophils (%) (Auto) 89.4 % 03/03/22 Lymphocytes (%) (Auto) 4.6 % 03/03/22 Monocytes # (Auto) 0.67 K/uL (0.11-0.59) H 03/03/22 Eosinophils # (Auto) 0.00 K/uL (0-0.5) 03/03/22 Immature Granulocyte % (Auto) 0.3 % 03/03/22 Neutrophils # (Auto) 10.46 K/uL (1.4-6.5) H 03/03/22 Lymphocytes # (Auto) 0.54 K/uL (1.2-3.4) L 03/03/22 Monocytes # (Auto) 0.67 K/uL (0.11-0.59) H 03/03/22 Eosinophils # (Auto) 0.00 K/uL (0-0.5) 03/03/22 Basophils # (Auto) 0.00 K/uL (0-0.2) 03/03/22 Immature Granulocyte # (Auto) 0.03 K/uL (0.00-0.02) H 03/03/22 Na 134 mmol/L (136-145) L 03/03/22 K 4.5 mmol/L (3.5-5.1) 03/03/22 Cl 103 mmol/L (98-107) 03/03/22 CO2 24 mmol/L (21-32) 03/03/22 Anion Gap 7 (3-11) 03/03/22 BUN 33 mg/dl (6-23) H 03/03/22 Creatinine 0.98 mg/dl (0.6-1.2) 03/03/22 BUN/Creatinine Ratio 33.7 (10-20) H 03/03/22 Glucose Level 240 mg/dl (70-99(Fasting)) H 03/03/22 Ca 9.7 mg/dl (8.5-10.1) 03/03/22 Total Bilirubin 2.1 mg/dl (0.2-1.0) H 03/03/22 AST/SGOT 38 U/L (13-39) 03/03/22 ALT/SGPT 135 U/L (7-52) H 03/03/22 Alkaline Phosphatase 73 U/L (34-104) 03/03/22 Total Protein 6.7 gm/dl (6.0-8.3) 03/03/22 Albumin 3.9 gm/dl (3.4-5.0) 03/03/22 Globulin 2.8 gm/dl (2.5-4.0) 03/03/22 Albumin/Globulin Ratio 1.4 (0.9-2) 03/03/22 SARS-CoV-2, RNA, NAAT NEGATIVE (NEGATIVE) 03/03/22 Chest X-Ray 03/03/22 Code Status & VTE Plan Code Status FULL CODE VTE Prophylaxis Plan VTE Prophylaxis will be ordered: Yes Supervising Physician Co-Signing Physician Notes Patient is a 75-year-old female with history of lumbar decompression fusion surgery in 2020, CKD stage III, cirrhosis and other medical problems presents with history of intractable back pain, ambulatory dysfunction secondary to the pain. Patient states having lower back pain radiating to the right lower extremity, increases with any movement, associated with right lower extremity numbness but denies any tingling, weakness. She denies any fall, trauma. Please review HPI for complete details of presentation. On exam patient is obese, no apparent distress, normocephalic atraumatic, EOMI, normal breath sounds, clear to auscultation, S1-S2, no audible murmur, 1+ bilateral lower extremity edema, abdomen soft, nontender, normal bowel sounds, alert, awake, oriented, grossly no focal deficits,+ straight leg test posterior, lower shake backboard notcher. Blood work showed leukocytosis 11.7, hemoglobin 14, platelets 332K, sodium 134, glucose 240, total bilirubin 2.1, AST 38, ALT 135, alkaline phosphatase 73, MRI suggestive of large disc protrusion/herniation at the L1-L2. EKG showed normal sinus rhythm, nonspecific ST-T changes, QTC 464. Patient is admitted for management of lower back pain secondary to lumbar disc herniation with radiculopathy. We will keep her n.p.o. after midnight for possible surgery tomorrow. Orthopedics consulted. Will start on IV dexamethasone, pain control. We will update HbA1c to rule out diabetes. Given hyperglycemia, use of steroids, will place on insulin sliding scale. I personally reviewed the record. Patient is interviewed and examined at bedside. Patient's care is coordinated with Ana Maria Arceo PA-C. Please refer to the documentation above for details of patient's presentation and for discussion of other issues. (1) Right low back pain Chronicity: acute Sciatica presence: without sciatica Qualified Code(s): M54.50 - Low back pain, unspecified
--- NOTE | 2022-03-03 17:59 | XRay Report ---
XR chest 1V portable HISTORY: Preop. Back pain. COMPARISON: Chest 06/06/2021. FINDINGS: The lungs are clear. Cardiac silhouette is top normal in size. No pleural effusions. No pne umothorax. IMPRESSION: No acute process. ACT 112: Negative or not required by law. Electronically signed by: Rex Small M.D. 03/03/2022 5:58 PM
[2022-03-03] MEDS ORDERED: CARBOHYDRATES FOR HYPOGLYCEMIA PO PRN (18:30)
[2022-03-03] MEDS ORDERED: ACETAMINOPHEN 325 MG TAB PO PRN (18:30)
[2022-03-03] MEDS ORDERED: MAGNESIUM HYDROXIDE SUSP 30 ML UDC PO PRN (18:30)
[2022-03-03] MEDS ORDERED: GLUCOSE 10 TABS/TUBE PO PRN (18:30)
[2022-03-03] MEDS ORDERED: diazePAM 2 MG TABLET PO PRN (18:30)
[2022-03-03] MEDS ORDERED: PHARMACY GLYCEMIC MGMT CONSULT PRN (18:30)
[2022-03-03] MEDS ORDERED: GLUCOSE 40% GEL 15 GM TUBE PO PRN (18:30)
[2022-03-03] MEDS ORDERED: POLYETHYLENE (MIRALAX) 17 GM PACK PO PRN (18:30)
[2022-03-03] MEDS ORDERED: ALUMINUM/MAGNESIUM SUSP 30 ML UDC PO PRN (18:30)
[2022-03-03] MEDS ORDERED: GLUCAGON FOR INJ 1 MG VIAL SQ PRN (18:30)
[2022-03-03] MEDS ORDERED: DEXTROSE 50% 50 ML SYRINGE IV PRN (18:30)
[2022-03-03] MEDS: oxyCODONE HCL IR 5 MG TAB (IMMEDIATE RELEASE) PO PRN (19:05)
[2022-03-03] MEDS: INSULIN ASPART PER UNIT SC SCH ×2 (19:06→20:26)
[2022-03-03] MEDS: DAPSONE 25 MG TAB PO SCH (20:24)
[2022-03-03] MEDS: FERROUS SULFATE 325 MG TAB PO SCH (20:25)
[2022-03-03] MEDS ORDERED: INSULIN ASPART PER UNIT SC SCH (21:00)
[2022-03-03 22:46] LABS: Appearance Urine Clear (Clear); Bacteria Urine Automated Negative (Negative); Bilirubin Urine Negative (Negative); Blood Urine Negative (Negative); Cast Urine Automated 0 /lpf (0-5); Color Urine Dark Yellow; Epithelial Cell Urine Auto >30 /lpf (0-5); Glucose Urine UA Negative (Negative); Ketones Urine Negative (Negative); Leukocyte Esterase Urine 1+ (Negative); Nitrite Urine Negative (Negative); Protein Urine Negative (Negative); RBC Urine Automated 0-4 /hpf (0-4); Specific Gravity Urine 1.029 (1.000-1.030); Urobilinogen Urine Negative (Negative)
[2022-03-03] MEDS: ONDANSETRON INJ 2 MG/ML 2 ML VIAL IV PRN (23:03)
[2022-03-04] MEDS: INSULIN ASPART PER UNIT SC SCH ×6 (00:19→21:17)
[2022-03-04] MEDS: MoRPHine SULFATE 2 MG/ML CARP IV PRN ×2 (03:06→08:43)
[2022-03-04] MEDS: oxyCODONE HCL IR 5 MG TAB (IMMEDIATE RELEASE) PO PRN ×3 (06:35→21:21)
[2022-03-04] MEDS: LEVOTHYROXINE SODIUM 125 MCG TABLET PO SCH (06:36)
[2022-03-04 08:19] LABS: Hematocrit (blood only) 41.1 % (37-47); Hemoglobin 13.8 g/dL (12.0-16.0); Mean Corpuscular Hemoglobin 34.1 pg (25-34); Mean Corpuscular Hgb Conc 33.6 g/dL (32-36); Mean Corpuscular Volume 101.5 fL (80-100); Mean Platelet Volume 10.8 fL (7.4-10.4); Platelet Count 371 K/uL (130-400); RDW Coefficient of Variation 12.6 % (11.5-14.5); Red Blood Count 4.05 M/uL (4.2-5.4); White Blood Count 20.83 K/uL (4.8-10.8)
[2022-03-04 08:27] LABS: INR 1.1 (0.9-1.1); Partial Thromboplastin Ratio 0.9; Partial Thromboplastin Time 23.5 Seconds (21.0-31.0); Prothrombin Time 11.3 Seconds (9.0-12.0)
[2022-03-04 08:33] LABS: Albumin Globulin Ratio 1.4 (0.9-2); Albumin Level 3.7 gm/dl (3.4-5.0); BUN Creatinine Ratio 38.5 (10-20); Bilirubin,Total 2.1 mg/dl (0.2-1.0); Calcium 9.7 mg/dl (8.5-10.1); Creatinine Clr Calc Pharmacy 60.7 ml/min; Est GFR (Non-African American) 62.2 ml/min; Globulin 2.7 gm/dl (2.5-4.0); Magnesium 1.9 mg/dl (1.7-2.4); Potassium 4.5 mmol/L (3.5-5.1); Total Protein 6.4 gm/dl (6.0-8.3)
[2022-03-04] MEDS: LOSARTAN POTASSIUM 50 MG TAB PO SCH (08:42)
[2022-03-04] MEDS: DAPSONE 25 MG TAB PO SCH ×2 (08:42→21:17)
[2022-03-04] MEDS: CHOLECALCIFEROL 1,000 UNITS 25 MCG TAB PO SCH (08:42)
[2022-03-04] MEDS: FERROUS SULFATE 325 MG TAB PO SCH ×2 (08:42→21:17)
[2022-03-04] MEDS: DULoxetine HCL 20 MG CAP PO SCH (08:42)
[2022-03-04] MEDS: ONDANSETRON INJ 2 MG/ML 2 ML VIAL IV PRN ×2 (08:43→21:26)
[2022-03-04 08:50] LABS: Eosinophils # (auto) 0.01 K/uL (0-0.5); Immature Granulocytes # (auto) 0.06 K/uL (0.00-0.02); Immature Granulocytes % (auto) 0.3 %; Lymphocytes # (auto) 1.64 K/uL (1.2-3.4); Lymphocytes % (auto) 7.9 %; Monocytes # (auto) 1.98 K/uL (0.11-0.59); Monocytes % (auto) 9.5 %; Neutrophils # (auto) 17.14 K/uL (1.4-6.5); Neutrophils % (auto) 82.3 %
[2022-03-04] MEDS ORDERED: DEXAMETHASONE SOD INJ 4 MG/ML VIAL IV SCH (09:00)
[2022-03-04] MEDS: dexAMETHasone 10 MG in SYRINGE 0 ML IV SCH (09:41)
--- NOTE | 2022-03-04 11:51 | Hospitalist Progress Note ---
Date of Service March 04, 2022 Assessment & Plan (1) Lumbar disc herniation with radiculopathy: (2) History of lumbar surgery: (3) Hyperglycemia: (4) HTN (hypertension): (5) H/O gastric bypass: (6) Cirrhosis: Plan: This is a 75 year old F who has a significant PMH of HTN, cirrhosis, CKD 3, obesity, hypothyroidism, gluten insensitivity, Depression, hx of gastric bypass who presents ED today secondary to worsening back pain for the past 6 days. Lumbar Spine MRI 03/03 1. Large disc protrusion/herniation at the L1-2, the disc space level above the spinal fusion. There is inferior migration of a disc fragment central laterally to the right producing marked encroachment upon the thecal sac. 2. Postsurgical changes at L2-3 and L3-4 no recurrent herniated disc at these levels. 3. Small disc protrusion/herniation at L4-5 with mild to moderate central canal and left foraminal stenosis. 4. Subligamentous disc protrusions as herniation L5-S1 with asymmetric left foraminal encroachment as well. Low back pain/Lumbar disc herniation with radiculopathy with history of L2-L4 lumbar decompression fusion by Dr. Ortiz May 2021 - MRI lumbar spine noted as above - continue pain management with steroid, tylenol, oxy, iv morphine prn. NPO pending evaluation by Dr Ortiz. Might need surgery Leucocytosis- likely due to steroids. No focal source of infection identified. Recheck in am. If fever or clinical status change, will consider empiric ABx. Hyperglycemia- No diagnosis of DM. A1c pending. BG elevated likely due to steroids. On SSI prn HTN- BP elevated because of pain. continue losartan with hold parameters Gluten intolerance/dermatitis herpetiformis- Gluten-free diet, Continue dapsone Diagnosis of cirrhosis, Elevated ALT- Likely in setting of fatty liver, no alcohol use - Cautious use of tylenol if LFTs trend up Hypothyroidism- Continue Synthroid Hx of Gastric bypass DVT ppx: SCD/TEDS- start chemoprophylaxis as soon as possible when okay per ortho Dispo: Continue inpatient management- Ortho evaluation pending Admission and Anticipated Discharge Date Admission Date: March 03, 2022 Subjective Continues to be in pain. States she has been lying flat in bed over the past week due to the severe back pain. She has been in the ED multiple times recently for the same issue. Denies any trauma or injuries. Denies any bowel bladder incontinence. Last BM couple days ago. Denies any fever, chills, chest pain, shortness of breath. She is okay with the current pain regimen. Physical Exam Physical Exam: General: Obese, Lying flat in bed, in some discomfort due to pain, on room air HEENT: EOMI, ABHI, MMM Chest: Clear breath sounds anteriorly CVS: Regular rate and rhythm, normal heart sounds, no murmur Abdomen: Soft, non tender, not distended, normal bowel sounds Neuro: Awake, alert, oriented, conversing well, non focal Extremities: No cyanosis, clubbing or edema Results & Data Results & Data ([facility]) Vital Signs (Past 12 Hours) Vital Signs Temp Pulse Pulse Resp BP Pulse Ox 03/04/22 11:13 36.6 C 95 H 16 151/82 H 90 03/04/22 10:57 96 H 03/04/22 07:55 36.7 C 87 17 147/80 H 92 03/04/22 03:36 36.7 C 91 H 20 154/83 H 97 03/04/22 00:00 88 Laboratory Results Short CBC 03/03/22 03/04/22 Range/Units 13:14 07:48 WBC 11.70 H 20.83 H (4.8-10.8) K/uL Hgb 14.0 13.8 (12.0-16.0) g/dL Hct 42.2 41.1 (37-47) % Plt Count 322 371 (130-400) K/uL BMP 03/03/22 03/03/22 03/03/22 13:14 14:36 15:10 Sodium 134 L Potassium TNP Cancelled 4.5 Chloride 103 Carbon Dioxide 24 BUN 33 H Creatinine 0.98 Glucose 240 H Calcium 9.7 03/04/22 07:48 Sodium 134 L Potassium 4.5 Chloride 104 Carbon Dioxide 23 BUN 35 H Creatinine 0.91 Glucose 125 H Calcium 9.7 Liver Function 03/03/22 03/03/22 03/03/22 Range/Units 13:14 14:36 15:10 Total Bilirubin 2.1 H (0.2-1.0) mg/dl AST TNP Cancelled 38 ALT 135 H (7-52) U/L Alkaline Phosphatase 73 (34-104) U/L Albumin 3.9 (3.4-5.0) gm/dl 03/04/22 Range/Units 07:48 Total Bilirubin 2.1 H (0.2-1.0) mg/dl AST 30 ALT 101 H (7-52) U/L Alkaline Phosphatase 71 (34-104) U/L Albumin 3.7 (3.4-5.0) gm/dl Urine 03/03/22 Range/Units 21:00 Urine Color Dark Yellow Urine Appearance Clear (Clear) Urine pH 7.0 (4.5-7.5) Ur Specific [place] 1.029 (1.000-1.030) Urine Protein Negative (Negative) Urine Glucose (UA) Negative (Negative) Medications Administered Current Inpatient Medications Acetaminophen (Acetaminophen 325 Mg Tab) 650 mg PO Q4H PRN PRN Reason: Pain or Fever Stop: 04/02/22 18:29 Al Hydrox/Mg Hydrox/Simethicone (Aluminum/Magnesium Susp 30 Ml Udc) 15 ml PO Q4H PRN PRN Reason: Dyspepsia Stop: 04/02/22 18:29 Dapsone (Dapsone 25 Mg Tab) 50 mg PO BID [facility] Stop: 04/02/22 20:59 Last Admin: 03/04/22 08:42 Dose: 50 mg Documented by: Dextrose (Dextrose 50% 50 Ml Syringe) 25 - 50 ml IV UD PRN; Protocol PRN Reason: Hypoglycemia Protocol Stop: 04/02/22 18:29 Diazepam (Diazepam 2 Mg Tablet) 2 mg PO BID PRN PRN Reason: anxiety Stop: 04/02/22 18:29 Duloxetine HCl (Duloxetine Hcl 20 Mg Cap) 20 mg PO QAM [facility] Stop: 04/03/22 08:59 Last Admin: 03/04/22 08:42 Dose: 20 mg Documented by: Ferrous Sulfate (Ferrous Sulfate 325 Mg Tab) 325 mg PO BID [facility] Stop: 04/02/22 20:59 Last Admin: 03/04/22 08:42 Dose: 325 mg Documented by: Glucagon (Glucagon For Inj 1 Mg Vial) 1 mg SQ UD PRN; Protocol PRN Reason: Hypoglycemia Protocol Stop: 04/02/22 18:29 Glucose (Glucose 10 Tabs/Tube) 4 - 8 tabs PO UD PRN; Protocol PRN Reason: Hypoglycemia Protocol Stop: 04/02/22 18:29 Glucose (Glucose 40% Gel 15 Gm Tube) 15 - 30 gm PO UD PRN; Protocol PRN Reason: Hypoglycemia Protocol Stop: 04/02/22 18:29 Dexamethasone 10 mg/ Syringe 2.5 mls @ 1 mls/min IV DAILY [facility] Stop: 03/05/22 09:03 Last Admin: 03/04/22 09:41 Dose: 1 mls/min Documented by: Insulin Aspart (Insulin Aspart Per Unit) 0 units SC ACHS [facility] Stop: 04/02/22 18:29 Last Admin: 03/04/22 08:25 Dose: 2 units Documented by: Levothyroxine Sodium (Levothyroxine Sodium 125 Mcg Tablet) 125 mcg PO DAILYBB [facility] Stop: 04/03/22 06:29 Last Admin: 03/04/22 06:36 Dose: 125 mcg Documented by: Losartan Potassium (Losartan Potassium 50 Mg Tab) 50 mg PO QAM [facility] Stop: 04/03/22 08:59 Last Admin: 03/04/22 08:42 Dose: 50 mg Documented by: Magnesium Hydroxide (Magnesium Hydroxide Susp 30 Ml Udc) 30 ml PO Q12H PRN PRN Reason: Constipation Stop: 04/02/22 18:29 Miscellaneous (Carbohydrates For Hypoglycemia ) 15 - 30 gm PO UD PRN PRN Reason: Hypoglycemia Protocol Stop: 04/02/22 18:29 Miscellaneous Information (Pharmacy Glycemic Mgmt Consult) 1 ea N/A UD PRN PRN Reason: Consult Stop: 04/02/22 18:29 Morphine Sulfate (Morphine Sulfate 2 Mg/Ml Carp) 2 mg IV Q4 PRN PRN Reason: severe pain Stop: 03/17/22 18:29 Last Admin: 03/04/22 08:43 Dose: 2 mg Documented by: Ondansetron HCl (Ondansetron Inj 2 Mg/Ml 2 Ml Vial) 4 mg IV Q6H PRN PRN Reason: Nausea Stop: 04/02/22 18:29 Last Admin: 03/04/22 08:43 Dose: 4 mg Documented by: Oxycodone HCl (Oxycodone Hcl Ir 5 Mg Tab (Immediate Release)) 5 mg PO Q4H PRN PRN Reason: Pain, Severe Stop: 03/17/22 18:29 Last Admin: 03/04/22 06:35 Dose: 5 mg Documented by: Polyethylene Glycol (Polyethylene (Miralax) 17 Gm Pack) 17 gm PO DAILY PRN PRN Reason: Constipation Stop: 04/02/22 18:29 Last Admin: 03/04/22 08:42 Dose: 17 gm Documented by: Vitamin D (Cholecalciferol 1,000 Units 25 Mcg Tab) 1,000 units PO QAM [facility] Stop: 04/03/22 08:59 Last Admin: 03/04/22 08:42 Dose: 1,000 units Documented by:
--- NOTE | 2022-03-04 14:22 | Orthopedic Consultation ---
Date of Consultation March 04, 2022 Assessment & Plan (1) Lumbar disc herniation with radiculopathy: Assessment L1-L2 disc condition with caudal migration on the right. Plan at this time she has severe neural compression with radiculopathy and inability ambulate. I am recommending urgent lumbar decompression and evacuation of the disc at L1-L2. This would require extension of the fusion from T12-L2. Risk benefits pros cons and outlined in detail. At this time we will plan for surgery in the next few days when medically cleared. History of Present Illness Reason for Consultation: Right leg pain and weakness Attending Physician: Deshawn Dunham MD History of Present Illness This is a 76-year-old female well-known to me the presents with a marked decline in status over the past week. She denies any specific trauma fall or event. She has pain rating the right buttock into the right groin and anterior thigh. Does not extend below the knee. Markedly exacerbated standing walking. In fact he is been unable to walk secondary to pain. She has on the emergency room on 3 occasions secondary to pain. Was admitted underwent updated imaging determined to have of massive disc herniation L1-L2 with caudal migration on the right and encroachment of the L2 nerve root. Left lower extremity is asymptomatic. Allergies Allergy/AdvReac Type Severity Reaction Status Date / Time gluten Allergy Intermediate SKIN Verified 02/28/22 19:54 RASH--DERMATITIS pantoprazole [From Protonix] Allergy Intermediate rash Verified 02/28/22 19:54 Home Medications Medication Instructions Recorded Confirmed Type cholecalciferol (vitamin D3) 25 1,000 unit PO QAM 08/07/18 03/03/22 History mcg (1,000 unit) tablet dapsone 25 mg tablet 50 mg PO BID 08/07/18 03/03/22 History duloxetine 20 mg capsule,delayed 20 mg PO QAM 08/07/18 03/03/22 History release (Cymbalta) levothyroxine 125 mcg tablet 125 mcg PO QAM 08/07/18 03/03/22 History (Synthroid) losartan 100 mg tablet (Cozaar) 50 mg PO QAM 08/07/18 03/03/22 History cyanocobalamin (vitamin B-12) 1,000 mcg IM MONTHLY 03/11/19 03/03/22 History 1,000 mcg/mL injection solution ferrous sulfate 325 mg (65 mg 325 mg PO BID 03/11/19 03/03/22 History iron) tablet fluocinonide 0.05 % topical 1 applic TOPICAL BID PRN 03/11/19 03/03/22 History solution diazepam 2 mg tablet 2 mg PO BID PRN #6 tab 02/17/22 03/03/22 Rx oxycodone 5 mg tablet 5 mg PO Q4H PRN 02/28/22 03/03/22 History prednisone 20 mg tablet 60 mg PO DAILY 4 Days #12 tab 02/28/22 03/03/22 Rx acetaminophen 500 mg tablet 1,000 mg PO Q6H PRN 03/03/22 03/03/22 History (Tylenol Extra Strength) Patient History Medical History Anemia STABLE PER PATIENT - TAKES IRON SUPPLEMENT PO DAILY HX OF BLOOD TRANSFUSION YEARS AGO SECONDARY FROM ANEMIA FROM GI ULCER Asthma NO INHALER USE X YEARS Cirrhosis Cryptogenic per PCP records CKD (chronic kidney disease) stage 3, GFR 30-59 ml/min Depression Dermatitis herpetiformis OCCURS WITH GLUTEN Fatty liver History of GI bleed + GASTRIC ULCER x 1; MOST RECENT OCCURRED SEVERAL MONTHS AGO - REPEAT EGD 06/2021 (No blood transfusion needed for GI ulcer in January 2021) HTN (hypertension) Hypothyroidism Kidney stones hx Obesity Osteoarthritis Prolonged QT interval Per PCP records Surgical History H/O gastric bypass 1998 History of cataract surgery LEFT and RIGHT History of cholecystectomy History of colonoscopy History of esophagogastroduodenoscopy (EGD) History of hip replacement right hip Hx of tonsillectomy S/P cystoscopy with ureteral stent placement 03/11/2019 [facility] Family History Brother Pancreatic cancer Mother Pancreatic cancer Father Coronary heart disease Social History Smoking Status: Never smoker Second Hand Exposure: No; Hx Alcohol Use: No Hx Substance Use: No Preferred Language: [place] Communication Ability: Effective 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 She exhibits plus out of 5 plantar flexion dorsiflexion bilaterally. She does have active hip flexion bilaterally. Sensory appears to be symmetric and intact. Results & Data ([facility]) Vital Signs (Past 12 Hours) Vital Signs Temp Pulse Pulse Resp BP Pulse Ox 03/04/22 11:13 36.6 C 95 H 16 151/82 H 90 03/04/22 10:57 96 H 03/04/22 07:55 36.7 C 87 17 147/80 H 92 03/04/22 03:36 36.7 C 91 H 20 154/83 H 97
[2022-03-04] MEDS: LIDOCAINE 5% 1 PATCH TD SCH (14:58)
--- NOTE | 2022-03-04 15:36 | Electrocardiogram Report ---
Test Reason : Blood Pressure : / mmHG Vent. Rate : 092 BPM Atrial Rate : 092 BPM P-R Int : 118 ms QRS Dur : 092 ms QT Int : 376 ms P-R-T Axes : 028 -03 235 degrees QTc Int : 464 ms Normal sinus rhythm Nonspecific ST and T wave abnormality Abnormal ECG When compared with ECG of 06-JUN-2021 11:18, Nonspecific T wave abnormality now evident in Inferior leads Confirmed by Srinivas June ([id number]) on 03/04/2022 3:36:27 PM Referred By: REFERRED SELF Confirmed By:Srinivas June
--- NOTE | 2022-03-04 15:45 | Electrocardiogram Report ---
Test Reason : Blood Pressure : / mmHG Vent. Rate : 088 BPM Atrial Rate : 088 BPM P-R Int : 130 ms QRS Dur : 092 ms QT Int : 380 ms P-R-T Axes : 032 -10 223 degrees QTc Int : 459 ms Normal sinus rhythm Minimal voltage criteria for LVH, may be normal variant Septal infarct , age undetermined Abnormal ECG When compared with ECG of 03-MAR-2022 17:37, (unconfirmed) Septal infarct is now Present Confirmed by Srinivas June ([id number]) on 03/04/2022 3:45:02 PM Referred By: REFERRED SELF Confirmed By:Srinivas June
[2022-03-04] MEDS: HEPARIN SOD 5,000 UNIT/0.5 ML VIAL SQ SCH (21:18)
[2022-03-05 02:41] LABS: EAG mmol/L DNR mmol/L; HA1C <4.0 (<5.7)
[2022-03-05] MEDS: HEPARIN SOD 5,000 UNIT/0.5 ML VIAL SQ SCH ×3 (05:57→21:11)
[2022-03-05] MEDS: oxyCODONE HCL IR 5 MG TAB (IMMEDIATE RELEASE) PO PRN ×2 (06:15→21:16)
[2022-03-05] MEDS: LEVOTHYROXINE SODIUM 125 MCG TABLET PO SCH (06:38)
[2022-03-05] MEDS: FERROUS SULFATE 325 MG TAB PO SCH ×2 (09:30→21:10)
[2022-03-05] MEDS: CHOLECALCIFEROL 1,000 UNITS 25 MCG TAB PO SCH (09:30)
[2022-03-05] MEDS: DAPSONE 25 MG TAB PO SCH ×2 (09:30→21:10)
[2022-03-05] MEDS: DULoxetine HCL 20 MG CAP PO SCH (09:30)
[2022-03-05] MEDS: LOSARTAN POTASSIUM 50 MG TAB PO SCH (09:30)
[2022-03-05] MEDS: INSULIN ASPART PER UNIT SC SCH ×4 (09:34→21:11)
[2022-03-05 09:50] LABS: Basophils # (auto) 0.01 K/uL (0-0.2); Basophils % (auto) 0.1 %; Eosinophils # (auto) 0.05 K/uL (0-0.5); Eosinophils % (auto) 0.3 %; Hemoglobin 13.8 g/dL (12.0-16.0); Immature Granulocytes # (auto) 0.09 K/uL (0.00-0.02); Immature Granulocytes % (auto) 0.5 %; Lymphocytes # (auto) 1.99 K/uL (1.2-3.4); Mean Corpuscular Hemoglobin 32.9 pg (25-34); Mean Corpuscular Hgb Conc 32.1 g/dL (32-36); Mean Corpuscular Volume 102.4 fL (80-100); Monocytes # (auto) 2.04 K/uL (0.11-0.59); Monocytes % (auto) 10.3 %; Neutrophils # (auto) 15.71 K/uL (1.4-6.5); Neutrophils % (auto) 78.8 %; Platelet Count 371 K/uL (130-400); RDW Coefficient of Variation 13.1 % (11.5-14.5); RDW Standard Deviation 49.1 fL (36.4-46.3); White Blood Count 19.89 K/uL (4.8-10.8)
[2022-03-05] MEDS: dexAMETHasone 10 MG in SYRINGE 0 ML IV SCH (09:53)
[2022-03-05 10:16] LABS: Albumin Globulin Ratio 1.4 (0.9-2); Albumin Level 3.8 gm/dl (3.4-5.0); BUN Creatinine Ratio 41.4 (10-20); Bilirubin,Total 2.3 mg/dl (0.2-1.0); Calcium 9.4 mg/dl (8.5-10.1); Creatinine Clr Calc Pharmacy 47.6 ml/min; Est GFR (African American) 53.7 ml/min; Est GFR (Non-African American) 46.3 ml/min; Globulin 2.7 gm/dl (2.5-4.0); Total Protein 6.5 gm/dl (6.0-8.3)
[2022-03-05] MEDS: LIDOCAINE 5% 1 PATCH TD SCH (10:30)
--- NOTE | 2022-03-05 11:08 | Orthopedic Progress Note ---
Date of Service March 05, 2022 Assessment & Plan (1) Lumbar disc herniation with radiculopathy: Plan: Assessment lumbar disc herniation L1-L2 with caudal migration. Plan at this time we will make her n.p.o. after midnight and plan for surgery tomorrow. All questions were addressed. Admission and Anticipated Discharge Date Admission Date: March 03, 2022 Subjective Patient still struggling with significant right leg pain. She is most comfortable lying supine. Physical Exam Physical Exam: Patient has plantarflexion dorsiflexion intact. But she is unable to ambulate. Results & Data ([facility]) Vital Signs (Past 12 Hours) Vital Signs Temp Pulse Pulse Resp BP Pulse Ox 03/05/22 09:37 80 16 134/80 03/05/22 07:13 90 03/05/22 03:00 36.5 C 73 20 147/82 H 92 03/05/22 01:44 97 H
[2022-03-05] MEDS: MoRPHine SULFATE 2 MG/ML CARP IV PRN (12:54)
[2022-03-05] MEDS: ONDANSETRON INJ 2 MG/ML 2 ML VIAL IV PRN ×2 (12:54→21:19)
--- NOTE | 2022-03-05 18:55 | Hospitalist Progress Note ---
Date of Service March 05, 2022 Assessment & Plan (1) Lumbar disc herniation with radiculopathy: (2) History of lumbar surgery: (3) Hyperglycemia: (4) HTN (hypertension): (5) H/O gastric bypass: (6) Cirrhosis: Plan: 75 year old F who has a significant PMH of HTN, cirrhosis, CKD 3, obesity, hypothyroidism, gluten insensitivity, Depression, hx of gastric bypass who presents ED 03/03 secondary to worsening back pain for the past 6 days [employer]. She is being managed for the following: #. Low back pain/Lumbar disc herniation with radiculopathy History of L2-L4 lumbar decompression fusion by Dr. Ortiz May 2021 Lumbar Spine MRI 03/03 1. Large disc protrusion/herniation at the L1-2, the disc space level above the spinal fusion. There is inferior migration of a disc fragment central laterally to the right producing marked encroachment upon the thecal sac. 2. Postsurgical changes at L2-3 and L3-4 no recurrent herniated disc at these levels. 3. Small disc protrusion/herniation at L4-5 with mild to moderate central canal and left foraminal stenosis. 4. Subligamentous disc protrusions as herniation L5-S1 with asymmetric left foraminal encroachment as well. - MRI lumbar spine noted as above -Patient with no history of TIA or stroke or NE or stents in the heart in the past, able to walk without shortness of breath or chest pain 2-3 flight of stairs just prior to her worsening low back pain. Acceptable risk for surgery. - continue pain management with steroid, tylenol, oxy, iv morphine prn. NPO midnight, plan for OR by Dr. Ortiz on 03/06. Hold DVT Px. #. Leucocytosis- likely due to steroids. Patient reports he is on and off of steroid mostly for her dermatitis herpetiformis, lately she has been on a steroid for 3 days prior to arrival for her low back pain. She is not on steroid chronically per patient. No focal source of infection identified. Patient afebrile. If fever or clinical status change, will consider empiric ABx. #. Hyperglycemia- No diagnosis of DM. A1c <4. BG elevated likely due to steroids. continue to monitor yoni when on steroids. #. Other chronic medical conditions: HTN, gluten intolerance/dermatitis herpetiformis, diagnosis of cirrhosis, elevated ALT [likely in the setting of fatty liver, no alcohol use], hypothyroidism. Continue with/resume home meds as and when appropriate. Cautious use of Tylenol if LFTs trend up. DVT ppx: SCD/TEDS- start chemoprophylaxis as soon as possible when okay per ortho Dispo: Continue inpatient management- for OR shannen. Admission and Anticipated Discharge Date Admission Date: March 03, 2022 Subjective Patient seen and examined at bedside as a follow-up of low back pain/lumbar disc herniation with radiculopathy with history of L2-L4 lumbar decompression fusion by Dr. Ortiz May 2021. Patient was lying in bed, on room air, was in distress due to ongoing low back pain, was awaiting pain medication, asking for IV morphine as p.o. oxycodone did not help her in the morning. Patient denies other acute events overnight, reports eating okay and moving bowels okay. Patient denies headache/dizziness/chest pain/palpitations/belly pain/other review of symptoms. Patient to remain n.p.o. overnight for possible surgery tomorrow by orthospine. Physical Exam Physical Exam: GENERAL: Alert and oriented x3. mild discomfort d/t pain, on RA. Obese. HEENT: No pallor, no icterus. Pupils equal, round and reactive to light. Oral mucosa moist. NECK: No JVD, no neck masses. HEART: S1 and S2 heard. Regular rate and rhythm. No murmur, no gallop. RESPIRATORY SYSTEM: Normal AP diameter. No accessory muscle use. No wheezing, no crackles. ABDOMEN: Soft, bowel sounds present, nontender, no distention. CENTRAL NERVOUS SYSTEM: No facial droop. Speech is clear. Obeys simple commands. Moves extremities. EXTREMITIES: No edema, no erythema seen. Results & Data Results & Data ([facility]) Vital Signs (Past 12 Hours) Vital Signs Temp Pulse Pulse Resp BP Pulse Ox 03/05/22 16:14 96 H 03/05/22 15:12 36.6 C 88 16 124/76 92 03/05/22 12:51 36.5 C 80 16 154/85 H 95 03/05/22 09:37 80 16 134/80 03/05/22 07:13 90
[2022-03-05] MEDS ORDERED: NITROGLYCERIN SL 0.4 MG/TAB TAB SL STA (23:02)
[2022-03-06] MEDS: LEVOTHYROXINE SODIUM 125 MCG TABLET PO SCH (06:45)
[2022-03-06] MEDS ORDERED: fentaNYL citrate 100 MCG/2 ML VIAL ONE (07:01)
[2022-03-06] MEDS ORDERED: PROPOFOL IV EMULSION 10 MG/ML 20 ML VIAL IV ONE (07:01)
[2022-03-06] MEDS ORDERED: NEOSTIGMINE METHYLSULFATE 1 MG/ML 10ML VIAL ONE (07:01)
[2022-03-06] MEDS ORDERED: LIDOCAINE 2% 2 ML VIAL/AMP(20MG/ML) INFIL ONE (07:01)
[2022-03-06] MEDS ORDERED: GLYCOPYRROLATE 0.2 MG/ML VIAL ONE (07:01)
[2022-03-06] MEDS ORDERED: DEXAMETHASONE SOD INJ 4 MG/ML VIAL ONE (07:01)
[2022-03-06] MEDS ORDERED: MIDAZOLAM HCL 1 MG/ML 2ML VIAL ONE (07:01)
[2022-03-06] MEDS ORDERED: ONDANSETRON INJ 2 MG/ML 2 ML VIAL ONE (07:01)
[2022-03-06] MEDS ORDERED: SODIUM CHLORIDE 0.9% INJ 10 ML VIAL ONE (07:02)
[2022-03-06] MEDS ORDERED: ePHEDrine sulfate 50 MG/ML AMP ONE (07:02)
--- NOTE | 2022-03-06 07:04 | Anesthesiology Consultation ---
Date of Service March 06, 2022 Assessment & Plan (1) Encounter for pre-operative examination: Chart Review Chart Review: Acceptable Risk for Surgery History Surgery Operation Date: 03/06/22 07:30 Proposed Procedures p T12-L2 Decompression Fusion - Cayetano Ortiz DO Operation Date: 03/07/22 07:30 Proposed Procedures p T12-L2 Decompression Fusion - Cayetano Ortiz DO Height/Weight Height: 5 ft 3 in Weight: 99.5 kg Allergies Allergy/AdvReac Type Severity Reaction Status Date / Time gluten Allergy Intermediate SKIN Verified 02/28/22 19:54 RASH--DERMATITIS pantoprazole [From Protonix] Allergy Intermediate rash Verified 02/28/22 19:54 Medications Home Medications Medication Instructions Recorded Confirmed Last Taken cholecalciferol (vitamin D3) 25 1,000 unit PO QAM 08/07/18 03/03/22 02/28/22 mcg (1,000 unit) tablet dapsone 25 mg tablet 50 mg PO BID 08/07/18 03/03/22 02/28/22 08:00 duloxetine 20 mg capsule,delayed 20 mg PO QAM 08/07/18 03/03/22 02/28/22 release (Cymbalta) levothyroxine 125 mcg tablet 125 mcg PO QAM 08/07/18 03/03/22 02/28/22 (Synthroid) losartan 100 mg tablet (Cozaar) 50 mg PO QAM 08/07/18 03/03/22 02/28/22 cyanocobalamin (vitamin B-12) 1,000 mcg IM MONTHLY 03/11/19 03/03/22 05/07/21 1,000 mcg/mL injection solution ferrous sulfate 325 mg (65 mg 325 mg PO BID 03/11/19 03/03/22 02/28/22 08:00 iron) tablet fluocinonide 0.05 % topical 1 applic TOPICAL BID PRN 03/11/19 03/03/22 05/31/21 solution diazepam 2 mg tablet 2 mg PO BID PRN #6 tab 02/17/22 03/03/22 Unknown oxycodone 5 mg tablet 5 mg PO Q4H PRN 02/28/22 03/03/22 Unknown prednisone 20 mg tablet 60 mg PO DAILY 4 Days #12 tab 02/28/22 03/03/22 Unknown acetaminophen 500 mg tablet 1,000 mg PO Q6H PRN 03/03/22 03/03/22 Unknown (Tylenol Extra Strength) Active Medications Generic Name Dose Route Start Last Admin Trade Name Stacia PRN Reason Stop Dose Admin Dapsone 50 mg 03/03/22 21:00 03/05/22 21:10 Dapsone 25 Mg Tab PO 04/02/22 20:59 50 mg BID LOENIDAS Administration Duloxetine HCl 20 mg 03/04/22 09:00 03/05/22 09:30 Duloxetine Hcl 20 Mg Cap PO 04/03/22 08:59 20 mg QAM LEONIDAS Administration Ferrous Sulfate 325 mg 03/03/22 21:00 03/05/22 21:10 Ferrous Sulfate 325 Mg Tab PO 04/02/22 20:59 325 mg BID LEONIDAS Administration Insulin Aspart 0 units 03/03/22 18:30 03/05/22 21:11 Insulin Aspart Per Unit SC 04/02/22 18:29 Not Given ACHS LEONIDAS Levothyroxine Sodium 125 mcg 03/04/22 06:30 03/06/22 06:45 Levothyroxine Sodium 125 Mcg Tablet PO 04/03/22 06:29 Not Given DAILYBB LEONIDAS Lidocaine 1 patch 03/04/22 13:15 03/05/22 10:30 Lidocaine 5% 1 Patch TD 04/03/22 13:14 Not Given QAM LEONIDAS Losartan Potassium 50 mg 03/04/22 09:00 03/05/22 09:30 Losartan Potassium 50 Mg Tab PO 04/03/22 08:59 50 mg QAM LEONIDAS Administration Miscellaneous 15 - 30 gm 03/03/22 18:30 03/05/22 08:08 Carbohydrates For Hypoglycemia PO 04/02/22 18:29 30 gm UD PRN Administration Hypoglycemia Protocol Miscellaneous 1 ea 03/04/22 21:00 03/05/22 21:10 Remove Lidoderm Patch N/A 04/03/22 20:59 Not Given DAILY@2100 LEONIDAS Morphine Sulfate 2 mg 03/03/22 18:30 03/05/22 12:54 Morphine Sulfate 2 Mg/Ml Carp IV 03/17/22 18:29 2 mg Q4 PRN Administration severe pain Ondansetron HCl 4 mg 03/03/22 18:30 03/05/22 21:19 Ondansetron Inj 2 Mg/Ml 2 Ml Vial IV 04/02/22 18:29 4 mg Q6H PRN Administration Nausea Oxycodone HCl 5 mg 03/03/22 18:30 03/05/22 21:16 Oxycodone Hcl Ir 5 Mg Tab (Immediate Release) PO 03/17/22 18:29 5 mg Q4H PRN Administration Pain, Severe Polyethylene Glycol 17 gm 03/03/22 18:30 03/04/22 08:42 Polyethylene (Miralax) 17 Gm Pack PO 04/02/22 18:29 17 gm DAILY PRN Administration Constipation Vitamin D 1,000 units 03/04/22 09:00 03/05/22 09:30 Cholecalciferol 1,000 Units 25 Mcg Tab PO 04/03/22 08:59 1,000 units QAM LEONIDAS Administration NPO Date Last Intake of Fluids: 03/05/22 Time Last Intake of Fluids: 22:00 Date Last Intake of Solids: 03/05/22 Time Last Intake of Solids: 18:35 Past Medical History Medical History Anemia STABLE PER PATIENT - TAKES IRON SUPPLEMENT PO DAILY HX OF BLOOD TRANSFUSION YEARS AGO SECONDARY FROM ANEMIA FROM GI ULCER Asthma NO INHALER USE X YEARS Cirrhosis Cryptogenic per PCP records CKD (chronic kidney disease) stage 3, GFR 30-59 ml/min Depression Dermatitis herpetiformis OCCURS WITH GLUTEN Fatty liver History of GI bleed + GASTRIC ULCER x 1; MOST RECENT OCCURRED SEVERAL MONTHS AGO - REPEAT EGD 06/2021 (No blood transfusion needed for GI ulcer in January 2021) HTN (hypertension) Hypothyroidism Kidney stones hx Obesity Osteoarthritis Prolonged QT interval Per PCP records Past Family History Family History Brother Pancreatic cancer Mother Pancreatic cancer Father Coronary heart disease Past Surgical History Surgical History H/O gastric bypass 1998 History of cataract surgery LEFT and RIGHT History of cholecystectomy History of colonoscopy History of esophagogastroduodenoscopy (EGD) History of hip replacement right hip Hx of tonsillectomy S/P cystoscopy with ureteral stent placement 03/11/2019 [facility] Social History Smoking Status: Never smoker tobacco type: cigarettes Hx Alcohol Use: No Hx Substance Use: No substance use type: does not use Physical Exam Vital Signs Last Vital Signs Temp 36.5 C 03/06/22 03:00 Pulse 85 03/06/22 03:00 Resp 18 03/06/22 03:00 BP 131/76 03/06/22 03:00 Pulse Ox 91 03/06/22 03:00 Testing Laboratory Results 03/05/22 09:25 03/05/22 09:25 PT 11.3 Seconds (9.0-12.0) 03/04/22 07:48 INR 1.1 (0.9-1.1) 03/04/22 07:48 APTT 23.5 Seconds (21.0-31.0) 03/04/22 07:48 Hemoglobin A1c <4.0 (<5.7) 03/04/22 07:48 Hemoglobin A1c TNP 03/04/22 07:48 Urine Color Dark Yellow 03/03/22 21:00 Urine Appearance Clear (Clear) 03/03/22 21:00 Urine pH 7.0 (4.5-7.5) 03/03/22 21:00 Ur Specific Ly[place] 1.029 (1.000-1.030) 03/03/22 21:00 Urine Protein Negative (Negative) 03/03/22 21:00 Urine Glucose (UA) Negative (Negative) 03/03/22 21:00 Urine Ketones Negative (Negative) 03/03/22 21:00 Urine Nitrite Negative (Negative) 03/03/22 21:00 Ur Leukocyte Esterase 1+ (Negative) H 03/03/22 21:00 Urine WBC (Auto) 1-5 /hpf (0-5) 03/03/22 21:00 Urine RBC (Auto) 0-4 /hpf (0-4) 03/03/22 21:00 U Hyaline Cast (Auto) 0 /lpf (0-5) 03/03/22 21:00 U Epithel Cells (Auto) >30 /lpf (0-5) H 03/03/22 21:00 Urine Bacteria (Auto) Negative (Negative) 03/03/22 21:00 03/05/22 20:01 POC Glucose 107 H Electrocardiogram Date: 03/05/22 Findings: + NSR @ (86), + NSST changes and + T wave inversion (inferior and anterior) Chest X-Ray Date: 03/03/22 Findings: + NAD Echocardiogram Date: 04/24/19 EF: 55-60% LV Function: normal Valvular Disease: + no significant valvular disease Stress Test Date: 05/17/21 Type: nuclear Findings: + WNL
[2022-03-06] MEDS ORDERED: ALBUMIN HUMAN 5% 12.5 GM/250 ML VIAL IV ONE (07:14)
[2022-03-06 07:27] LABS: Hematocrit (blood only) 39.7 % (37-47); Hemoglobin 13.2 g/dL (12.0-16.0); Mean Corpuscular Hemoglobin 33.9 pg (25-34); Mean Corpuscular Hgb Conc 33.2 g/dL (32-36); Mean Corpuscular Volume 102.1 fL (80-100); Mean Platelet Volume 10.8 fL (7.4-10.4); Platelet Count 306 K/uL (130-400); RDW Coefficient of Variation 12.7 % (11.5-14.5); RDW Standard Deviation 47.7 fL (36.4-46.3); Red Blood Count 3.89 M/uL (4.2-5.4)
[2022-03-06] MEDS: oxyCODONE HCL IR 5 MG TAB (IMMEDIATE RELEASE) PO PRN ×3 (07:39→22:10)
[2022-03-06] MEDS: INSULIN ASPART PER UNIT SC SCH ×4 (07:43→22:11)
[2022-03-06 07:52] LABS: BUN Creatinine Ratio 43.6 (10-20); Calcium 9.3 mg/dl (8.5-10.1); Est GFR (African American) 63.5 ml/min; Est GFR (Non-African American) 54.8 ml/min; Phosphorus 3.3 mg/dl (2.5-4.9); Potassium 4.8 mmol/L (3.5-5.1)
--- NOTE | 2022-03-06 08:25 | Orthopedic Progress Note ---
Date of Service March 06, 2022 Assessment & Plan (1) Lumbar disc herniation with radiculopathy: Plan: This point we will cancel her surgery for today until we obtain cardiac evaluation and she is optimized for surgery. I explained this to the patient. She is obviously upset but understands the rationale. We will consult cardiology for their input and hopefully perform surgery on Monday. Admission and Anticipated Discharge Date Admission Date: March 03, 2022 Subjective Patient continues to have severe right leg pain. She feels quite anxious. She did have an episode of significant chest pain last night and EKG changes. Physical Exam Physical Exam: On exam she is lying supine. She is in obvious distress. She demonstrates reasonable plantar flexion dorsiflexion bilaterally. Results & Data ([facility]) Vital Signs (Past 12 Hours) Vital Signs Temp Pulse Pulse Resp BP Pulse Ox 03/06/22 03:00 36.5 C 85 18 131/76 91 03/06/22 01:46 89 03/05/22 22:50 90 148/75 H 03/05/22 22:44 36.8 C 92 H 18 148/80 H 90
[2022-03-06] MEDS: FERROUS SULFATE 325 MG TAB PO SCH ×2 (08:29→22:12)
[2022-03-06] MEDS: DAPSONE 25 MG TAB PO SCH ×2 (08:29→22:12)
[2022-03-06] MEDS: CHOLECALCIFEROL 1,000 UNITS 25 MCG TAB PO SCH (08:29)
[2022-03-06] MEDS: LIDOCAINE 5% 1 PATCH TD SCH (08:30)
[2022-03-06] MEDS: LOSARTAN POTASSIUM 50 MG TAB PO SCH (08:30)
[2022-03-06] MEDS: DULoxetine HCL 20 MG CAP PO SCH (08:30)
[2022-03-06] MEDS: ONDANSETRON INJ 2 MG/ML 2 ML VIAL IV PRN (09:52)
--- NOTE | 2022-03-06 10:51 | Cardiology Consultation ---
Date of Consultation March 06, 2022 Assessment & Plan (1) Chest pain: (2) Preoperative cardiovascular examination: (3) Lumbar disc herniation with radiculopathy: At present, patient comfortable, no symptoms of angina. Patient with noted baseline mild repolarization changes, to perhaps correlate with her past history of mild concentric left ventricular hypertrophy noted on echocardiogram 2018, and her history of hypertension. These repolarization changes became more prominent last evening, with EKG performed in the setting of chest discomfort while resting, supine. Follow-up at bedtime troponin measurements x2 negative which is reassuring. At present, given the patient's risk factors for venous thromboembolic event, given recent stasis, recommend proceeding with CT angiogram to exclude pulmonary embolism. Patient agreeable. Proceed with resting echocardiogram for further assessment. Further recommendations be forthcoming after these tests are completed. At present blood pressure well controlled. History of Present Illness Attending Physician: Ethan Jackson MD History of Present Illness Juliana Zuniga is a 76-year-old female seen in cardiology consultation per the request of Dr. Ortiz for preoperative cardiac assessment, with recent episode of chest discomfort and transient EKG changes. The patient has a past medical history of obesity, cirrhosis (declined past liver biopsy), hypertension, stage 3a chronic kidney disease, and gastric bypass surgery. Her most recent outpatient cholesterol measurement April, was 58 mg/dL. Her body mass index is in the range of 39-40 kg/m. She has a history of past lumbar decompression surgery in May,. Preoperative EKG performed in advance of that surgery revealed age-indeterminate septal infarction pattern limited to lead V2 and nonspecific ST-T wave abnormalities in the inferior and lateral leads. She was seen in consultation by Dr. Pope of our practice, and subsequently underwent a pharmacologic nuclear stress test as an outpatient in May, which was negative for ischemia with ejection fraction of 70% at that time. A transthoracic echocardiogram performed as an outpatient April, revealed normal LVEF, and no significant valvular abnormalities. Since the patient's lumbar spine surgery in May,, she has had progressive recurrent back discomfort, with severe symptoms onset 6 days prior to hospital presentation. She described mid and right-sided low back pain radiating to her right buttock, right thigh and groin with associated numbness. She has been unable to stand, sit, or walk without 10/10 intensity discomfort, and is therefore been lying supine both in the hospital and at home for approximately 9 days due to the discomfort. She had an outpatient MRI of the spine, and subsequently present to the emergency room with ongoing uncontrolled back pain. Per review of Dr. Ortiz's consultation note, the patient has been found to have a "massive "L1-L2 "disc protrusion above the level of the previous surgery for which surgical intervention is recommended. Last evening, while patient was lying in bed, she states that she was thinking about the prospects of another surgery, and felt anxious. She subsequently developed a midline and right-sided chest discomfort, prompting nursing assessment and an EKG performed 03/05/2022 at 2308 with findings of sinus rhythm 86 bpm, and ST-T wave changes in the inferior and lateral leads, more prominent than her usual baseline EKG. She received a single dose of sublingual nitroglycerin, and notes resolution of the symptoms without intervention. At bedtime troponin performed last evening and repeated this morning are within normal limits. At the time my assessment, the patient is chest pain-free, and EKG performed at the bedside at the time of my assessment of 03/06/2022 9:28 AM reveals sinus rhythm with mild nonspecific ST-T wave abnormality in the inferior lateral leads and poor R wave progression in lead V2, which is back to her previous baseline dating back to a year ago. She had no additional chest discomfort episodes overnight last night, and does not endorse any other episodes recently prior to hospitalization. Her degree of physical exertion however has been limited recently due to her back pain. She denies leg swelling. Family History: Patient states her father of congestive heart failure as well as her younger brother, details unknown to her Allergies Allergy/AdvReac Type Severity Reaction Status Date / Time gluten Allergy Intermediate SKIN Verified 02/28/22 19:54 RASH--DERMATITIS pantoprazole [From Protonix] Allergy Intermediate rash Verified 02/28/22 19:54 Home Medications Medication Instructions Recorded Confirmed Type cholecalciferol (vitamin D3) 25 1,000 unit PO QAM 08/07/18 03/03/22 History mcg (1,000 unit) tablet dapsone 25 mg tablet 50 mg PO BID 08/07/18 03/03/22 History duloxetine 20 mg capsule,delayed 20 mg PO QAM 08/07/18 03/03/22 History release (Cymbalta) levothyroxine 125 mcg tablet 125 mcg PO QAM 08/07/18 03/03/22 History (Synthroid) losartan 100 mg tablet (Cozaar) 50 mg PO QAM 08/07/18 03/03/22 History cyanocobalamin (vitamin B-12) 1,000 mcg IM MONTHLY 03/11/19 03/03/22 History 1,000 mcg/mL injection solution ferrous sulfate 325 mg (65 mg 325 mg PO BID 03/11/19 03/03/22 History iron) tablet fluocinonide 0.05 % topical 1 applic TOPICAL BID PRN 03/11/19 03/03/22 History solution diazepam 2 mg tablet 2 mg PO BID PRN #6 tab 02/17/22 03/03/22 Rx oxycodone 5 mg tablet 5 mg PO Q4H PRN 02/28/22 03/03/22 History prednisone 20 mg tablet 60 mg PO DAILY 4 Days #12 tab 02/28/22 03/03/22 Rx acetaminophen 500 mg tablet 1,000 mg PO Q6H PRN 03/03/22 03/03/22 History (Tylenol Extra Strength) Patient History Medical History Anemia STABLE PER PATIENT - TAKES IRON SUPPLEMENT PO DAILY HX OF BLOOD TRANSFUSION YEARS AGO SECONDARY FROM ANEMIA FROM GI ULCER Asthma NO INHALER USE X YEARS Cirrhosis Cryptogenic per PCP records CKD (chronic kidney disease) stage 3, GFR 30-59 ml/min Depression Dermatitis herpetiformis OCCURS WITH GLUTEN Fatty liver History of GI bleed + GASTRIC ULCER x 1; MOST RECENT OCCURRED SEVERAL MONTHS AGO - REPEAT EGD 06/2021 (No blood transfusion needed for GI ulcer in January 2021) HTN (hypertension) Hypothyroidism Kidney stones hx Obesity Osteoarthritis Prolonged QT interval Per PCP records Surgical History H/O gastric bypass 1998 History of cataract surgery LEFT and RIGHT History of cholecystectomy History of colonoscopy History of esophagogastroduodenoscopy (EGD) History of hip replacement right hip Hx of tonsillectomy S/P cystoscopy with ureteral stent placement 03/11/2019 [facility] Family History Brother Pancreatic cancer Mother Pancreatic cancer Father Coronary heart disease Social History Smoking Status: Never smoker Second Hand Exposure: No; Hx Alcohol Use: No Hx Substance Use: No Preferred Language: Upper Sorbian Communication Ability: Effective Wire Spinner Required: No Beliefs That Will Affect Care: None marital status: / Current Living Situation: Family Current Living Situation Comment: home with son "denise" How many Children do You have: 1 Other Information That Helps Us Care for You: No Feels Safe at Home: Yes Safety Concerns: Feels Safe At This Time Assistive Devices: Walker Review of Systems Review of Systems: All systems reviewed & are unremarkable except as noted in HPI & below Physical Exam Constitutional: + morbidly obese; no acute distress Respiratory: normal respiratory effort, lungs clear to auscultation Cardiovascular: RRR, no murmur, no edema Gastrointestinal (Abdomen): normal bowel sounds, soft, nontender, no hepatosplenomegaly Neurologic: Conversant, moves all 4 extremities Results & Data ([facility]) Vital Signs (Past 12 Hours) Vital Signs Temp Pulse Pulse Resp BP BP Pulse Ox 03/06/22 08:35 89 19 134/77 96 03/06/22 03:00 36.5 C 85 18 131/76 91 03/06/22 01:46 89 03/05/22 22:50 90 148/75 H 03/05/22 22:44 36.8 C 92 H 18 148/80 H 90 Laboratory Results Cardiac Enzymes 03/05/22 03/06/22 Range/Units 23:32 07:11 Troponin I High Sens 9.6 11.1 (0-14) pg/ml CBC 03/06/22 Range/Units 07:11 WBC 13.60 H (4.8-10.8) K/uL RBC 3.89 L (4.2-5.4) M/uL Hgb 13.2 (12.0-16.0) g/dL Hct 39.7 (37-47) % Plt Count 306 (130-400) K/uL Comprehensive Metabolic Panel 03/06/22 Range/Units 07:11 Sodium 134 L (136-145) mmol/L Potassium 4.8 (3.5-5.1) mmol/L Chloride 103 (98-107) mmol/L Carbon Dioxide 26 (21-32) mmol/L BUN 44 H (6-23) mg/dl Creatinine 1.01 (0.6-1.2) mg/dl Glucose 105 H (70-99(Fasting)) mg/dl Calcium 9.3 (8.5-10.1) mg/dl Intake and Output 03/05/22 03/06/22 03/06/22 22:59 06:59 14:59 Intake Total 100 / 200 100 / 200 Balance 100 / 200 100 / 200 Intake: Oral 100 / 200 100 / 200 Other: Weight 99.5 kg 99.5 kg Patient Weight 03/07/22 06:59 Weight 99.5 kg Diagnostic Findings EKG tracings as outlined above, having been reviewed independently
[2022-03-06] MEDS ORDERED: OPTIRAY 320 125ml IV ONE (11:57)
--- NOTE | 2022-03-06 12:31 | CT Scan Report ---
CT ANGIOGRAM OF THE CHEST CLINICAL HISTORY: Dyspnea COMPARISON STUDY: Chest CT dated 11/23/2015. Chest x-ray dated 03/03/2022. TECHNIQUE: Following the IV administration of 120 cc of Optiray 320, CT angiogram of the chest was pe rformed from the upper abdomen to the thoracic inlet utilizing the pulmonary embolus protocol. Images are reviewed in the axial, sagittal, and coronal planes. 3-D MIPS images are created and assessed. I V contrast was administered without complication. A dose lowering technique was utilized adhering to the principles of ALARA. CT DOSE: 618.68 mGy.cm FINDINGS: Thyroid: Atrophic. Thoracic aorta: There is atherosclerotic calcification of the thoracic aorta, which is normal in yamel gisselle and demonstrates 4-vessel variant arch anatomy. 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 No dissection is seen. Pulmonary vasculature: The pulmonary trunk is normal in caliber. There are no filling defects identif ied in main, lobar, or segmental pulmonary branches to suggest pulmonary embolus. Heart: The heart is normal in size and without pericardial effusion. The coronary arteries are densel y calcified. Lungs and pleural spaces: There is bibasilar scarring/atelectasis. No airspace consolidation or pleur al effusion is identified. Minimal secretions are noted in the trachea. Mediastinum: There is no mediastinal lymphadenopathy. Myrna: Clear. Axillae: There is no axillary lymphadenopathy. Upper abdomen: Cholecystectomy clips are noted. A small hiatal hernia is identified. There is postope rative change consistent with previous gastric bypass surgery. The liver is cirrhotic in morphology a nd heterogeneous in attenuation. There is nodularity of the hepatic surface contour. Perisplenic vari adriane are noted. Skeletal structures: The skeletal structures are osteopenic. No lytic or blastic bony lesions are see n. Degenerative change is noted in the shoulders and thoracic spine. IMPRESSION: 1. There is no evidence of pulmonary embolus in the main, lobar, or segmental pulmonary arteries. 2. There is no airspace consolidation or pleural effusion. 3. Cirrhotic liver morphology. 4. Additional findings as above. ACT 112: Negative or not required by law. Electronically signed by: Jaden Torres M.D. 03/06/2022 12:29 PM
--- NOTE | 2022-03-06 13:48 | Pharmacy Report ---
Pharmacy Glycemic Short Note 2 - Date of Service March 06, 2022 - Glycemic Short BSG Results (Last 24 hours): 03/05/22 03/05/22 03/05/22 16:50 16:51 20:01 Glucose POC Glucose 366 H* 165 H 107 H 03/06/22 03/06/22 03/06/22 07:11 07:24 07:25 Glucose 105 H POC Glucose 55 L* 87 03/06/22 03/06/22 07:27 11:36 Glucose POC Glucose 113 H 120 H OUTPATIENT ANTIDIABETIC REGIMEN: * n/a * Prednisone 60mg PO daily prior to admission * HbA1c: <4% (03/04/22) ASSESSMENT: * Ms Zuniga is a 76yo F admitted with back pain. * BSGs were elevated on admission (240mg/dL), but pt has no history of DM. * Pt had a significant episode of hypoglycemia yesterday morning (BSG 32mg/dL), despite receiving high-dose IV dexamethasone and receiving only 6 units of Novolog the day prior. Given this event and the patient's A1c <4%, with occasional hyperglycemic episodes, would recommend consulting Endocrinology for input. * Patient has not received any insulin in the past 24+ hours. BSGs have been relatively stable. Pt was hypoglycemic again this morning, despite receiving 0 units of insulin day prior. * No further changes required at this time. PLAN FOR INPATIENT GLYCEMIC CONTROL: * Hold outpatient oral diabetes medications * Basal insulin * none * Bolus insulin * NovoLog per scale ACHS or Q6hrs while NPO * Goal Range: Low 140 mg/dL - High 180 mg/dL * Correction Factor: 45 mg/dL/unit * Nutritional / Prandial insulin: none
--- NOTE | 2022-03-06 13:59 | Electrocardiogram Report ---
Test Reason : Blood Pressure : / mmHG Vent. Rate : 086 BPM Atrial Rate : 086 BPM P-R Int : 124 ms QRS Dur : 090 ms QT Int : 390 ms P-R-T Axes : 021 015 251 degrees QTc Int : 466 ms Normal sinus rhythm Abnormal ECG When compared with ECG of 03-MAR-2022 18:39, Criteria for Septal infarct are no longer Present Inverted T waves have replaced nonspecific T wave abnormality in Inferior leads T wave inversion now evident in Anterior leads Confirmed by Aaron Zuleta ([id number]) on 03/06/2022 1:59:00 PM Referred By: REFERRED SELF Confirmed By:Aaron Zuleta
--- NOTE | 2022-03-06 14:29 | Communication Note ---
Date of Service: March 06, 2022 Patient reassessed. No recurrence of chest discomfort. CT angiogram revealed no pulmonary embolism. Of note, an aberrant course from the descending thoracic aorta and posterior to the esophagus. Based on this course, if cardiac catheterization indicated in the future, right radial approach would not be feasible. Echocardiogram revealed severe concentric left ventricular hypertrophy, no regional wall motion abnormalities, LVEF greater than 70%, mild aortic stenosis. I believe the patient's EKG findings are explained by her underlying significant left ventricular hypertrophy. No evidence of ongoing signs or symptoms to suggest an acute coronary syndrome. Recommend proceeding with spine surgery as clinically indicated has given the patient's presentation, I believe the cardiac risks are outweighed by the benefits of the procedure. Cardiology will continue to follow through the perioperative interval. Dr Zavala rounding 03/07, I am back on service 03/08.
--- NOTE | 2022-03-06 14:57 | Electrocardiogram Report ---
Test Reason : Blood Pressure : / mmHG Vent. Rate : 079 BPM Atrial Rate : 079 BPM P-R Int : 124 ms QRS Dur : 096 ms QT Int : 406 ms P-R-T Axes : 034 -02 176 degrees QTc Int : 465 ms Normal sinus rhythm Left ventricular hypertrophy with repolarization abnormality Abnormal ECG When compared with ECG of 05-MAR-2022 23:08, Nonspecific T wave abnormality has replaced inverted T waves in Anterior leads Confirmed by Aaron Zuleta ([id number]) on 03/06/2022 2:57:09 PM Referred By: REFERRED SELF Confirmed By:Aaron Zuleta
--- NOTE | 2022-03-06 16:02 | Hospitalist Progress Note ---
Date of Service March 06, 2022 Assessment & Plan (1) Lumbar disc herniation with radiculopathy: (2) History of lumbar surgery: (3) Hyperglycemia: (4) HTN (hypertension): (5) H/O gastric bypass: (6) Cirrhosis: Plan: 75 year old F who has a significant PMH of HTN, cirrhosis, CKD 3, obesity, hypothyroidism, gluten insensitivity, Depression, hx of gastric bypass who presents ED 03/03 secondary to worsening back pain for the past 6 days [employer]. She is being managed for the following: #. Low back pain/Lumbar disc herniation with radiculopathy History of L2-L4 lumbar decompression fusion by Dr. Ortiz May 2021 Lumbar Spine MRI 03/03 1. Large disc protrusion/herniation at the L1-2, the disc space level above the spinal fusion. There is inferior migration of a disc fragment central laterally to the right producing marked encroachment upon the thecal sac. 2. Postsurgical changes at L2-3 and L3-4 no recurrent herniated disc at these levels. 3. Small disc protrusion/herniation at L4-5 with mild to moderate central canal and left foraminal stenosis. 4. Subligamentous disc protrusions as herniation L5-S1 with asymmetric left foraminal encroachment as well. - MRI lumbar spine noted as above -Patient with no history of TIA or stroke or IN or stents in the heart in the past, able to walk without shortness of breath or chest pain 2-3 flight of stairs just prior to her worsening low back pain. But had chest pain 03/05 PM w/ EKG changes, w/ trops x 2 negative, f/u CTA chest and ECHO on 03/06 reviewed; d/w cardio, cardio clears for Sx. Will keep pt NPO midnight. c/t hold DVT chemoPx. - continue pain management with steroid, tylenol, oxy, iv morphine prn. NPO midnight, in anticipation for plan for OR 03/07. Hold DVT Px. #. Leucocytosis- likely due to steroids. Patient reports he is on and off of steroid mostly for her dermatitis herpetiformis, lately she has been on a steroid for 3 days prior to arrival for her low back pain. She is not on steroid chronically per patient. No focal source of infection identified. Patient afebrile. If fever or clinical status change, will consider empiric ABx. #. Hyperglycemia- No diagnosis of DM. A1c <4. BG elevated likely due to steroids. continue to monitor yoni when on steroids. #. Other chronic medical conditions: HTN, gluten intolerance/dermatitis herpetiformis, diagnosis of cirrhosis, elevated ALT [likely in the setting of fatty liver, no alcohol use], hypothyroidism. Continue with/resume home meds as and when appropriate. Cautious use of Tylenol if LFTs trend up. DVT ppx: SCD/TEDS- start chemoprophylaxis as soon as possible when okay per ortho Dispo: Continue inpatient management- for OR shannen. Admission and Anticipated Discharge Date Admission Date: March 03, 2022 Subjective Patient seen and examined at bedside as a follow-up of low back pain/lumbar disc herniation with radiculopathy with history of L2-L4 lumbar decompression fusion by Dr. Ortiz May 2021. Patient was lying in bed, on room air, was in mild distress due to ongoing low back pain. Overnight patient had chest pain that responded to nitro and also had EKG changes, surgery canceled for today, cardiology to evaluate patient. Discussed with cardio, CTA chest negative for PE. Echo reviewed, grade 1 diastolic dysfunction, EF greater than 70%, concentric LVH x severe. Patient reports eating okay and moving bowels okay. Patient denies headache /dizziness/palpitations/belly pain/other review of symptoms. Physical Exam Physical Exam: GENERAL: Alert and oriented x3. mild discomfort d/t pain, on RA. Obese. HEENT: No pallor, no icterus. Pupils equal, round and reactive to light. Oral mucosa moist. NECK: No JVD, no neck masses. HEART: S1 and S2 heard. Regular rate and rhythm. No murmur, no gallop. RESPIRATORY SYSTEM: Normal AP diameter. No accessory muscle use. No wheezing, no crackles. ABDOMEN: Soft, bowel sounds present, nontender, no distention. CENTRAL NERVOUS SYSTEM: No facial droop. Speech is clear. Obeys simple commands. Moves extremities. EXTREMITIES: No edema, no erythema seen. Results & Data Results & Data ([facility]) Vital Signs (Past 12 Hours) Vital Signs Pulse Pulse Resp BP Pulse Ox 03/06/22 15:16 83 03/06/22 08:35 89 19 134/77 96 03/06/22 08:00 84
[2022-03-07] MEDS: MoRPHine SULFATE 2 MG/ML CARP IV PRN (02:25)
[2022-03-07] MEDS: LEVOTHYROXINE SODIUM 125 MCG TABLET PO SCH (04:57)
[2022-03-07 06:57] LABS: Hematocrit (blood only) 37.5 % (37-47); Hemoglobin 12.4 g/dL (12.0-16.0); Mean Corpuscular Hemoglobin 33.7 pg (25-34); Mean Corpuscular Hgb Conc 33.1 g/dL (32-36); Mean Corpuscular Volume 101.9 fL (80-100); Mean Platelet Volume 10.9 fL (7.4-10.4); Platelet Count 269 K/uL (130-400); RDW Coefficient of Variation 12.6 % (11.5-14.5); RDW Standard Deviation 46.8 fL (36.4-46.3); Red Blood Count 3.68 M/uL (4.2-5.4); White Blood Count 11.52 K/uL (4.8-10.8)
[2022-03-07 07:18] LABS: BUN Creatinine Ratio 45.3 (10-20); Calcium 8.8 mg/dl (8.5-10.1); Creatinine Clr Calc Pharmacy 64.5 ml/min; Est GFR (African American) 77.1 ml/min; Est GFR (Non-African American) 66.6 ml/min; Magnesium 1.9 mg/dl (1.7-2.4); Phosphorus 2.8 mg/dl (2.5-4.9); Potassium 3.9 mmol/L (3.5-5.1)
[2022-03-07] MEDS: INSULIN ASPART PER UNIT SC SCH ×4 (09:21→22:59)
[2022-03-07] MEDS: DAPSONE 25 MG TAB PO SCH ×2 (09:23→22:55)
[2022-03-07] MEDS: FERROUS SULFATE 325 MG TAB PO SCH ×2 (09:23→22:55)
[2022-03-07] MEDS: CHOLECALCIFEROL 1,000 UNITS 25 MCG TAB PO SCH (09:23)
[2022-03-07] MEDS: DULoxetine HCL 20 MG CAP PO SCH (09:23)
[2022-03-07] MEDS: LIDOCAINE 5% 1 PATCH TD SCH (09:23)
[2022-03-07] MEDS: LOSARTAN POTASSIUM 50 MG TAB PO SCH (09:24)
--- NOTE | 2022-03-07 09:54 | Orthopedic Progress Note ---
Date of Service March 07, 2022 Assessment & Plan (1) Lumbar disc herniation with radiculopathy: Plan: CT of the chest does not demonstrate evidence of pulmonary embolism. I am hoping that she will be cleared for surgery tomorrow. I did make her n.p.o. after midnight. I appreciate cardiology's guidance and input. Admission and Anticipated Discharge Date Admission Date: March 03, 2022 Subjective Patient continues to have severe right leg pain. She is no experiencing any chest pain. Physical Exam Physical Exam: On exam she is visibly upset. The pain is quite incapacitating. There is no changes in neurologic presentation. Results & Data ([facility]) Vital Signs (Past 12 Hours) Vital Signs Temp Pulse Pulse Resp BP BP Pulse Ox 03/07/22 07:51 36.7 C 82 18 120/78 94 03/07/22 07:27 84 03/07/22 03:06 36.6 C 81 18 122/75 90 03/07/22 00:13 88 03/06/22 23:11 36.7 C 81 18 114/66 91
[2022-03-07] MEDS: oxyCODONE HCL IR 5 MG TAB (IMMEDIATE RELEASE) PO PRN ×3 (10:28→22:56)
--- NOTE | 2022-03-07 16:58 | Hospitalist Progress Note ---
Date of Service March 07, 2022 Assessment & Plan (1) Lumbar disc herniation with radiculopathy: (2) History of lumbar surgery: (3) Hyperglycemia: (4) HTN (hypertension): (5) H/O gastric bypass: (6) Cirrhosis: Plan: 75 year old F who has a significant PMH of HTN, cirrhosis, CKD 3, obesity, hypothyroidism, gluten insensitivity, Depression, hx of gastric bypass who presents ED 03/03 secondary to worsening back pain for the past 6 days [employer]. She is being managed for the following: #. Low back pain/Lumbar disc herniation with radiculopathy History of L2-L4 lumbar decompression fusion by Dr. Ortiz May 2021 Lumbar Spine MRI 03/03 1. Large disc protrusion/herniation at the L1-2, the disc space level above the spinal fusion. There is inferior migration of a disc fragment central laterally to the right producing marked encroachment upon the thecal sac. 2. Postsurgical changes at L2-3 and L3-4 no recurrent herniated disc at these levels. 3. Small disc protrusion/herniation at L4-5 with mild to moderate central canal and left foraminal stenosis. 4. Subligamentous disc protrusions as herniation L5-S1 with asymmetric left foraminal encroachment as well. - MRI lumbar spine noted as above -Patient with no history of TIA or stroke or OR or stents in the heart in the past, able to walk without shortness of breath or chest pain 2-3 flight of stairs just prior to her worsening low back pain. But had chest pain 03/05 PM w/ EKG changes, w/ trops x 2 negative, f/u CTA chest and ECHO on 03/06 reviewed; d/w cardio, cardio clears for Sx. NPO midnight. c/t hold DVT chemoPx. - continue pain management with steroid, tylenol, oxy, iv morphine prn. NPO midnight, in anticipation for plan for OR 03/08. Hold DVT Px. #. Leucocytosis- likely due to steroids. Patient reports he is on and off of steroid mostly for her dermatitis herpetiformis, lately she has been on a steroid for 3 days prior to arrival for her low back pain. She is not on steroid chronically per patient. No focal source of infection identified. Patient afebrile. If fever or clinical status change, will consider empiric ABx. #. Hyperglycemia- No diagnosis of DM. A1c <4. BG elevated likely due to steroids. continue to monitor yoni when on steroids. #. Other chronic medical conditions: HTN, gluten intolerance/dermatitis herpetiformis, diagnosis of cirrhosis, elevated ALT [likely in the setting of fatty liver, no alcohol use], hypothyroidism. Continue with/resume home meds as and when appropriate. Cautious use of Tylenol if LFTs trend up. DVT ppx: SCD/TEDS- start chemoprophylaxis as soon as possible when okay per ortho Dispo: Continue inpatient management- for OR shannen. Admission and Anticipated Discharge Date Admission Date: March 03, 2022 Subjective Patient seen and examined at bedside as a follow-up of low back pain/lumbar disc herniation with radiculopathy with history of L2-L4 lumbar decompression fusion by Dr. Ortiz May 2021. Patient was lying in bed, on room air, NAD. Has ongoing low back pain w/ radiation to RLE. No new events overnight. Patient reports eating okay and moving bowels okay. Patient denies headache/dizziness/palpitations/belly pain/other review of symptoms. Physical Exam Physical Exam: GENERAL: Alert and oriented x3. NAD, on RA. Obese. HEENT: No pallor, no icterus. Pupils equal, round and reactive to light. Oral mucosa moist. NECK: No JVD, no neck masses. HEART: S1 and S2 heard. Regular rate and rhythm. No murmur, no gallop. RESPIRATORY SYSTEM: Normal AP diameter. No accessory muscle use. No wheezing, no crackles. ABDOMEN: Soft, bowel sounds present, nontender, no distention. CENTRAL NERVOUS SYSTEM: No facial droop. Speech is clear. Obeys simple commands. Moves extremities. EXTREMITIES: No edema, no erythema seen. Results & Data Results & Data ([facility]) Vital Signs (Past 12 Hours) Vital Signs Temp Pulse Pulse Resp BP BP Pulse Ox 03/07/22 15:31 36.4 C L 88 20 127/73 92 03/07/22 12:23 36.7 C 84 18 110/70 92 03/07/22 07:51 36.7 C 82 18 120/78 94 03/07/22 07:27 84
[2022-03-08] MEDS: oxyCODONE HCL IR 5 MG TAB (IMMEDIATE RELEASE) PO PRN ×4 (02:41→22:38)
[2022-03-08] MEDS: LEVOTHYROXINE SODIUM 125 MCG TABLET PO SCH (05:50)
[2022-03-08] MEDS: INSULIN ASPART PER UNIT SC SCH ×4 (06:15→22:59)
[2022-03-08] MEDS: CHOLECALCIFEROL 1,000 UNITS 25 MCG TAB PO SCH (08:10)
[2022-03-08] MEDS: DULoxetine HCL 20 MG CAP PO SCH (08:10)
[2022-03-08] MEDS: DAPSONE 25 MG TAB PO SCH ×2 (08:10→22:56)
[2022-03-08] MEDS: FERROUS SULFATE 325 MG TAB PO SCH ×2 (08:10→22:59)
[2022-03-08] MEDS: LIDOCAINE 5% 1 PATCH TD SCH (08:11)
[2022-03-08] MEDS: LOSARTAN POTASSIUM 50 MG TAB PO SCH (08:11)
[2022-03-08 10:15] LABS: BUN Creatinine Ratio 34.7 (10-20); Calcium 8.8 mg/dl (8.5-10.1); Creatinine Clr Calc Pharmacy 73.3 ml/min; Est GFR (Non-African American) 78.5 ml/min; Magnesium 1.8 mg/dl (1.7-2.4); Potassium 4.3 mmol/L (3.5-5.1)
[2022-03-08] MEDS ORDERED: ALBUMIN HUMAN 5% 12.5 GM/250 ML VIAL IV ONE (12:56)
[2022-03-08] MEDS ORDERED: ACETAMINOPHEN 1000 MG/100 ML IV IV ONE (12:57)
[2022-03-08] MEDS ORDERED: fentaNYL citrate 100 MCG/2 ML VIAL ONE ×2 (13:49→16:05)
[2022-03-08] MEDS ORDERED: LIDOCAINE 2% 2 ML VIAL/AMP(20MG/ML) INFIL ONE (13:49)
[2022-03-08] MEDS ORDERED: ROCURONIUM BROMIDE 10 MG/ML 5 ML VIAL IV ONE ×3 (13:49→15:16)
[2022-03-08] MEDS ORDERED: MIDAZOLAM HCL 1 MG/ML 2ML VIAL ONE (13:49)
[2022-03-08] MEDS ORDERED: GLYCOPYRROLATE 0.2 MG/ML VIAL ONE (13:49)
[2022-03-08] MEDS ORDERED: DEXAMETHASONE SOD INJ 4 MG/ML VIAL ONE (13:49)
[2022-03-08] MEDS ORDERED: NEOSTIGMINE METHYLSULFATE 1 MG/ML 10ML VIAL ONE (13:49)
[2022-03-08] MEDS ORDERED: PROPOFOL IV EMULSION 10 MG/ML 20 ML VIAL IV ONE (13:49)
[2022-03-08] MEDS ORDERED: ONDANSETRON INJ 2 MG/ML 2 ML VIAL ONE (13:49)
[2022-03-08] MEDS ORDERED: ceFAZolin 330 MG/ML 1 GM VIAL ONE ×2 (14:17→15:02)
[2022-03-08] MEDS ORDERED: BUPIVACAINE/EPINEPHRINE 0.25% 1:200,000 30 ML VIAL ONE (14:17)
--- NOTE | 2022-03-08 14:25 | History & Physical Bridge Note ---
Date of Service March 08, 2022 History & Physical Bridge Note I have examined the patient, reviewed the History & Physical and in the interval since the performance of the History & Physical I have noted the following changes of clinical significance: no changes noted Decompression and fusion T12-L2, removal instrumentation T2-L4
[2022-03-08] MEDS ORDERED: FLUMAZENIL 0.1 MG/1 ML 10 ML VIAL IV PRN (14:56)
[2022-03-08] MEDS ORDERED: ePHEDrine sulfate 50 MG/ML AMP IV PRN (14:56)
[2022-03-08] MEDS ORDERED: LABETALOL HCL IV 5 MG/ML 20ML IV PRN (14:56)
[2022-03-08] MEDS ORDERED: PROMETHAZINE HCL 12.5 MG in SODIUM CHLORIDE 0.9% 50 ML IV PRN ×2 (14:56→17:55)
[2022-03-08] MEDS ORDERED: HYDROmorphone INJ 1 MG/ML SYRINGE IV PRN ×2 (14:56→17:55)
[2022-03-08] MEDS ORDERED: ONDANSETRON INJ 2 MG/ML 2 ML VIAL IV PRN ×2 (14:56→17:55)
[2022-03-08] MEDS ORDERED: ATROPINE SULFATE 0.1 MG/ML 10ML SYR IV PRN (14:56)
[2022-03-08] MEDS ORDERED: NALOXONE HCL 0.4 MG/1 ML VIAL/CARP IV PRN ×2 (14:56→17:55)
[2022-03-08] MEDS ORDERED: FLOSEAL HEMOSTATIC MATRIX 10ML TOP ONE (15:18)
[2022-03-08] MEDS ORDERED: ceFAZolin 2000MG 2,000 MG/15 ML SYR IV ONE (15:20)
--- NOTE | 2022-03-08 16:06 | Operative Report ---
Post Operative Report Pre & Post Diagnosis Operation Date: 03/06/22 07:30 <No data on this case meets the specified criteria> Operation Date: 03/07/22 07:30 <No data on this case meets the specified criteria> Operation Date: 03/08/22 08:20 Pre-Op Diagnosis: (1) Lumbar disc herniation with radiculopathy Post-Op Diagnosis: (1) Lumbar disc herniation with radiculopathy I identified the patient and participated in the time-out.: Yes Procedure Operation Date: 03/06/22 07:30 <No data on this case meets the specified criteria> Operation Date: 03/07/22 07:30 <No data on this case meets the specified criteria> Operation Date: 03/08/22 08:20 Actual Procedures #1 removal of posterior instrumentation L2-L3 L3-L4. #2 exploration of fusion L2-3 L3-4. #3 lumbar decompression with bilateral medial facetectomies foraminotomies L1-L2 including removal of herniated free fragment. #4 posterior spinal fusion T12-L1 L1-L2. #5 placement posterior instrumentation L1-L4. #6 placement locally harvested morselized autograft in the posterior gutters. #7 placement of infuse collagen sponge, master graft from T12-L4. Surgeon Cayetano Ortiz, DO Chemical Supervisor Cris Block Estimated Blood Loss 100 Findings See Below The patient is 5 foot 3 inches tall weighing over 97 kg with a BMI in excess of 38. The patient's body habitus did contribute to significant technical difficulty required deeper retractors longus instruments in order to perform her procedure. This at least 50% increased operative time. Specimens None Indications This is a 76-year-old female who presents with severe radiculopathy inability ambulate and is here for the above-mentioned procedure. Description of Procedure Patient was met with identified informed consent obtained. Patient was then taken to the operative suite underwent ablation placed in a prone position the Colt table top Devin frame. All bony prominences well-padded eyes inspected to ensure no external pressure placed upon the. At this point the thoracolumbar spine was prepped and draped in a sterile fashion. Sharp dissection with the assistance pericardial form down to and exposing the lamina and transverse proc esses of T12-L1 and instrumentation at L2-L3 and L4 bilaterally. Then proceeded with the hardware bilaterally explore the fusion mass noted to be still immature. Then performed a complete laminectomy of the L1 including bilateral medial facetectomies foraminotomies as well as removal of the mass with extruded disc herniation on the right. After complete decompression pedicle screws were placed in L1-L2 and L4 bilaterally with assistance of fluoroscopy and proper sized raffy locked into position. The transverse processes of T12 L1-L2-L3 and L4 were then burred to subcortical bleeding bone. Infuse collagen sponge master graft local autograft was placed in the posterior gutters. 15 round CYNTHIA drain inserted. The incision was then closed with 1 Vicryl the fascia 2-0 Vicryl subcutaneously and 4 Monocryl for final skin closure. Steri-Strip sterile dressings placed. Patient waken taken PACU stable condition. Please note spinal cord monitoring was utilized at the procedure no changes noted. Lastly Cris Block was present at the entire surgery involved the patient positioning complex portions of the surgery and final skin closure. I attest to the content of the Intraoperative Record and any orders documented therein. Any exceptions are noted below.
--- NOTE | 2022-03-08 16:22 | Fluoroscopy Report ---
FL lumbar spine 2-3V CLINICAL HISTORY: T12-L2 DECOMPRESSION AND FUSION TECHNIQUE: 3 views were obtained with the C-arm in the OR with the above procedure. Total fluoroscopy time was 13.8 seconds. Total skin dose was 9.11 mGy. Comparison: None available at the time of this dictation. FINDINGS/IMPRESSION: Intraoperative images were obtained of decompression and fusion of T12-L2. Please correlate with intraoperative fluoroscopy and operative report. ACT 112: Negative or not required by law. Electronically signed by: Tre Catherine M.D. 03/08/2022 4:20 PM
[2022-03-08] MEDS: fentaNYL citrate 100 MCG/2 ML VIAL IV PRN ×3 (16:45→16:55)
--- NOTE | 2022-03-08 16:57 | Hospitalist Progress Note ---
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 Low back pain/Lumbar disc herniation with radiculopathy History of L2-L4 lumbar decompression fusion by Dr. Ortiz May 2021 Lumbar Spine MRI 03/03 1. Large disc protrusion/herniation at the L1-2, the disc space level above the spinal fusion. There is inferior migration of a disc fragment central laterally to the right producing marked encroachment upon the thecal sac. 2. Postsurgical changes at L2-3 and L3-4 no recurrent herniated disc at these levels. 3. Small disc protrusion/herniation at L4-5 with mild to moderate central canal and left foraminal stenosis. 4. Subligamentous disc protrusions as herniation L5-S1 with asymmetric left foraminal encroachment as well. - MRI lumbar spine noted as above -Patient with no history of TIA or stroke or [place] or stents in the heart in the past, able to walk without shortness of breath or chest pain 2-3 flight of stairs just prior to her worsening low back pain. But had chest pain 03/05 PM w/ EKG changes, w/ trops x 2 negative, f/u CTA chest and ECHO on 03/06 reviewed; d/w cardio, cardio clears for Sx. Pt NPO and awaiting Sx at time of bedside exam. c/t hold DVT chemoPx. - continue pain management with steroid, tylenol, oxy, iv morphine prn. Hold DVT Px. #. Leucocytosis- likely due to steroids. Patient reports he is on and off of steroid mostly for her dermatitis herpetiformis, lately she has been on a steroid for 3 days prior to arrival for her low back pain. She is not on steroid chronically per patient. No focal source of infection identified. Patient afebrile. If fever or clinical status change, will consider empiric ABx. Trending down. #. Hyperglycemia- No diagnosis of DM. A1c <4. BG elevated likely due to steroids. continue to monitor yoni when on steroids. #. Other chronic medical conditions: HTN, gluten intolerance/dermatitis herpetiformis, diagnosis of cirrhosis, elevated ALT [likely in the setting of fatty liver, no alcohol use], hypothyroidism. Continue with/resume home meds as and when appropriate. Cautious use of Tylenol if LFTs trend up. DVT ppx: SCD/TEDS- start chemoprophylaxis as soon as possible when okay per ortho Dispo: Continue inpatient management. Admission and Anticipated Discharge Date Admission Date: March 03, 2022 Subjective Patient seen and examined at bedside as a follow-up of low back pain/lumbar disc herniation with radiculopathy with history of L2-L4 lumbar decompression fusion by Dr. Ortiz May 2021. Patient was lying in bed, on room air, NAD. Has ongoing low back pain w/ radiation to RLE. No new events overnight. Pt npo and awaiting orthospine Sx at time of bedside exam. Patient denies headache/dizziness/palpitations/belly pain/other review of symptoms. Physical Exam Physical Exam: GENERAL: Alert and oriented x3. NAD, on RA. Obese. HEENT: No pallor, no icterus. Pupils equal, round and reactive to light. Oral mucosa moist. NECK: No JVD, no neck masses. HEART: S1 and S2 heard. Regular rate and rhythm. No murmur, no gallop. RESPIRATORY SYSTEM: Normal AP diameter. No accessory muscle use. No wheezing, no crackles. ABDOMEN: Soft, bowel sounds present, nontender, no distention. CENTRAL NERVOUS SYSTEM: No facial droop. Speech is clear. Obeys simple commands. Moves extremities. EXTREMITIES: No edema, no erythema seen. Results & Data Results & Data ([facility]) Vital Signs (Past 12 Hours) Vital Signs Temp Pulse Pulse Pulse Resp BP Pulse Ox 03/08/22 16:45 75 17 125/71 99 03/08/22 16:35 77 22 116/63 96 03/08/22 16:25 36.3 C L 88 15 125/66 95 03/08/22 13:55 36.8 C 88 16 168/72 H 96 03/08/22 11:15 36.6 C 84 20 126/81 97 03/08/22 07:24 36.4 C L 84 20 115/78 94 03/08/22 06:12 82
--- NOTE | 2022-03-08 17:25 | Anesthesiology Progress Note ---
Date of Service March 08, 2022 Anesthesia Post Procedure Vital Signs Vital Signs: Temp Pulse Pulse Pulse Resp BP BP 03/08/22 17:05 77 12 114/54 L 03/08/22 16:55 75 15 135/48 L 03/08/22 16:45 75 17 125/71 03/08/22 16:35 77 22 116/63 03/08/22 16:25 36.3 C L 88 15 125/66 03/08/22 13:55 36.8 C 88 16 168/72 H 03/08/22 11:15 36.6 C 84 20 126/81 03/08/22 07:24 36.4 C L 84 20 115/78 03/08/22 06:12 82 03/08/22 03:06 36.5 C 87 18 123/73 03/07/22 22:54 36.6 C 84 18 126/73 03/07/22 22:20 86 03/07/22 19:17 36.7 C 86 18 110/65 Pulse Ox 03/08/22 17:05 95 03/08/22 16:55 96 03/08/22 16:45 99 03/08/22 16:35 96 03/08/22 16:25 95 03/08/22 13:55 96 03/08/22 11:15 97 03/08/22 07:24 94 03/08/22 06:12 03/08/22 03:06 92 03/07/22 22:54 90 03/07/22 22:20 03/07/22 19:17 91 Pain Intensity Back: Pain Intensity: 7 Transfer of Care Handoff Completed per policy Notes Mental Status: alert / awake / arousable and participated in evaluation Patient Amnestic to Procedure: Yes Nausea / Vomiting: adequately controlled Pain: adequately controlled Airway Patency, RR, SpO2: stable & adequate BP & HR: stable & adequate Hydration State: stable & adequate Anesthetic Complications: no major complications apparent
[2022-03-08] MEDS ORDERED: hydrOXYzine HCl 25 MG TAB PO PRN (17:55)
[2022-03-08] MEDS ORDERED: MAGNESIUM HYDROXIDE SUSP 30 ML UDC PO PRN (17:55)
[2022-03-08] MEDS ORDERED: ACETAMINOPHEN 1,000 MG/100 ML VIAL IV PRN (17:55)
[2022-03-08] MEDS ORDERED: LORazepam 2 MG/1 ML VIAL IV PRN (17:55)
[2022-03-08] MEDS ORDERED: FAMOTIDINE 20 MG TAB PO PRN (17:55)
[2022-03-08] MEDS ORDERED: traMADol HCL 50 MG TABLET PO PRN (17:55)
[2022-03-08] MEDS ORDERED: ALUMINUM/MAGNESIUM SUSP 30 ML UDC PO PRN (17:55)
[2022-03-08] MEDS ORDERED: SOD PHOSPHATE/SOD BIPHOSPHATE ENEMA 132 ML BTL PR PRN (17:55)
[2022-03-08] MEDS ORDERED: ONDANSETRON 4 MG OD TAB PO PRN (17:55)
[2022-03-08] MEDS ORDERED: DO NOT ADMINISTER PNEUMOCOCCAL VACCINE PRN (17:55)
[2022-03-08] MEDS ORDERED: HYDROmorphone INJ 0.5 MG/0.5 ML SYR IV PRN (17:55)
[2022-03-08] MEDS ORDERED: LORazepam 0.5 MG TAB PO PRN (17:55)
[2022-03-08] MEDS ORDERED: diphenhydrAMINE Capsule 25 MG CAP PO PRN (17:55)
[2022-03-08] MEDS ORDERED: METOCLOPRAMIDE HCL INJ 5 MG/ML 2 ML VIAL IV PRN (17:55)
[2022-03-08] MEDS ORDERED: bisacodyL 10 MG SUPP PR PRN (17:55)
[2022-03-08] MEDS ORDERED: DO NOT ADMINISTER FLU VACCINE PRN (17:55)
[2022-03-08] MEDS: SODIUM CHLORIDE 0.9% 1000ML 1,000 ML IV SCH (22:39)
[2022-03-08] MEDS: ceFAZolin 2000MG 2,000 MG/15 ML SYR IV SCH (23:00)
[2022-03-08] MEDS: DOCUSATE SODIUM/SENNA 50/8.6MG TAB PO SCH (23:02)
[2022-03-09] MEDS: oxyCODONE HCL IR 5 MG TAB (IMMEDIATE RELEASE) PO PRN ×4 (02:32→17:45)
[2022-03-09] MEDS: POLYETHYLENE (MIRALAX) 17 GM PACK PO SCH ×4 (05:43→23:35)
[2022-03-09] MEDS: LEVOTHYROXINE SODIUM 125 MCG TABLET PO SCH (05:43)
[2022-03-09] MEDS: INSULIN ASPART PER UNIT SC SCH ×4 (07:42→20:47)
[2022-03-09] MEDS: dexAMETHasone 6 MG in SYRINGE 0 ML IV SCH (07:53)
[2022-03-09] MEDS: FERROUS SULFATE 325 MG TAB PO SCH ×2 (07:54→20:50)
[2022-03-09] MEDS: ceFAZolin 2000MG 2,000 MG/15 ML SYR IV SCH (07:54)
[2022-03-09] MEDS: SODIUM CHLORIDE 0.9% 1000ML 1,000 ML IV SCH ×2 (07:54→13:03)
[2022-03-09] MEDS: LOSARTAN POTASSIUM 50 MG TAB PO SCH (07:55)
[2022-03-09] MEDS: CHOLECALCIFEROL 1,000 UNITS 25 MCG TAB PO SCH (07:55)
[2022-03-09] MEDS: DULoxetine HCL 20 MG CAP PO SCH (07:55)
[2022-03-09] MEDS: DAPSONE 25 MG TAB PO SCH ×2 (07:55→20:49)
[2022-03-09] MEDS: LIDOCAINE 5% 1 PATCH TD SCH (07:56)
[2022-03-09 08:38] LABS: Eosinophils # (auto) 0.01 K/uL (0-0.5); Eosinophils % (auto) 0.1 %; Hemoglobin 12.1 g/dL (12.0-16.0); Immature Granulocytes % (auto) 0.6 %; Lymphocytes # (auto) 0.78 K/uL (1.2-3.4); Lymphocytes % (auto) 4.5 %; Mean Corpuscular Hemoglobin 32.8 pg (25-34); Mean Corpuscular Hgb Conc 32.7 g/dL (32-36); Mean Corpuscular Volume 100.3 fL (80-100); Mean Platelet Volume 11.3 fL (7.4-10.4); Monocytes # (auto) 1.15 K/uL (0.11-0.59); Monocytes % (auto) 6.7 %; Neutrophils % (auto) 88.1 %; Platelet Count 285 K/uL (130-400); RDW Coefficient of Variation 12.4 % (11.5-14.5); RDW Standard Deviation 45.5 fL (36.4-46.3); Red Blood Count 3.69 M/uL (4.2-5.4); White Blood Count 17.24 K/uL (4.8-10.8)
[2022-03-09 09:14] LABS: BUN Creatinine Ratio 31.8 (10-20); Calcium 8.7 mg/dl (8.5-10.1); Creatinine Clr Calc Pharmacy 64.6 ml/min; Est GFR (African American) 78.2 ml/min; Est GFR (Non-African American) 67.5 ml/min; Magnesium 1.8 mg/dl (1.7-2.4); Potassium 5.1 mmol/L (3.5-5.1)
--- NOTE | 2022-03-09 13:28 | Orthopedic Progress Note ---
Date of Service March 09, 2022 Assessment & Plan (1) Lumbar disc herniation with radiculopathy: Plan: This time initiate physical therapy monitor CYNTHIA output over the discharge home latter half of this week. Admission and Anticipated Discharge Date Admission Date: March 03, 2022 Subjective Back pain controlled leg pain markedly improved Physical Exam Physical Exam: On exam she is in the chair at the bedside. She appears comfortable. Is good strength testing. Results & Data ([facility]) Vital Signs (Past 12 Hours) Vital Signs Temp Pulse Pulse Resp BP Pulse Ox 03/09/22 10:51 36.6 C 88 18 101/70 94 03/09/22 10:46 95 03/09/22 07:27 36.4 C L 81 18 133/75 94 03/09/22 04:00 36.5 C 85 18 96/65 L 93
--- NOTE | 2022-03-09 14:47 | Pharmacy Report ---
Pharmacy Glycemic Short Note 2 - Date of Service March 09, 2022 - Glycemic Short BSG Results (Last 24 hours): 03/08/22 03/09/22 03/09/22 20:15 07:35 07:42 Glucose 116 H POC Glucose 128 H 128 H 03/09/22 11:38 Glucose POC Glucose 174 H OUTPATIENT ANTIDIABETIC REGIMEN: * n/a * Prednisone 60mg PO daily prior to admission * HbA1c: <4% (03/04/22) ASSESSMENT: 03/09/22: * BSGs have been very stable with zero insulin requirement x4+ days. * Pt went to the OR yesterday for a spinal procedure. She is now ordered IV dexamethasone daily x3 doses. Steroids did not appear to cause hyperglycemia earlier in admission. * No changes for now. Novolog will provide correction if BSGs should rise above goal. 03/06 * Ms Zuniga is a 76yo F admitted with back pain. * BSGs were elevated on admission (240mg/dL), but pt has no history of DM. * Pt had a significant episode of hypoglycemia yesterday morning (BSG 32mg/dL), despite receiving high-dose IV dexamethasone and receiving only 6 units of Novolog the day prior. Given this event and the patient's A1c <4%, with occasional hyperglycemic episodes, would recommend consulting Endocrinology for input. * Patient has not received any insulin in the past 24+ hours. BSGs have been relatively stable. Pt was hypoglycemic again this morning, despite receiving 0 units of insulin day prior. * No further changes required at this time. PLAN FOR INPATIENT GLYCEMIC CONTROL: * Hold outpatient oral diabetes medications * Basal insulin * none * Bolus insulin * NovoLog per scale ACHS or Q6hrs while NPO * Goal Range: Low 140 mg/dL - High 180 mg/dL * Correction Factor: 45 mg/dL/unit * Nutritional / Prandial insulin: none
--- NOTE | 2022-03-09 19:27 | Hospitalist Progress Note ---
Date of Service March 09, 2022 Assessment & Plan (1) Lumbar disc herniation with radiculopathy: (2) History of lumbar surgery: (3) Hyperglycemia: (4) HTN (hypertension): (5) H/O gastric bypass: (6) Cirrhosis: Plan: 75 year old F who has a significant PMH of HTN, cirrhosis, CKD 3, obesity, hypothyroidism, gluten insensitivity, Depression, hx of gastric bypass who presents ED 03/03 secondary to worsening back pain for the past 6 days [employer]. She is being managed for the following: #. Low back pain/Lumbar disc herniation with radiculopathy History of L2-L4 lumbar decompression fusion by Dr. Ortiz May 2021 Lumbar Spine MRI 03/03 1. Large disc protrusion/herniation at the L1-2, the disc space level above the spinal fusion. There is inferior migration of a disc fragment central laterally to the right producing marked encroachment upon the thecal sac. 2. Postsurgical changes at L2-3 and L3-4 no recurrent herniated disc at these levels. 3. Small disc protrusion/herniation at L4-5 with mild to moderate central canal and left foraminal stenosis. 4. Subligamentous disc protrusions as herniation L5-S1 with asymmetric left foraminal encroachment as well. - MRI lumbar spine noted as above - s/p lumbar decompression and fusion by Dr. Ortiz 03/08/2022. - continue pain management with steroid, tylenol, oxy, iv morphine prn. #. Leucocytosis- likely due to steroids. Patient reports he is on and off of steroid mostly for her dermatitis herpetiformis, lately she has been on a steroid for 3 days prior to arrival for her low back pain. She is not on steroid chronically per patient. No focal source of infection identified. Patient afebrile. If fever or clinical status change, will consider empiric ABx. Trending down. #. Hyperglycemia- No diagnosis of DM. A1c <4. BG elevated likely due to steroids. continue to monitor yoni when on steroids. #. Other chronic medical conditions: HTN, gluten intolerance/dermatitis herpetiformis, diagnosis of cirrhosis, elevated ALT [likely in the setting of fatty liver, no alcohol use], hypothyroidism. Continue with/resume home meds as and when appropriate. Cautious use of Tylenol if LFTs trend up. DVT ppx: SCD/TEDS- start chemoprophylaxis as soon as possible when okay per ortho Dispo: Continue inpatient management. Admission and Anticipated Discharge Date Admission Date: March 03, 2022 Subjective Patient seen and examined at bedside as a follow-up of low back pain/lumbar disc herniation with radiculopathy with history of L2-L4 lumbar decompression fusion by Dr. Ortiz May 2021. Patient was lying in bed, on 2L NC O2, NAD. s/p lumbar Sx by Dr. Ortiz on 03/08/22. Reports significant improvement in her low back pain. No bowels, gas +ve. No new events overnight. Pt eating ok. Patient denies headache/dizziness/palpitations/belly pain/other review of symptoms. Physical Exam Physical Exam: GENERAL: Alert and oriented x3. NAD, on 2L NC O2. Obese. HEENT: No pallor, no icterus. Pupils equal, round and reactive to light. Oral mucosa moist. NECK: No JVD, no neck masses. HEART: S1 and S2 heard. Regular rate and rhythm. No murmur, no gallop. RESPIRATORY SYSTEM: Normal AP diameter. No accessory muscle use. No wheezing, no crackles. ABDOMEN: Soft, bowel sounds present, nontender, no distention. CENTRAL NERVOUS SYSTEM: No facial droop. Speech is clear. Obeys simple commands. Moves extremities. EXTREMITIES: No edema, no erythema seen. Low back with clean dressing w/o soakage. CYNTHIA drain w/ serosanguineous collection noted. Results & Data Results & Data ([facility]) Vital Signs (Past 12 Hours) Vital Signs Temp Pulse Pulse Pulse Resp BP Pulse Ox 03/09/22 16:59 36.7 C 78 18 106/70 92 03/09/22 14:18 87 03/09/22 10:51 36.6 C 88 18 101/70 94 03/09/22 10:46 95 03/09/22 07:27 36.4 C L 81 18 133/75 94
[2022-03-09] MEDS: DOCUSATE SODIUM/SENNA 50/8.6MG TAB PO SCH (20:50)
--- NOTE | 2022-03-09 21:01 | Cardiology Progress Note ---
Date of Service March 09, 2022 Assessment & Plan (1) Lumbar disc herniation with radiculopathy: Plan: Postop day #1 Patient had been seen in preoperative evaluation, with 1 episode of chest discomfort several days ago, no recurrence. Blood pressure well controlled, potassium has trended up to 5.1. Hold losartan. Repeat basic metabolic panel in the morning. SCDs for DVT prophylaxis. Admission and Anticipated Discharge Date Admission Date: March 03, 2022 Subjective Patient seen in cardiology follow-up. Tolerated spine surgery as performed yesterday well. She is in good spirits. Denies chest discomfort or shortness of breath. Spinal drain in place. Telemetry reveals sinus rhythm in the 90s. Review of Systems Review of Systems: All systems reviewed & are unremarkable except as noted in HPI & below Physical Exam Constitutional: WD/WN, vitals as above Respiratory: normal respiratory effort, lungs clear to auscultation Cardiovascular: RRR, no murmur, no edema Gastrointestinal (Abdomen): normal bowel sounds, soft, nontender, no hepatosplenomegaly Neurologic: Moves all 4 extremities. Conversant. Results & Data ([facility]) Vital Signs (Past 12 Hours) Vital Signs Temp Pulse Pulse Resp BP Pulse Ox 03/09/22 19:00 36.9 C 92 H 20 116/60 92 03/09/22 16:59 36.7 C 78 18 106/70 92 03/09/22 14:18 87 03/09/22 10:51 36.6 C 88 18 101/70 94 03/09/22 10:46 95 Laboratory Results CBC 03/09/22 Range/Units 07:42 WBC 17.24 H (4.8-10.8) K/uL RBC 3.69 L (4.2-5.4) M/uL Hgb 12.1 (12.0-16.0) g/dL Hct 37.0 (37-47) % Plt Count 285 (130-400) K/uL Neut # (Auto) 15.20 H (1.4-6.5) K/uL Lymph # (Auto) 0.78 L (1.2-3.4) K/uL Martin # (Auto) 1.15 H (0.11-0.59) K/uL Eos # (Auto) 0.01 (0-0.5) K/uL Baso # (Auto) 0.00 (0-0.2) K/uL Comprehensive Metabolic Panel 03/09/22 Range/Units 07:42 Sodium 131 L (136-145) mmol/L Potassium 5.1 (3.5-5.1) mmol/L Chloride 101 (98-107) mmol/L Carbon Dioxide 26 (21-32) mmol/L BUN 27 H (6-23) mg/dl Creatinine 0.85 (0.6-1.2) mg/dl Glucose 116 H (70-99(Fasting)) mg/dl Calcium 8.7 (8.5-10.1) mg/dl Intake and Output 03/09/22 03/09/22 03/09/22 06:59 14:59 22:59 Intake Total 240 / 1140 1235 / 1235 Output Total 410 / 1120 255 / 305 50 / 305 Balance -170 / 20 980 / 930 -50 / 930 Intake: IV 925 / 925 Sodium Chloride 0.9% 1000ML 1, 925 / 925 000 ml @ 100 mls/hr IV .Q10H [facility] Rx#:[id number] Oral 240 / 240 310 / 310 Output: Urine 200 / 200 Urine Amount (Catheter) 250 / 600 Degroot/Indwelling 250 / 600 Drain Output 160 / 270 55 / 105 50 / 105 Left Back 160 / 270 55 / 105 50 / 105 Other: Weight 97.7 kg
[2022-03-10] MEDS: LEVOTHYROXINE SODIUM 125 MCG TABLET PO SCH (05:27)
[2022-03-10] MEDS: POLYETHYLENE (MIRALAX) 17 GM PACK PO SCH ×3 (05:27→17:10)
[2022-03-10] MEDS: oxyCODONE HCL IR 5 MG TAB (IMMEDIATE RELEASE) PO PRN ×3 (05:27→21:22)
[2022-03-10 08:07] LABS: Hematocrit (blood only) 34.7 % (37-47); Hemoglobin 11.7 g/dL (12.0-16.0); Mean Corpuscular Hemoglobin 34.4 pg (25-34); Mean Corpuscular Hgb Conc 33.7 g/dL (32-36); Mean Corpuscular Volume 102.1 fL (80-100); Mean Platelet Volume 11.3 fL (7.4-10.4); Platelet Count 279 K/uL (130-400); RDW Coefficient of Variation 12.7 % (11.5-14.5); RDW Standard Deviation 46.9 fL (36.4-46.3); White Blood Count 21.27 K/uL (4.8-10.8)
--- NOTE | 2022-03-10 08:10 | Orthopedic Progress Note ---
Date of Service March 10, 2022 Assessment & Plan (1) Lumbar disc herniation with radiculopathy: Plan: We will see how she does with therapy today. If they feel that she is independent she is comfortable going home. Going home tomorrow would be reasonable. Admission and Anticipated Discharge Date Admission Date: March 03, 2022 Subjective Patient's back pain is controlled leg symptoms markedly improved Physical Exam Physical Exam: Patient is seen in bed. She is comfortable. Good strength testing. Results & Data ([facility]) Vital Signs (Past 12 Hours) Vital Signs Temp Pulse Pulse Resp BP BP Pulse Ox 03/10/22 07:43 36.6 C 86 20 92/60 L 82/46 L 98 03/10/22 04:01 82 03/10/22 04:00 36.4 C L 84 20 107/73 93 03/09/22 22:00 36.7 C 75 20 101/61 93
[2022-03-10] MEDS: dexAMETHasone 6 MG in SYRINGE 0 ML IV SCH (08:32)
[2022-03-10 08:33] LABS: BUN Creatinine Ratio 35.7 (10-20); Calcium 9.3 mg/dl (8.5-10.1); Creatinine Clr Calc Pharmacy 48.9 ml/min; Est GFR (Non-African American) 48.4 ml/min; Potassium 4.4 mmol/L (3.5-5.1)
[2022-03-10] MEDS: CHOLECALCIFEROL 1,000 UNITS 25 MCG TAB PO SCH (08:33)
[2022-03-10] MEDS: DULoxetine HCL 20 MG CAP PO SCH (08:33)
[2022-03-10] MEDS: DAPSONE 25 MG TAB PO SCH ×2 (08:33→21:23)
[2022-03-10] MEDS: FERROUS SULFATE 325 MG TAB PO SCH ×2 (08:33→21:22)
[2022-03-10] MEDS: LIDOCAINE 5% 1 PATCH TD SCH (08:34)
[2022-03-10] MEDS: INSULIN ASPART PER UNIT SC SCH ×4 (08:34→21:35)
--- NOTE | 2022-03-10 13:10 | Pharmacy Report ---
Pharmacy Glycemic Short Note 2 - Date of Service March 10, 2022 - Glycemic Short BSG Results (Last 24 hours): 03/09/22 03/09/22 03/10/22 16:36 20:33 07:31 Glucose 123 H POC Glucose 183 H 152 H 03/10/22 03/10/22 07:37 11:32 Glucose POC Glucose 128 H 201 H OUTPATIENT ANTIDIABETIC REGIMEN: * n/a * Prednisone 60mg PO daily prior to admission * HbA1c: <4% (03/04/22) ASSESSMENT: 03/10/22 * BSGs yesterday were [phone] mg/dL. Today's BSGs are 128-201 mg/dL. * Patient to receive 3 days of dexamethasone 6 mg IV daily. * Due to steroids, will add loose CR. Lower goal range to provide slightly more correction factor. 03/09/22: * BSGs have been very stable with zero insulin requirement x4+ days. * Pt went to the OR yesterday for a spinal procedure. She is now ordered IV dexamethasone daily x3 doses. Steroids did not appear to cause hyperglycemia earlier in admission. * No changes for now. Novolog will provide correction if BSGs should rise above goal. 03/06 * Ms Zuniga is a 76yo F admitted with back pain. * BSGs were elevated on admission (240mg/dL), but pt has no history of DM. * Pt had a significant episode of hypoglycemia yesterday morning (BSG 32mg/dL), despite receiving high-dose IV dexamethasone and receiving only 6 units of Novolog the day prior. Given this event and the patient's A1c <4%, with occasional hyperglycemic episodes, would recommend consulting Endocrinology for input. * Patient has not received any insulin in the past 24+ hours. BSGs have been relatively stable. Pt was hypoglycemic again this morning, despite receiving 0 units of insulin day prior. * No further changes required at this time. PLAN FOR INPATIENT GLYCEMIC CONTROL: * Hold outpatient oral diabetes medications * Basal insulin * none * Bolus insulin * NovoLog per scale ACHS or Q6hrs while NPO * Goal Range: Low 120 mg/dL - High 160 mg/dL * Correction Factor: 45 mg/dL/unit * Nutritional / Prandial insulin: 10
--- NOTE | 2022-03-10 19:05 | Hospitalist Progress Note ---
Date of Service March 10, 2022 Assessment & Plan (1) Lumbar disc herniation with radiculopathy: (2) History of lumbar surgery: (3) Hyperglycemia: (4) HTN (hypertension): (5) H/O gastric bypass: (6) Cirrhosis: Plan: 75 year old F who has a significant PMH of HTN, cirrhosis, CKD 3, obesity, hypothyroidism, gluten insensitivity, Depression, hx of gastric bypass who presents ED 03/03 secondary to worsening back pain for the past 6 days [employer]. She is being managed for the following: #. Low back pain/Lumbar disc herniation with radiculopathy History of L2-L4 lumbar decompression fusion by Dr. Ortiz May 2021 Lumbar Spine MRI 03/03 1. Large disc protrusion/herniation at the L1-2, the disc space level above the spinal fusion. There is inferior migration of a disc fragment central laterally to the right producing marked encroachment upon the thecal sac. 2. Postsurgical changes at L2-3 and L3-4 no recurrent herniated disc at these levels. 3. Small disc protrusion/herniation at L4-5 with mild to moderate central canal and left foraminal stenosis. 4. Subligamentous disc protrusions as herniation L5-S1 with asymmetric left foraminal encroachment as well. - MRI lumbar spine noted as above - s/p lumbar decompression and fusion by Dr. Ortiz 03/08/2022. - continue pain management with steroid, tylenol, oxy, iv morphine prn. #. Leucocytosis- likely due to steroids. Patient reports he is on and off of steroid mostly for her dermatitis herpetiformis, lately she has been on a steroid for 3 days prior to arrival for her low back pain. She is not on steroid chronically per patient. No focal source of infection identified. Patient afebrile. If fever or clinical status change, will consider empiric ABx. Procal negative. #. Hyperglycemia- No diagnosis of DM. A1c <4. BG elevated likely due to steroids. continue to monitor yoni when on steroids. #. Other chronic medical conditions: HTN, gluten intolerance/dermatitis herpetiformis, diagnosis of cirrhosis, elevated ALT [likely in the setting of fatty liver, no alcohol use], hypothyroidism. Continue with/resume home meds as and when appropriate. Cautious use of Tylenol if LFTs trend up. DVT ppx: SCD/TEDS- start chemoprophylaxis as soon as possible when okay per ortho Dispo: Continue inpatient management. Admission and Anticipated Discharge Date Admission Date: March 03, 2022 Subjective Patient seen and examined at bedside as a follow-up of low back pain/lumbar disc herniation with radiculopathy with history of L2-L4 lumbar decompression fusion by Dr. Ortiz May 2021. Patient was lying in bed, on RA, NAD. s/p lumbar Sx by Dr. Ortiz on 03/08/22. Reports significant improvement in her low back pain. No bowels, gas +ve. No new events overnight. Pt eating ok. Patient denies headache/dizziness/palpitations/belly pain/other review of symptoms.Pt working well w/ PT/OT. Physical Exam Physical Exam: GENERAL: Alert and oriented x3. NAD, on RA. Obese. HEENT: No pallor, no icterus. Pupils equal, round and reactive to light. Oral mucosa moist. NECK: No JVD, no neck masses. HEART: S1 and S2 heard. Regular rate and rhythm. No murmur, no gallop. RESPIRATORY SYSTEM: Normal AP diameter. No accessory muscle use. No wheezing, no crackles. ABDOMEN: Soft, bowel sounds present, nontender, no distention. CENTRAL NERVOUS SYSTEM: No facial droop. Speech is clear. Obeys simple commands. Moves extremities. EXTREMITIES: No edema, no erythema seen. Low back with clean dressing w/o soakage. CYNTHIA drain w/ minimal serosanguineous collection noted. Results & Data Results & Data ([facility]) Vital Signs (Past 12 Hours) Vital Signs Temp Pulse Pulse Resp BP BP Pulse Ox 03/10/22 18:43 37.3 C 101 H 20 113/75 92 03/10/22 15:00 36.8 C 96 H 18 96/68 L 91 03/10/22 14:15 93 H 03/10/22 13:36 03/10/22 11:07 36.7 C 100 H 20 133/78 92 03/10/22 07:43 36.6 C 86 20 92/60 L 82/46 L 98 Pulse Ox Pulse Ox Pulse Ox 03/10/22 18:43 03/10/22 15:00 03/10/22 14:15 03/10/22 13:36 95 96 93 03/10/22 11:07 03/10/22 07:43
[2022-03-10] MEDS: DOCUSATE SODIUM/SENNA 50/8.6MG TAB PO SCH (21:22)
[2022-03-10] MEDS: ACETAMINOPHEN 500 MG TAB PO PRN (21:23)
[2022-03-11] MEDS: POLYETHYLENE (MIRALAX) 17 GM PACK PO SCH ×3 (01:02→11:46)
[2022-03-11] MEDS: LEVOTHYROXINE SODIUM 125 MCG TABLET PO SCH (05:51)
[2022-03-11] MEDS: ACETAMINOPHEN 500 MG TAB PO PRN (07:18)
[2022-03-11] MEDS: oxyCODONE HCL IR 5 MG TAB (IMMEDIATE RELEASE) PO PRN (07:18)
[2022-03-11 08:55] LABS: Hematocrit (blood only) 34.7 % (37-47); Hemoglobin 11.4 g/dL (12.0-16.0); Mean Corpuscular Hemoglobin 33.6 pg (25-34); Mean Corpuscular Hgb Conc 32.9 g/dL (32-36); Mean Corpuscular Volume 102.4 fL (80-100); Mean Platelet Volume 11.3 fL (7.4-10.4); Platelet Count 272 K/uL (130-400); RDW Coefficient of Variation 12.8 % (11.5-14.5); RDW Standard Deviation 47.9 fL (36.4-46.3); Red Blood Count 3.39 M/uL (4.2-5.4); White Blood Count 16.74 K/uL (4.8-10.8)
[2022-03-11] MEDS: INSULIN ASPART PER UNIT SC SCH ×2 (09:10→11:45)
[2022-03-11] MEDS: FERROUS SULFATE 325 MG TAB PO SCH (09:11)
[2022-03-11] MEDS: CHOLECALCIFEROL 1,000 UNITS 25 MCG TAB PO SCH (09:12)
[2022-03-11] MEDS: LIDOCAINE 5% 1 PATCH TD SCH (09:12)
[2022-03-11] MEDS: dexAMETHasone 6 MG in SYRINGE 0 ML IV SCH (09:12)
[2022-03-11] MEDS: DULoxetine HCL 20 MG CAP PO SCH (09:12)
[2022-03-11] MEDS: DAPSONE 25 MG TAB PO SCH (09:12)
[2022-03-11 09:37] LABS: Calcium 9.2 mg/dl (8.5-10.1); Creatinine Clr Calc Pharmacy 69.1 ml/min; Est GFR (African American) 82.9 ml/min; Est GFR (Non-African American) 71.5 ml/min; Magnesium 1.8 mg/dl (1.7-2.4); Potassium 4.4 mmol/L (3.5-5.1)
--- NOTE | 2022-03-11 10:28 | Orthopedic Progress Note ---
Date of Service March 11, 2022 Assessment & Plan (1) Lumbar disc herniation with radiculopathy: Plan: Patient is status post lumbar decompression fusion she is tolerated this well. She is progressed appropriately with physical therapy and marked improvement of leg pain and disability and subsequently is cleared for discharge home per orthopedics. Admission and Anticipated Discharge Date Admission Date: March 03, 2022 Subjective Back pain is markedly improved leg pain markedly improved. She is tolerating physical therapy and feels like she is able to transition and transfer well. Physical Exam Physical Exam: On exam she is comfortable. His exam strength testing. Results & Data ([facility]) Vital Signs (Past 12 Hours) Vital Signs Temp Pulse Resp BP Pulse Ox 03/11/22 06:40 36.7 C 86 20 124/75 93 03/11/22 03:00 36.6 C 88 20 130/78 93
--- NOTE | 2022-03-11 11:11 | Discharge Summary ---
Date of Service March 11, 2022 Admission HPI Per Admitting Provider This is a 75 year old F who has a significant PMH of HTN, cirrhosis, CKD 3, obesity, hypothyroidism, gluten insensitivity, Depression, hx of gastric bypass who presents ED today secondary to worsening back pain for the past 6 days. Of significance patient underwent L2 L4 lumbar decompression fusion by Dr. Ortiz on June 03, 2021. Her hospital course was fairly uncomplicated although she did have to return to the OR due to persistent CSF leak for durotomy repair. She has been having pain since surgery however over the last 6 days she has noticed a significant increase in her pain, inability to stand or sit and feels best whenever she lies flat and does not move. She also states pain radiates down the front of her right leg. Pain is a 10/10 with movement. If lying still she can tolerate it. Her right leg does feel numb intermittently but denies any current numbness or weakness. She denies any saddle anesthesia or bowel or bladder incontinence. She was seen in orthopedic clinic yesterday and outpatien t MRI was ordered, but due to persistent and worsening pain she opted to present to ED. At home she had oxycodone so she tried that. She also has had 3 doses of prednisone. She has been using a walker at home. She denies any recent trauma or fall. She denies any f/c/s, chest pain, sob, uri sx, lightheaded, dizziness, n/v/d, abd pain, dysuria, increased urg/freq urination, dysuria and melena. Deepti ent did undergo lumbar spine MRI which revealed a large disc protrusion herniation at L1-L2, the disc base level above the spinal fusion. Also there is inferior migration of the disc fragment central laterally to the right producing marked encroachment upon thecal sac. Also noted was a small disc protrusion/herniation at L4-5 with mild to moderate central canal and left foraminal stenosis and subligamentous disc protrusions and herniation at L5-S1 with asymmetric left foraminal encroachment as well. ER provider did notify Dr. Ortiz who recommended admission by medicine and likely to undergo surgical repair in the next 1 to 2 days. Admission Exam Per Admitting Provider Constitutional: WD/WN, vitals as above, NAD, lying flat,, pleasant, conversing easily Head: Normocephalic, Atraumatic Eyes: PERRL, conjunctivae normal, anicteric sclerae ENMT: external ear and nose normal, oropharynx normal Neck: trachea midline, no thyromegaly normal visual inspection Respiratory: normal respiratory effort, lungs clear to auscultation, no wheeze, rales, rhonchi. Normal insp/exp effort, no accessory muscle use Cardiovascular: RRR, 1/6 SRIDHAR noted RUSB, trace b/l lower ext edema Vessels: no JVD or carotid bruit Chest: normal inspection of chest Abdomen:obese, normal bowel sounds, soft, nontender, no hepatosplenomegaly Musculoskeletal: no cyanosis or clubbing, AROM x 4 Skin: no rashes, warm and dry normal turgor Neurologic: PERRL, EOMI, accommodation nl, no face palsy, no dysarthria CN's II-XI intact bilaterally and moves all extremities Psychiatric: A+Ox3, euthymic affect : deferred Principal Diagnosis Lumbar spinal stenosis with neurogenic claudication Discharge Exam GENERAL: Alert and oriented x3. NAD, on RA. Obese. HEENT: No pallor, no icterus. Pupils equal, round and reactive to light. Oral mucosa moist. NECK: No JVD, no neck masses. HEART: S1 and S2 heard. Regular rate and rhythm. No murmur, no gallop. RESPIRATORY SYSTEM: Normal AP diameter. No accessory muscle use. No wheezing, no crackles. ABDOMEN: Soft, bowel sounds present, nontender, no distention. CENTRAL NERVOUS SYSTEM: No facial droop. Speech is clear. Obeys simple commands. Moves extremities. EXTREMITIES: No edema, no erythema seen. Low back with clean dressing w/o soakage. CYNTHIA drain w/ minimal serosanguineous collection noted. Discharge Data Allergies Allergy/AdvReac Type Severity Reaction Status Date / Time gluten Allergy Intermediate SKIN Verified 02/28/22 19:54 RASH--DERMATITIS pantoprazole [From Protonix] Allergy Intermediate rash Verified 02/28/22 19:54 Consultations 03/03/22 16:09 ED Decision to Admit Stat 03/03/22 16:10 Consult Orthopedic Surgery Routine 03/06/22 08:25 Consult Cardiology Routine Procedures Performed Operation Date: 03/06/22 07:30 <No data on this case meets the specified criteria> Operation Date: 03/07/22 07:30 <No data on this case meets the specified criteria> Operation Date: 03/08/22 08:20 Actual Procedures p L1-L2 Decompression,L1-L4 Fusion with Spinal Cord Monitoring(Not Applicable) - DO ryan Dunn Removal Hardware L2-L4, (Not Applicable) - Cayetano Ortiz DO Ordered Studies 03/03/22 12:49 CT abd pelvis wo con Stat 03/03/22 12:52 MR lumbar spine wo/w con Stat 03/06/22 10:25 CT angio chest PE protocol Stat 03/08/22 FL lumbar spine 2-3V Routine Hospital Course (1) Lumbar disc herniation with radiculopathy: (2) History of lumbar surgery: (3) Hyperglycemia: (4) HTN (hypertension): (5) H/O gastric bypass: (6) Cirrhosis: 75 year old F who has a significant PMH of HTN, cirrhosis, CKD 3, obesity, hypothyroidism, gluten insensitivity, Depression, hx of gastric bypass who presents ED 03/03 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 She was managed for the following: #. Low back pain/Lumbar disc herniation with radiculopathy History of L2-L4 lumbar decompression fusion by Dr. Ortiz May 2021 Lumbar Spine MRI 03/03 1. Large disc protrusion/herniation at the L1-2, the disc space level above the spinal fusion. There is inferior migration of a disc fragment central laterally to the right producing marked encroachment upon the thecal sac. 2. Postsurgical changes at L2-3 and L3-4 no recurrent herniated disc at these levels. 3. Small disc protrusion/herniation at L4-5 with mild to moderate central canal and left foraminal stenosis. 4. Subligamentous disc protrusions as herniation L5-S1 with asymmetric left foraminal encroachment as well. - MRI lumbar spine noted as above - s/p lumbar decompression and fusion by Dr. Ortiz 03/08/2022. - continue pain management with steroid, tylenol, oxy. DVT Px per Ortho. -Patient tolerating physical therapy well, pain under control, patient hemodynamically stable on the day of discharge. Orthopedics okay with discharge from their point of view. #. Leucocytosis- likely due to steroids. Patient reports he is on and off of steroid mostly for her dermatitis herpetiformis, lately she has been on a steroid for 3 days prior to arrival for her low back pain. She is not on steroid chronically per patient. No focal source of infection identified. Patient afebrile. If fever or clinical status change, will consider empiric ABx. Procal negative. #. Hyperglycemia- No diagnosis of DM. A1c <4. BG elevated likely due to steroids. continue to monitor yoni when on steroids. #. Other chronic medical conditions: HTN, gluten intolerance/dermatitis herpetiformis, diagnosis of cirrhosis, elevated ALT [likely in the setting of fatty liver, no alcohol use], hypothyroidism. Continue with/resume home meds as and when appropriate. Cautious use of Tylenol if LFTs trend up. DVT Px per ortho, scds/teds Patient being discharged home with following instruction at the point of discharge: Follow-up with your primary care physician within a week time. Get your blood work CBC and BMP done in a week time and have the results forwarded to your primary care physician. Maintain physical therapy/ambulation per orthopedics recommendation. Take medications as prescribed. Total Time Total Time Spent Total Time Spent (In Minutes): 35 Discharge Plan Discharge Items Patient Disposition: Home - Self-Care Reason For Visit: BACK PAIN Discharge Diagnosis: Lumbar spinal stenosis with neurogenic claudication Activity: As commented below Non-emergency contact: Primary Care Provider Call non-emergency contact if: you have any medication questions Follow-up/Referrals: Aaron Rausch MD [Primary Care Provider] - Diet: Regular Addtl Attending Provider Instructions: ACTIVITY RECOMMENDATIONS: SELF CARE INSTRUCTIONS AFTER THORACIC/LUMBAR FUSIONS 1. You may walk to your tolerance. It is good exercise for your legs and back. Expect some back and intermittent leg aches and pains. 2. You may perform "counter-top" level activities (make a sandwich, justice with a project, etc.). 3. No bending or lifting of more than 10 pounds or back twisting of any nature (roll like a log when turning in bed). 4. You may ride in a car for 20-30 minutes at a time. No driving until after your first visit with your doctor. 5. Frequent changes of position and restricting sitting to 30 minutes at a time will help limit the amount of back spasms and stiffness you may experience. 6. You may discontinue the use of ambulatory aids (cane, crutches, etc.) once your strength and confidence allow. 7. You may senior marketing manager the shower and let water strike your incision when you arrive home at least once daily. Do not take a tub bath, sit in a hot tub or go into a swimming pool until after your first recheck in the office. SPECIAL CARE INSTRUCTIONS: VERY IMPORTANT TO READ AND REVIEW A. Your surgical incision has been closed with a cosmetic suture under the skin that will dissolve in about 6 weeks. In 14 days, you can use a pair of clean scissors and cut the suture that is left outside of the skin at the ends of your incision. 1. The small skin tapes can be removed 7 days after surgery if they have not fallen off by that point. 2. You may keep the wound open to air as much as possible to promote healing after post-op day number 5 unless told otherwise by your doctor. 3. If you think the wound looks like it is becoming infected (redness or worsening drainage) and/or you are experiencing fever, chill or worsening back pain and muscle spasms, contact the office so that we may evaluate you as soon as possible. B. Complications are uncommon, but please contact us if you have any signs or symptoms of: 1. wound infection (fever higher than 102.5 degrees F, redness, separation of wound, drainage, or increasing pain from the incision) 2. blood clots in legs (pain, swelling, redness and warmth in legs) 3. urinary tract infection (fever higher than 102.5 degrees F, burning upon urination or increased frequency of urination) 4. nerve problems (inability to walk on your toes or heels, numbness, loss of bowel or bladder control) 5. any other symptoms that concern you C. Please call the office at if you have any concerns or questions about your operation or recovery. D. No smoking! Smoking drastically decreases the chance of a solid fusion. E. Do not take any anti-inflammatory medications (Indocin, Advil, Motrin, Aspirin, Naprosyn, etc.) as these may inhibit the chance of a solid fusion. Tylenol is okay to take for pain. MANAGING PAIN AFTER SPINAL SURGERY 1. Narcotic medication is intended for short-term use and will be provided for surgical pain. Surgical pain usually lasts for a period of 4-6 weeks. Narcotic medication includes Percocet, Vicodin, Darvocet, Tylenol #3 or Lortab. 2. Longer-term pain is more appropriately treated with non-narcotic medication such as Tylenol ES. 3. Muscle spasm is not appropriately treated with narcotics. Muscle relaxers such as Soma, Flexeril or Skelaxin can be used along with Tylenol ES. 4. Remember that we all live with some "aches and pains". This is not unusual or uncommon after an injury or as we get older. a. Back pain is expected and may include muscle spasms for 4 to 6 weeks after surgery. The pain should gradually improve. If the pain worsens for no apparent reason, please contact the office. b. Intermittent leg pain may also be experienced and should not be concerned about unless it worsens for no apparent reason. If so, please contact the office. 5. We will provide appropriate medication within the normal guidelines of their prescribed use. We will also be very cautious and aware of potential abuse and extended duration of patients' medication needs. a. Pain medications are for your comfort and to assist with sleep and rest so that the tissue can heal. They are not provided in order to return to normal activity and should not be used through the day. To do so or worsening pain at night can result from ongoing tissue damage and development of tolerance to the prescribed medicine. 6. Please allow 2-3 days to process refills. Prescriptions will not be mailed but must be picked up at the office. FOLLOW UP VISIT: Keep your scheduled follow-up appointment. Any questions, please call the office at . Addtl Cartographic Aide Provider Instructions: Follow-up with your primary care physician within a week time. Get your blood work CBC and BMP done in a week time and have the results forwarded to your primary care physician. Maintain physical therapy/ambulation per orthopedics recommendation. Take medications as prescribed. Pending Studies at Discharge: No Stand-Alone Forms: My [employer], Smoking Cessation Medications and DC Order Prescriptions: New tramadol 50 mg tablet 50 mg PO Q6H PRN (Reason: pain, moderate) Qty: 30 RF: 0 oxycodone 5 mg tablet 5 mg PO Q6H PRN (Reason: pain, severe) Qty: 30 RF: 0 Continued levothyroxine [Synthroid] 125 mcg tablet 125 mcg PO QAM RF: 0 dapsone 25 mg tablet 50 mg PO BID RF: 0 losartan [Cozaar] 100 mg tablet 50 mg PO QAM RF: 0 duloxetine [Cymbalta] 20 mg capsule,delayed release(DR/EC) 20 mg PO QAM RF: 0 cholecalciferol (vitamin D3) 1,000 unit Tablet 1,000 unit PO QAM RF: 0 ferrous sulfate 325 mg (65 mg iron) tablet 325 mg PO BID RF: 0 cyanocobalamin (vitamin B-12) 1,000 mcg/mL Solution 1,000 mcg IM MONTHLY RF: 0 fluocinonide 0.05 % Solution 1 applic TOPICAL BID PRN (Reason: Itching) RF: 0 oxycodone 5 mg tablet 5 mg PO Q4H PRN (Reason: Pain, Severe) RF: 0 prednisone 20 mg tablet 60 mg PO DAILY 4 Days Qty: 12 RF: 0 diazepam 2 mg tablet 2 mg PO BID PRN (Reason: anxiety) Qty: 6 RF: 0 acetaminophen [Tylenol Extra Strength] 500 mg Tablet 1,000 mg PO Q6H PRN (Reason: Pain) RF: 0 Discharge Orders: Discharge Order (Routine); Ordered 03/11/22 Ordered By: Cayetano Ortiz Admission Data Admit Date/Time: 03/03/22 16:10 Attending Provider: Ethan Jackson Admit Provider: Phong Turner Primary Care Provider: Aaron Rausch Other Providers: Phong Turner ; Cayetano Ortiz ; Urbano Schafer Other Interventions: Discharge Summary Assessment (RN) Last Done: 03/11/22 10:40
== END 2022-03-11 12:23 | disposition home or self-care (01) | DRG 460 ==
LOC: ED 12:13 → 2W 16:10 → SUATTDRO 16:10 → 2W 17:55

== ENCOUNTER 2023-10-19 22:11 | Inpatient (IN) ==
[2023-10-19 23:17] LABS: Basophils # (auto) 0.08 K/uL (0.00-0.20); Basophils % (auto) 1.3 %; Eosinophils % (auto) 3.2 %; Hematocrit (blood only) 26.5 % (37.0-47.0); Hemoglobin 7.9 g/dl (12.0-16.0); Immature Granulocytes # (auto) 0.02 K/uL (0.01-0.20); Immature Granulocytes % (auto) 0.3 %; Lymphocytes % (auto) 25.6 %; Mean Corpuscular Hemoglobin 27.6 pg (25.0-34.0); Mean Corpuscular Hgb Conc 29.8 g/dL (32.0-36.0); Mean Corpuscular Volume 92.7 fL (80.0-100.0); Mean Platelet Volume 10.2 fL (9.4-12.4); Monocytes # (auto) 0.71 K/uL (0.11-0.59); Monocytes % (auto) 11.4 %; Neutrophils # (auto) 3.63 K/uL (1.40-6.50); Neutrophils % (auto) 58.2 %; Platelet Count 394 K/uL (130-400); RDW Coefficient of Variation 15.2 % (11.5-14.5); RDW Standard Deviation 51.6 fL (36.4-46.3); Red Blood Count 2.86 M/uL (4.20-5.40); White Blood Count 6.24 K/ul (4.8-10.8)
[2023-10-19 23:25] LABS: Albumin Globulin Ratio 1.1 (0.9-2); Albumin Level 3.3 gm/dl (3.4-5.0); BUN Creatinine Ratio 17.4 (10-20); Bilirubin,Total 0.9 mg/dl (0.2-1.0); Creatinine Clr Calc Pharmacy 58.7 ml/min; Est GFR (African American) 76.6 ml/min; Est GFR (Non-African American) 66.1 ml/min; Globulin 3.1 gm/dl (2.5-4.0); Potassium 4.1 mmol/L (3.5-5.1); Total Protein 6.4 gm/dl (6.0-8.3)
[2023-10-19 23:32] LABS: Troponin I High Sensitivity 8.4 pg/ml (0-14)
[2023-10-19] MEDS ORDERED: ACETAMINOPHEN 1,000 MG/100 ML VIAL IV STA (23:34)
[2023-10-19] MEDS ORDERED: FAMOTIDINE 20MG IV PUSH 20 MG/5 ML SYR IV STA (23:34)
[2023-10-19 23:39] LABS: RBC Morphology Unremarkable
[2023-10-19] MEDS ORDERED: SODIUM CHLORIDE 0.9% 1,000 ML IV SCH (23:45)
[2023-10-19] MEDS ORDERED: OPTIRAY 320 500ml IV ONE (23:59)
--- NOTE | 2023-10-20 00:08 | Emergency Department Note ---
Impression & Plan Abdominal pain, Anemia, Melena ED Provider Note ED Provider Note NAME: JOSEFINA TEIXEIRA AGE:77 SEX: Female : 1945 ARRIVES VIA: EMS INFORMANT: Patient ED PROVIDER(s): Cayla Marie DO CHIEF COMPLAINT: Abdominal pain HPI: This is a 77-year-old female presents emergency department due to concern for abdominal pain. Patient states she has been noticing increased pain over the course of the last few weeks however worse in the last few days. She states it is central and otherwise nonradiating, worse on the left than right. Patient has chronic accompanying back pain for which they see pain management as well as Dr. Ortiz. Patient became concerned as pain today was worsening and felt similar to when she had a perforated gastric ulcer previously. Patient is also previously had gastric bypass. Patient states she takes super fate daily, no other GI medications. She states she did recently have prednisone to help treat her back pain and also took NSAIDs the last 2 days. She denies any use of anticoagulation medication but also admits to low-dose aspirin daily. She states today she saw black stools, no overt blood. She states in recent days she has been increasingly fatigued, and been short of breath with any exertion. She denies dizziness/lightheadedness, or coming chest pain. She denies fevers or chills. PAST MEDICAL HISTORY:See Below PAST SURGICAL HISTORY:See Below FAMILY HISTORY:See Below SOCIAL HISTORY:See Below HOME MEDICATIONS:See Below ALLERGIES:See Below VITALS:See Below PHYSICAL EXAMINATION: GENERAL: alert, uncomfortable appearing, well nourished, no distress, non-toxic EYE EXAM: normal conjunctiva, PERRL and EOM's grossly intact OROPHARYNX: no exudate, no erythema, lips, buccal mucosa, and tongue normal and mucous membranes are moist NECK: supple, no nuchal rigidity, no adenopathy, non-tender LUNGS: Clear to auscultation. Normal chest wall mechanics, no w/r/r HEART: no murmurs, S1 normal and S2 normal ABDOMEN: abdomen soft, central tenderness with palpation normo-active bowel sounds, no masses, no rebound or guarding. BACK: Back is symmetrical on inspection and there is no deformity, no midline tenderness, no CVA tenderness. SKIN: no rashes, petechiae, orbruising UPPER EXTREMITIES: upper extremities are grossly normal. FROM, nml pulses b/l. LOWER EXTREMITIES: No pitting edema. FROM, nml pulses b/l. NEURO EXAM: Normal sensorium, cranial nerves II-XII grossly intact, normal speech, no facial droop,nogross weakness of arms, no gross weakness of legs. Gross sensation intact. No ataxia. Vital Signs: reviewed and remarkable Differential Diagnosis: diverticulosis, AVM, coagulopathy, colitis, inflammatory bowel disease, malignancy, Enid-Rosario tear, esophagitis, peptic ulcer disease, variceal bleed, gastritis, epistaxis, fissure, hemorrhoids, as well as others were entertained. MEDICAL DECISION MAKING: This is a 77 yo female who presents with concern for abdominal pain that feels similar to prior PUD and perforation. VS stable here. Labs drawn and sent, IV established, EKG and CXR performed and interpreted at bedside, and patient placed on telemetry. Patient given IV pepcid due to a documented alelrgy to protonix which patient confirms. She was sent for CT a/p to r/o perforation given her history. Patient with worsening anemia, likely acute or chronic given evolving symptoms of fatigue and BROWNING. CT reassuring, other labs reassuring. Case discussed with hospitalist for additional evaluation and likely GI consultation. Given hx of gastric bypass, prior PUD, and recent use of NSAIDS/prednisone, I feel recurrent PUD/GI bleed probable. Additional use of PPI deferred to hospitalist/GI given documented allergy. Consultation(s): 0123: Discussed with Dr. Aguayo, [facility] hospitalist, for additional evaluation and tx. ER Treatment Provided: See below Diagnostics Interpreted By Me: -ECG: NSR at 91, nml axis, nml intervals, no acute ST/T wave changes -Cardiac Monitoring: An order was placed for continuous cardiac monitoring. The monitor shows a rate of 92 with normal sinus rhythm. -Laboratory studies: As stated above and show below. -Imaging studies: X-ray Chest: A single view study of the chest was reviewed and was negative for cardiomegaly, focal infiltrate, effusion, pulmonary edema, or wide mediastinum. Triage Nursing Note Reviewed Prior/Outside Records Reviewed - prior DC summary reviewed Past Med/Surg History Medical History CKD (chronic kidney disease) stage 3, GFR 30-59 ml/min Prolonged QT interval Per PCP records Cirrhosis Cryptogenic per PCP records Kidney stones hx History of GI bleed + GASTRIC ULCER x 1; MOST RECENT OCCURRED SEVERAL MONTHS AGO - REPEAT EGD 06/2021 (No blood transfusion needed for GI ulcer in January 2021) Osteoarthritis Fatty liver Obesity Dermatitis herpetiformis OCCURS WITH GLUTEN Depression Asthma NO INHALER USE X YEARS HTN (hypertension) Hypothyroidism Anemia STABLE PER PATIENT - TAKES IRON SUPPLEMENT PO DAILY HX OF BLOOD TRANSFUSION YEARS AGO SECONDARY FROM ANEMIA FROM GI ULCER Surgical History History of cataract surgery LEFT and RIGHT S/P cystoscopy with ureteral stent placement 03/11/2019 [facility] History of esophagogastroduodenoscopy (EGD) History of colonoscopy Hx of tonsillectomy History of cholecystectomy History of hip replacement right hip H/O gastric bypass 1998 Family History Brother Pancreatic cancer Mother Pancreatic cancer Father Coronary heart disease Social History Smoking Status: Former smoker Second Hand Exposure: No; Do You Dip or Chew Tobacco: No; Hx Alcohol Use: No Hx Substance Use: No Preferred Language: Urdu Communication Ability: Effective Programming Specialist Required: No Beliefs That Will Affect Care: None marital status: / Current Living Situation: Family Current Living Situation Comment: home with son "denise" How many Children do You have: 1 Other Information That Helps Us Care for You: No Feels Safe at Home: Yes Safety Concerns: Feels Safe At This Time Assistive Devices: Denture - Upper and Glasses Allergies Allergies Allergy/AdvReac Type Severity Reaction Status Date / Time gluten Allergy Intermediate SKIN Verified 10/20/23 11:46 RASH--DERMATITIS Home Meds Home Medications Medication Instructions Recorded Confirmed dapsone 25 mg tablet 50 mg PO BID 08/07/18 10/20/23 duloxetine 20 mg capsule,delayed 20 mg PO QAM 08/07/18 10/20/23 release (Cymbalta) levothyroxine 125 mcg tablet 125 mcg PO QAM 08/07/18 10/20/23 (Synthroid) losartan 100 mg tablet (Cozaar) 50 mg PO QAM 08/07/18 10/20/23 ferrous sulfate 325 mg (65 mg 325 mg PO BID 03/11/19 10/20/23 iron) tablet fluocinonide 0.05 % topical 0.05 applic topical DAILY PRN other 04/11/23 10/20/23 solution albuterol sulfate 90 mcg/actuation 1 puff inhalation QID 04/18/23 10/20/23 aerosol inhaler betamethasone dipropionate 0.05 % 1 applic topical DAILY PRN Rash 04/18/23 10/20/23 topical cream famotidine 20 mg tablet 20 mg PO BID 04/18/23 10/20/23 multivitamin 1 tab PO DAILY 04/18/23 10/20/23 oxycodone-acetaminophen 7.5 mg-325 1 tab PO Q4 PRN Severe Pain (Scale 10/20/23 10/20/23 mg tablet Score 7-10) tramadol 50 mg tablet 50 mg PO Q6 PRN Severe Pain (Scale 10/20/23 10/20/23 Score 7-10) Previous Rx's Medication Instructions Recorded atorvastatin 20 mg tablet 20 mg PO DAILY #30 tabs 04/18/23 pantoprazole 40 mg tablet,delayed 40 mg PO BID #60 tabs 10/21/23 release Results & Data (ED) Vital Signs Vital Signs - 24 hr 10/19/23 22:22 10/19/23 22:23 10/19/23 23:00 Temperature 36.9 C Temperature Source Oral Pulse Rate 91 H 92 H 97 H Respiratory Rate 18 18 Respiratory Effort / Characteristics Non-Labored Spontaneous Respiratory Depth Normal Blood Pressure 148/81 H Blood Pressure Mean 103 Pulse Oximetry 94 86 L Oxygen Delivery Method Room Air Room Air Oxygen Flow Rate Sepsis Recent Fever Within 48 Hours No Sepsis New/Unexplained Change in Mental Status No Sepsis Action Taken by Nursing No Action Required 10/19/23 23:00 10/19/23 23:07 10/19/23 23:30 Temperature Temperature Source Pulse Rate 98 H Respiratory Rate 20 Respiratory Effort / Characteristics Respiratory Depth Blood Pressure 152/77 H Blood Pressure Mean 112 Pulse Oximetry 97 97 Oxygen Delivery Method Nasal Cannula Nasal Cannula Oxygen Flow Rate 2 2 Sepsis Recent Fever Within 48 Hours Sepsis New/Unexplained Change in Mental Status Sepsis Action Taken by Nursing 10/19/23 23:30 Temperature Temperature Source Pulse Rate Respiratory Rate Respiratory Effort / Characteristics Respiratory Depth Blood Pressure 158/85 H Blood Pressure Mean 128 Pulse Oximetry Oxygen Delivery Method Oxygen Flow Rate Sepsis Recent Fever Within 48 Hours Sepsis New/Unexplained Change in Mental Status Sepsis Action Taken by Nursing Laboratory Data 10/21/23 05:35 10/21/23 05:35 Lab Results 10/19/23 10/19/23 10/20/23 Range/Units 22:23 23:11 00:08 WBC 6.24 (4.8-10.8) K/ul RBC 2.86 L (4.20-5.40) M/uL Hgb 7.9 L (12.0-16.0) g/dl Hct 26.5 L (37.0-47.0) % MCV 92.7 (80.0-100.0) fL MCH 27.6 (25.0-34.0) pg MCHC 29.8 L (32.0-36.0) g/dL RDW Std Deviation 51.6 H (36.4-46.3) fL RDW Coeff of Patrick 15.2 H (11.5-14.5) % Plt Count 394 (130-400) K/uL MPV 10.2 (9.4-12.4) fL Immature Gran % (Auto) 0.3 % Neut % (Auto) 58.2 % Lymph % (Auto) 25.6 % Cocke % (Auto) 11.4 % Eos % (Auto) 3.2 % Baso % (Auto) 1.3 % Neut # (Auto) 3.63 (1.40-6.50) K/uL Lymph # (Auto) 1.60 (1.20-3.40) K/uL Cocke # (Auto) 0.71 H (0.11-0.59) K/uL Eos # (Auto) 0.20 (0.00-0.50) K/uL Baso # (Auto) 0.08 (0.00-0.20) K/uL Immature Gran # (Auto) 0.02 (0.01-0.20) K/uL RBC Morphology Unremarkable PT 11.8 (9.0-12.0) Seconds INR 1.1 (0.9-1.1) Sodium 135 L (136-145) mmol/L Potassium 4.1 (3.5-5.1) mmol/L Chloride 105 (98-107) mmol/L Carbon Dioxide 22 (21-32) mmol/L Anion Gap 8 (3-11) BUN 15 (6-23) mg/dl Creatinine 0.86 (0.6-1.2) mg/dl Est Cr Clr Drug Dosing 58.7 ml/min Est GFR ( Amer) 76.6 ml/min Est GFR (Non-Af Amer) 66.1 ml/min BUN/Creatinine Ratio 17.4 (10-20) Glucose 96 (70-99(Fasting)) mg/dl Calcium 9.0 (8.6-10.3) mg/dl Total Bilirubin 0.9 (0.2-1.0) mg/dl AST 17 (13-39) U/L ALT 11 (7-52) U/L Alkaline Phosphatase 65 (34-104) U/L Troponin I High Sens 8.4 (0-14) pg/ml Total Protein 6.4 (6.0-8.3) gm/dl Albumin 3.3 L (3.4-5.0) gm/dl Globulin 3.1 (2.5-4.0) gm/dl Albumin/Globulin Ratio 1.1 (0.9-2) Lipase 11 (11-82) U/L Urine Color Urine Appearance (Clear) Urine pH (4.5-7.5) Ur Specific Wray (1.000-1.030) Urine Protein (Negative) Urine Glucose (UA) (Negative) Urine Ketones (Negative) Urine Blood (Negative) Urine Nitrite (Negative) Urine Bilirubin (Negative) Urine Urobilinogen (Negative) Ur Leukocyte Esterase (Negative) Blood Type B Positive Antibody Screen NEGATIVE Crossmatch See Detail 10/20/23 Range/Units 02:17 WBC (4.8-10.8) K/ul RBC (4.20-5.40) M/uL Hgb (12.0-16.0) g/dl Hct (37.0-47.0) % MCV (80.0-100.0) fL MCH (25.0-34.0) pg MCHC (32.0-36.0) g/dL RDW Std Deviation (36.4-46.3) fL RDW Coeff of Patrick (11.5-14.5) % Plt Count (130-400) K/uL MPV (9.4-12.4) fL Immature Gran % (Auto) % Neut % (Auto) % Lymph % (Auto) % Cocke % (Auto) % Eos % (Auto) % Baso % (Auto) % Neut # (Auto) (1.40-6.50) K/uL Lymph # (Auto) (1.20-3.40) K/uL Cocke # (Auto) (0.11-0.59) K/uL Eos # (Auto) (0.00-0.50) K/uL Baso # (Auto) (0.00-0.20) K/uL Immature Gran # (Auto) (0.01-0.20) K/uL RBC Morphology PT (9.0-12.0) Seconds INR (0.9-1.1) Sodium (136-145) mmol/L Potassium (3.5-5.1) mmol/L Chloride (98-107) mmol/L Carbon Dioxide (21-32) mmol/L Anion Gap (3-11) BUN (6-23) mg/dl Creatinine (0.6-1.2) mg/dl Est Cr Clr Drug Dosing ml/min Est GFR ( Amer) ml/min Est GFR (Non-Af Amer) ml/min BUN/Creatinine Ratio (10-20) Glucose (70-99(Fasting)) mg/dl Calcium (8.6-10.3) mg/dl Total Bilirubin (0.2-1.0) mg/dl AST (13-39) U/L ALT (7-52) U/L Alkaline Phosphatase (34-104) U/L Troponin I High Sens (0-14) pg/ml Total Protein (6.0-8.3) gm/dl Albumin (3.4-5.0) gm/dl Globulin (2.5-4.0) gm/dl Albumin/Globulin Ratio (0.9-2) Lipase (11-82) U/L Urine Color Yellow Urine Appearance Clear (Clear) Urine pH 7.0 (4.5-7.5) Ur Specific Wray > 1.045 H (1.000-1.030) Urine Protein Negative (Negative) Urine Glucose (UA) Negative (Negative) Urine Ketones 1+ H (Negative) Urine Blood Negative (Negative) Urine Nitrite Negative (Negative) Urine Bilirubin Negative (Negative) Urine Urobilinogen Negative (Negative) Ur Leukocyte Esterase Negative (Negative) Blood Type Antibody Screen Crossmatch Administered Medications Discontinued Medications Acetaminophen (Acetaminophen 500 Mg Tab) 500 mg PO Q6H PRN PRN Reason: fever/pain Stop: 11/19/23 03:02 Last Admin: 10/21/23 11:44 Dose: 500 mg Documented By: Admin: 10/20/23 20:08 Dose: 500 mg Documented By: FABRICIO Atorvastatin Calcium (Atorvastatin 20 Mg Tab) 20 mg PO DAILY [facility] Stop: 11/19/23 08:59 Last Admin: 10/21/23 09:09 Dose: 20 mg Documented By: Admin: 10/20/23 13:37 Dose: 20 mg Documented By: KASSIE Dapsone (Dapsone 25 Mg Tab) 50 mg PO BID@0100,1400 LEONIDAS Stop: 11/19/23 13:59 Last Admin: 10/21/23 13:46 Dose: 50 mg Documented By: Admin: 10/21/23 02:21 Dose: 50 mg Documented By: Admin: 10/20/23 13:37 Dose: 50 mg Documented By: KASSIE Duloxetine HCl (Duloxetine Hcl 20 Mg Cap) 20 mg PO QAM [facility] Stop: 11/19/23 08:59 Last Admin: 10/21/23 09:09 Dose: 20 mg Documented By: Admin: 10/20/23 13:37 Dose: 20 mg Documented By: KASSIE Famotidine (Pepcid 20mg Iv Push) 20 mg in 5 mls @ 2.5 mls/min IV NOW STA Stop: 10/19/23 23:35 Last Admin: 10/20/23 00:11 Dose: 2.5 mls/min Documented By: HARJIT Acetaminophen (Ofirmev) 1,000 mg in 100 mls @ 400 mls/hr IV NOW STA Stop: 10/19/23 23:48 Last Infusion: 10/20/23 00:25 Dose: Infused Documented By: Admin: 10/20/23 00:10 Dose: 400 mls/hr Documented By: HARJIT Sodium Chloride (Nss) 1,000 mls @ 125 mls/hr IV .Q8H LEONIDAS Stop: 11/18/23 23:44 Last Infusion: 10/20/23 08:10 Dose: Infused Documented By: Admin: 10/20/23 00:10 Dose: 125 mls/hr Documented By: HARJIT Sodium Chloride (Nss) 1,000 mls @ 60 mls/hr IV .[id number] STA Stop: 10/20/23 18:43 Last Infusion: 10/20/23 13:47 Dose: Infused Documented By: Infusion: 10/20/23 05:08 Dose: 0 mls/hr Documented By: Admin: 10/20/23 02:15 Dose: 60 mls/hr Documented By: HARJIT Ceftriaxone Sodium (Rocephin) 2,000 mg in 50 mls @ 100 mls/hr IV NOW STA Stop: 10/20/23 03:23 Last Infusion: 10/20/23 04:09 Dose: Infused Documented By: Admin: 10/20/23 03:39 Dose: 100 mls/hr Documented By: ABEL Pantoprazole Sodium 40 mg/ (Syringe) 10 mls @ 5 mls/min IV NOW STA Stop: 10/20/23 03:01 Last Admin: 10/20/23 03:38 Dose: 5 mls/min Documented By: ABEL Ceftriaxone Sodium 2,000 mg/ (Dextrose) 50 mls @ 100 mls/hr IV Q24H LEONIDAS; Protocol Stop: 10/31/23 05:59 Last Infusion: 10/21/23 06:40 Dose: Infused Documented By: Admin: 10/21/23 06:08 Dose: 100 mls/hr Documented By: FABRICIO Pantoprazole Sodium 40 mg/ (Dextrose) 100 mls @ 20 mls/hr IV Q5H LEONIDAS Stop: 11/19/23 05:59 Last Admin: 10/20/23 13:46 Dose: Not Given Documented By: Infusion: 10/20/23 13:46 Dose: Infused Documented By: Admin: 10/20/23 06:19 Dose: 8 mg/hr, 20 mls/hr Documented By: ABEL Ioversol (Optiray 320 500ml) 83 ml IV ONCE ONE Stop: 10/20/23 00:00 Last Admin: 10/19/23 23:59 Dose: 83 ml Documented By: HARVEY Levothyroxine Sodium (Levothyroxine Sodium 125 Mcg Tablet) 125 mcg PO QAM LEONIDAS Stop: 11/19/23 08:59 Last Admin: 10/21/23 09:10 Dose: 125 mcg Documented By: Admin: 10/20/23 13:37 Dose: 125 mcg Documented By: KASSIE Lidocaine HCl (Lidocaine 2% 2 Ml Vial/Amp(20mg/Ml)) Confirm Administered Dose 4 ml INFIL .STK-MED ONE Stop: 10/20/23 11:48 Last Admin: 10/20/23 13:48 Dose: Not Given Documented By: KASSIE Losartan Potassium (Losartan Potassium 50 Mg Tab) 50 mg PO NOW STA Stop: 10/20/23 06:03 Last Admin: 10/20/23 06:45 Dose: 50 mg Documented By: ABEL Losartan Potassium (Losartan Potassium 50 Mg Tab) 50 mg PO [facility] Stop: 11/20/23 08:59 Last Admin: 10/21/23 09:09 Dose: 50 mg Documented By: JAMIE Multivitamins (Multivitamin Tab) 1 tab PO DAILY [facility] Stop: 11/19/23 08:59 Last Admin: 10/21/23 09:09 Dose: 1 tab Documented By: Admin: 10/20/23 13:37 Dose: 1 tab Documented By: KASSIE Oxycodone HCl (Oxycodone Hcl Ir 5 Mg Tab (Immediate Release)) 5 mg PO NOW STA Stop: 10/20/23 06:02 Last Admin: 10/20/23 06:18 Dose: 5 mg Documented By: ABEL Pantoprazole Sodium (Pantoprazole 40 Mg Tab) 40 mg PO BID [facility] Stop: 11/19/23 20:59 Last Admin: 10/21/23 09:09 Dose: 40 mg Documented By: Admin: 10/20/23 20:08 Dose: 40 mg Documented By: FABRICIO Propofol (Propofol Iv Emulsion 10 Mg/Ml 20 Ml Vial) Confirm Administered Dose 200 mg IV .STK-MED ONE Stop: 10/20/23 11:48 Last Admin: 10/20/23 13:48 Dose: Not Given Documented By: KASSIE Imaging Data Radiologist's Impression: Abdomen/Pelvis CT 10/19/23 23:34 Exam(s): CT ABDOMEN + PELVIS With Contrast IV Amt: 83 ml opti 320 EXAM: CT Abdomen and Pelvis With Intravenous Contrast CLINICAL HISTORY: Reason for exam: abd pain, hx PUD with perf. TECHNIQUE: Axial computed tomography images of the abdomen and pelvis with intravenous contrast. CTDI is 27.14 mGy and DLP is 1310.33 mGy-cm. Automated exposure control was utilized for the study. A dose lowering technique was utilized adhering to the principles of ALARA. CONTRAST: Patient received 83 ml opti 320 of IV contrast COMPARISON: CT abdomen pelvis September 17, 2023. FINDINGS: Lung bases: Unremarkable. No mass. No consolidation. ABDOMEN: Liver: Hepatic cirrhosis. Multiple LEFT upper quadrant. Splenic varices. No abdominal ascites. Gallbladder and bile ducts: Unremarkable. No calcified stones. No ductal dilation. Pancreas: Unremarkable. No mass. No ductal dilation. Spleen: Unremarkable. No splenomegaly. Adrenals: Unremarkable. No mass. Kidneys and ureters: Unremarkable. No hydronephrosis. Stomach and bowel: Bigg-en-Y gastric bypass. No obstruction of the jejunojejunostomy. Diverticulosis, without acute diverticulitis. No small bowel obstruction. No free intraperitoneal air. PELVIS: Appendix: No findings to suggest acute appendicitis. Bladder: Decompressed urinary bladder. Reproductive: Atrophied uterus. ABDOMEN and PELVIS: Intraperitoneal space: See above. Bones/joints: RIGHT hip arthroplasty. Degenerative changes of the spine. No acute fracture. No dislocation . Multilevel posterior lumbar fusion at L1-L4. Laminectomy at L3. Soft tissues: Unremarkable. Vasculature: Atherosclerotic changes of the aorta. Lymph nodes: Unremarkable. No enlarged lymph nodes. IMPRESSION: 1. Hepatic cirrhosis. Multiple LEFT upper quadrant. Splenic varices. No abdominal ascites. 2. RIGHT hip arthroplasty. 3. Bigg-en-Y gastric bypass. No obstruction of the jejunojejunostomy. 4. Diverticulosis, without acute diverticulitis. No small bowel obstruction. No free intraperitoneal air. Electronically signed by: David Parra MD 10/20/23 00:51 AM Discharge Plan Visit Data Chief Complaint: GI Assessment Stated Complaint: Dark Bowel Movement, Epigastric Pain ED Provider: Cayla Marie Discharge Problem: Abdominal pain, Anemia, Melena Patient Disposition: Admitted As Inpatient Discharge Instructions Interventions: ED Discharge Assessment Last Done: 10/20/23 03:48
--- NOTE | 2023-10-20 00:52 | CT Scan Report ---
Exam(s): CT ABDOMEN + PELVIS With Contrast IV Amt: 83 ml opti 320 EXAM: CT Abdomen and Pelvis With Intravenous Contrast CLINICAL HISTORY: Reason for exam: abd pain, hx PUD with perf. TECHNIQUE: Axial computed tomography images of the abdomen and pelvis with intravenous contrast. CTDI is 27.14 mGy and DLP is 1310.33 mGy-cm. Automated exposure control was utilized for the study. A dose lowering technique was utilized adhering to the principles of ALARA. CONTRAST: Patient received 83 ml opti 320 of IV contrast COMPARISON: CT abdomen pelvis September 17, 2023. FINDINGS: Lung bases: Unremarkable. No mass. No consolidation. ABDOMEN: Liver: Hepatic cirrhosis. Multiple LEFT upper quadrant. Splenic varices. No abdominal ascites. Gallbladder and bile ducts: Unremarkable. No calcified stones. No ductal dilation. Pancreas: Unremarkable. No mass. No ductal dilation. Spleen: Unremarkable. No splenomegaly. Adrenals: Unremarkable. No mass. Kidneys and ureters: Unremarkable. No hydronephrosis. Stomach and bowel: Bigg-en-Y gastric bypass. No obstruction of the jejunojejunostomy. Diverticulosis, without acute diverticulitis. No small bowel obstruction. No free intraperitoneal air. PELVIS: Appendix: No findings to suggest acute appendicitis. Bladder: Decompressed urinary bladder. Reproductive: Atrophied uterus. ABDOMEN and PELVIS: Intraperitoneal space: See above. Bones/joints: RIGHT hip arthroplasty. Degenerative changes of the spine. No acute fracture. No dislocation . Multilevel posterior lumbar fusion at L1-L4. Laminectomy at L3. Soft tissues: Unremarkable. Vasculature: Atherosclerotic changes of the aorta. Lymph nodes: Unremarkable. No enlarged lymph nodes. IMPRESSION: 1. Hepatic cirrhosis. Multiple LEFT upper quadrant. Splenic varices. No abdominal ascites. 2. RIGHT hip arthroplasty. 3. Bigg-en-Y gastric bypass. No obstruction of the jejunojejunostomy. 4. Diverticulosis, without acute diverticulitis. No small bowel obstruction. No free intraperitoneal air. Electronically signed by: David Parra MD 10/20/23 00:51 AM
[2023-10-20] MEDS ORDERED: SODIUM CHLORIDE 0.9% 1,000 ML IV STA (02:04)
[2023-10-20 02:29] LABS: Appearance Urine Clear (Clear); Bilirubin Urine Negative (Negative); Blood Urine Negative (Negative); Color Urine Yellow; Glucose Urine UA Negative (Negative); Ketones Urine 1+ (Negative); Leukocyte Esterase Urine Negative (Negative); Nitrite Urine Negative (Negative); Protein Urine Negative (Negative); Specific Gravity Urine > 1.045 (1.000-1.030); Urobilinogen Urine Negative (Negative)
[2023-10-20] MEDS ORDERED: cefTRIAXone SODIUM 2,000 MG/50 ML BAG IV STA (02:54)
[2023-10-20] MEDS ORDERED: diphenhydrAMINE 50 MG/ML VIAL IV PRN (02:56)
[2023-10-20] MEDS ORDERED: SODIUM CHLORIDE 0.9% 250 ML IV PRN (02:57)
--- NOTE | 2023-10-20 02:59 | History & Physical Report ---
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 She has tolerated small doses of omeprazole at home as per patient.) Hold aspirin for now GI consult re: UGIB Ceftriaxone for SBP prophylaxis in cirrhotic patient presenting with GI bleed N.p.o. until patient seen by GI in anticipation of endoscopy Transfuse PRBC to maintain hemoglobin of at least 8 given history of CAD DVT prophylaxis. SCDs Full code Text document was generated using [employer] voice recognition software. It may contain grammatical or spelling errors. Kindly contact undersigned for clarification of any documentation item in question. History of Present Illness Chief Complaint: Abdominal pain, melena Primary Care Provider: Aaron Rausch MD History obtained from patient and records. 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 Last confinement February 2022 for lumbar spinal stenosis status post decompression surgery. 2 weeks history of burning epigastric pain without fever, chills. No hematemesis. Prednisone and NSAID Rx for chronic back pain. Melanotic stools noted last night. No chest pain. Increasing generalized weakness over the last few days. IV Pepcid administered at the ER. Medical History as above EGD 2021 normal esophagus, gastric bypass with medium sized pouch and intact staple line. GJ anastomosis characterized by healthy mucosa. 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 Allergies Allergy/AdvReac Type Severity Reaction Status Date / Time gluten Allergy Intermediate SKIN Verified 10/20/23 11:46 RASH--DERMATITIS Home Medications Medication Instructions Recorded Confirmed Type dapsone 25 mg tablet 50 mg PO BID 08/07/18 10/20/23 History duloxetine 20 mg capsule,delayed 20 mg PO QAM 08/07/18 10/20/23 History release (Cymbalta) levothyroxine 125 mcg tablet 125 mcg PO QAM 08/07/18 10/20/23 History (Synthroid) losartan 100 mg tablet (Cozaar) 50 mg PO QAM 08/07/18 10/20/23 History ferrous sulfate 325 mg (65 mg 325 mg PO BID 03/11/19 10/20/23 History iron) tablet fluocinonide 0.05 % topical 0.05 applic topical DAILY PRN other 04/11/23 10/20/23 History solution albuterol sulfate 90 mcg/actuation 1 puff inhalation QID 04/18/23 10/20/23 History aerosol inhaler atorvastatin 20 mg tablet 20 mg PO DAILY #30 tabs 04/18/23 10/20/23 Rx betamethasone dipropionate 0.05 % 1 applic topical DAILY PRN Rash 04/18/23 10/20/23 History topical cream famotidine 20 mg tablet 20 mg PO BID 04/18/23 10/20/23 History multivitamin 1 tab PO DAILY 04/18/23 10/20/23 History oxycodone-acetaminophen 7.5 mg-325 1 tab PO Q4 PRN Severe Pain (Scale 10/20/23 10/20/23 History mg tablet Score 7-10) tramadol 50 mg tablet 50 mg PO Q6 PRN Severe Pain (Scale 10/20/23 10/20/23 History Score 7-10) Past Med/Surg History Medical History CKD (chronic kidney disease) stage 3, GFR 30-59 ml/min Prolonged QT interval Per PCP records Cirrhosis Cryptogenic per PCP records Kidney stones hx History of GI bleed + GASTRIC ULCER x 1; MOST RECENT OCCURRED SEVERAL MONTHS AGO - REPEAT EGD 06/2021 (No blood transfusion needed for GI ulcer in January 2021) Osteoarthritis Fatty liver Obesity Dermatitis herpetiformis OCCURS WITH GLUTEN Depression Asthma NO INHALER USE X YEARS HTN (hypertension) Hypothyroidism Anemia STABLE PER PATIENT - TAKES IRON SUPPLEMENT PO DAILY HX OF BLOOD TRANSFUSION YEARS AGO SECONDARY FROM ANEMIA FROM GI ULCER Surgical History History of cataract surgery LEFT and RIGHT S/P cystoscopy with ureteral stent placement 03/11/2019 [facility] History of esophagogastroduodenoscopy (EGD) History of colonoscopy Hx of tonsillectomy History of cholecystectomy History of hip replacement right hip H/O gastric bypass 1998 Family History Brother Pancreatic cancer Mother Pancreatic cancer Father Coronary heart disease Social History Smoking Status: Former smoker Second Hand Exposure: No; Do You Dip or Chew Tobacco: No; Hx Alcohol Use: No Hx Substance Use: No Preferred Language: Hungarian Communication Ability: Effective 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: No Beliefs That Will Affect Care: None marital status: / Current Living Situation: Family Current Living Situation Comment: home with son "denise" How many Children do You have: 1 Other Information That Helps Us Care for You: No Feels Safe at Home: Yes Safety Concerns: Feels Safe At This Time Assistive Devices: Denture - Upper and Glasses Review of Systems Review of Systems: As per HPI, all other systems reviewed and negative Physical Exam Physical Exam: GENERAL: Comfortable, pleasant, obese, no respiratory distress SKIN: Pallor, warm HEENT: Pale palpebral conjunctivae, no ptosis, dry buccal mucosa NECK : Supple, short neck, no tenderness CHEST : CTA, no tenderness HEART : RRR, systolic murmur ABDOMEN: Some distention, epigastric tenderness EXTREMITIES : Minimal LE swelling, no LE tenderness, no other conspicuous deformities noted NEUROLOGIC : Coherent, no facial asymmetry, no other gross focality Results & Data Results & Data Vital Signs (Past 12 Hours) Vital Signs Temp Pulse Resp BP Pulse Ox O2 Del Method O2 Flow Rate 10/20/23 02:30 97 H 17 96 Room Air 10/20/23 02:30 148/75 H 10/20/23 02:23 95 H 10/20/23 02:15 95 Room Air 10/20/23 02:00 101 H 18 93 Nasal Cannula 2 10/20/23 02:00 125/73 10/20/23 01:30 100 H 19 97 10/20/23 01:30 154/80 H 10/20/23 01:00 99 H 21 10/20/23 01:00 133/85 10/20/23 00:30 98 H 18 97 Room Air 10/20/23 00:30 151/89 H 10/20/23 00:10 135/81 10/20/23 00:10 100 H 15 98 10/20/23 00:06 101 H 16 10/19/23 23:30 158/85 H 10/19/23 23:30 98 H 20 97 Nasal Cannula 2 10/19/23 23:07 97 Nasal Cannula 2 10/19/23 23:00 152/77 H 10/19/23 23:00 97 H 18 86 L Room Air 10/19/23 22:23 36.9 C 92 H 18 148/81 H 94 Room Air 10/19/23 22:22 91 H Laboratory Results Laboratory Results WBC 6.24 K/ul (4.8-10.8) 10/19/23 22:23 RBC 2.86 M/uL (4.20-5.40) L 10/19/23 22:23 Hgb 7.9 g/dl (12.0-16.0) L 10/19/23 22:23 Hct 26.5 % (37.0-47.0) L 10/19/23 22:23 MCV 92.7 fL (80.0-100.0) 10/19/23 22:23 MCH 27.6 pg (25.0-34.0) 10/19/23 22:23 MCHC 29.8 g/dL (32.0-36.0) L 10/19/23 22:23 RDW Std Deviation 51.6 fL (36.4-46.3) H 10/19/23 22:23 RDW Coeff of Patrick 15.2 % (11.5-14.5) H 10/19/23 22:23 Plt Count 394 K/uL (130-400) 10/19/23 22:23 MPV 10.2 fL (9.4-12.4) 10/19/23 22:23 Immature Gran % (Auto) 0.3 % 10/19/23 22:23 Neut % (Auto) 58.2 % 10/19/23 22:23 Lymph % (Auto) 25.6 % 10/19/23 22:23 [place] % (Auto) 11.4 % 10/19/23 22:23 Eos % (Auto) 3.2 % 10/19/23 22:23 Baso % (Auto) 1.3 % 10/19/23 22:23 Neut # (Auto) 3.63 K/uL (1.40-6.50) 10/19/23 22:23 Lymph # (Auto) 1.60 K/uL (1.20-3.40) 10/19/23 22:23 [place] # (Auto) 0.71 K/uL (0.11-0.59) H 10/19/23 22:23 Eos # (Auto) 0.20 K/uL (0.00-0.50) 10/19/23 22:23 Baso # (Auto) 0.08 K/uL (0.00-0.20) 10/19/23 22:23 Immature Gran # (Auto) 0.02 K/uL (0.01-0.20) 10/19/23 22:23 RBC Morphology Unremarkable 10/19/23 22:23 Sodium 135 mmol/L (136-145) L 10/19/23 22:23 Potassium 4.1 mmol/L (3.5-5.1) 10/19/23 22:23 Chloride 105 mmol/L (98-107) 10/19/23 22:23 Carbon Dioxide 22 mmol/L (21-32) 10/19/23 22:23 Anion Gap 8 (3-11) 10/19/23 22:23 BUN 15 mg/dl (6-23) 10/19/23 22:23 Creatinine 0.86 mg/dl (0.6-1.2) 10/19/23 22:23 Est Cr Clr Drug Dosing 58.7 ml/min 10/19/23 22:23 Est GFR ( Amer) 76.6 ml/min 10/19/23 22:23 Est GFR (Non-Af Amer) 66.1 ml/min 10/19/23 22:23 BUN/Creatinine Ratio 17.4 (10-20) 10/19/23 22:23 Glucose 96 mg/dl (70-99(Fasting)) 10/19/23 22:23 Calcium 9.0 mg/dl (8.6-10.3) 10/19/23 22:23 Total Bilirubin 0.9 mg/dl (0.2-1.0) 10/19/23 22:23 AST 17 U/L (13-39) 10/19/23 22:23 ALT 11 U/L (7-52) 10/19/23 22:23 Alkaline Phosphatase 65 U/L (34-104) 10/19/23 22:23 Troponin I High Sens 8.4 pg/ml (0-14) 10/19/23 22:23 Total Protein 6.4 gm/dl (6.0-8.3) 10/19/23 22:23 Albumin 3.3 gm/dl (3.4-5.0) L 10/19/23 22:23 Globulin 3.1 gm/dl (2.5-4.0) 10/19/23 22:23 Albumin/Globulin Ratio 1.1 (0.9-2) 10/19/23 22:23 Lipase 11 U/L (11-82) 10/19/23 22:23 Urine Color Yellow 10/20/23 02:17 Urine Appearance Clear (Clear) 10/20/23 02:17 Urine pH 7.0 (4.5-7.5) 10/20/23 02:17 Ur Specific [place] > 1.045 (1.000-1.030) H 10/20/23 02:17 Urine Protein Negative (Negative) 10/20/23 02:17 Urine Glucose (UA) Negative (Negative) 10/20/23 02:17 Urine Ketones 1+ (Negative) H 10/20/23 02:17 Urine Blood Negative (Negative) 10/20/23 02:17 Urine Nitrite Negative (Negative) 10/20/23 02:17 Urine Bilirubin Negative (Negative) 10/20/23 02:17 Urine Urobilinogen Negative (Negative) 10/20/23 02:17 Ur Leukocyte Esterase Negative (Negative) 10/20/23 02:17 Blood Type B Positive 10/20/23 00:08 Antibody Screen NEGATIVE 10/20/23 00:08 Impressions Abdomen/Pelvis CT 10/19/23 23:34 Exam(s): CT ABDOMEN + PELVIS With Contrast IV Amt: 83 ml opti 320 EXAM: CT Abdomen and Pelvis With Intravenous Contrast CLINICAL HISTORY: Reason for exam: abd pain, hx PUD with perf. TECHNIQUE: Axial computed tomography images of the abdomen and pelvis with intravenous contrast. CTDI is 27.14 mGy and DLP is 1310.33 mGy-cm. Automated exposure control was utilized for the study. A dose lowering technique was utilized adhering to the principles of ALARA. CONTRAST: Patient received 83 ml opti 320 of IV contrast COMPARISON: CT abdomen pelvis September 17, 2023. FINDINGS: Lung bases: Unremarkable. No mass. No consolidation. ABDOMEN: Liver: Hepatic cirrhosis. Multiple LEFT upper quadrant. Splenic varices. No abdominal ascites. Gallbladder and bile ducts: Unremarkable. No calcified stones. No ductal dilation. Pancreas: Unremarkable. No mass. No ductal dilation. Spleen: Unremarkable. No splenomegaly. Adrenals: Unremarkable. No mass. Kidneys and ureters: Unremarkable. No hydronephrosis. Stomach and bowel: Bigg-en-Y gastric bypass. No obstruction of the jejunojejunostomy. Diverticulosis, without acute diverticulitis. No small bowel obstruction. No free intraperitoneal air. PELVIS: Appendix: No findings to suggest acute appendicitis. Bladder: Decompressed urinary bladder. Reproductive: Atrophied uterus. ABDOMEN and PELVIS: Intraperitoneal space: See above. Bones/joints: RIGHT hip arthroplasty. Degenerative changes of the spine. No acute fracture. No dislocation . Multilevel posterior lumbar fusion at L1-L4. Laminectomy at L3. Soft tissues: Unremarkable. Vasculature: Atherosclerotic changes of the aorta. Lymph nodes: Unremarkable. No enlarged lymph nodes. IMPRESSION: 1. Hepatic cirrhosis. Multiple LEFT upper quadrant. Splenic varices. No abdominal ascites. 2. RIGHT hip arthroplasty. 3. Bigg-en-Y gastric bypass. No obstruction of the jejunojejunostomy. 4. Diverticulosis, without acute diverticulitis. No small bowel obstruction. No free intraperitoneal air. Electronically signed by: David Parra MD 10/20/23 00:51 AM Diagnostic Findings EKG as per my interpretation :Rate 90, NSR, normal axis, LVH, septal infarct, T wave abnormalities inferior and lateral leads
[2023-10-20] MEDS ORDERED: PANTOprazole 40 MG in SYRINGE 0 ML IV STA (03:00)
[2023-10-20] MEDS ORDERED: PROMETHAZINE HCL 6.25 MG in SODIUM CHLORIDE 0.9% 50 ML IV PRN (03:03)
[2023-10-20] MEDS ORDERED: MoRPHine SULFATE 2 MG/ML CARP IV PRN (03:03)
[2023-10-20] MEDS ORDERED: oxyCODONE HCL IR 5 MG TAB (IMMEDIATE RELEASE) PO PRN (03:03)
[2023-10-20 03:26] LABS: INR 1.1 (0.9-1.1); Prothrombin Time 11.8 Seconds (9.0-12.0)
[2023-10-20] MEDS ORDERED: oxyCODONE HCL IR 5 MG TAB (IMMEDIATE RELEASE) PO STA (06:01)
[2023-10-20] MEDS ORDERED: LOSARTAN POTASSIUM 50 MG TAB PO STA (06:02)
[2023-10-20] MEDS: PANTOprazole 40 MG in DEXTROSE 5% MINI-B 100 ML IV SCH ×2 (06:19→13:46)
--- NOTE | 2023-10-20 07:33 | XRay Report ---
XR chest 1V portable CLINICAL HISTORY: Shortness of breath. COMPARISON STUDY: Chest CT March 06, 2022. Chest radiograph September 12, 2023. FINDINGS: Postoperative findings within the lumbar spine are partially imaged. Lung volumes are gwen l. Lungs are clear. There is no pneumothorax or pleural effusion. Cardiac size is normal. Mediastinal contours are stable. There is no evidence for pulmonary edema. IMPRESSION: No acute cardiopulmonary findings. No significant change in appearance of the chest. ACT 112: Negative or not required by law. Electronically signed by: Mike Shaffer M.D. 10/20/2023 7:31 AM
--- OUTSIDE RECORDS SUMMARY | 2023-10-20 08:17 | External Medical Summary | Summary of Care ---
Author Name Unknown Organization [facility] Address [address] [facility] [place] [address] Phone [phone] Care Team Providers Care Char House Supervisor Name Role Phone Kimberly Rausch MD Primary Care Provider [phone] Reason for Visit * Reason Comments eRx-Medication Refill Encounter Details Date Type Department Care Team (Late st Contact Info) Description 10/12/2023 Refill Family Practice [facility] [address] [place] [address] Kimberly Rausch MD [address] [place] [address] Acquired hypothyroidism Allergies Active Allergy Reactions Criticality Noted Date Comments Gluten Meal 08/24/2018 Pantoprazole Rash 12/23/2020 blisters documented as of this encounter (statuses as of 10/13/2023) Medications Medication Sig Dispensed Refills Start Date End Date Status MULTIVITAMIN TABS OR one a day 0 0 Active Albuterol Sulfate HFA 108 (90 Base) MCG/ACT Inhalation Aerosol Solution INHALE 2 PUFFS BY MOUTH 4 TIMES A DAY 18 g 1 2 Active Additional Information Patient taking differently: Taking as needed, Reported on 08/29/2023 Famotidine 20 MG Oral Tablet (Pepcid) TAKE 1 TABLET IN MORNING AND 1 TABLET AT BEDTIME 180 Tablet 1 2 Active Ferrous Sulfate 325 (65 Fe) MG Oral Tablet (Feosol) Take 1 Tablet by mouth in the morning and 1 Tablet before bedtime. 180 Tablet 1 3 Active Methocarbamol 500 MG Oral Tablet (Robamol) Take 1 Tablet by mouth in the morning and 1 Tablet at noon and 1 Tablet in the evening and 1 Tablet before bedtime. For muscle spasm. 30 Tablet 0 3 Active Fluocinonide 0.05 % External SolutionIndications :Dermatitis herpetiformis Apply to scalp daily as needed for flares. 60 mL 3 3 Active Betamethasone Dipropionate Aug 0.05 % External Cream (Diprolene AF)Indications:Derm atitis herpetiformis APPLY TO RASH ON ELBOWS 50 g 1 3 Active Atorvastatin Calcium 20 MG Oral Tablet (Lipitor)Indication s:Nonrheumatic aortic valve stenosis,CAD (coronary artery disease) Take 1 Tablet by mouth in the morning. 90 Tablet 3 3 Active Losartan Potassium 100 MG Oral Tablet (Cozaar)Indications :Essential (primary) hypertension TAKE 1/2 TABLET BY MOUTH EVERY DAY 45 Tablet 3 3 Active Dapsone 25 MG Oral TabletIndications:D ermatitis herpetiformis Take one tablet by mouth in morning and two tablets by mouth at bedtime 270 Tablet 1 3 Active Aspirin 81 MG Oral Tablet Delayed Release Take 1 Tablet by mouth in the morning. 0 3 Active ZyrTEC Allergy 10 MG Oral Capsule (Cetirizine HCl) Take 1 Capsule by mouth in the morning. 0 Active Fexofenadine HCl 60 MG Oral Tablet (Diane Allergy) Take 1 Tablet by mouth in the morning. 0 Active predniSONE 20 MG Oral Tablet (Deltasone) 3 tablets daily w/food for 5 days, then 2 pills for 5 days, then 1 pill for 5 days, then 1/2 for 5 days 35 Tablet 0 3 Active HYDROcodone-Acetami nophen 5-325 MG Oral Tablet Take 1 Tablet by mouth every 6 hours as needed for Pain, Mild. 0 Active DULoxetine HCl 20 MG Oral Capsule Delayed Release Particles (Cymbalta)Indicatio ns:Major depression, single episode TAKE 1 CAPSULE BY MOUTH EVERY DAY 90 Capsule 1 4 Active oxyCODONE-Acetamino phen 7.5-325 MG Oral Tablet (Percocet)Indicatio ns:Failed back surgical syndrome Take 1 Tablet by mouth every 4 hours as needed for Pain, Severe. 30 Tablet 0 4 Active traMADol HCl 50 MG Oral Tablet (Ultram)Indications :Failed back surgical syndrome Take 1 Tablet by mouth every 6 hours as needed for Pain, Severe. 30 Tablet 0 4 Active Levothyroxine Sodium 125 MCG Oral Tablet (Levoxyl)Indication s:Acquired hypothyroidism TAKE 1 TAB BY MOUTH DAILY FIRST THING IN THE MORNING AT LEAST 30MINS PRIOR TO BREAKFAST OR OTHER MED 90 Tablet 1 4 Active Levothyroxine Sodium 125 MCG Oral Tablet (Levoxyl)Indication s:Acquired hypothyroidism TAKE 1 TAB BY MOUTH DAILY FIRST THING IN THE MORNING AT LEAST 30MINS PRIOR TO BREAKFAST OR OTHER MED 90 Tablet 1 3 10/13/19 24 Discontinued Hospital, Clinic, or Other Facility Administered Medication Ordered Dose Route Frequency Start Date End Date Status vitamin b-12 (Cyanocobalamin) inj 1,000 mcgIndications:B12 deficiency 1000 mcg IM [id number] 04/10/2023 03/11/2024 Active documented as of this encounter (statuses as of 10/13/2023) Active Problems Problem Noted Date Diagnosed Date Coronary artery disease invo lving nez perce coronary artery of nez perce heart without angina pectoris 08/09/2023 Nonrheumatic aortic valve stenosis 03/13/2023 BARLOW (nonalcoholic steatohepatitis) 03/13/2023 Obesity, Class II, BMI 35-39.9, isolated (see ac tual BMI) 07/22/2022 Lumbar degenerative disc disease 02/21/2022 Failed back surgical syndrome 02/21/2022 Gastroesophageal reflux disease without esophagi tis 11/09/2021 Chronic kidney disease, stage 3a 06/21/2021 Overview: Per CKD protocol History of bariatric surgery 01/15/2021 Recurrent major depressive disorder, in full rem ission 08/30/2019 Prolonged Q-T interval on ECG 08/08/2016 Dermatitis herpetiformis 07/09/2013 Acquired hypothyroidism HTN, goal below 130/80 documented as of this encounter (statuses as of 10/13/2023) Resolved Problems Problem Noted Date Diagnosed Date Resolved Date 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 9) with comorbidity 04/29/2020 04/21/2021 Hypertensive kidney disease with chronic kidney disease stage III 01/28/2019 05/25/2021 Overview: Per CKD protocol Kidney disease, chronic, sta ge III (GFR 30-59 ml/min) 12/17/2018 02/20/2019 Overview: Per CKD protocol #1 Other cirrhosis of liver 08/29/201802/2023 Body mass index (BMI) of 40. 0 to 44.9 in adult 08/29/2018 07/22/2022 Overview: Historical. ICD-10 update of inactive term Status post right hip replacement 12/05/2016 01/15/2021 Asthma with severity to be determined 02/21/2018 Overview: ICD-10 update of inactive term Pernicious anemia 01/15/2021 Major depression, single episode 02/19/2020 Overview: More specific code in use. documented as of this encounter (statuses as of 10/13/2023) Immunizations Name Administration Dates Next Due COVID-19 mRNA, LNP-s, No Pre serve, 2-Dose Series (Pfizer) 12/27/2020,12/04/2020 Hepatitis B, 20+ yrs 11/27/2020,06/29/2020,05/25 Pneumococcal Conjugate Vacc, 13 Valent (Prevnar) 08/08/2016 Pneumococcal Polysaccharide PPV23 (Pneumovax) 08/14/2017,07/17/2015 Season Influenza, Quad, PF, Adjuvanted, 65+ Yrs, IM (FLUAD) 06/22/2020 Seasonal Influenza, PF, 6 M & above, IM , (FluLaval or Fluzone) 07/18/2018,07/17/2017 Seasonal Influenza, Quadriva lent Hd (Fluzone Hd) 07/06/2023,07/12/2022,08/24/2021 Seasonal Influenza, Quadriva lent, No Preserve, IM 06/30/2016 Seasonal Influenza, Trivalen t, Adjuvanted, 65+ yrs 07/01/2019 TDAP (age 10 and older)(Boostrix) 11/10/2016 Zoster Vaccine Recombinant (Shingrix) 08/15/2020 ,05/01/2020 documented as of this encounter Social History Tobacco Use Types Packs/Day Years Used Date Smoking Tobacco: Former Cigarettes Q uit: 07/27/1997 Smokeless Tobacco: Never Alcohol Use Standard Drinks/Week Comments No 0 (1 standard drink = 0.6 oz pur e alcohol) PHQ-2 Answer Date Recorded PHQ-2 Score 0 08/30/2019 Hunger Vital Sign Answer Date Recorded Worried About Running Out of Food in the Last Ye ar Never true 04/29/2020 Ran Out of Food in the Last Year Never true 04/29/2020 Sex and Gender Information Value Date Recorded Sex Assigned at Female 02/27/2019 9:03 AM EDT Gender Identity Female 02/27/2019 9:03 AM EDT Sexual Orientation Not on file Job Start Date Occupation Industry Not on file Not on file Not on file documented as of this encounter Functional Status Functional Status Response Date of Assess ment Do you have serious difficul ty walking or climbing stairs? (5 years old or older) No 03/13/2022 documented as of this encounter Miscellaneous Notes * Telephone Encounter - Kimberly Rausch MD - 10/13/2023 9:29 AM ESTSigned Prescriptions: Disp Refills Levothyroxine Sodium 125 MCG Oral Tablet (*90 Tab*1 Sig: TAKE 1 TAB BY MOUTH DAILY FIRST THING IN THE MORNING AT LEAST 30MINS PRIOR TO BREAKFAST OR OTHER MED Authorizing Provider: KIMBERLY RAUSCH * Telephone Encounter - Izzy Jarrett [facility] - 10/13/2023 9:24 AM ESTPending Prescriptions: Disp Refills Levothyroxine Sodium 125 MCG Oral Tablet [*90 Tab*1 Sig: TAKE 1 TAB BY MOUTH DAILY FIRST THING IN THE MORNING AT LEAST 30MINS PRIOR TO BREAKFAST OR OTHER MED * Telephone Encounter - Izzy Jarrett [facility] - 10/13/2023 9:23 AM EST Unable to authorize medication refills for pended medication(s) at this time. Part of the protocol criteria used for refill authorization was not satisfied. Patient needs TSH within normal limits ([id number]). Please approve if appropriate. TSH Results: Lab Results Component Value Date/Time TSH - [facility] 0.07 (L) 08/21/2023 01:23 PM TSH - [facility] 0.20 (L) 02/06/2023 08:59 AM TSH - [facility] 0.15 (L) 09/01/2021 10:26 AM TSH - [facility] 0.13 (L) 04/29/2020 10:45 AM TSH - [facility] 0.96 09/02/2019 10:24 AM TSH - [facility] 0.24 (L) 05/07/2018 09:06 AM T4 Results: Lab Results Component Value Date/Time FREE T4 REFLEXIVE 1.42 04/29/2020 10:45 AM T4, FREE - [facility] 1.2 08/21/2023 01:23 PM T4, FREE - [facility] 1.2 02/06/2023 08:59 AM T4, FREE - [facility] 1.4 09/01/2021 10:26 AM T4, FREE - [facility] <0.02 (L) 12/18/2000 09:43 PM T4, TOTAL - [facility] <1.0 (L) 06/16/1999 08:30 AM Izzy Cartwright Clinical Pharmacist [facility] (Formerly [facility]) [phone] 10/13/2023, 9:23 AM * Telephone Encounter - Izzy Jarrett RPh - 10/13/2023 9:23 AM EST Did you pend patient's preferred pharmacy and medication before forwarding?yes Pharmacy: [id number] [address] [facility] Pending Prescriptions: Disp Refills Levothyroxine Sodium 125 MCG Oral Tablet *90 Tab*1 Sig: TAKE 1 TAB BY MOUTH DAILY FIRST THING IN THE MORNING AT LEAST 30MINS PRIOR TO BREAKFAST OR OTHER MED Last Visit: 09/20/2023 (in office), Visit date not found (telemedicine) Next Visit: Visit date not found If no future appointments scheduled, and last appointment is greater than a year ago, please schedule patient for a follow-up appointment Last date the medication was ordered: 04/13/23 Is this request for a controlled substance?No Urine Drug Screen:No results found for this or any previous visit. Patient Phone Numbers Labs: Lab Results Component Value Date/Time CREAT 0.9 08/21/2023 01:23 PM CREAT 0.93 03/01/2022 12:00 AM CREAT 0.9 05/25/2020 10:02 AM POTASSIUM 4.2 08/21/2023 01:23 PM POTASSIUM 4.7 05/25/2020 10:02 AM TSH 0.07 (L) 08/21/2023 01:23 PM TSH 0.13 (L) 04/29/2020 10:45 AM LDLCALC 55 03/12/2022 08:02 AM LDLCALC 58 04/29/2020 10:45 AM LDLDIRECT NOT APPLICABLE 04/29/2020 10:45 AM LDLDIRECT 119 07/01/2002 02:05 PM ALT 44 (H) 08/21/2023 01:23 PM ALT 37 (H) 05/25/2020 10:02 AM HGBA1C 4.2 03/12/2022 03:46 AM HGBA1C 4.2 (A) 11/14/2016 12:00 AM documented in this encounter Plan of Treatment Upcoming Encounters Date Type Department Care Team (Late st Contact Info) Description 10/23/2023 10:30 AM EST Office Visit [facility] [address] [place] [address] Carol Whiteside PA-C [address] [place] [address] 11/10/2023 9:00 AM EST Immunization/Injec tion Ancillary [facility] [address] [place] [address] Nurse Kiran Kelly Feng [address] [place] [address] 11/21/2023 8:00 AM EST Office Visit Orthopaedics Spine Surgery, Mark Aaron [address] [place] [address] Calvin Murphy MD [address] [place] [address] 2023 2:30 PM EST Hospital Encounter ENDO [facility], Endoscopy Room [facility] [address] [place] [phone] Rosa Isela Doran, DO [address] [place] [address] 2023 2:30 PM EST - 2023 3:00 PM EST Surgery ENDO [facility], Endoscopy Room [facility] [address] [place] [phone] Rosa Isela Doran, DO [address] [place] [address] COLONOSCOPY FLEXIBLE PROXIMAL DIAGNOSTIC 11/29/2023 10:00 AM EST Office Visit Cardiology, [facility] [address] [facility] [place] [address] Herminia Gifford PA-C [address] [place] [address] 12/11/2023 9:00 AM EST Immunization/Injec tion Ancillary [facility] [address] [facility] [place] [address] [facility], Nurse Fam [address] [place] [address] 12/19/2023 1:00 PM EDT Office Visit Pulmonary Medicine, [address] [place] [address] Noman Hernandez MD [address] [facility] [place] [address] Scheduled Procedures Name Priority Associated Diagnoses Date/Ti me COLONOSCOPY FLEXIBLE PROXIMAL DIAGNOSTIC History of colon polyps Encounter for colorectal cancer screening 2023 2:30 PM EST Health Maintenance Due Date Last Done Comments Albumin/Creatinine Ratio 08/10/2017 08/10/2016 Depression Screening 06/22/2021 06/22/2020 COLONOSCOPY-EVERY 5 YRS AGES 18-100 08/21/2022 08/21/2017, 08/21/2017, 08/31/2015 CKD PHOS USE SMARTSET 62322 03/15/2023 06/0 04/2022, 03/14/2022, 03/14/2022, Additional history exists COVID-19 Vaccine ( season) 2023 09/07/2021, 12/27/2020, 12/04/2020, Additional history exists GFR 02/19/2024 08/21/2023, 03/10, 02/06/2023, Additional history exists CKD HGB USE SMARTSET 11908 08/21/202408/21, 08/21/2023, 07/05/2023, Additional history exists TSH 08/21/2024 08/21/2023, 05/0 10/2022, 09/01/2021, Additional history exists DXA Scan 09/03/2025 09/03/2018 DTaP,Tdap,and Td Vaccines (2 - Td or Tdap) 11/10/2026 11/10/2016, 05/01/2006, 01/05/2004 Pneumococcal Vaccine: 65+ Years Completed 08/14/2017, 08/08/2016, 07/17/2015, Additional history exists Zoster Vaccines Completed 08/15/2020, 05/01/2020 Hepatitis B Completed 11/27/2020, 06/10, 05/25/2020 Influenza Vaccine (FLU shot) Completed , 07/12/2022, 08/24/2021, Additional history exists GARDASIL-HPV IMMUNIZATION SERIES Aged Out No longer eligible based on patient's age to complete this topic MENINGOCOCCAL (MENACTRA/MENVEO) Aged Out No longer eligible based on patient's age to complete this topic documented as of this encounter Medical Devices Not on filedocumented as of this encounter Visit Diagnoses Diagnosis Acquired hypothyroidism Unspecified hypothyroidism History of colon polyps Personal history of colonic polyps Encounter for colorectal cancer screening Special screening for malignant neoplasms, colon documented in this encounter Advance Directives Latest Code Status on File Code Status Date Activated Date Inactivated Comments Full Code 03/12/2022 3:48 AM 03/15/2022 2:53 PM This or tiffani reflects the patients wishes and were consensually agreed upon. Code Status History Code Status Date Activated Date Inactivated Comments Full Code 03/12/2022 3:21 AM 03/12/2022 3:24 AM This or tiffani reflects the patients wishes and were consensually agreed upon. Question Answer Comments Discussion of Advance Directives occurred with: Not Discussed Healthcare Agents on File Name Relationship [facility] Zuniga Adult Child Health Care Power of Attorne y Care Teams Char House Supervisor Relationship Specialty Start Date End Date Kimberly Rausch MD [address] [place] [address] PCP - General Family Medicine 01/19/21 documented as of this encounter
--- OUTSIDE RECORDS SUMMARY | 2023-10-20 08:17 | External Medical Summary | Summary of Care ---
Author Name Unknown Organization [facility] Address [address] [facility] [place] [address] Phone [phone] Care Team Providers Care Public Health Aide Name Role Phone Kimberly Rausch MD Primary Care Provider [phone] Reason for Visit * Reason Comments eRx-Medication Refill Encounter Details Date Type Department Care Team (Late st Contact Info) Description 10/08/2023 Refill Family Practice [facility] [address] [place] [address] Kimberly Rausch MD [address] [place] [address] LEONARDO DEPRESS DISOR SGL EPIS UNSP; Failed back surgical syndrome Allergies Active Allergy Reactions Criticality Noted Date Comments Gluten Meal 08/24/2018 Pantoprazole Rash 12/23/2020 blisters documented as of this encounter (statuses as of 10/10/2023) Medications Medication Sig Dispensed Refills Start Date [...] AT BEDTIME 180 Tablet 1 2 Active Levothyroxine Sodium 125 MCG Oral Tablet (Levoxyl)Indicatio ns:Acquired hypothyroidism TAKE 1 TAB BY MOUTH DAILY FIRST THING IN THE MORNING AT LEAST 30MINS PRIOR TO BREAKFAST OR OTHER MED 90 Tablet 1 3 Active Ferrous Sulfate 325 (65 Fe) MG [...] 0 3 Active Fluocinonide 0.05 % External SolutionIndication s:Dermatitis herpetiformis Apply to scalp daily as needed for flares. 60 mL 3 3 Active Betamethasone Dipropionate Aug 0.05 % External Cream (Diprolene AF)Indications:[place] matitis herpetiformis APPLY TO RASH ON ELBOWS 50 g 1 3 Active Atorvastatin Calcium 20 MG Oral Tablet (Lipitor)Indicatio ns:Nonrheumatic aortic valve stenosis,CAD (coronary artery disease) Take 1 Tablet by mouth in the morning. 90 Tablet 3 3 Active Losartan Potassium 100 MG Oral Tablet (Cozaar)Indication s:Essential (primary) hypertension TAKE 1/2 TABLET BY MOUTH EVERY DAY 45 Tablet 3 3 Active Dapsone 25 MG Oral TabletIndications: Dermatitis herpetiformis Take one tablet by mouth in [...] 5 days 35 Tablet 0 3 Active HYDROcodone-Acetam inophen 5-325 MG Oral Tablet Take 1 Tablet by mouth every 6 hours as needed for Pain, Mild. 0 Active DULoxetine HCl 20 MG Oral Capsule Delayed Release Particles (Cymbalta)Indicati ons:Major depression, single episode TAKE 1 CAPSULE BY MOUTH EVERY DAY 90 Capsule 1 4 Active oxyCODONE-Acetamin ophen 7.5-325 MG Oral Tablet (Percocet)Indicati ons:Failed back surgical syndrome Take 1 Tablet by mouth every 4 hours as needed for Pain, Severe. 30 Tablet 0 4 Active traMADol HCl 50 MG Oral Tablet (Ultram)Indication s:Failed back surgical syndrome Take 1 Tablet by mouth every 6 hours as needed for Pain, Severe. 30 Tablet 0 4 Active DULoxetine HCl 20 MG Oral Capsule Delayed Release Particles (Cymbalta)Indicati ons:Major depression, single episode TAKE 1 CAPSULE BY MOUTH EVERY DAY 90 Capsule 1 3 024 Discontinued traMADol HCl 50 MG Oral Tablet (Ultram)Indication s:Failed back surgical syndrome Take 1 Tablet by mouth every 6 hours as needed for Pain, Severe. 30 Tablet 0 3 024 Discontinued(Re fill) oxyCODONE-Acetamin ophen 7.5-325 MG Oral Tablet (Percocet)Indicati ons:Failed back surgical syndrome Take 1 Tablet by mouth every 4 hours as needed for Pain, Severe. 30 Tablet 0 3 024 Discontinued(Re fill) Hospital, Clinic, or Other Facility Administered Medication Ordered Dose Route Frequency Start Date End Date Status vitamin b-12 (Cyanocobalamin) inj 1,000 mcgIndications:B12 deficiency 1000 mcg IM [id number] 04/10/2023 03/11/2024 Active documented as of this encounter (statuses as of 10/10/2023) Active Problems Problem Noted Date Diagnosed Date Coronary artery disease invo lving [place] coronary artery of [place] heart without angina pectoris 08/09/2023 Nonrheumatic aortic [...] as of this encounter (statuses as of 10/10/2023) Resolved Problems Problem Noted Date Diagnosed Date [...] as of this encounter (statuses as of 10/10/2023) Immunizations Name Administration Dates Next Due COVID-19 [...] Telephone Encounter - Kimberly Rausch MD - 10/10/2023 5:34 PM ESTSigned Prescriptions: Disp Refills DULoxetine HCl 20 MG Oral Capsule Delayed *90 Cap*1 Sig: TAKE 1 CAPSULE BY MOUTH EVERY DAYAuthorizing Provider: KIMBERLY RAUSCHOrdering User: JEANETH ALVAREZ oxyCODONE-Acetaminophen 7.5-325 MG Oral Ta*30 Tab*0 Sig: Take 1 Tablet by mouth every 4 hours as needed for Pain, Severe.Authorizing Provider: KIMBERLY RAUSCH traMADol HCl 50 MG Oral Tablet (Ultram) 30 Tab*0 Sig: Take 1 Tablet by mouth every 6 hours as needed for Pain, Severe.Authorizing Provider: KIMBERLY RAUSCH * Telephone Encounter - Kimberly Rausch MD - 10/10/2023 5:34 PM ESTSigned Prescriptions: Disp Refills DULoxetine HCl 20 MG Oral Capsule Delayed *90 Cap*1 Sig: TAKE 1 CAPSULE BY MOUTH EVERY DAY Authorizing Provider: KIMBERLY RAUSCH Ordering User: KIMBERLY ALVAREZ oxyCODONE-Acetaminophen 7.5-325 MG Oral Ta*30 Tab*0 Sig: Take 1 Tablet by mouth every 4 hours as needed for Pain, Severe. Authorizing Provider: KIMBERLY RAUSCH traMADol HCl 50 MG Oral Tablet (Ultram) 30 Tab*0 Sig: Take 1 Tablet by mouth every 6 hours as needed for Pain, Severe. Authorizing Provider: KIMBERLY RAUSCH * Telephone Encounter - Kimberly Alvarez [facility] - 10/10/2023 11:56 AM EST Pending Prescriptions: Disp Refills oxyCODONE-Acetaminophen 7.5-325 MG Oral Ta*30 Tab*0 Sig: Take 1 Tablet by mouth every 4 hours as needed for Pain, Severe. traMADol HCl 50 MG Oral Tablet (Ultram) 30 Tab*0 Sig: Take 1 Tablet by mouth every 6 hours as needed for Pain, Severe. Signed Prescriptions: Disp Refills DULoxetine H Cl 20 MG Oral Capsule Delayed *90 Cap*1 Sig: TAKE 1 CAPSULE BY MOUTH EVERY DAY Authorizing Provider: KIMBERLY RAUSCH Ordering User: KIMBERLY ALVAREZ * Telephone Encounter - Kimberly Alvarez [facility] - 10/10/2023 11:55 AM EST I have reviewed the patients controlled substance dispensing history in the Prescription Drug Monitoring Program in compliance with the [facility] regulations before prescribing a controlled substance. PDMP checked on 10/10/2023. Pending Prescriptions: Disp Refills oxyCODONE-Acetaminophen 7.5-325 MG Oral T*30 Tab*0 Sig: Take 1 Tablet by mouth every 4 hours as needed for Pain, Severe. traMADol HCl 50 MG Oral Tablet (Ultram) 30 Tab*0 Sig: Take 1 Tablet by mouth every 6 hours as needed for Pain, Severe. Signed Prescriptions: Disp Refills DULoxetine HCl 20 MG Oral Capsule Delayed *90 Cap*1 Sig: TAKE 1 CAPSULE BY MOUTH EVERY DAY Authorizing Provider: KIMBERLY RAUSCH Ordering User: KIMBERLY ALVAREZ Last Visit: 09/20/2023 (in office), Visit date not found (telemedicine) Next Visit: Visit date not found Date medication was last filled: 09/20 04/26 Date medication is due for refill: 09/24 05/03 Pharmacy: [id number] [address] [facility] Is this request for a controlled substance? Yes and Urine Drug Screen Not completed Toxicology results: No results found for this or any previous visit. Please approve if appropriate. Thanks, Kimberly Alvarez, PharmD Clinical Pharmacist [facility](formerly telepharmacy) [phone] 10/10/2023, 11:55 AM documented in this encounter Plan of Treatment Upcoming Encounters Date Type Department Care Team (Late st Contact Info) Description 10/23/2023 10:30 AM EST Office Visit Allergy/Immunology [facility] [place] [address] [facility] [place] [address] Carol Whiteside PA-C [address] [facility] [place] [address] 11/10/2023 9:00 AM EST Immunization/Injec tion Ancillary [facility] [address] [place] [address] KellyNurse Kiran davis [address] [place] [address] 11/21/2023 8:00 AM EST Office Visit Orthopaedics Spine Surgery, Mark Aaron [address] [place] [address] Calvin Murphy MD [address] [place] [address] [place] [address] 2023 2:30 PM EST Hospital Encounter [facility]O [facility], Endoscopy Room [facility] [address] [place] [phone] Rosa Isela Doran DO [address] [place] [address] 2023 2:30 PM EST - 2023 3:00 PM EST Surgery ENDO [facility], Endoscopy Room [facility] [address] [place] [phone] Rosa Isela Doran, 132 [facility] [place] [address] COLONOSCOPY FLEXIBLE PROXIMAL DIAGNOSTIC 11/29/2023 10:00 AM EST Office Visit Cardiology, [facility] [address] [facility] [place] [address] Herminia Gifford PA-C [address] [place] [address] 12/11/2023 9:00 AM EST Immunization/Injec tion Ancillary [facility] [address] [facility] [place] [address] [facility], Nurse [facility] [address] [facility] [place] [address] 12/19/2023 1:00 PM EDT Office Visit Pulmonary Medicine, [facility] [address] [facility] [place] [address] Noman Hernandez MD [address] [place] [address] Scheduled Procedures Name Priority Associated Diagnoses Date/Ti me COLONOSCOPY FLEXIBLE PROXIMAL DIAGNOSTIC History of colon polyps Encounter for colorectal cancer screening 2023 2:30 PM EST Health Maintenance Due Date Last Done Comments Albumin/Creatinine Ratio 08/10/2017 08/10/2016 Depression Screening 06/22/2021 06/22/2020 COLONOSCOPY-EVERY 5 YRS AGES 18-100 08/21/2022 08/21/2017, 08/21/2017, 08/31/2015 CKD PHOS USE SMARTSET 19537 03/15/2023 06/0 04/2022, 03/14/2022, 03/14/2022, Additional history exists COVID-19 Vaccine ( season) 2023 09/07/2021, 12/27/2020, 12/04/2020, Additional history exists GFR 02/19/2024 08/21/2023, 03/10, 02/06/2023, Additional history exists CKD HGB USE SMARTSET 29774 08/21/202408/21, 08/21/2023, 07/05/2023, Additional history exists TSH [...] as of this encounter Visit Diagnoses Diagnosis LEONARDO DEPRESS DISOR SGL EPIS UNSP Major depressive disorder, single episode, unspecified Failed back surgical syndrome Other unspecified back disorder History of colon polyps Personal history of [...] Agents on File Name Relationship Healthcare Agent Relationshi p Communication Tristan Zuniga Adult Child Health Care Power of Attorne y Care Teams Public Health Aide Relationship Specialty Start Date End Date Kimberly Rausch MD [address] [place] [address] PCP - General Family Medicine 01/19/21 documented as of this encounter
--- OUTSIDE RECORDS SUMMARY | 2023-10-20 08:18 | External Medical Summary | Summary of Care ---
Author Name Unknown Organization [facility] Address [address] [facility] [address] Phone [phone] Care Team Providers Care Inserting Operator Name Role Phone Aaron Rausch MD Primary Care Provider [phone] Reason for Visit * Reason Onset Date Comments second opinion 10/06/2023 Encounter Details Date Type Department Care Team (Late st Contact Info) Description 10/06[facility]2023 [facility] [place] [address] Calvin Murphy MD [address] [place] [address] second opinion Allergies Active Allergy Reactions Criticality Noted Date Comments Gluten Meal 08/24/2018 Pantoprazole Rash 12/23/2020 blisters documented as of this encounter (statuses as of 10/06/2023) Medications Medication Sig Dispensed Refills Start Date End Date Status MULTIVITAMIN TABS OR one a day 0 06/19/2000 Acti ve Albuterol Sulfate HFA 108 (90 Base) MCG/ACT Inhalation Aerosol Solution INHALE 2 PUFFS BY MOUTH 4 TIMES A DAY 18 g 1 03/25/2022 Active Additional Information Patient taking differently: Taking as needed, Reported on 08/29/2023 Famotidine 20 MG Oral Tablet (Pepcid) TAKE 1 TABLET IN MORNING AND 1 TABLET AT BEDTIME 180 Tablet 1 06/21/2022 Active DULoxetine HCl 20 MG Oral Capsule Delayed Release Particles (Cymbalta)Indication s:Major depression, single episode TAKE 1 CAPSULE BY MOUTH EVERY DAY 90 Capsule 1 04/12/2023 Active Levothyroxine Sodium 125 MCG Oral Tablet (Levoxyl)Indications :Acquired hypothyroidism TAKE 1 TAB BY MOUTH DAILY FIRST THING IN THE MORNING AT LEAST 30MINS PRIOR TO BREAKFAST OR OTHER MED 90 Tablet 1 04/13/2023 Active Ferrous Sulfate 325 (65 Fe) MG Oral Tablet (Feosol) Take 1 Tablet by mouth in the morning and 1 Tablet before bedtime. 180 Tablet 1 04/26/2023 Active Methocarbamol 500 MG Oral Tablet (Robamol) Take 1 Tablet by mouth in the morning and 1 Tablet at noon and 1 Tablet in the evening and 1 Tablet before bedtime. For muscle spasm. 30 Tablet 0 04/26/2023 Active traMADol HCl 50 MG Oral Tablet (Ultram)Indications: Failed back surgical syndrome Take 1 Tablet by mouth every 6 hours as needed for Pain, Severe. 30 Tablet 0 04/26/2023 Active Fluocinonide 0.05 % External SolutionIndications: Dermatitis herpetiformis Apply to scalp daily as needed for flares. 60 mL 3 05/09/2023 Active Betamethasone Dipropionate Aug 0.05 % External Cream (Diprolene AF)Indications:[place] titis herpetiformis APPLY TO RASH ON ELBOWS 50 g 1 05/09/2023 Active Atorvastatin Calcium 20 MG Oral Tablet (Lipitor)Indications :Nonrheumatic aortic valve stenosis,CAD (coronary artery disease) Take 1 Tablet by mouth in the morning. 90 Tablet 3 05/18/2023 Active Losartan Potassium 100 MG Oral Tablet (Cozaar)Indications: Essential (primary) hypertension TAKE 1/2 TABLET BY MOUTH EVERY DAY 45 Tablet 3 06/19/2023 Active Dapsone 25 MG Oral TabletIndications:De rmatitis herpetiformis Take one tablet by mouth in morning and two tablets by mouth at bedtime 270 Tablet 1 07/03/2023 Active Aspirin 81 MG Oral Tablet Delayed Release Take 1 Tablet by mouth in the morning. 0 08/03/2023 Active ZyrTEC Allergy 10 MG Oral Capsule [...] 1/2 for 5 days 35 Tablet 0 09/08/2023 Active HYDROcodone-Acetamin ophen 5-325 MG Oral Tablet Take 1 Tablet by mouth every 6 hours as needed for Pain, Mild. 0 Active oxyCODONE-Acetaminop hen 7.5-325 MG Oral Tablet (Percocet)Indication s:Failed back surgical syndrome Take 1 Tablet by mouth every 4 hours as needed for Pain, Severe. 30 Tablet 0 09/20/2023 Active Hospital, Clinic, or Other Facility Administered Medication Ordered Dose Route Frequency Start Date End Date Status vitamin b-12 (Cyanocobalamin) inj 1,000 mcgIndications:B12 deficiency 1000 mcg IM [id number] 04/10/2023 03/11/2024 Active documented as of this encounter (statuses as of 10/06/2023) Active Problems Problem Noted Date Diagnosed Date Coronary artery disease invo lving [place] coronary artery of [place] heart without angina pectoris 08/09/2023 Nonrheumatic aortic [...] as of this encounter (statuses as of 10/06/2023) Resolved Problems Problem Noted Date Diagnosed Date [...] as of this encounter (statuses as of 10/06/2023) Immunizations Name Administration Dates Next Due COVID-19 mRNA, LNP-s, No Pre serve, 2-Dose Series ([employer]) 12/27/2020,12/04/2020 Hepatitis B, 20+ yrs 11/27/2020,06/29/2020,05/25 Pneumococcal [...] encounter Miscellaneous Notes * Telephone Encounter - Carmen Styles LPN - 10/06/2023 10:52 AM EST Patient called. She is seeking second opinion from Dr. Murphy due to low back pain. Neurologically intact and no bowel or bladder disturbances. Discussed previous message with regards to lumbar fusionby another provider. Made aware that if any additional surgery needed would be best to see originalsuron for continuity of care. Patient verbalizes understanding and will call Dr. Ortiz's office,however she would still like to schedule the 2nd opinion appt with Dr. Murphy. Schedulers- please call and assist to schedule new patient appt with Dr. Murphy in [place] or [place]. Patient is aware this could be several months. Reason for appt 2nd opinion for lumbar pain with previous back surgery * Telephone Encounter - Valeria Mejia OSA - 10/06/2023 9:55 AM EST Pt called, she has back pain with History of [address] Ortiz in [facility]. Last one was to repair a ruptured disc with hardware in March 2022. She is having terrible pain, needs to lay down a lot of her time. She would like to come to [facility] or [place] whichever would be sooner. She is having her op reports, Doctor notes and imaging reports faxed to [facility], She has a copy of latest MRI to bring to appt. Will Dr. Murphy see for a second opinion. documented in this encounter Plan of Treatment Upcoming Encounters Date Type Department Care Team (Late st Contact Info) Description 10/10/2023 9:30 AM EST Immunization/Injec tion Ancillary [facility] [address] [place] [address] [facility] Nurse [facility] [address] [facility] [place] [address] 10/23/2023 10:30 AM EST Office Visit Allergy/Immunology [facility] [address] [place] [address] Carol Whiteside PA-C [address] [place] [address] 11/21/2023 8:00 AM EST Office Visit Orthopaedics Spine Surgery, Mark Aaron [address] [place] [address] Calvin Murphy MD [address] [place] [address] [place] [address] 2023 2:30 PM EST Hospital Encounter ENDO [facility], Endoscopy Room [facility] [address] [place] [phone] Rosa Isela Doran, DO [address] [place] [address] 2023 2:30 PM EST - 2023 3:00 PM EST Surgery ENDO [facility], Endoscopy Room [facility] [address] [place] [phone] Rosa Isela Doran, DO [address] [place] [address] COLONOSCOPY FLEXIBLE PROXIMAL DIAGNOSTIC 11/29/2023 10:00 AM EST Office Visit Cardiology, [facility] [address] [facility] [place] [address] Herminia Gifford PA-C [address] [place] [id number] 12/19/2023 1:00 PM EDT Office Visit Pulmonary Medicine, [facility] [address] [facility] [place] [address] Noman Hernandez MD [address] [place] [address] Scheduled Procedures Name Priority Associated Diagnoses Date/Ti me COLONOSCOPY FLEXIBLE PROXIMAL DIAGNOSTIC History of colon polyps Encounter for colorectal cancer screening 2023 2:30 PM EST Health Maintenance Due Date Last Done Comments Albumin/Creatinine Ratio 08/10/2017 08/10/2016 Depression Screening 06/22/2021 06/22/2020 COLONOSCOPY-EVERY 5 YRS AGES 18-100 08/21/2022 08/21/2017, 08/21/2017, 08/31/2015 CKD PHOS USE SMARTSET 29838 03/15/2023 06/0 04/2022, 03/14/2022, 03/14/2022, Additional history exists COVID-19 Vaccine (2022- season) 2023 09/07/2021, 12/27/2020, 12/04/2020, Additional history exists GFR 02/19/2024 08/21/2023, 03/10, 02/06/2023, Additional history exists CKD HGB USE SMARTSET 75347 08/21/202408/21, 08/21/2023, 07/05/2023, Additional history exists TSH [...] Not on filedocumented as of this encounter Advance Directives Latest Code Status [...] Care Power of Attorne y Care Teams Inserting Operator Relationship Specialty Start Date End Date Aaron Rausch MD [address] [place] [address] PCP - General Family Medicine 01/19/21 documented as of this encounter
--- OUTSIDE RECORDS SUMMARY | 2023-10-20 08:18 | External Medical Summary | Summary of Care ---
Author Name Unknown Organization [facility] Address [address] [facility] [place] [address] Phone [phone] Care Team Providers Care Open End Spinning Operator Name Role Phone Aaron Rausch MD Primary Care Provider [phone] Encounter Details Date Type Department Care Team (Late st Contact Info) Description 09/20/2023 Telephone Family Practice [facility] [address] [place] [address] Aaron Rausch MD [address] [place] [address] Allergies Active Allergy Reactions Criticality Noted Date Comments Gluten Meal 08/24/2018 Pantoprazole Rash 12/23/2020 blisters documented as of this encounter (statuses as of 09/21/2023) Medications Medication Sig Dispensed Refills Start Date [...] Dipropionate Aug 0.05 % External Cream (Diprolene AF)Indications:[place] titis herpetiformis APPLY TO RASH ON ELBOWS [...] inj 1,000 mcgIndications:B12 deficiency 1000 mcg IM [id number] 04/10/2023 03/11/2024 Active documented as of this encounter (statuses as of 09/21/2023) Active Problems Problem Noted Date Diagnosed Date Coronary artery disease invo lving [place] coronary artery of [place] heart without angina pectoris 08/09/2023 Nonrheumatic aortic [...] as of this encounter (statuses as of 09/21/2023) Resolved Problems Problem Noted Date Diagnosed Date [...] as of this encounter (statuses as of 09/21/2023) Immunizations Name Administration Dates Next Due COVID-19 mRNA, LNP-s, No Pre serve, 2-Dose Series ([employer]) 12/27/2020,12/04/2020 Hepatitis B, 20+ yrs 11/27/2020,06/29/2020,05/25 Pneumococcal [...] encounter Miscellaneous Notes * Telephone Encounter - Sue Bush LPN - 09/21/2023 2:28 PM EST Called [facility], s/w Laisha. States that she called pt herself and has her set up for MRI, but not until the . Pt does not have , and Laisha was not able to leave a message. Pt can currently call them back and ask for Laisha in Dr. Ortiz's office. [phone] Called pt to let her know. She will call that office to follow up. Maybe she can get in sooner for MRI elsewhere, but has to talk to that office about getting sooner MRI, and further help for her back. Pt states understanding. FYI to Dr. Rausch. * Telephone Encounter - Aaron Rausch MD - 09/20/2023 7:49 PM EST Could one of the nurses please call Dr. Ortiz's office on behalf of the patient and let his staff know that patient was in the ER last weekend for loose hardware in her back and was told to contact Dr. Ortiz. She called 4 days ago and hasn't heard back. She is angry. Dr. Rausch documented in this encounter Plan of Treatment Upcoming Encounters Date Type Department Care Team (Latest Contact Info) Description 10/23/2023 10:30 AM EST Office Visit Allergy/Immunology [facility] [place] [address] [place] [address] Carol Whiteside PA-C [address] [place] [address] 2023 2:30 PM EST Hospital Encounter ENDO [facility], Endoscopy Room [facility] [address] [place] [phone] Rosa Isela Doran, DO [address] [place] [address] 2023 2:30 PM EST - 2023 3:00 PM EST Surgery ENDO [facility], [facility] [address] [place] [phone] Rosa Isela Doran, DO [address] [place] [address] COLONOSCOPY FLEXIBLE PROXIMAL DIAGNOSTIC 11/29/2023 10:00 AM EST Office Visit Cardiology, [facility] [address] [place] [address] Herminia Gifford PA-C [address] [place] [address] 12/19/2023 1:00 PM EDT Office Visit Pulmonary Medicine, [facility] 132 [facility] [place] [address] Noman Hernandez MD [address] [place] [address] Scheduled Procedures Name Priority Associated Diagnoses Date/Ti me COLONOSCOPY FLEXIBLE PROXIMAL DIAGNOSTIC History of colon polyps Encounter for colorectal cancer screening 2023 2:30 PM EST Health Maintenance Due Date Last Done Comments Albumin/Creatinine Ratio 08/10/2017 08/10/2016 Depression Screening 06/22/2021 06/22/2020 COLONOSCOPY-EVERY 5 YRS AGES 18-100 08/21/2022 08/21/2017, 08/21/2017, 08/31/2015 CKD PHOS USE SMARTSET [id number] 03/15/2023 06/0 04/2022, 03/14/2022, 03/14/2022, Additional history exists COVID-19 Vaccine ( season) 2023 09/07/2021, 12/27/2020, 12/04/2020, Additional history exists GFR 02/19/2024 08/21/2023, 2 05/2023, 02/06/2023, Additional history exists CKD HGB USE SMARTSET 51148 08/21/202408/21, 08/21/2023, 07/05/2023, Additional history exists TSH [...] Care Power of Attorne y Care Teams Open End Spinning Operator Relationship Specialty Start Date End Date Aaron Rausch MD [address] [place] [address] PCP - General Family Medicine 01/19/21 documented as of this encounter
--- OUTSIDE RECORDS SUMMARY | 2023-10-20 08:18 | External Medical Summary | Summary of Care ---
Author Name Unknown Organization [facility] Address [address] [facility] [address] Phone [phone] Care Team Providers Care County Director Welfare Name Role Phone Aaron Rausch MD Primary Care Provider [phone] Reason for Visit * Reason Onset Date Comments second opinion 10/06/2023 Encounter Details Date Type Department Care Team (Late st Contact Info) Description 10/06/2023 [facility] 132 [facility] [place] [address] Calvin Murphy MD [address] [place] [address] [place] [address] second opinion Allergies Active Allergy [...] Dipropionate Aug 0.05 % External Cream (Diprolene AF)Indications:Lomas titis herpetiformis APPLY TO RASH ON ELBOWS [...] inj 1,000 mcgIndications:B12 deficiency 1000 mcg IM [id number] 04/10/2023 03/11/2024 Active documented as of this encounter (statuses as of 10/06/2023) Active Problems Problem Noted Date Diagnosed Date Coronary artery disease invo lving pam[place] coronary artery of [place] heart without angina pectoris 08/09/2023 Nonrheumatic aortic [...] mRNA, LNP-s, No Pre serve, 2-Dose Series ([employer]) 12/27/2020,12/04/2020 Hepatitis B, 20+ yrs 11/27/2020,06/29/2020,05/25 Influenza, Whole Virus 08/04/1999 Pneumococcal Conjugate Vacc, 13 Valent (Prevnar) 08/08/2016 [...] encounter Miscellaneous Notes * Telephone Encounter - Wendy Shafer OSA - 10/06/2023 11:15 AM EST Patient scheduled. * Telephone Encounter - Carmen Styles LPN - 10/06/2023 10:52 AM EST Patient called. She is seeking second opinion from Dr. Murphy due to low back pain. Neurologically intact and no bowel or bladder disturbances. Discussed previous message with regards to lumbar fusionby another provider. Made aware that if any additional surgery needed would be best to see originalsurgeon for continuity of care. Patient verbalizes understanding and will call Dr. Ortiz's office,however she would still like to schedule the 2nd opinion appt with Dr. Murphy. Schedulers- please call and assist to schedule new patient appt with Dr. Murphy in [place] or [place]. Patient is aware this could be several months. Reason for appt 2nd opinion for lumbar pain with previous back surgery * Telephone Encounter - Valeria Mejia OSA - 10/06/2023 9:55 AM EST Pt called, she has back pain with History of [address] Ortiz in [facility]. Last one was to repair a ruptured disc with hardware in March 2022. She is having terrible pain, needs to lay down a lot of her time. She would like to come to [facility] or [place] whichever would be sooner. She is having her op reports, Doctor notes and imaging reports faxed to [facility], She has a copy of latest MRI to bring to appt. Will Dr. Murphy see for a second opinion. documented in this encounter Plan of Treatment Upcoming Encounters Date Type Department Care Team (Late st Contact Info) Description 10/10/2023 9:30 AM EST Immunization/Injec tion Ancillary [facility] [address] [facility] [place] [address] [facility] [address] [place] [address] 10/23/2023 10:30 AM EST Office Visit Allergy/Immunology [facility] [address] [place] [address] Carol Whiteside PA-C [address] [place] [address] 11/21/2023 8:00 AM EST Office Visit Orthopaedics Spine Surgery, Mark Aaron [address] [place] [address] [place] [address] Calvin Murphy MD [address] [place] [address] [place] [address] 2023 2:30 PM EST Hospital Encounter ENDO [facility], Endoscopy Room [facility] [address] [place] [address] Rosa Isela Doran, DO [address] [place] [address] 2023 2:30 PM EST - 2023 3:00 PM EST Surgery ENDO O[facility], Endoscopy Room [facility] [address] [place] [phone] Rosa Isela Doran, DO [address] [place] [address] COLONOSCOPY FLEXIBLE PROXIMAL DIAGNOSTIC 11/29/2023 10:00 AM EST Office Visit Cardiology, [facility] [address] [place] [address] Herminia Gifford PA-C [address] [facility] [place] [address] 12/19/2023 1:00 PM EDT Office Visit Pulmonary Medicine, [facility] 132 [facility] [place] [address] Noman Hernandez MD [address] [place] [address] Scheduled Procedures Name Priority Associated Diagnoses Date/Ti me COLONOSCOPY FLEXIBLE PROXIMAL DIAGNOSTIC History of colon polyps Encounter for colorectal cancer screening 2023 2:30 PM EST Health Maintenance Due Date Last Done Comments Albumin/Creatinine Ratio 08/10/2017 08/10/2016 Depression Screening 06/22/2021 06/22/2020 COLONOSCOPY-EVERY 5 YRS AGES 18-100 08/21/2022 08/21/2017, 08/21/2017, 08/31/2015 CKD PHOS USE SMARTSET 66561 03/15/2023 06/0 04/2022, 03/14/2022, 03/14/2022, Additional history exists COVID-19 Vaccine ( season) 2023 09/07/2021, 12/27/2020, 12/04/2020, Additional history exists GFR 02/19/2024 08/21/2023, 03/10, 02/06/2023, Additional history exists CKD HGB USE SMARTSET 00701 08/21/202408/21, 08/21/2023, 07/05/2023, Additional history exists TSH 08/21/2024 08/21/2023, 10/2022, 09/01/2021, Additional history exists DXA Scan [...] Care Power of Attorne y Care Teams County Director Welfare Relationship Specialty Start Date End Date Aaron Rausch MD [address] [place] [address] PCP - General Family Medicine 01/19/21 documented as of this encounter
--- OUTSIDE RECORDS SUMMARY | 2023-10-20 08:18 | External Medical Summary | Summary of Care ---
Author Name Unknown Organization [facility] Address [address] [facility] [place] [address] Phone [phone] Care Team Providers Care Cooker Soda Name Role Phone Aaron Rausch MD Primary Care Provider [phone] Reason for Visit * Reason Comments Nurse Documentation B12 Encounter Details Date Type Department Care Team (Late st Contact Info) Description 10/10/2023 9:30 AM EST Immunization/Inj ection Ancillary [facility] 132 [facility] [place] [address] KellyNurse ryan [facility] Feng 132 [place] [address] Arrived Allergies Active Allergy Reactions Criticality Noted Date [...] Dipropionate Aug 0.05 % External Cream (Diprolene AF)Indications:[place]ler titis herpetiformis APPLY TO RASH ON ELBOWS [...] inj 1,000 mcgIndications:B12 deficiency 1000 mcg IM [id number] 04/10/2023 03/11/2024 Active documented as of this encounter (statuses as of 10/10/2023) Active Problems Problem Noted Date Diagnosed Date Coronary artery disease invo lving [place] coronary artery of [place] heart without angina pectoris 08/09/2023 Nonrheumatic aortic [...] mRNA, LNP-s, No Pre serve, 2-Dose Series ([employer]) 12/27/2020,12/04/2020 Hepatitis B, 20+ yrs 11/27/2020,06/29/2020,05/25 Pneumococcal [...] No 03/13/2022 documented as of this encounter Nursing Notes * Anita Pfeiffer LPN - 10/10/2023 9:26 AM EST The patient has been properly identified by confirmation of name and date of . Chief Complaint Patient presents with Nurse Documentation B12 documented in this encounter Plan of Treatment Upcoming Encounters Date Type Department Care Team (Late st Contact Info) Description 10/23/2023 10:30 AM EST Office Visit Allergy/Immunology [facility] [place] [address] [place] [address] Carol Whiteside PA-C [address] [place] [address] 11/10/2023 9:00 AM EST Immunization/Injec tion Ancillary [facility] [address] [place] [address] Nurse Kiran Kelly [address] [place] [address] 11/21/2023 8:00 AM EST Office Visit Orthopaedics Spine Surgery, [address], Mark [address] [place] [address] [place] [address] Calvin Murphy MD [address] [place] [address] [place] [address] 2023 2:30 PM EST Hospital Encounter ENDO [facility], Endoscopy Room [facility] [address] [place] [phone] Rosa Isela Doran, DO [address] [place] [address] 2023 2:30 PM EST - 2023 3:00 PM EST Surgery ENDO [facility], Endoscopy Room [facility] [address] [place] [phone] Rosa Isela Doran, DO [address] [place] [address] COLONOSCOPY FLEXIBLE PROXIMAL DIAGNOSTIC 11/29/2023 10:00 AM EST Office Visit Cardiology, [facility] [address] [place] [address] Herminia Gifford PA-C [address] [facility] [place] [address] 12/11/2023 9:00 AM EST Immunization/Injec tion Ancillary [facility] [address] [place] [address] Nurse Kiran Kelly [address] [place] [address] 12/19/2023 1:00 PM EDT Office Visit Pulmonary Medicine, [facility] [address] [place] [address] Noman Hernandez MD [address] [place] [id number] Scheduled Procedures Name Priority Associated Diagnoses Date/Ti me COLONOSCOPY FLEXIBLE PROXIMAL DIAGNOSTIC History of colon polyps Encounter for colorectal cancer screening 2023 2:30 PM EST Health Maintenance Due Date Last Done Comments Albumin/Creatinine Ratio 08/10/2017 08/10/2016 Depression Screening 06/22/2021 06/22/2020 COLONOSCOPY-EVERY 5 YRS AGES 18-100 08/21/2022 08/21/2017, 08/21/2017, 08/31/2015 CKD PHOS USE SMARTSET 01094 03/15/2023 06/0 04/2022, 03/14/2022, 03/14/2022, Additional history exists COVID-19 Vaccine ( season) 2023 09/07/2021, 12/27/2020, 12/04/2020, Additional history exists GFR 02/19/2024 08/21/2023, 03/10, 02/06/2023, Additional history exists CKD HGB USE SMARTSET 05865 08/21/202408/21, 08/21/2023, 07/05/2023, Additional history exists TSH 08/21/2024 08/21/2023, 050 10/2022, 09/01/2021, Additional history exists DXA Scan [...] Not on filedocumented as of this encounter Administered Medications Active Administered Medications - up to 3 most recent administrations Medication Order MAR Action Action Date Dose Rate Site vitamin b-12 (Cyanocobalamin) inj 1,000 mcg 1,000 mcg, Intramuscular, [id number], First dose on Mon04/10/23 at 0845, Last dose on Mon02/12/24 at 0845, For 12 doses Given 10/10/2023 9:26 AM EST 1,000 mcg Deltoid Left Lower Given 09/08/2023 8:23 AM EST 1,000 mcg De ltoid Left Upper Given 08/11/2023 8:28 AM EDT 1,000 mcg De ltoid Left Upper documented in this encounter Advance Directives Latest [...] Agents on File Name Relationship Healthcare Agent [facility] Communication [facility] Child Health Care Power of Attorne y Care Teams Cooker Soda Relationship Specialty Start Date End Date Aaron Rausch MD [address] [place] [address] PCP - General Family Medicine 01/19/21 documented as of this encounter
--- OUTSIDE RECORDS SUMMARY | 2023-10-20 08:19 | External Medical Summary | Summary of Care ---
Author Name Unknown Organization [facility] Address [address] [facility] [place] [address] Phone [phone] Care Team Providers Care Storage Engineer Name Role Phone Aaron Rausch MD Primary Care Provider [phone] Reason for Visit * Reason Comments Emergency Department Follow-Up ER visit for back pain, loose hardware in back, trying to touch base with . Encounter Details Date Type Department Care Team (Late st Contact Info) Description 09/20/2023 3:20 PM EST Office Visit Family Practice [facility] [place] [address] Aaron Rausch MD [address] [place] [address] Failed back surgical syndrome* Allergies Active Allergy Reactions Criticality Noted Date Comments Gluten Meal 08/24/2018 Pantoprazole Rash 12/23/2020 blisters documented as of this encounter (statuses as of 09/20/2023) Medications Medication Sig Dispensed Refills Start Date [...] Dipropionate Aug 0.05 % External Cream (Diprolene AF)Indications:[place] titis herpetiformis APPLY TO RASH ON ELBOWS [...] inj 1,000 mcgIndications:B12 deficiency 1000 mcg IM [id number] 04/10/2023 03/11/2024 Active documented as of this encounter (statuses as of 09/20/2023) Active Problems Problem Noted Date Diagnosed Date Coronary artery disease invo lving chinik coronary artery of chinik heart without angina pectoris 08/09/2023 Nonrheumatic aortic [...] as of this encounter (statuses as of 09/20/2023) Resolved Problems Problem Noted Date Diagnosed Date Resolved Date 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 07/14/2022 07/22/2022 Acute marginal ulcer 03/16/2022 022 Gastric perforation 03/16/2022 05/25/20 22 Hypertensive kidney disease with stage 3a chronic [...] as of this encounter (statuses as of 09/20/2023) Immunizations Name Administration Dates Next Due COVID-19 mRNA, LNP-s, No Pre serve, 2-Dose Series ([employer]) 12/27/2020,12/04/2020 Hepatitis B, 20+ yrs 11/27/2020,06/29/2020,05/25 Pneumococcal [...] on file documented as of this encounter Last Filed Vital Signs Vital Sign Reading Time Taken Comments Blood Pressure 102/62 09/20/2023 2:59 PM EST Pulse 80 09/20/2023 2:59 PM EST Temperature - - Respiratory Rate - - Oxygen Saturation - - Inhaled Oxygen Concentration - - Weight - - Height - - Body Mass Index - - documented in this encounter Functional Status Functional Status Response Date of Assess ment Do you have serious difficul ty walking or climbing stairs? (5 years old or older) No 03/13/2022 documented as of this encounter Progress Notes * Aaron Rausch MD - 09/20/2023 7:39 PM EST SUBJECTIVE: Juliana Zuniga is a 77 year old female. Chief Complaint Patient presents with Emergency Department Follow-Up ER visit for back pain, loose hardware in back, trying to touch base with . HPI: Here today with her cousin for ER follow up for lower back pain. 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 Pain control has been an issue. She was told by the ER physician to "contact Dr. Ortiz" who is her surgeon. She called him 4 days ago and hasn't heard back. Patient and cousin very frustrated that they cannot get in touch with Dr. Ortiz for him to "fix the back issues." ER report reviewed. 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 Obesity, Class II, BMI 35-39.9, isolated (see actual BMI) E66.9 Nonrheumatic aortic valve stenosis I35.0 BARLOW (nonalcoholic steatohepatitis) K75.81 Coronary artery disease involving chinik coronary artery of chinik heart without angina pectoris I25.10 Current Outpatient Medications Medication Sig Dispense Refill MULTIVITAMIN TABS OR one a day 0 Albuterol Sulfate HFA 108 (90 Base) MCG/ACT Inhalation Aerosol Solution INHALE 2 PUFFS BY MOUTH 4 TIMES A DAY (Patient taking differently: Taking as needed) 18 g 1 Famotidine 20 MG Oral Tablet (Pepcid) TAKE 1 TABLET IN MORNING AND 1 TABLET AT BEDTIME 180 Tablet 1 DULoxetine HCl 20 MG Oral Capsule Delayed Release Particles (Cymbalta) TAKE 1 CAPSULE BY MOUTH EVERY DAY 90 Capsule 1 Levothyroxine Sodium 125 MCG Oral Tablet (Levoxyl) TAKE 1 TAB BY MOUTH DAILY FIRST THING IN THE MORNING AT LEAST 30MINS PRIOR TO BREAKFAST OR OTHER MED 90 Tablet 1 Ferrous Sulfate 325 (65 Fe) MG Oral Tablet (Feosol) Take 1 Tablet by mouth in the morning and 1 Tablet before bedtime. 180 Tablet 1 Methocarbamol 500 MG Oral Tablet (Robamol) Take 1 Tablet by mouth in the morning and 1 Tablet at noon and 1 Tablet in the evening and 1 Tablet before bedtime. For muscle spasm. 30 Tablet 0 traMADol HCl 50 MG Oral Tablet (Ultram) Take 1 Tablet by mouth every 6 hours as needed for Pain, Severe. 30 Tablet 0 Fluocinonide 0.05 % External Solution Apply to scalp daily as needed for flares. 60 mL 3 Betamethasone Dipropionate Aug 0.05 % External Cream (Diprolene AF) APPLY TO RASH ON ELBOWS 50 g 1 Atorvastatin Calcium 20 MG Oral Tablet (Lipitor) Take 1 Tablet by mouth in the morning. 90 Tablet 3 Losartan Potassium 100 MG Oral Tablet (Cozaar) TAKE 1/2 TABLET BY MOUTH EVERY DAY 45 Tablet 3 Dapsone 25 MG Oral Tablet Take one tablet by mouth in morning and two tablets by mouth at bedtime 270 Tablet 1 Aspirin 81 MG Oral Tablet Delayed Release Take 1 Tablet by mouth in the morning. ZyrTEC Allergy 10 MG Oral Capsule (Cetirizine HCl) Take 1 Capsule by mouth in the morning. Fexofenadine HCl 60 MG Oral Tablet (Diane Allergy) Take 1 Tablet by mouth in the morning. predniSONE 20 MG Oral Tablet (Deltasone) 3 tablets daily w/food for 5 days, then 2 pills for 5 days, then 1 pill for 5 days, then 1/2 for 5 days 35 Tablet 0 HYDROcodone-Acetaminophen 5-325 MG Oral Tablet Take 1 Tablet by mouth every 6 hours as needed for Pain, Mild. oxyCODONE-Acetaminophen 7.5-325 MG Oral Tablet (Percocet) Take 1 Tablet by mouth every 4 hours as needed for Pain, Severe. 30 Tablet 0 Current Facility-Administered Medications Medication Dose Route Frequency Provider Last Rate Last Admin vitamin b-12 (Cyanocobalamin) inj 1,000 mcg 1,000 mcg Intramuscular Q4 Weeks David Mejia DO 1,000 mcg at 09/08/23 0823 Allergy: Review of patient's allergies indicates: Allergen Reactions Gluten Meal Pantoprazole Rash blisters OBJECTIVE: BP 102/62 | Pulse 80 Gen: nad, in wheelchair, winces in pain with movement ASSESSMENT AND PLAN: (M96.1) Failed back surgical syndrome (primary encounter diagnosis) Plan: oxyCODONE-Acetaminophen 7.5-325 MG Oral Tablet (Percocet) -will need to talk with Dr. Ortiz for halfway mgmt Follow up as needed. No other complaints were offered at this time. Aaron Rausch MD documented in this encounter Plan of Treatment Upcoming Encounters Date Type Department Care Team (Latest Contact Info) Description 10/23/2023 10:30 AM EST Office Visit Allergy/Immunology [facility] [place] [address] [place] [address] Carol Whiteside PA-C 200 [facility] [place] [address] 2023 2:30 PM EST Hospital Encounter ENDO [facility], Endoscopy Room [facility] [address] [place] [address] Rosa Isela Doran, DO [address] [place] [address] 2023 2:30 PM EST - 2023 3:00 PM EST Surgery ENDO [facility], Endoscopy Room [facility] [address] [place] [phone] Rosa Isela Doran, DO [address] [place] [address] COLONOSCOPY FLEXIBLE PROXIMAL DIAGNOSTIC 11/29/2023 10:00 AM EST Office Visit Cardiology, [facility] [address] [place] [address] Herminia Gifford PA-C [address] [place] [address] 12/19/2023 1:00 PM EDT Office Visit Pulmonary Medicine, [facility] [address] [place] [address] Noman Hernanedz MD [address] [place] [address] Scheduled Procedures Name Priority Associated Diagnoses Date/Ti me COLONOSCOPY FLEXIBLE PROXIMAL DIAGNOSTIC History of colon polyps Encounter for colorectal cancer screening 2023 2:30 PM EST Health Maintenance Due Date Last Done Comments Albumin/Creatinine Ratio 08/10/2017 08/10/2016 Depression Screening 06/22/2021 06/22/2020 COLONOSCOPY-EVERY 5 YRS AGES 18-100 08/21/2022 08/21/2017, 08/21/2017, 08/31/2015 CKD PHOS USE SMARTSET 06894 03/15/2023 06/0 04/2022, 03/14/2022, 03/14/2022, Additional history exists COVID-19 Vaccine (2022- season) 2023 09/07/2021, 12/27/2020, 12/04/2020, Additional history exists GFR 02/19/2024 08/21/2023, 03/10, 02/06/2023, Additional history exists CKD HGB USE SMARTSET 94203 08/21/202408/21, 08/21/2023, 07/05/2023, Additional history exists TSH [...] as of this encounter Visit Diagnoses Diagnosis Failed back surgical syndrome- Primary Other unspecified back disorder History of colon [...] File Name Relationship Healthcare Agent [facility] Communication [facility] Child Health Care Power of Attorne y Care Teams Storage Engineer Relationship Specialty Start Date End Date Aaron Rausch MD [address] [place] [address] PCP - General Family Medicine 01/19/21 documented as of this encounter
[2023-10-20 08:34] LABS: Basophils # (auto) 0.09 K/uL (0.00-0.20); Basophils % (auto) 1.1 %; Eosinophils # (auto) 0.18 K/uL (0.00-0.50); Eosinophils % (auto) 2.2 %; Hematocrit (blood only) 28.1 % (37.0-47.0); Hemoglobin 8.5 g/dl (12.0-16.0); Immature Granulocytes # (auto) 0.03 K/uL (0.01-0.20); Immature Granulocytes % (auto) 0.4 %; Lymphocytes # (auto) 1.17 K/uL (1.20-3.40); Lymphocytes % (auto) 14.3 %; Mean Corpuscular Hemoglobin 28.3 pg (25.0-34.0); Mean Corpuscular Hgb Conc 30.2 g/dL (32.0-36.0); Mean Corpuscular Volume 93.7 fL (80.0-100.0); Mean Platelet Volume 9.9 fL (9.4-12.4); Monocytes # (auto) 0.92 K/uL (0.11-0.59); Monocytes % (auto) 11.2 %; Neutrophils # (auto) 5.82 K/uL (1.40-6.50); Neutrophils % (auto) 70.8 %; Platelet Count 349 K/uL (130-400); RDW Standard Deviation 50.8 fL (36.4-46.3); White Blood Count 8.21 K/ul (4.8-10.8)
[2023-10-20 08:43] LABS: BUN Creatinine Ratio 15.5 (10-20); Calcium 8.4 mg/dl (8.6-10.3); Creatinine Clr Calc Pharmacy 68.1 ml/min; Est GFR (African American) 96.6 ml/min; Est GFR (Non-African American) 83.3 ml/min; Magnesium 1.7 mg/dl (1.7-2.4); Potassium 4.2 mmol/L (3.5-5.1)
--- NOTE | 2023-10-20 08:44 | Gastrointestinal Consultation ---
Date of Consultation October 20, 2023 Assessment & Plan (1) Melena: (2) Anemia: (3) Abdominal pain: (4) H/O gastric bypass: Patient is a 77 years old female with history of cirrhosis (MELD 7), ? celiac disease related, gastric bypass and anastomotic ulcers presented overnight with anemia, upper abdominal pain, melena. She had been taking quite a bit of narcotics for back pain along with NSAIDs, Prednisone taper for Dermatitis Hepatiformis. - NPO - Plan for EGD eval today - PPI gtt - Monitor blood ct and transfuse prn - Avoid NSAIDs - Further GI recs after EGD completed Supervising Physician Co-Signing Physician Notes Attending attestation I have seen, examined this patient, and agree with the findings and above by our mid-level provider CHRISTOPHER Zuluaga, with the following additions: Plan for EGD today History of Present Illness Reason for Consultation: UGI bleed Requesting Physician: Dr. Nichole Trejo Attending Physician: Dr. Neri Munoz History of Present Illness Patient is a 77 years old female with past medical history include cirrhosis,? Celiac disease related, CKD stage III, lumbar stenosis, herniation with radiculopathy, status post gastric bypass with history of anastomotic ulcers and 2019 and 2020. She presented to the ED last night with complaints of upper abdominal pain that is getting worse in the last few weeks. She started to notice black tarry stools last night. No nausea or vomiting. No fevers or chills, chest pain or shortness of breath. It was noted however that she was anemic with hemoglobin of 7, where her baseline is usually closer to 9. She received 1 unit of PRBC transfusion overnight. A.m. labs pending. 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 She is not on any anticoagulant, is on baby aspirin once daily. Last EGD was in 2021, normal exam at that time. Colonoscopy in 2017 showed adenomatous colon polyp, redundant colon, otherwise normal exam. Allergies Allergy/AdvReac Type Severity Reaction Status Date / Time gluten Allergy Intermediate SKIN Verified 10/20/23 11:46 RASH--DERMATITIS Home Medications Medication Instructions Recorded Confirmed Type dapsone 25 mg tablet 50 mg PO BID 08/07/18 10/20/23 History duloxetine 20 mg capsule,delayed 20 mg PO QAM 08/07/18 10/20/23 History release (Cymbalta) levothyroxine 125 mcg tablet 125 mcg PO QAM 08/07/18 10/20/23 History (Synthroid) losartan 100 mg tablet (Cozaar) 50 mg PO QAM 08/07/18 10/20/23 History ferrous sulfate 325 mg (65 mg 325 mg PO BID 03/11/19 10/20/23 History iron) tablet fluocinonide 0.05 % topical 0.05 applic topical DAILY PRN other 04/11/23 10/20/23 History solution albuterol sulfate 90 mcg/actuation 1 puff inhalation QID 04/18/23 10/20/23 History aerosol inhaler atorvastatin 20 mg tablet 20 mg PO DAILY #30 tabs 04/18/23 10/20/23 Rx betamethasone dipropionate 0.05 % 1 applic topical DAILY PRN Rash 04/18/23 10/20/23 History topical cream famotidine 20 mg tablet 20 mg PO BID 04/18/23 10/20/23 History multivitamin 1 tab PO DAILY 04/18/23 10/20/23 History oxycodone-acetaminophen 7.5 mg-325 1 tab PO Q4 PRN Severe Pain (Scale 10/20/23 10/20/23 History mg tablet Score 7-10) tramadol 50 mg tablet 50 mg PO Q6 PRN Severe Pain (Scale 10/20/23 10/20/23 History Score 7-10) Patient History Medical History CKD (chronic kidney disease) stage 3, GFR 30-59 ml/min Prolonged QT interval Per PCP records Cirrhosis Cryptogenic per PCP records Kidney stones hx History of GI bleed + GASTRIC ULCER x 1; MOST RECENT OCCURRED SEVERAL MONTHS AGO - REPEAT EGD 06/2021 (No blood transfusion needed for GI ulcer in January 2021) Osteoarthritis Fatty liver Obesity Dermatitis herpetiformis OCCURS WITH GLUTEN Depression Asthma NO INHALER USE X YEARS HTN (hypertension) Hypothyroidism Anemia STABLE PER PATIENT - TAKES IRON SUPPLEMENT PO DAILY HX OF BLOOD TRANSFUSION YEARS AGO SECONDARY FROM ANEMIA FROM GI ULCER Surgical History History of cataract surgery LEFT and RIGHT S/P cystoscopy with ureteral stent placement 03/11/2019 [facility] History of esophagogastroduodenoscopy (EGD) History of colonoscopy Hx of tonsillectomy History of cholecystectomy History of hip replacement right hip H/O gastric bypass 1998 Family History Brother Pancreatic cancer Mother Pancreatic cancer Father Coronary heart disease Social History Smoking Status: Former smoker Second Hand Exposure: No; Do You Dip or Chew Tobacco: No; Hx Alcohol Use: No Hx Substance Use: No Preferred Language: Polish Communication Ability: Effective 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 Beliefs That Will Affect Care: None marital status: / Current Living Situation: Family Current Living Situation Comment: home with son "denise" How many Children do You have: 1 Other Information That Helps Us Care for You: No Feels Safe at Home: Yes Safety Concerns: Feels Safe At This Time Assistive Devices: Denture - Upper and Glasses Review of Systems Review of Systems: All systems reviewed & are unremarkable except as noted in HPI & below Physical Exam Constitutional: WD/WN, vitals as above well groomed, cooperative and comfortable Eyes: PERRL, conjunctivae normal, anicteric sclerae ENMT: external ear and nose normal, oropharynx normal Respiratory: normal respiratory effort, lungs clear to auscultation Cardiovascular: RRR, no murmur, no edema Gastrointestinal (Abdomen): normal bowel sounds, soft, nontender, no hepatosplenomegaly Skin: no rashes, warm and dry no jaundice Psychiatric: A+Ox3, euthymic affect Lymphatic: no lymphedema Results & Data Vital Signs (Past 12 Hours) Vital Signs Temp Pulse Pulse Resp BP BP Pulse Ox 10/20/23 08:27 36.6 C 96 H 16 116/70 93 10/20/23 08:27 10/20/23 07:08 36.6 C 96 H 16 116/70 93 10/20/23 07:03 93 H 10/20/23 06:38 36.8 C 100 H 18 173/89 H 96 10/20/23 06:08 36.7 C 93 H 20 153/81 H 94 10/20/23 05:38 36.8 C 99 H 18 160/80 H 96 10/20/23 05:23 36.8 C 93 H 20 155/86 H 93 10/20/23 05:04 36.5 C 95 H 13 135/83 95 10/20/23 04:00 100 H 24 167/85 H 96 10/20/23 03:30 95 H 20 143/76 H 94 10/20/23 03:00 96 H 17 92 10/20/23 03:00 159/78 H 10/20/23 02:30 97 H 17 96 10/20/23 02:30 148/75 H 10/20/23 02:23 95 H 10/20/23 02:15 95 10/20/23 02:00 101 H 18 93 10/20/23 02:00 125/73 10/20/23 01:30 100 H 19 97 10/20/23 01:30 154/80 H 10/20/23 01:00 99 H 21 10/20/23 01:00 133/85 10/20/23 00:30 98 H 18 97 10/20/23 00:30 151/89 H 10/20/23 00:10 135/81 10/20/23 00:10 100 H 15 98 10/20/23 00:06 101 H 16 10/19/23 23:30 158/85 H 10/19/23 23:30 98 H 20 97 10/19/23 23:07 97 10/19/23 23:00 152/77 H 10/19/23 23:00 97 H 18 86 L 10/19/23 22:23 36.9 C 92 H 18 148/81 H 94 10/19/23 22:22 91 H Pulse Ox O2 Del Method O2 Del Method O2 Flow Rate 10/20/23 08:27 Room Air 10/20/23 08:27 93 Room Air 10/20/23 07:08 10/20/23 07:03 10/20/23 06:38 10/20/23 06:08 10/20/23 05:38 10/20/23 05:23 10/20/23 05:04 10/20/23 04:00 10/20/23 03:30 10/20/23 03:00 Room Air 10/20/23 03:00 10/20/23 02:30 Room Air 10/20/23 02:30 10/20/23 02:23 10/20/23 02:15 Room Air 10/20/23 02:00 Nasal Cannula 2 10/20/23 02:00 10/20/23 01:30 10/20/23 01:30 10/20/23 01:00 10/20/23 01:00 10/20/23 00:30 Room Air 10/20/23 00:30 10/20/23 00:10 10/20/23 00:10 10/20/23 00:06 10/19/23 23:30 10/19/23 23:30 Nasal Cannula 2 10/19/23 23:07 Nasal Cannula 2 10/19/23 23:00 10/19/23 23:00 Room Air 10/19/23 22:23 Room Air 10/19/23 22:22
[2023-10-20 08:59] LABS: Thyroid Stimulating Hormone 4.211 uIu/ml (0.300-4.500)
--- NOTE | 2023-10-20 09:06 | Anesthesiology Consultation ---
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 Consults Requested none Proposed Anesthesia Anesthesia Type: MAC History Surgery Operation Date: 10/20/23 17:15 Proposed Procedures p Esophagogastroduodenoscopy Dr Munoz - Neri Munoz MD Height/Weight Height: 5 ft 3 in Weight: 79 kg Allergies Allergy/AdvReac Type Severity Reaction Status Date / Time gluten Allergy Intermediate SKIN Verified 04/18/23 07:14 RASH--DERMATITIS Medications Home Medications Medication Instructions Recorded Confirmed Last Taken dapsone 25 mg tablet 50 mg PO BID 08/07/18 10/20/23 04/11/23 duloxetine 20 mg capsule,delayed 20 mg PO QAM 08/07/18 10/20/23 04/11/23 release (Cymbalta) levothyroxine 125 mcg tablet 125 mcg PO QAM 08/07/18 10/20/23 04/11/23 (Synthroid) losartan 100 mg tablet (Cozaar) 50 mg PO QAM 08/07/18 10/20/23 04/11/23 ferrous sulfate 325 mg (65 mg 325 mg PO BID 03/11/19 10/20/23 04/11/23 iron) tablet fluocinonide 0.05 % topical 0.05 applic topical DAILY PRN other 04/11/23 10/20/23 Unknown solution albuterol sulfate 90 mcg/actuation 1 puff inhalation QID 04/18/23 10/20/23 Unknown aerosol inhaler atorvastatin 20 mg tablet 20 mg PO DAILY #30 tabs 04/18/23 10/20/23 Unknown betamethasone dipropionate 0.05 % 1 applic topical DAILY PRN Rash 04/18/23 10/20/23 Unknown topical cream famotidine 20 mg tablet 20 mg PO BID 04/18/23 10/20/23 Unknown multivitamin 1 tab PO DAILY 04/18/23 10/20/23 Unknown oxycodone-acetaminophen 7.5 mg-325 1 tab PO Q4 PRN Severe Pain (Scale 10/20/23 10/20/23 Unknown mg tablet Score 7-10) tramadol 50 mg tablet 50 mg PO Q6 PRN Severe Pain (Scale 10/20/23 10/20/23 Unknown Score 7-10) Active Medications Generic Name Dose Route Start Last Admin Trade Name Andradeq PRN Reason Stop Dose Admin Sodium Chloride 1,000 mls @ 60 mls/hr 10/20/23 02:04 10/20/23 05:08 Nss IV 10/20/23 18:43 0 mls/hr .[id number] STA Infusion Pantoprazole Sodium 40 mg/ 100 mls @ 20 mls/hr 10/20/23 06:00 10/20/23 06:19 Dextrose IV 11/19/23 05:59 8 mg/hr Q5H LEONIDAS 20 mls/hr Administration 8 MG/HR Past Medical History Medical History CKD (chronic kidney disease) stage 3, GFR 30-59 ml/min Prolonged QT interval Per PCP records Cirrhosis Cryptogenic per PCP records Kidney stones hx History of GI bleed + GASTRIC ULCER x 1; MOST RECENT OCCURRED SEVERAL MONTHS AGO - REPEAT EGD 06/2021 (No blood transfusion needed for GI ulcer in January 2021) Osteoarthritis Fatty liver Obesity Dermatitis herpetiformis OCCURS WITH GLUTEN Depression Asthma NO INHALER USE X YEARS HTN (hypertension) Hypothyroidism Anemia STABLE PER PATIENT - TAKES IRON SUPPLEMENT PO DAILY HX OF BLOOD TRANSFUSION YEARS AGO SECONDARY FROM ANEMIA FROM GI ULCER Past Family History Family History Brother Pancreatic cancer Mother Pancreatic cancer Father Coronary heart disease Past Surgical History Surgical History History of cataract surgery LEFT and RIGHT S/P cystoscopy with ureteral stent placement 03/11/2019 [facility] History of esophagogastroduodenoscopy (EGD) History of colonoscopy Hx of tonsillectomy History of cholecystectomy History of hip replacement right hip H/O gastric bypass 1998 Social History Smoking Status: Former smoker tobacco type: cigarettes Do You Dip or Chew Tobacco: No Hx Alcohol Use: No Hx Substance Use: No substance use type: does not use Physical Exam Vital Signs Last Vital Signs Temp 36.6 C 10/20/23 08:27 Pulse 96 H 10/20/23 08:27 Resp 16 10/20/23 08:27 BP 116/70 10/20/23 08:27 Pulse Ox 93 10/20/23 08:27 O2 Del Method Room Air 10/20/23 08:27 O2 Flow Rate 2 10/20/23 02:00 Testing Laboratory Results 10/20/23 08:12 10/20/23 08:12 PT 11.8 Seconds (9.0-12.0) 10/19/23 23:11 INR 1.1 (0.9-1.1) 10/19/23 23:11 Urine Color Yellow 10/20/23 02:17 Urine Appearance Clear (Clear) 10/20/23 02:17 Urine pH 7.0 (4.5-7.5) 10/20/23 02:17 Ur Specific [place] > 1.045 (1.000-1.030) H 10/20/23 02:17 Urine Protein Negative (Negative) 10/20/23 02:17 Urine Glucose (UA) Negative (Negative) 10/20/23 02:17 Urine Ketones 1+ (Negative) H 10/20/23 02:17 Urine Nitrite Negative (Negative) 10/20/23 02:17 Ur Leukocyte Esterase Negative (Negative) 10/20/23 02:17 Blood Type B Positive 10/20/23 00:08 Antibody Screen NEGATIVE 10/20/23 00:08 Electrocardiogram Date: 10/19/23 ID:[id number] 19-OCT-2023 22:19:45 [facility]-EDSTAT ROUTINE RETRIEVAL Normal sinus rhythm Minimal voltage criteria for LVH, may be normal variant ( John product ) Septal infarct , age undetermined Abnormal ECG When compared with ECG of 11-SEP-2023 23:10, Septal infarct is now Present QT has lengthened 25mm/s10mm/[id number] 243CID: [id number] by: REFERRED SELF Unconfirmed Vent. rate 91 BPM [place] interval 146 ms QRS duration 100 ms QT/QTc 388/477 ms P-R-T axes 69 10 -10 Chest X-Ray Date: 10/20/23 XR chest 1V portable CLINICAL HISTORY: Shortness of breath. COMPARISON STUDY: Chest CT March 06, 2022. Chest radiograph September 12, 2023. FINDINGS: Postoperative findings within the lumbar spine are partially imaged. Lung volumes are normal. Lungs are clear. There is no pneumothorax or pleural effusion. Cardiac size is normal. Mediastinal contours are stable. There is no evidence for pulmonary edema. IMPRESSION: No acute cardiopulmonary findings. No significant change in appearance of the chest.
[2023-10-20] MEDS ORDERED: PROPOFOL IV EMULSION 10 MG/ML 20 ML VIAL IV ONE (11:47)
[2023-10-20] MEDS ORDERED: LIDOCAINE 2% 2 ML VIAL/AMP(20MG/ML) INFIL ONE (11:47)
--- NOTE | 2023-10-20 12:02 | Electrocardiogram Report ---
Test Reason : Blood Pressure : / mmHG Vent. Rate : 091 BPM Atrial Rate : 091 BPM P-R Int : 146 ms QRS Dur : 100 ms QT Int : 388 ms P-R-T Axes : 069 010 -10 degrees QTc Int : 477 ms Normal sinus rhythm Voltage criteria for left ventricular hypertrophy Abnormal ECG When compared with ECG of 11-SEP-2023 23:10, No significant change Confirmed by Aaron Zuleta ([id number]) on 10/20/2023 12:02:29 PM Referred By: REFERRED SELF Confirmed By:Aaron Zuleta
--- NOTE | 2023-10-20 12:33 | Communication Note ---
Date of Service: October 20, 2023 EGD completed today large but clean based ulcer at the GJ anastomosis. No signs of bleeding or stigmata of recent bleed Certainly the cause of pain and melena Should have evaluation for revision if not healed
--- NOTE | 2023-10-20 12:35 | GI REPORT ---
Patient Name: Juliana Zuniga Procedure Date: 10/20/2023 11:48 AM Date of : 1945 Admit Type: Inpatient Age: 77 Gender: Female Attending MD: Neri Munoz MD, Procedure: Upper GI endoscopy Providers: Neri Munoz MD Referring MD: Nichole Trejo M.d. Indications: Melena Medicines: Propofol per Anesthesia Complications: No immediate complications. Estimated blood loss: None. Estimated Blood Loss: Estimated blood loss: none. Procedure: Pre-Anesthesia Assessment: - Pre-Anesthesia Assessment: - Prior to the procedure, a History and Physical was performed, and patient medications, allergies and sensitivities were reviewed. The patient's tolerance of previous anesthesia was reviewed. Please see [facility] [place] for complete details. - The risks and benefits of the procedure and the sedation options and risks were discussed with the patient. All questions were answered and informed consent was obtained. - Patient identification and proposed procedure were verified prior to the procedure by the physician and the nurse. The procedure was verified in the pre-procedure area in the procedure room. After obtaining informed consent, the endoscope was passed carefully and meticuously under direct vision and only advanced when the lumen was clearly identified, C02 insuflation was utilized throughout the entirity of the procedure. Throughout the procedure, the patient's blood pressure, pulse, and oxygen saturations were monitored continuously. After obtaining informed consent, the endoscope was passed under direct vision. Throughout the procedure, the patient's blood pressure, pulse, and oxygen saturations were monitored continuously. The Endoscope was introduced through the mouth, and advanced to the jejunum. The upper GI endoscopy was accomplished without difficulty. The patient tolerated the procedure well. Findings: The examined esophagus was normal. Evidence of a Bigg-en-Y gastrojejunostomy was found. The gastrojejunal anastomosis was characterized by a large 50-70% cirumfrence ulceration at the anastomosis. The examined jejunum was normal. No signs of GI bleeding Impression: - Normal esophagus. - Bigg-en-Y gastrojejunostomy with gastrojejunal anastomosis characterized by ulceration. - Normal examined jejunum. - No specimens collected. Recommendation: - [facility]. - Use Prilosec (omeprazole) 40 mg PO BID or IV - Repeat upper endoscopy in 2 months for surveillance. - No NSAIDs - Return to referring physician as previously scheduled. Neri Munoz MD 10/20/2023 12:35:37 PM This report has been signed electronically. Note Initiated On: 10/20/2023 11:48 AM Number of Addenda: 0 I attest to the content of the Intraoperative Record and orders documented therein, exceptions below {[id number]}
--- NOTE | 2023-10-20 13:20 | Anesthesiology Progress Note ---
Date of Service October 20, 2023 Anesthesia Post Procedure Vital Signs Vital Signs: Temp Pulse Pulse Resp BP BP Pulse Ox 10/20/23 12:50 95 H 12 132/75 96 10/20/23 12:35 97 H 12 130/74 98 10/20/23 12:20 36 C L 93 H 12 94/46 L 94 10/20/23 11:47 36.6 C 96 H 18 140/74 94 10/20/23 08:27 36.6 C 96 H 16 116/70 93 10/20/23 08:27 10/20/23 07:08 36.6 C 96 H 16 116/70 93 10/20/23 07:03 93 H 10/20/23 06:38 36.8 C 100 H 18 173/89 H 96 10/20/23 06:08 36.7 C 93 H 20 153/81 H 94 10/20/23 05:38 36.8 C 99 H 18 160/80 H 96 10/20/23 05:23 36.8 C 93 H 20 155/86 H 93 10/20/23 05:04 36.5 C 95 H 13 135/83 95 10/20/23 04:00 100 H 24 167/85 H 96 10/20/23 03:30 95 H 20 143/76 H 94 10/20/23 03:00 96 H 17 92 10/20/23 03:00 159/78 H 10/20/23 02:30 97 H 17 96 10/20/23 02:30 148/75 H 10/20/23 02:23 95 H 10/20/23 02:15 95 10/20/23 02:00 101 H 18 93 10/20/23 02:00 125/73 10/20/23 01:30 100 H 19 97 10/20/23 01:30 154/80 H 10/20/23 01:00 99 H 21 10/20/23 01:00 133/85 10/20/23 00:30 98 H 18 97 10/20/23 00:30 151/89 H 10/20/23 00:10 135/81 10/20/23 00:10 100 H 15 98 10/20/23 00:06 101 H 16 10/19/23 23:30 158/85 H 10/19/23 23:30 98 H 20 97 10/19/23 23:07 97 10/19/23 23:00 152/77 H 10/19/23 23:00 97 H 18 86 L 10/19/23 22:23 36.9 C 92 H 18 148/81 H 94 10/19/23 22:22 91 H Pulse Ox O2 Del Method O2 Del Method O2 Flow Rate 10/20/23 12:50 Nasal Cannula 2 10/20/23 12:35 Room Air 10/20/23 12:20 Room Air 10/20/23 11:47 Room Air 10/20/23 08:27 Room Air 10/20/23 08:27 93 Room Air 10/20/23 07:08 10/20/23 07:03 10/20/23 06:38 10/20/23 06:08 10/20/23 05:38 10/20/23 05:23 10/20/23 05:04 10/20/23 04:00 10/20/23 03:30 10/20/23 03:00 Room Air 10/20/23 03:00 10/20/23 02:30 Room Air 10/20/23 02:30 10/20/23 02:23 10/20/23 02:15 Room Air 10/20/23 02:00 Nasal Cannula 2 10/20/23 02:00 10/20/23 01:30 10/20/23 01:30 10/20/23 01:00 10/20/23 01:00 10/20/23 00:30 Room Air 10/20/23 00:30 10/20/23 00:10 10/20/23 00:10 10/20/23 00:06 10/19/23 23:30 10/19/23 23:30 Nasal Cannula 2 10/19/23 23:07 Nasal Cannula 2 10/19/23 23:00 10/19/23 23:00 Room Air 10/19/23 22:23 Room Air 10/19/23 22:22 Transfer of Care Handoff Completed per policy Notes Mental Status: alert / awake / arousable and participated in evaluation Patient Amnestic to Procedure: Yes Nausea / Vomiting: adequately controlled Pain: adequately controlled Airway Patency, RR, SpO2: stable & adequate BP & HR: stable & adequate Hydration State: stable & adequate Anesthetic Complications: no major complications apparent
[2023-10-20] MEDS: LEVOTHYROXINE SODIUM 125 MCG TABLET PO SCH (13:37)
[2023-10-20] MEDS: DAPSONE 25 MG TAB PO SCH (13:37)
[2023-10-20] MEDS: DULoxetine HCL 20 MG CAP PO SCH (13:37)
[2023-10-20] MEDS: ATORVASTATIN 20 MG TAB PO SCH (13:37)
[2023-10-20] MEDS: MULTIVITAMIN TAB PO SCH (13:37)
--- NOTE | 2023-10-20 19:14 | Communication Note ---
Date of Service: October 20, 2023 Pt was seen before her EGD while still down in the emergency room. Was resting comfortably in the bed, denied acute concerns. RRR, abdomen nontender. For further details, please see the H & P from the same date of service.
[2023-10-20] MEDS: PANTOprazole 40 MG TAB PO SCH (20:08)
[2023-10-20] MEDS: ACETAMINOPHEN 500 MG TAB PO PRN (20:08)
[2023-10-21] MEDS: DAPSONE 25 MG TAB PO SCH ×2 (02:21→13:46)
[2023-10-21] MEDS ORDERED: cefTRIAXone SODIUM 2,000 MG in DEXTROSE 5 % MINI-B 50 ML IV SCH (06:00)
[2023-10-21 06:34] LABS: Hematocrit (blood only) 28.7 % (37.0-47.0); Hemoglobin 8.9 g/dl (12.0-16.0); Mean Corpuscular Hemoglobin 28.3 pg (25.0-34.0); Mean Corpuscular Volume 91.1 fL (80.0-100.0); Mean Platelet Volume 10.2 fL (9.4-12.4); Platelet Count 341 K/uL (130-400); RDW Coefficient of Variation 15.3 % (11.5-14.5); RDW Standard Deviation 50.7 fL (36.4-46.3); Red Blood Count 3.15 M/uL (4.20-5.40); White Blood Count 6.76 K/ul (4.8-10.8)
[2023-10-21 06:51] LABS: BUN Creatinine Ratio 14.9 (10-20); Calcium 8.9 mg/dl (8.6-10.3); Creatinine Clr Calc Pharmacy 72.2 ml/min; Est GFR (African American) 99.7 ml/min; Magnesium 1.7 mg/dl (1.7-2.4); Phosphorus 3.1 mg/dl (2.5-4.9); Potassium 3.9 mmol/L (3.5-5.1)
[2023-10-21] MEDS ORDERED: LOSARTAN POTASSIUM 50 MG TAB PO SCH (09:00)
[2023-10-21] MEDS: MULTIVITAMIN TAB PO SCH (09:09)
[2023-10-21] MEDS: PANTOprazole 40 MG TAB PO SCH (09:09)
[2023-10-21] MEDS: DULoxetine HCL 20 MG CAP PO SCH (09:09)
[2023-10-21] MEDS: ATORVASTATIN 20 MG TAB PO SCH (09:09)
[2023-10-21] MEDS: LEVOTHYROXINE SODIUM 125 MCG TABLET PO SCH (09:10)
[2023-10-21] MEDS: ACETAMINOPHEN 500 MG TAB PO PRN (11:44)
--- NOTE | 2023-10-21 13:45 | Discharge Summary ---
Discharge Summary Date of Service October 21, 2023 Notes For Next Care Provider Please ensure stability of pt's H/H Hx of gastric bypass, on endoscopy, noted ulcer at the gastrojejunal anastomosis. Per GI, NO further aspirin, NSAID or prednisone use Repeat endoscopy recommended in 2 months. Per GI, if not healed will need evaluation for revision Medication Changes From Visit pantoprazole 40mg BID Admission HPI Per Admitting Provider History obtained from patient and records. 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 Last confinement February 2022 for lumbar spinal stenosis status post decompression surgery. 2 weeks history of burning epigastric pain without fever, chills. No hematemesis. Prednisone and NSAID Rx for chronic back pain. Melanotic stools noted last night. No chest pain. Increasing generalized weakness over the last few days. IV Pepcid administered at the ER. Medical History as above EGD 2021 normal esophagus, gastric bypass with medium sized pouch and intact staple line. GJ anastomosis characterized by healthy mucosa. 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 Admission Exam Per Admitting Provider GENERAL: Comfortable, pleasant, obese, no respiratory distress SKIN: Pallor, warm HEENT: Pale palpebral conjunctivae, no ptosis, dry buccal mucosa NECK : Supple, short neck, no tenderness CHEST : CTA, no tenderness HEART : RRR, systolic murmur ABDOMEN: Some distention, epigastric tenderness EXTREMITIES : Minimal LE swelling, no LE tenderness, no other conspicuous deformities noted NEUROLOGIC : Coherent, no facial asymmetry, no other gross focality Principal Dx & Hospital Course #1 = Principal Diagnosis (1) UGIB (upper gastrointestinal bleed): (2) Melena: (3) Anemia: (4) Abdominal pain: Plan Pt is a 77yoF with PMHx significant for Hx GERD/perforated gastric ulcer s/p surgery and History of NAFLD cirrhosis. She reportedly was using OTC NSAID and prednisone Rx for back pain in the last f ew weeks before arrival. Patient also on aspirin for nonocclusive CAD. Hgb was 7.9 on admission, down from her levels before. She was reporting black stools, SOB and stated she felt like when she had her gastric perforation in the past. She was transfused pRBC to maintain hemoglobin of at least 8 given history of CAD. She was treated with IV Protonix with previous documentation of rash side effect to medication. She had tolerated small doses of omeprazole at home as per patient and she tolerated the IV protonix. She was put on IV Ceftriaxone for SBP prophylaxis in cirrhotic patient presenting with GI bleed. She was seen by GI who did an EGD and noted and recommended the following: "EGD completed today, large but clean based ulcer at the GJ anastomosis. No signs of bleeding or stigmata of recent bleed. Certainly the cause of pain and melena. Should have evaluation for revision if not healed "Use Prilosec (omeprazole) 40 mg PO BID Repeat upper endoscopy in 2 months for surveillance. No NSAIDs" Baby aspirin discontinued moderate , stable hypertension, slightly elevated on admission, stable on discharge hx bariatric surgery, avoid NSAID or prednisone use as noted above. 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 Discharge Exam General: Alert, oriented. No acute distress Skin: No noted rashes or bruises Psych: Appropriate mood and affect Neuro: No gross deficits HEENT: NC/AT Chest: Nontender to palpation. CV: RRR, Normal s1, s2. No murmurs appreciated Resp: Breath sounds clear bilaterally, no increased effort of breathing. Abdomen: Soft, nontender Extremities: No edema in lower extremities bilaterally. Updated Medication List Medication Instructions Recorded Confirmed Type dapsone 25 mg tablet 50 mg PO BID 08/07/18 10/20/23 History duloxetine 20 mg capsule,delayed 20 mg PO QAM 08/07/18 10/20/23 History release (Cymbalta) levothyroxine 125 mcg tablet 125 mcg PO QAM 08/07/18 10/20/23 History (Synthroid) losartan 100 mg tablet (Cozaar) 50 mg PO QAM 08/07/18 10/20/23 History ferrous sulfate 325 mg (65 mg 325 mg PO BID 03/11/19 10/20/23 History iron) tablet fluocinonide 0.05 % topical 0.05 applic topical DAILY PRN other 04/11/23 10/20/23 History solution albuterol sulfate 90 mcg/actuation 1 puff inhalation QID 04/18/23 10/20/23 History aerosol inhaler atorvastatin 20 mg tablet 20 mg PO DAILY #30 tabs 04/18/23 10/20/23 Rx betamethasone dipropionate 0.05 % 1 applic topical DAILY PRN Rash 04/18/23 10/20/23 History topical cream famotidine 20 mg tablet 20 mg PO BID 04/18/23 10/20/23 History multivitamin 1 tab PO DAILY 04/18/23 10/20/23 History oxycodone-acetaminophen 7.5 mg-325 1 tab PO Q4 PRN Severe Pain (Scale 10/20/23 10/20/23 History mg tablet Score 7-10) tramadol 50 mg tablet 50 mg PO Q6 PRN Severe Pain (Scale 10/20/23 10/20/23 History Score 7-10) pantoprazole 40 mg tablet,delayed 40 mg PO BID #60 tabs 10/21/23 Rx release Hospital Stay Data Consultations 10/20/23 01:25 ED Decision to Admit Stat 10/20/23 07:33 Consult Gastroenterology Routine Procedures Performed Operation Date: 10/20/23 17:15 Actual Procedures p Esophagogastroduodenoscopy - Neri Munoz MD Diagnostic Imagining Performed 10/19/23 23:34 CT abd pelvis IV con only Stat Abdomen/Pelvis CT 10/19/23 23:34 Exam(s): CT ABDOMEN + PELVIS With Contrast IV Amt: 83 ml opti 320 EXAM: CT Abdomen and Pelvis With Intravenous Contrast CLINICAL HISTORY: Reason for exam: abd pain, hx PUD with perf. TECHNIQUE: Axial computed tomography images of the abdomen and pelvis with intravenous contrast. CTDI is 27.14 mGy and DLP is 1310.33 mGy-cm. Automated exposure control was utilized for the study. A dose lowering technique was utilized adhering to the principles of ALARA. CONTRAST: Patient received 83 ml opti 320 of IV contrast COMPARISON: CT abdomen pelvis September 17, 2023. FINDINGS: Lung bases: Unremarkable. No mass. No consolidation. ABDOMEN: Liver: Hepatic cirrhosis. Multiple LEFT upper quadrant. Splenic varices. No abdominal ascites. Gallbladder and bile ducts: Unremarkable. No calcified stones. No ductal dilation. Pancreas: Unremarkable. No mass. No ductal dilation. Spleen: Unremarkable. No splenomegaly. Adrenals: Unremarkable. No mass. Kidneys and ureters: Unremarkable. No hydronephrosis. Stomach and bowel: Bigg-en-Y gastric bypass. No obstruction of the jejunojejunostomy. Diverticulosis, without acute diverticulitis. No small bowel obstruction. No free intraperitoneal air. PELVIS: Appendix: No findings to suggest acute appendicitis. Bladder: Decompressed urinary bladder. Reproductive: Atrophied uterus. ABDOMEN and PELVIS: Intraperitoneal space: See above. Bones/joints: RIGHT hip arthroplasty. Degenerative changes of the spine. No acute fracture. No dislocation . Multilevel posterior lumbar fusion at L1-L4. Laminectomy at L3. Soft tissues: Unremarkable. Vasculature: Atherosclerotic changes of the aorta. Lymph nodes: Unremarkable. No enlarged lymph nodes. IMPRESSION: 1. Hepatic cirrhosis. Multiple LEFT upper quadrant. Splenic varices. No abdominal ascites. 2. RIGHT hip arthroplasty. 3. Bigg-en-Y gastric bypass. No obstruction of the jejunojejunostomy. 4. Diverticulosis, without acute diverticulitis. No small bowel obstruction. No free intraperitoneal air. Electronically signed by: David Parra MD 10/20/23 00:51 AM Chest X-Ray 10/20/23 01:20 XR chest 1V portable CLINICAL HISTORY: Shortness of breath. COMPARISON STUDY: Chest CT March 06, 2022. Chest radiograph September 12, 2023. FINDINGS: Postoperative findings within the lumbar spine are partially imaged. Lung volumes are normal. Lungs are clear. There is no pneumothorax or pleural effusion. Cardiac size is normal. Mediastinal contours are stable. There is no evidence for pulmonary edema. IMPRESSION: No acute cardiopulmonary findings. No significant change in appearance of the chest. ACT 112: Negative or not required by law. Electronically signed by: Mike Shfafer M.D. 10/20/2023 7:31 AM Discharge Instructions Given to Patient (Per Discharging Provider) Ms. Zuniga, You were admitted with a GI bleed. You had an upper endoscopy that noted that an ulcer in the setting of your previous bypass surgery. Please continue with pantoprazole 40mg twice a day. They would like to repeat the upper endoscopy in 2 months to ensure resolution of the ulcer. They recommend NO NSAIDs. That means you should stop using medications such as ibuprofen (also called Motrin or Advil). They also recommend not using prednisone. Please keep close follow up with your primary care provider after discharge to ensure follow up of your hemoglobin. Please also keep follow up with gastroenterology after discharge. Please do not hesitate to come back to the emergency room if your symptoms return or worsen. It was a pleasure taking care of you while you were here. Total Time Total Time Spent Total Time Spent (In Minutes): > 30 minutes
== END 2023-10-21 14:46 | disposition home or self-care (01) | DRG 379 ==
LOC: ED 22:11 → EDINP 10-20 03:01 → SUATTDRO 10-20 03:01 → 2N 10-20 03:48